=== PATIENT | male | born 1945 | race African-American/Black ===

== ENCOUNTER 2016-10-08 21:19 | Emergency (ER) | payer MEDICARE, BC ==
[~2016-10-08] VITALS: Ht 180.3 cm; Wt 93.9 kg
[~2016-10-08 21:19] MED LIST: AMLO-243 PO; AMLO1TAB6 PO; AMLO5TAB2 PO; ATOR40TA59 PO; BACL20TA PO; Baclofen PO; CHOL10007 PO; CIPR250T30 PO; DAPS25TA PO; Enoxaparin Sodium SQ; METO5TAB55 PO; NYST60PO TP; OXYB10TA PO; OXYB5TAB PO; PANT40TA3 PO; PRED-220 PO; PRED1TAB3 PO; SULF1TAB24 PO; TAMS0.4C97 PO; TERA5CAP3 PO; TRIA1TAB2 PO; ZOLP5TAB PO
--- NOTE | 2016-10-08 22:13 | PHYS DOC ---
Past Medical History Past Medical History: High Cholesterol, Hypertension, Prostatitis Additional Past Medical Histor: MS Past Surgical History: Tonsillectomy Additional Past Surgical Histo: hernia Alcohol Use: None Drug Use: None Adult General Chief Complaint Chief Complaint: WEAKNESS/GENERALIZED HPI HPI Patient is a 71 year old male who presents with complaint of generalized weakness and loss of appetite over the past 2-3 days. The patient lives at home and is taken care of by his . Patient is bedbound at baseline with history of MS, hypertension, hyperlipidemia. Patient has a chronic indwelling Walls. Patient has had history of urinary tract infections due to chronic indwelling Walls. Patient denies any pain, fever, or vomiting. The patient describes his symptoms is not having enough energy compared to his baseline. Patient's family brought the patient to the emergency department as they're concerned he may have a urinary tract infection. Review of Systems Review of Systems Constitutional: Generalized fatigue, Denies fever or chills [] Eyes: Denies change in visual acuity, redness, or eye pain [] HENT: Denies nasal congestion or sore throat [] Respiratory: Denies cough or shortness of breath [] Cardiovascular: Denies chest pain or edema [] GI: Loss of appetite, denies abdominal pain, nausea, vomiting, bloody stools or diarrhea [] : Foul-smelling urine [] Musculoskeletal: Denies back pain or joint pain [] Integument: Denies rash or skin lesions [] Neurologic: Denies headache, focal weakness or sensory changes [] Current Medications Current Medications Current Medications Medications (Trade) Dose Ordered Sig/Génesis Start Time Stop Time Status Last Admin Dose Admin Ceftriaxone Sodium (Rocephin 1gm Ivpb For Omni) 50 ml @ 100 mls/hr 1X ONCE 10/08/16 23:30 10/08/16 23:59 Ondansetron HCl 4 mg 4 mg 1X ONCE 10/08/16 22:15 10/08/16 22:16 DC 10/08/16 22:14 4 MG Sodium Chloride (Iv Sodium Chloride 0.9% 500ml Bag) 500 ml @ 500 mls/hr 1X ONCE 10/08/16 22:15 10/08/16 23:14 DC 10/08/16 22:11 500 MLS/HR Allergies Allergies Allergies Coded Allergies Type Severity Reaction Last Updated Verified No Known Drug Allergies 04/30/14 No Physical Exam Physical Exam Constitutional: Alert, afebrile, appears chronically poor health. [] HENT: Normocephalic, atraumatic, bilateral external ears normal, oropharynx moist, no oral exudates, nose normal. [] Eyes: PERRLA, EOMI, conjunctiva normal, no discharge. [] Neck: Normal range of motion, no tenderness, supple, no stridor. [] Cardiovascular: Tachycardia, regular rhythm, no murmur [] Lungs & Thorax: Bilateral breath sounds clear to auscultation [] Abdomen: Bowel sounds normal, soft, no tenderness, no masses, no pulsatile masses. [] Skin: Warm, dry, no erythema, no rash. [] Back: No tenderness, no CVA tenderness. [] Extremities: Multiple erosions present in bilateral medial thighs, no erythema or purulent drainage, no tenderness, no cyanosis, no clubbing, ROM intact, no edema. [] Neurologic: Alert and oriented X 3, bilateral upper and lower extremity 4 out of 5 motor strength, no focal deficits noted. [] Current Patient Data Vital Signs Vital Signs Date Time Temp Pulse Resp B/P Pulse Ox O2 Delivery O2 Flow Rate FiO2 10/08/16 21:19 98.7 99 14 147/82 97 Room Air 98.7 Lab Values Laboratory Tests Test 10/08/16 22:00 10/08/16 22:34 White Blood Count 13.6x10^3/uL (4.0-11.0) H Red Blood Count 4.99x10^6/uL (4.30-5.70) Hemoglobin 13.3g/dL (13.0-17.5) Hematocrit 38.7% (39.0-53.0) L Mean Corpuscular Volume 77fL (79-100) L Mean Corpuscular Hemoglobin 27pg (25-35) Mean Corpuscular Hemoglobin Concent 35g/dL (31-37) Red Cell Distribution Width 17.8% (11.5-14.5) H Platelet Count 369x10^3/uL (140-400) Neutrophils (%) (Auto) 87% (31-73) H Lymphocytes (%) (Auto) 11% (24-48) L Monocytes (%) (Auto) 1% (0-9) Eosinophils (%) (Auto) 0% (0-3) Basophils (%) (Auto) 0% (0-3) Neutrophils # (Auto) 11.9x10^3uL (1.8-7.7) H Lymphocytes # (Auto) 1.5x10^3/uL (1.0-4.8) Monocytes # (Auto) 0.1x10^3/uL (0.0-1.1) Eosinophils # (Auto) 0.0x10^3/uL (0.0-0.7) Basophils # (Auto) 0.0x10^3/uL (0.0-0.2) Platelet Estimate Pending Sodium Level 130mmol/L (136-145) L Potassium Level 4.0mmol/L (3.5-5.1) Chloride Level 93mmol/L (98-107) L Carbon Dioxide Level 25mmol/L (21-32) Anion Gap 12 (6-14) Blood Urea Nitrogen 9mg/dL (8-26) Creatinine 0.9mg/dL (0.7-1.3) Estimated GFR (Cockcroft-Gault) 100.7 BUN/Creatinine Ratio 10 (6-20) Glucose Level 196mg/dL (70-99) H Calcium Level 9.1mg/dL (8.5-10.1) Magnesium Level 1.7mg/dL (1.8-2.4) L Total Bilirubin 0.4mg/dL (0.2-1.0) Aspartate Amino Transferase (AST) 10U/L (15-37) L Alanine Aminotransferase (ALT) 20U/L (16-63) Alkaline Phosphatase 119U/L (46-116) H Total Protein 6.7g/dL (6.4-8.2) Albumin 2.9g/dL (3.4-5.0) L Albumin/Globulin Ratio 0.8 (1.0-1.7) L Urine Collection Type U cath Urine Color Yellow Urine Clarity Turbid Urine pH 7.5 Urine Specific [place] 1.020 Urine Protein 30mg/dL (NEG-TRACE) Urine Glucose (UA) Negativemg/dL (NEG) Urine Ketones (Stick) Tracemg/dL (NEG) Urine Blood Large (NEG) Urine Nitrite Negative (NEG) Urine Bilirubin Small (NEG) Urine Urobilinogen Dipstick 1.0mg/dL (0.2 mg/dL) Urine Leukocyte Esterase Large (NEG) Urine RBC 1-2/HPF (0-2) Urine WBC Tntc/HPF (0-4) Urine Squamous Epithelial Cells Occ/LPF Urine Bacteria Many/HPF (0-FEW) Urine Mucus Mod/LPF Laboratory Tests 10/08/16 22:00 Laboratory Tests 10/08/16 22:00 EKG EKG Interpreted by me: Heart rate 101, sinus tachycardia, normal intervals, normal axis, no acute ST/T-wave abnormalities present [] Radiology/Procedures Radiology/Procedures Not performed [] Course & Med Decision Making Course & Med Decision Making Pertinent Labs and Imaging studies reviewed. (See chart for details) The patient was given IV fluids. Patient found to have evidence of urinary tract infection. The patient's previous urine cultures were reference. The patient's last urinary tract infection did show susceptibility to cephalosporins. Patient given IV Rocephin in the emergency department. I sat and spoke with the patient patient's family regarding treatment options including inpatient versus outpatient therapy. After carefully considering his options, the patient decided that he wanted to go home and declined admission to the hospital at this time. I do not feel this to be unreasonable. The patient will be prescribed Vantin for continued treatment of urinary tract infection. Recommended close follow-up with patient's primary doctor in 2 days and return to the emergency department for any worsening symptoms. Patient patient's family voiced understanding and in agreement with treatment plan. Dragon Disclaimer Dragon Disclaimer This electronic medical record was generated, in whole or in part, using a voice recognition dictation system. Departure Departure Impression: Primary Impression: UTI (urinary tract infection) due to urinary indwelling catheter Additional Impression: Multiple sclerosis Disposition: 01 HOME, SELF-CARE Condition: IMPROVED Referrals: LUPE COLES MD (PCP) Patient Instructions: Urinary Tract Infection Additional Instructions: Follow-up with your primary doctor in 2 days. Return to emergency department for any worsening symptoms. Scripts Cefpodoxime Proxetil 200 Mg Tablet1 Tab PO BID #20 TAB Prov:CHIARA SO MD 10/08/16 Problem Qualifiers Primary Impression: UTI (urinary tract infection) due to urinary indwelling catheter Indwelling urinary catheter type: indwelling urethral catheter Encounter type : subsequent encounter Qualified Code: T83.511D - Infection and inflammatory reaction due to indwelling urethral catheter, subsequent encounter CHIARA SO MD Oct 08, 2016 22:13
[2016-10-08] MEDS ORDERED: ONDANSETRON PF 4 MG/2 ML VIAL. IV ONE (22:15)
[2016-10-08] MEDS ORDERED: IV NORMAL SALINE 500ML BAG 500 ML IV ONE (22:15)
[2016-10-08 22:24] LABS: BASO % 0 % (0-3); EOS % 0 % (0-3); HEMATOCRIT 38.7 % (39.0-53.0); HEMOGLOBIN 13.3 g/dL (13.0-17.5); LYMPH # 1.5 x10^3/uL (1.0-4.8); LYMPH % 11 % (24-48); MEAN CORPUSCULAR HEMOGLOBIN 27 pg (25-35); MEAN CORPUSCULAR HGB CONC 35 g/dL (31-37); MEAN CORPUSCULAR VOLUME 77 fL (79-100); MONO % 1 % (0-9); NEUT % 87 % (31-73); PLATELET COUNT 369 x10^3/uL (140-400); RED BLOOD COUNT 4.99 x10^6/uL (4.30-5.70); RED CELL DISTRIBUTION WIDTH 17.8 % (11.5-14.5); WHITE BLOOD COUNT 13.6 x10^3/uL (4.0-11.0)
[2016-10-08 22:50] LABS: BILIRUBIN,URINE SMALL (NEG); GLUCOSE,URINE NEGATIVE (NEG); NITRITE,URINE NEGATIVE (NEG); PH,URINE 7.5; PROTEIN,URINE 30 mg/dL (NEG-TRACE)
[2016-10-08 22:56] LABS: CALCIUM 9.1 mg/dL (8.5-10.1); CREATININE 0.9 mg/dL (0.7-1.3); GFR 100.7
[2016-10-08 23:03] LABS: ALBUMIN 2.9 g/dL (3.4-5.0); ALBUMIN/GLOBULIN RATIO 0.8 (1.0-1.7); MAGNESIUM 1.7 mg/dL (1.8-2.4); TOTAL BILIRUBIN 0.4 mg/dL (0.2-1.0); TOTAL PROTEIN 6.7 g/dL (6.4-8.2)
[2016-10-08 23:04] LABS: BACTERIA,URINE MANY /HPF (0-FEW); SQUAMOUS EPITHELIAL CELL,UR OCC /LPF; WBC,URINE TNTC /HPF (0-4)
[2016-10-08] MEDS ORDERED: CEFTRIAXONE 1GM IVPB FOR OMNI 50 ML IV ONE (23:30)
[2016-10-08] MEDS ORDERED: CEFP200T PO (23:35)
[2016-10-09 00:01] LABS: % EOS 1 % (0-5); PLT ESTIMATE ADEQUATE (ADEQUATE)
[2016-10-09 00:02] LABS: ANISOCYTOSIS SLIGHT
[2016-10-09 00:30] VITALS: BP 132/83
--- NOTE | 2016-10-09 11:26 | EKG ---
[facility] [address] [place] [address] Test Date: 2016-10-08 Test Time: 21:24:21 Pat Name: ALFRED HUDSON Department: Room: Gender: M Business Relationship Manager: : 1945 Requested By: CHIARA SO Order Number: [id number] Reading MD: Measurements Intervals [place] Rate: 101 P: 16 AL: 170 QRS: 31 QRSD: 74 T: 52 QT: 328 QTc: 426 Interpretive Statements SINUS TACHYCARDIA LEFT ATRIAL ABNORMALITY LOW LIMB LEAD VOLTAGE ABNORMAL ECG RI6.01 No previous ECG available for comparison
== END 2016-10-09 00:15 | disposition home or self-care (01) ==
LOC: ER 21:19
DX: T83.511D Infection and inflammatory reaction due to indwelling urethral catheter, subsequent encounter (principal); G35 Multiple sclerosis; E78.00 Pure hypercholesterolemia, unspecified; I10 Essential (primary) hypertension; Z98.890 Other specified postprocedural states; Y84.6 Urinary catheterization as the cause of abnormal reaction of the patient, or of later complication, without mention of misadventure at the time of the procedure; Y92.89 Other specified places as the place of occurrence of the external cause
CPT/HCPCS: 36415; 80053; 81001; 83735; 85007; 85027; 87086; 93005; 96361; 96365; 96375; 99285; J0690; J2405; J7040

== ENCOUNTER 2017-08-17 12:12 | Inpatient (IN) | payer MEDICARE, BC ==
[2017-08-17] MEDS: IV NORMAL SALINE 1000ML BAG 1,000 ML IV ×6 (12:38→23:11)
[2017-08-17 12:45] LABS: BASE EXCESS ABG -1 mmol/L (-3-3); HCO3 ABG 21 mmol/L (21-28); PCO2 ABG 25 mmHg (35-46); PH ABG 7.52 (7.35-7.45); PO2 ABG 76 mmHg (65-108); SAT O2 ABG 95 % (92-99)
[2017-08-17 12:49] LABS: BILIRUBIN,URINE LARGE (NEG); CLARITY,URINE TURBID; COLOR,URINE RED; GLUCOSE,URINE 100 mg/dL (NEG); NITRITE,URINE POSITIVE (NEG); PROTEIN,URINE >=300 mg/dL (NEG-TRACE)
[2017-08-17 13:04] LABS: BACTERIA,URINE MANY /HPF (0-FEW); BASO # 0.1 x10^3/uL (0.0-0.2); BASO % 0 % (0-3); EOS # 0.1 x10^3/uL (0.0-0.7); EOS % 0 % (0-3); HEMATOCRIT 39.7 % (39.0-53.0); HEMOGLOBIN 13.5 g/dL (13.0-17.5); LYMPH # 4.6 x10^3/uL (1.0-4.8); LYMPH % 12 % (24-48); MEAN CORPUSCULAR HEMOGLOBIN 28 pg (25-35); MEAN CORPUSCULAR HGB CONC 34 g/dL (31-37); MEAN CORPUSCULAR VOLUME 82 fL (79-100); MONO # 1.1 x10^3/uL (0.0-1.1); MONO % 3 % (0-9); NEUT # 32.4 x10^3uL (1.8-7.7); NEUT % 85 % (31-73); PLATELET COUNT 409 x10^3/uL (140-400); RBC,URINE TNTC /HPF (0-2); RED BLOOD COUNT 4.85 x10^6/uL (4.30-5.70); RED CELL DISTRIBUTION WIDTH 17.6 % (11.5-14.5); WBC,URINE TNTC /HPF (0-4); WHITE BLOOD COUNT 38.3 x10^3/uL (4.0-11.0)
[2017-08-17 13:05] LABS: ADD MAN DIFF? YES
[2017-08-17] MEDS: ACETAMINOPHEN 650 MG SUPP.RECT. PR (13:12)
[2017-08-17 13:23] LABS: INR 1.3 (0.8-1.1); PROTHROMBIN TIME PATIENT 15.1 SEC (11.7-14.0)
[2017-08-17 13:35] LABS: ANION GAP 12 (6-14); BLOOD UREA NITROGEN 30 mg/dL (8-26); CALCIUM 7.8 mg/dL (8.5-10.1); CARBON DIOXIDE 24 mmol/L (21-32); CHLORIDE 97 mmol/L (98-107); CREATININE 2.7 mg/dL (0.7-1.3); GFR 28.2; GLUCOSE 109 mg/dL (70-99); POTASSIUM 4.8 mmol/L (3.5-5.1); SODIUM 133 mmol/L (136-145)
[2017-08-17 13:45] LABS: ALBUMIN 2.1 g/dL (3.4-5.0); ALK PHOS 89 U/L (46-116); ALT (SGPT) 8 U/L (16-63); AST (SGOT) 9 U/L (15-37); DIRECT BILIRUBIN 0.4 mg/dL (0.0-0.2); LIPASE 44 U/L (73-393); MAGNESIUM 1.4 mg/dL (1.8-2.4); TOTAL BILIRUBIN 1.4 mg/dL (0.2-1.0)
[2017-08-17 13:53] LABS: AMMONIA < 10 mcmol/L (11-34)
[2017-08-17 13:57] LABS: CREATINE KINASE 22 U/L (39-308)
[2017-08-17 13:57] LABS: NT-PRO BNP 2529 pg/mL (0-124)
[2017-08-17 14:03] LABS: CKMB INDEX 2.3 % (0-4); CKMB MASS < 0.5 ng/mL (0.0-3.6)
[2017-08-17 14:09] LABS: INFLUENZA A PATIENT NEGATIVE (NEGATIVE); INFLUENZA B PATIENT NEGATIVE (NEGATIVE); OBC FLU VALID
[2017-08-17 14:25] LABS: LACTIC ACID 4.2 mmol/L (0.4-2.0)
[2017-08-17 14:29] LABS: % BANDS 8 % (0-9); % BASOS 1 % (0-3); % LYMPHS 11 % (24-48); % MONOS 1 % (0-10); % SEGS 79 % (35-66)
[2017-08-17] MEDS ORDERED: ONDANSETRON PF 4 MG/2 ML VIAL. IV ×2 (14:30→18:30)
[2017-08-17 14:33] LABS: ANISOCYTOSIS SLIGHT; PLT ESTIMATE ADEQUATE (ADEQUATE); POLYCHROMASIA SLIGHT
[2017-08-17 14:34] LABS: TOXIC GRANULATION SLIGHT
[2017-08-17 16:43] LABS: LACTIC ACID 1.6 mmol/L (0.4-2.0)
[2017-08-17] MEDS ORDERED: MORPHINE SULFATE 2 MG/ML DISP.SYRIN. IV (18:30)
[2017-08-17] MEDS ORDERED: VANCOMYCIN 2 GM in IV DEXTROSE 5% 500 ML IV (18:30)
[2017-08-17] MEDS ORDERED: traMADol 50 MG TABLET PO (18:30)
[2017-08-17] MEDS ORDERED: INFLUENZA VAX SCREEN BY RX. MC (18:30)
[2017-08-17] MEDS ORDERED: hydrALAZINE 20 MG/ML VIAL. IVP (18:30)
[2017-08-17] MEDS ORDERED: PNEUMOCOCCAL VAX SCREEN BY RX. MC (18:30)
[2017-08-17] MEDS ORDERED: DOCUSATE SODIUM 100 MG CAPSULE. PO (18:30)
[2017-08-17] MEDS: CEFEPIME HCL IV Push 1 GM VIAL. IVP (19:22)
[2017-08-17] MEDS: VANCOMYCIN 2 GM in IV DEXTROSE 5 %-0.2 % NACL 500 ML IV (19:23)
[2017-08-17] MEDS ORDERED: ACETAMINOPHEN 325 MG TABLET. PO (19:30)
[2017-08-17] MEDS: VANCOMYCIN PER PHARMACY MC ×2 (19:41→19:43)
[2017-08-17] MEDS: OXYBUTYNIN CHLORIDE 5 MG TABLET PO (20:29)
[2017-08-17 21:26] LABS: TROPONINI < 0.017 ng/mL (0.000-0.055)
[2017-08-17] MEDS: MAGNESIUM SULFATE 4GM 100 ML IV (21:45)
[2017-08-17] MEDS: HEPARIN PF for SUB-Q USE 5,000 UNIT/0.5 ML VIAL. SQ (21:45)
[2017-08-17] MEDS ORDERED: CEFEPIME HCL 1 GM in IV DEXTROSE 5% 50 ML IV (22:00)
[2017-08-17] MEDS: NOREPINEPHRIN PREMIX 250 ML IV (23:20)
[2017-08-17] MEDS: ACETAMINOPHEN 325 MG TABLET. PO (23:35)
[2017-08-18] MEDS: VASOPRESSIN 40 UNIT in IV DEXTROSE 5% 100 ML IV (00:41)
[2017-08-18 03:50] LABS: ADD MAN DIFF? NO
[2017-08-18 03:54] LABS: BASO # 0.2 x10^3/uL (0.0-0.2); BASO % 0 % (0-3); EOS % 0 % (0-3); HEMATOCRIT 35.6 % (39.0-53.0); HEMOGLOBIN 11.9 g/dL (13.0-17.5); LYMPH # 4.7 x10^3/uL (1.0-4.8); LYMPH % 11 % (24-48); MEAN CORPUSCULAR HEMOGLOBIN 28 pg (25-35); MEAN CORPUSCULAR HGB CONC 33 g/dL (31-37); MEAN CORPUSCULAR VOLUME 83 fL (79-100); MONO # 1.3 x10^3/uL (0.0-1.1); MONO % 3 % (0-9); NEUT # 35.7 x10^3uL (1.8-7.7); NEUT % 85 % (31-73); PLATELET COUNT 366 x10^3/uL (140-400); RED BLOOD COUNT 4.31 x10^6/uL (4.30-5.70)
[2017-08-18] MEDS: IV NORMAL SALINE 1000ML BAG 1,000 ML IV ×2 (04:06→20:58)
[2017-08-18 04:10] LABS: ALBUMIN 1.7 g/dL (3.4-5.0); ALBUMIN/GLOBULIN RATIO 0.6 (1.0-1.7); ALK PHOS 78 U/L (46-116); ALT (SGPT) 8 U/L (16-63); ANION GAP 13 (6-14); AST (SGOT) 13 U/L (15-37); BLOOD UREA NITROGEN 33 mg/dL (8-26); BUN/CREATININE RATIO 14 (6-20); CARBON DIOXIDE 19 mmol/L (21-32); CHLORIDE 99 mmol/L (98-107); CREATININE 2.3 mg/dL (0.7-1.3); GLUCOSE 128 mg/dL (70-99); POTASSIUM 4.6 mmol/L (3.5-5.1); SODIUM 131 mmol/L (136-145); TOTAL BILIRUBIN 0.9 mg/dL (0.2-1.0); TOTAL PROTEIN 4.4 g/dL (6.4-8.2)
[2017-08-18 04:16] LABS: TROPONINI < 0.017 ng/mL (0.000-0.055)
[2017-08-18 04:19] LABS: WHITE BLOOD COUNT 41.9 x10^3/uL (4.0-11.0)
[2017-08-18] MEDS: NOREPINEPHRIN PREMIX 250 ML IV ×2 (04:38→20:58)
[2017-08-18] MEDS: HEPARIN PF for SUB-Q USE 5,000 UNIT/0.5 ML VIAL. SQ ×3 (05:42→20:57)
[2017-08-18] MEDS: VANCOMYCIN PER PHARMACY MC (08:22)
[2017-08-18] MEDS: OXYBUTYNIN CHLORIDE 5 MG TABLET PO ×2 (09:51→20:56)
[2017-08-18] MEDS: CEFEPIME HCL IV Push 1 GM VIAL. IVP ×2 (09:51→20:56)
[2017-08-18] MEDS ORDERED: MAGNESIUM SULFATE 2GM 50 ML IV (11:15)
[2017-08-18 11:24] LABS: C DIFF BY PCR Negative (Negative)
[2017-08-18] MEDS ORDERED: VITS A & D/LANOLIN TOPICAL OINTMENT 56GM TUBE. TP (12:45)
[2017-08-18] MEDS: ASCORBIC ACID 500 MG TABLET PO (13:08)
[2017-08-18] MEDS: MULTIVITAMIN with MINERAL TABLET. PO (13:09)
[2017-08-18] MEDS: LINEZOLID 600 MG TABLET PO ×2 (13:09→20:55)
[2017-08-18 19:13] LABS: MRSA BY PCR Negative (Negative)
[2017-08-18] MEDS ORDERED: VANCOMYCIN 1.25 GM in IV DEXTROSE 5 %-0.2 % NACL 500 ML IV (20:00)
[2017-08-19] MEDS: IV NORMAL SALINE 1000ML BAG 1,000 ML IV ×4 (00:37→22:56)
[2017-08-19] MEDS: BACLOFEN 10 MG TABLET. PO ×2 (00:37→09:44)
[2017-08-19 05:18] LABS: ADD MAN DIFF? NO
[2017-08-19 05:54] LABS: BASO # 0.1 x10^3/uL (0.0-0.2); BASO % 0 % (0-3); EOS # 0.4 x10^3/uL (0.0-0.7); EOS % 1 % (0-3); HEMOGLOBIN 10.1 g/dL (13.0-17.5); LYMPH # 3.9 x10^3/uL (1.0-4.8); LYMPH % 12 % (24-48); MEAN CORPUSCULAR HEMOGLOBIN 28 pg (25-35); MEAN CORPUSCULAR HGB CONC 34 g/dL (31-37); MEAN CORPUSCULAR VOLUME 82 fL (79-100); MONO # 0.9 x10^3/uL (0.0-1.1); MONO % 3 % (0-9); NEUT # 28.5 x10^3uL (1.8-7.7); NEUT % 85 % (31-73); PLATELET COUNT 353 x10^3/uL (140-400); RED BLOOD COUNT 3.66 x10^6/uL (4.30-5.70); RED CELL DISTRIBUTION WIDTH 17.5 % (11.5-14.5); WHITE BLOOD COUNT 33.8 x10^3/uL (4.0-11.0)
[2017-08-19] MEDS: HEPARIN PF for SUB-Q USE 5,000 UNIT/0.5 ML VIAL. SQ ×3 (05:54→21:09)
[2017-08-19 06:04] LABS: MAGNESIUM 2.3 mg/dL (1.8-2.4)
[2017-08-19 06:15] LABS: ALBUMIN 1.6 g/dL (3.4-5.0); ANION GAP 10 (6-14); BLOOD UREA NITROGEN 24 mg/dL (8-26); CALCIUM 7.6 mg/dL (8.5-10.1); CARBON DIOXIDE 23 mmol/L (21-32); CHLORIDE 101 mmol/L (98-107); CREATININE 1.5 mg/dL (0.7-1.3); GFR 55.7; GLUCOSE 98 mg/dL (70-99); PHOSPHORUS 3.6 mg/dL (2.6-4.7); POTASSIUM 3.9 mmol/L (3.5-5.1); SODIUM 134 mmol/L (136-145)
[2017-08-19] MEDS: LINEZOLID 600 MG TABLET PO (09:44)
[2017-08-19] MEDS: MULTIVITAMIN with MINERAL TABLET. PO (09:44)
[2017-08-19] MEDS: OXYBUTYNIN CHLORIDE 5 MG TABLET PO ×2 (09:44→20:58)
[2017-08-19] MEDS: ASCORBIC ACID 500 MG TABLET PO (09:44)
[2017-08-19] MEDS: CEFEPIME HCL IV Push 1 GM VIAL. IVP ×2 (10:17→20:59)
[2017-08-19] MEDS: LACTOBACILLUS RHAMNOSUS GG 1 CAPSULE. PO (20:59)
[2017-08-20] MEDS: HEPARIN PF for SUB-Q USE 5,000 UNIT/0.5 ML VIAL. SQ ×3 (05:20→21:01)
[2017-08-20 05:57] LABS: ADD MAN DIFF? NO
[2017-08-20 06:26] LABS: BASO % 0 % (0-3); EOS # 0.4 x10^3/uL (0.0-0.7); EOS % 2 % (0-3); HEMATOCRIT 27.6 % (39.0-53.0); HEMOGLOBIN 9.5 g/dL (13.0-17.5); LYMPH # 2.4 x10^3/uL (1.0-4.8); LYMPH % 12 % (24-48); MEAN CORPUSCULAR HEMOGLOBIN 28 pg (25-35); MEAN CORPUSCULAR HGB CONC 34 g/dL (31-37); MEAN CORPUSCULAR VOLUME 82 fL (79-100); MONO # 0.5 x10^3/uL (0.0-1.1); MONO % 3 % (0-9); NEUT # 16.4 x10^3uL (1.8-7.7); NEUT % 83 % (31-73); PLATELET COUNT 243 x10^3/uL (140-400); RED BLOOD COUNT 3.39 x10^6/uL (4.30-5.70); RED CELL DISTRIBUTION WIDTH 17.2 % (11.5-14.5); WHITE BLOOD COUNT 19.8 x10^3/uL (4.0-11.0)
[2017-08-20 06:39] LABS: ALBUMIN 1.5 g/dL (3.4-5.0); ANION GAP 7 (6-14); BLOOD UREA NITROGEN 19 mg/dL (8-26); CALCIUM 7.9 mg/dL (8.5-10.1); CARBON DIOXIDE 24 mmol/L (21-32); CHLORIDE 106 mmol/L (98-107); GFR 88.9; GLUCOSE 108 mg/dL (70-99); PHOSPHORUS 2.1 mg/dL (2.6-4.7); POTASSIUM 3.6 mmol/L (3.5-5.1); SODIUM 137 mmol/L (136-145)
[2017-08-20 06:42] LABS: MAGNESIUM 1.8 mg/dL (1.8-2.4)
[2017-08-20] MEDS: ASCORBIC ACID 500 MG TABLET PO (09:03)
[2017-08-20] MEDS: LACTOBACILLUS RHAMNOSUS GG 1 CAPSULE. PO ×2 (09:03→20:50)
[2017-08-20] MEDS: MULTIVITAMIN with MINERAL TABLET. PO (09:03)
[2017-08-20] MEDS: OXYBUTYNIN CHLORIDE 5 MG TABLET PO ×2 (09:03→20:50)
[2017-08-20] MEDS: CEFEPIME HCL IV Push 1 GM VIAL. IVP ×2 (11:19→20:50)
[2017-08-20] MEDS: IV NORMAL SALINE 1000ML BAG 1,000 ML IV (11:20)
[2017-08-20] MEDS: POTASSIUM PHOSPHATE DIBASIC 13.6 MMOL in IV NORMAL SALINE 100ML 100 ML IV ×3 (14:25→18:50)
[2017-08-21] MEDS: HEPARIN PF for SUB-Q USE 5,000 UNIT/0.5 ML VIAL. SQ ×3 (04:52→20:56)
[2017-08-21 07:47] LABS: ALBUMIN 1.6 g/dL (3.4-5.0); ANION GAP 8 (6-14); BLOOD UREA NITROGEN 14 mg/dL (8-26); CALCIUM 7.6 mg/dL (8.5-10.1); CARBON DIOXIDE 25 mmol/L (21-32); CHLORIDE 104 mmol/L (98-107); CREATININE 0.8 mg/dL (0.7-1.3); GLUCOSE 101 mg/dL (70-99); MAGNESIUM 1.3 mg/dL (1.8-2.4); PHOSPHORUS 2.6 mg/dL (2.6-4.7); POTASSIUM 3.9 mmol/L (3.5-5.1); SODIUM 137 mmol/L (136-145)
[2017-08-21] MEDS: OXYBUTYNIN CHLORIDE 5 MG TABLET PO ×2 (08:32→20:50)
[2017-08-21] MEDS: ASCORBIC ACID 500 MG TABLET PO (08:32)
[2017-08-21] MEDS: MULTIVITAMIN with MINERAL TABLET. PO (08:32)
[2017-08-21] MEDS: LACTOBACILLUS RHAMNOSUS GG 1 CAPSULE. PO ×2 (08:32→20:50)
[2017-08-21] MEDS: CEFEPIME HCL IV Push 1 GM VIAL. IVP ×2 (09:23→20:50)
[2017-08-21] MEDS: FLU VACC QS2017-18 (36MOS+)/PF 0.5 ML SYRINGE. VAX IM (14:22)
[2017-08-21] MEDS: PNEUMOC CONJ VACC 23-VALENT 0.5 ML VIAL. VAX IM (14:24)
[2017-08-21] MEDS: ACETAMINOPHEN 325 MG TABLET. PO (20:50)
[2017-08-22 05:29] LABS: ALBUMIN 1.8 g/dL (3.4-5.0); ANION GAP 9 (6-14); BLOOD UREA NITROGEN 14 mg/dL (8-26); CALCIUM 8.4 mg/dL (8.5-10.1); CARBON DIOXIDE 26 mmol/L (21-32); CHLORIDE 103 mmol/L (98-107); CREATININE 0.8 mg/dL (0.7-1.3); GLUCOSE 104 mg/dL (70-99); MAGNESIUM 1.3 mg/dL (1.8-2.4); PHOSPHORUS 2.6 mg/dL (2.6-4.7); POTASSIUM 3.7 mmol/L (3.5-5.1); SODIUM 138 mmol/L (136-145)
[2017-08-22] MEDS: HEPARIN PF for SUB-Q USE 5,000 UNIT/0.5 ML VIAL. SQ ×3 (05:51→22:25)
[2017-08-22] MEDS: ASCORBIC ACID 500 MG TABLET PO (08:47)
[2017-08-22] MEDS: MULTIVITAMIN with MINERAL TABLET. PO (08:48)
[2017-08-22] MEDS: LACTOBACILLUS RHAMNOSUS GG 1 CAPSULE. PO ×2 (08:48→22:24)
[2017-08-22] MEDS: OXYBUTYNIN CHLORIDE 5 MG TABLET PO ×2 (08:48→22:24)
[2017-08-22] MEDS: CEFEPIME HCL IV Push 1 GM VIAL. IVP ×2 (08:49→22:30)
[2017-08-22 12:08] LABS: ADD MAN DIFF? NO
[2017-08-22 12:14] LABS: BASO # 0.1 x10^3/uL (0.0-0.2); BASO % 1 % (0-3); EOS # 0.5 x10^3/uL (0.0-0.7); EOS % 4 % (0-3); HEMATOCRIT 28.6 % (39.0-53.0); HEMOGLOBIN 9.6 g/dL (13.0-17.5); LYMPH # 2.7 x10^3/uL (1.0-4.8); LYMPH % 21 % (24-48); MEAN CORPUSCULAR HEMOGLOBIN 28 pg (25-35); MEAN CORPUSCULAR HGB CONC 34 g/dL (31-37); MEAN CORPUSCULAR VOLUME 83 fL (79-100); MONO # 0.9 x10^3/uL (0.0-1.1); MONO % 7 % (0-9); NEUT % 68 % (31-73); PLATELET COUNT 281 x10^3/uL (140-400); RED BLOOD COUNT 3.46 x10^6/uL (4.30-5.70); RED CELL DISTRIBUTION WIDTH 17.2 % (11.5-14.5); WHITE BLOOD COUNT 13.2 x10^3/uL (4.0-11.0)
[2017-08-23] MEDS: HEPARIN PF for SUB-Q USE 5,000 UNIT/0.5 ML VIAL. SQ ×3 (05:38→22:01)
[2017-08-23 06:27] LABS: ALBUMIN 1.9 g/dL (3.4-5.0); ANION GAP 8 (6-14); BLOOD UREA NITROGEN 12 mg/dL (8-26); CALCIUM 8.1 mg/dL (8.5-10.1); CARBON DIOXIDE 29 mmol/L (21-32); CHLORIDE 103 mmol/L (98-107); CREATININE 0.8 mg/dL (0.7-1.3); GLUCOSE 107 mg/dL (70-99); MAGNESIUM 1.4 mg/dL (1.8-2.4); PHOSPHORUS 3.2 mg/dL (2.6-4.7); POTASSIUM 3.5 mmol/L (3.5-5.1); SODIUM 140 mmol/L (136-145)
[2017-08-23] MEDS: OXYBUTYNIN CHLORIDE 5 MG TABLET PO ×2 (08:11→21:58)
[2017-08-23] MEDS: LACTOBACILLUS RHAMNOSUS GG 1 CAPSULE. PO ×2 (08:11→21:58)
[2017-08-23] MEDS: MULTIVITAMIN with MINERAL TABLET. PO (08:11)
[2017-08-23] MEDS: ASCORBIC ACID 500 MG TABLET PO (08:11)
[2017-08-23] MEDS: CEFEPIME HCL IV Push 1 GM VIAL. IVP ×2 (09:49→22:04)
[2017-08-23] MEDS: VITS A & D/LANOLIN TOPICAL OINTMENT 56GM TUBE. TP ×2 (14:34→22:08)
[2017-08-23] MEDS: ACETAMINOPHEN 325 MG TABLET. PO (21:59)
[2017-08-24 05:10] LABS: ALBUMIN 1.9 g/dL (3.4-5.0); ANION GAP 10 (6-14); BLOOD UREA NITROGEN 15 mg/dL (8-26); CALCIUM 8.4 mg/dL (8.5-10.1); CARBON DIOXIDE 26 mmol/L (21-32); CHLORIDE 104 mmol/L (98-107); CREATININE 0.8 mg/dL (0.7-1.3); GLUCOSE 106 mg/dL (70-99); PHOSPHORUS 3.1 mg/dL (2.6-4.7); POTASSIUM 3.6 mmol/L (3.5-5.1); SODIUM 140 mmol/L (136-145)
[2017-08-24] MEDS: HEPARIN PF for SUB-Q USE 5,000 UNIT/0.5 ML VIAL. SQ ×2 (05:20→14:37)
[2017-08-24] MEDS: CEFEPIME HCL IV Push 1 GM VIAL. IVP (08:56)
[2017-08-24] MEDS: VITS A & D/LANOLIN TOPICAL OINTMENT 56GM TUBE. TP ×2 (08:56→14:36)
[2017-08-24] MEDS: LACTOBACILLUS RHAMNOSUS GG 1 CAPSULE. PO (08:56)
[2017-08-24] MEDS: OXYBUTYNIN CHLORIDE 5 MG TABLET PO (08:56)
[2017-08-24] MEDS: ASCORBIC ACID 500 MG TABLET PO (08:56)
[2017-08-24] MEDS: MULTIVITAMIN with MINERAL TABLET. PO (08:56)
== END 2017-08-24 16:16 | disposition home health service (06) | DRG 698 ==
LOC: 5 NORTH 08-19 14:42 → ER 12:12 → 1 WEST ICU 14:00
DX: T83.518A Infection and inflammatory reaction due to other urinary catheter, initial encounter (principal); A41.9 Sepsis, unspecified organism; E43 Unspecified severe protein-calorie malnutrition; N17.9 Acute kidney failure, unspecified; N39.0 Urinary tract infection, site not specified; F03.90 Unspecified dementia, unspecified severity, without behavioral disturbance, psychotic disturbance, mood disturbance, and anxiety; G35 Multiple sclerosis; E74.39 Other disorders of intestinal carbohydrate absorption; E78.5 Hyperlipidemia, unspecified; E83.42 Hypomagnesemia; Z68.28 Body mass index [BMI] 28.0-28.9, adult; I10 Essential (primary) hypertension; K44.9 Diaphragmatic hernia without obstruction or gangrene; N28.1 Cyst of kidney, acquired; N31.9 Neuromuscular dysfunction of bladder, unspecified; N40.0 Benign prostatic hyperplasia without lower urinary tract symptoms; R09.02 Hypoxemia; Y84.6 Urinary catheterization as the cause of abnormal reaction of the patient, or of later complication, without mention of misadventure at the time of the procedure; Z66 Do not resuscitate; Z74.01 Bed confinement status; Z79.84 Long term (current) use of oral hypoglycemic drugs; Z82.49 Family history of ischemic heart disease and other diseases of the circulatory system; Z87.440 Personal history of urinary (tract) infections
CPT/HCPCS: 36415; 36600; 71045; 76770; 80048; 80053; 80069; 80076; 81001; 82140; 82553; 82805; 83605; 83690; 83735; 83880; 84443; 84484; 85007; 85025; 85610; 87040; 87086; 87186; 87324; 87641; 87804; 87804-59; 90686; 90732; 93005; 96361; 96365; 99291; 99291-25; J0690; J0692; J3370; J3475; J3490; J7030

== ENCOUNTER 2017-10-23 20:10 | Emergency (ER) | payer MEDICARE, BC ==
[2017-10-23 23:38] LABS: BILIRUBIN,URINE LARGE (NEG); CLARITY,URINE CLOUDY; COLOR,URINE RED; GLUCOSE,URINE NEGATIVE (NEG); NITRITE,URINE POSITIVE (NEG); PH,URINE 5.5; PROTEIN,URINE >=300 mg/dL (NEG-TRACE)
[2017-10-23 23:47] LABS: RBC,URINE TNTC /HPF (0-2)
[2017-10-23 23:48] LABS: BACTERIA,URINE MODERATE /HPF (0-FEW); HYALINE CASTS, URINE FEW /HPF; SQUAMOUS EPITHELIAL CELL,UR FEW /LPF
[2017-10-24] MEDS: CIPROFLOXACIN HCL 250 MG TABLET. PO (01:15)
== END 2017-10-24 02:35 | disposition home or self-care (01) ==
LOC: ER 10-24 02:35
DX: T83.83XA Hemorrhage due to genitourinary prosthetic devices, implants and grafts, initial encounter (principal); E78.00 Pure hypercholesterolemia, unspecified; I10 Essential (primary) hypertension; Y82.8 Other medical devices associated with adverse incidents; Y92.89 Other specified places as the place of occurrence of the external cause
CPT/HCPCS: 81001; 87086; 87186; 99284

== ENCOUNTER 2018-03-15 11:50 | Emergency (ER) | payer MEDICARE, BC ==
[~2018-03-15] VITALS: Ht 180.3 cm; Wt 84.8 kg
[~2018-03-15 11:50] MED LIST changes: -AMLO-243 PO; +AMLO-265 PO; -AMLO5TAB2 PO; +AMLO5TAB7 PO; +CEFP200T PO; +CEPH500C PO; +CHOL100013 PO; +CHOL100014 PO; -CHOL10007 PO; +CIPR500T94 PO; +METF500T16 PO; +OMEG-57 PO; +PRED20TA PO
[2018-03-15 12:49] LABS: BILIRUBIN,URINE NEGATIVE (NEG); CLARITY,URINE TURBID; COLOR,URINE YELLOW; NITRITE,URINE NEGATIVE (NEG); PH,URINE 7.5; PROTEIN,URINE 100 mg/dL (NEG-TRACE)
[2018-03-15 13:00] LABS: WBC,URINE TNTC /HPF (0-4)
[2018-03-15 13:01] LABS: BACTERIA,URINE MANY /HPF (0-FEW)
[2018-03-15] MEDS ORDERED: CEPH500T PO (13:34)
--- NOTE | 2018-03-15 13:45 | PHYS DOC ---
Past Medical History Past Medical History: High Cholesterol, Hypertension, Prostatitis Additional Past Medical Histor: MS--->Walls Cath Past Surgical History: Tonsillectomy Additional Past Surgical Histo: hernia Alcohol Use: None Drug Use: None Adult General Chief Complaint Chief Complaint: ABDOMINAL PAIN HPI HPI Patient is a 73 year old male who is presenting to the emergency room with a blocked Walls catheter. He has had only a little urine output for the last 12- 24 hours and is having intermittent sharp suprapubic pain slowly worsening no fever no vomiting otherwise eating well. Patient is bed bound at baseline due to multiple sclerosis last had a Walls change about 3 weeks back Review of Systems Review of Systems Constitutional: Denies fever or chills [] Eyes: Denies change in visual acuity, redness, or eye pain [] Negative for vomiting Integument: Neurologic: Denies headache, focal weakness or sensory changes [] Endocrine: Denies polyuria or polydipsia [] All other systems were reviewed and found to be within normal limits, except as documented in this note. Allergies Allergies Allergies Coded Allergies Type Severity Reaction Last Updated Verified No Known Drug Allergies 04/30/14 No Physical Exam Physical Exam Constitutional: Well developed, well nourished, no acute distress, non-toxic appearance. [] HENT: Normocephalic, atraumatic, bilateral external ears normal, oropharynx moist, no oral exudates, nose normal. [] Eyes: PERRLA, EOMI, conjunctiva normal, no discharge. [] Neck: Normal range of motion, no tenderness, supple, no stridor. [] Pulmonary: Normal respiratory effort no increased work of breathing no obvious chest wall trauma Abdomen: Bowel sounds normal, soft, mild suprapubic tenderness, no masses, no pulsatile masses. [] there is a Walls in place that does appear to have some small amount of urine with a lot of sediment Skin: Dry skin rash with occasional pustules on the face Back: No tenderness, no CVA tenderness. [] Extremities: No tenderness, no cyanosis, no clubbing, ROM intact, no edema. [] Neurologic: Alert and oriented X 3, normal motor function, normal sensory function, no focal deficits noted. [] Psychologic: Affect normal, judgement normal, mood normal. [] Current Patient Data Vital Signs Vital Signs Date Time Temp Pulse Resp B/P (MAP) Pulse Ox O2 Delivery O2 Flow Rate FiO2 03/15/18 11:52 97.9 107 20 165/95 (118) 97 Room Air 97.9 Lab Values Laboratory Tests Test 03/15/18 12:25 Urine Collection Type U cath Urine Color Yellow Urine Clarity Turbid Urine pH 7.5 Urine Specific [place] 1.020 Urine Protein 100 mg/dL (NEG-TRACE) Urine Glucose (UA) Negative mg/dL (NEG) Urine Ketones (Stick) Negative mg/dL (NEG) Urine Blood Moderate (NEG) Urine Nitrite Negative (NEG) Urine Bilirubin Negative (NEG) Urine Urobilinogen Dipstick 1.0 mg/dL (0.2 mg/dL) Urine Leukocyte Esterase Large (NEG) Urine RBC 11-20 /HPF (0-2) Urine WBC Tntc /HPF (0-4) Urine Bacteria Many /HPF (0-FEW) EKG EKG [] Radiology/Procedures Radiology/Procedures [] Course & Med Decision Making Course & Med Decision Making Pertinent Labs and Imaging studies reviewed. (See chart for details) []73-year-old male with a history of multiple sclerosis bedbound indwelling Walls catheter at baseline presenting with a clogged Walls catheter was replaced 350 ML's of urine came out right away urinalysis suggestive of infection I think we are going start the patient on some antibiotics while we wait for the urine culture given his previous history of there is no fever by history or examination so acute urinary tract infection seems less likely. Patient and discussed the discharge plan and voiced understanding unclear etiology of the skin rash on the face advise follow-up with dermatology keep moist Dragon Disclaimer Dragon Disclaimer This electronic medical record was generated, in whole or in part, using a voice recognition dictation system. Departure Departure Impression: Primary Impression: UTI (urinary tract infection) due to urinary indwelling catheter Disposition: 01 HOME, SELF-CARE Condition: IMPROVED Referrals: UNKNOWN PCP NAME (PCP) Patient Instructions: Walls Catheter Care, Adult Scripts Cephalexin (CEPHALEXIN) 500 Mg Tablet 1 TAB PO QID, #40 TAB Prov: DAVIN MALIK MD 03/15/18 DAVIN MALIK MD Mar 15, 2018 13:45
[2018-03-15 15:20] VITALS: BP 125/69
== END 2018-03-15 15:40 | disposition home or self-care (01) ==
LOC: ER 11:50
DX: T83.511A Infection and inflammatory reaction due to indwelling urethral catheter, initial encounter (principal); E78.00 Pure hypercholesterolemia, unspecified; I10 Essential (primary) hypertension; Z98.890 Other specified postprocedural states; Y82.8 Other medical devices associated with adverse incidents; Y92.89 Other specified places as the place of occurrence of the external cause
CPT/HCPCS: 51702; 81001; 87086; 87186; 99284; A4314

== ENCOUNTER 2018-05-13 03:36 | Inpatient (IN) | payer MEDICARE, BC ==
[~2018-05-13] VITALS: Ht 172.7 cm; Wt 83.5 kg
[~2018-05-13 03:36] MED LIST changes: +CEPH500T PO
[2018-05-13] MEDS ORDERED: IV NORMAL SALINE 1000ML BAG 1,000 ML IV ONE (04:30)
--- NOTE | 2018-05-13 05:12 | PHYS DOC ---
Past Medical History Past Medical History: Diabetes-Type II, High Cholesterol, Hypertension, Prostatitis Additional Past Medical Histor: MS--->Chatman Cath Past Surgical History: Tonsillectomy Additional Past Surgical Histo: hernia Alcohol Use: None Drug Use: None Adult General Chief Complaint Chief Complaint: URINARY RETENTION HPI HPI 73 y/o male presents via EMS from home with concern for possible urinary retention. Patient with history of indwelling chatman cath. Reports progressive decreased output which started last night. Denies fever/chills. Reports rash to buttocks. Reports has been having some loose stools. Spouse is primary caregiver and reports has been having difficulty keeping him clean. Reports home health does follow with patient and exchanges catheter. Reports last exchanged cath 2 weeks ago. Review of Systems Review of Systems Constitutional: Denies fever or chills [] Eyes: Denies change in visual acuity, redness, or eye pain [] HENT: Denies nasal congestion or sore throat [] Respiratory: Denies cough or shortness of breath [] Cardiovascular: Denies chest pain or palpitations GI: Reports abdominal pain, denies nausea or vomiting : Denies dysuria or hematuria [] Musculoskeletal: Denies back pain or joint pain [] Integument: Reports ulcerations to buttocks Complete systems were reviewed and found to be within normal limits, except as documented in this note. Current Medications Current Medications Current Medications Medications (Trade) Dose Ordered Sig/Génesis Start Time Stop Time Status Last Admin Dose Admin Dextrose (Dextrose 50%-Water Syringe) 12.5 gm PRN Q15MIN PRN 05/13/18 05:45 Fentanyl Citrate (Fentanyl 2ml Vial) 50 mcg PRN Q2HR PRN 05/13/18 05:45 05/14/18 05:44 Ondansetron HCl (Zofran) 4 mg PRN Q8HRS PRN 05/13/18 05:45 05/14/18 05:44 Sodium Chloride 1,000 ml @ 1,000 mls/hr 1X ONCE 05/13/18 04:30 05/13/18 05:29 DC 05/13/18 05:08 1,000 MLS/HR Allergies Allergies Allergies Coded Allergies Type Severity Reaction Last Updated Verified No Known Drug Allergies 04/30/14 No Physical Exam Physical Exam Constitutional: No acute distress HENT: Normocephalic, atraumatic Eyes: Conjunctiva normal, no discharge. [] Neck: Normal range of motion, no midline tenderness, supple Cardiovascular: Heart rate regular rhythm, no murmur [] Lungs & Thorax: Bilateral breath sounds clear to auscultation [] Abdomen: Suprapubic tenderness and fullness noted on palpation : Chatman cath noted, significant clouding and debris noted in down drain tubing Skin: Warm, dry, significant Stage II decubitus ulceration noted, axillary rashes noted Back: No midline tenderness, no CVA tenderness. Neurologic: Alert and oriented X 3, no focal deficits noted. [] Psychologic: Affect normal, judgement normal, mood normal. [] Current Patient Data Vital Signs Vital Signs Date Time Temp Pulse Resp B/P (MAP) Pulse Ox O2 Delivery O2 Flow Rate FiO2 05/13/18 05:30 104 18 96 05/13/18 03:39 98.5 160/86 (110) Room Air 98.5 Lab Values Laboratory Tests Test 05/13/18 04:40 05/13/18 04:43 Urine Collection Type U cath Urine Color Yellow Urine Clarity Turbid Urine pH 8.5 Urine Specific [place] 1.015 Urine Protein 100 mg/dL (NEG-TRACE) Urine Glucose (UA) Negative mg/dL (NEG) Urine Ketones (Stick) Negative mg/dL (NEG) Urine Blood Small (NEG) Urine Nitrite Positive (NEG) Urine Bilirubin Negative (NEG) Urine Urobilinogen Dipstick 1.0 mg/dL (0.2 mg/dL) Urine Leukocyte Esterase Large (NEG) Urine RBC Fobs /HPF (0-2) Urine WBC Tntc /HPF (0-4) Urine Bacteria Many /HPF (0-FEW) Lactic Acid Level 1.8 mmol/L (0.4-2.0) Prothrombin Time 13.4 SEC (11.7-14.0) Prothrombin Time INR 1.1 (0.8-1.1) PTT 38 SEC (24-38) Sodium Level 135 mmol/L (136-145) L Potassium Level 3.9 mmol/L (3.5-5.1) Chloride Level 99 mmol/L (98-107) Carbon Dioxide Level 26 mmol/L (21-32) Anion Gap 10 (6-14) Blood Urea Nitrogen 13 mg/dL (8-26) Creatinine 1.0 mg/dL (0.7-1.3) Estimated GFR (Cockcroft-Gault) 88.6 BUN/Creatinine Ratio 13 (6-20) Glucose Level 132 mg/dL (70-99) H Calcium Level 8.8 mg/dL (8.5-10.1) Magnesium Level 1.7 mg/dL (1.8-2.4) L Total Bilirubin 0.6 mg/dL (0.2-1.0) Aspartate Amino Transferase (AST) 11 U/L (15-37) L Alanine Aminotransferase (ALT) 7 U/L (16-63) L Alkaline Phosphatase 85 U/L (46-116) Total Protein 6.9 g/dL (6.4-8.2) Albumin 2.6 g/dL (3.4-5.0) L Albumin/Globulin Ratio 0.6 (1.0-1.7) L Laboratory Tests 05/13/18 04:43 EKG EKG [] Radiology/Procedures Radiology/Procedures [] Course & Med Decision Making Course & Med Decision Making Pertinent Labs reviewed. (See chart for details) Patient with past medical history of MS presents with report of concern for urinary retention due to blockage of Chatman catheter. Chatman catheter replaced with adequate drainage of approximately 350 mL of urine. UA with signs of infection. Empiric antibiotics given. Labs obtained and posted to chart. Physical exam also consistent for decubitus ulceration. Concern that patient may require [facility]entiary home with more adequate wound care. Patient requiring admission for further evaluation and treatment. Discussed with Dr. García (hospitalist) who is in agreement with admission. Discussed findings and plan with patient and family, who acknowledge understanding and agreement. Dragon Disclaimer Dragon Disclaimer This electronic medical record was generated, in whole or in part, using a voice recognition dictation system. Departure Departure Impression: Primary Impression: UTI (urinary tract infection) due to urinary indwelling catheter Additional Impressions: Urinary retention Decubitus ulcer Hx of multiple sclerosis Disposition: ADMITTED INPATIENT Admitting Physician: Rogelio García Condition: STABLE Referrals: UNKNOWN PCP NAME (PCP) Problem Qualifiers Primary Impression: UTI (urinary tract infection) due to urinary indwelling catheter Indwelling urinary catheter type: indwelling urethral catheter Encounter type : initial encounter Qualified Codes: T83.511A - Infection and inflammatory reaction due to indwelling urethral catheter, initial encounter; N39.0 - Urinary tract infection, site not specified Additional Impressions: Decubitus ulcer Pressure injury location: contiguous region involving buttock and hip Pressure injury stage: stage 2 Laterality: unspecified laterality Qualified Codes: L89.42 - Pressure ulcer of contiguous site of back, buttock and hip, stage 2 AREN HAYES DO May 13, 2018 05:11
[2018-05-13 05:18] LABS: CALCIUM 8.8 mg/dL (8.5-10.1); GFR 88.6; POTASSIUM 3.9 mmol/L (3.5-5.1); PROTHROMBIN TIME PATIENT 13.4 SEC (11.7-14.0)
[2018-05-13 05:18] LABS: BILIRUBIN,URINE NEGATIVE (NEG); CLARITY,URINE TURBID; COLOR,URINE YELLOW; NITRITE,URINE POSITIVE (NEG); PH,URINE 8.5; PROTEIN,URINE 100 mg/dL (NEG-TRACE)
[2018-05-13 05:24] LABS: ALBUMIN 2.6 g/dL (3.4-5.0); ALBUMIN/GLOBULIN RATIO 0.6 (1.0-1.7); MAGNESIUM 1.7 mg/dL (1.8-2.4); TOTAL BILIRUBIN 0.6 mg/dL (0.2-1.0); TOTAL PROTEIN 6.9 g/dL (6.4-8.2)
[2018-05-13 05:25] LABS: BACTERIA,URINE MANY /HPF (0-FEW); WBC,URINE TNTC /HPF (0-4)
[2018-05-13 05:26] LABS: RBC,URINE FOBS /HPF (0-2)
[2018-05-13] MEDS ORDERED: DEXTROSE 50% 25 GM / 50ML DISP.SYRIN. IV PRN ×2 (05:45→08:45)
[2018-05-13] MEDS ORDERED: ONDANSETRON PF 4 MG/2 ML VIAL. IV PRN ×2 (05:45→09:00)
[2018-05-13] MEDS ORDERED: fentaNYL PF VIAL 100 MCG/2 ML VIAL IV PRN (05:45)
[2018-05-13 06:35] LABS: BASO # 0.1 x10^3/uL (0.0-0.2); BASO % 1 % (0-3); EOS # 0.4 x10^3/uL (0.0-0.7); EOS % 2 % (0-3); HEMATOCRIT 45.2 % (39.0-53.0); HEMOGLOBIN 15.7 g/dL (13.0-17.5); LYMPH # 4.4 x10^3/uL (1.0-4.8); LYMPH % 26 % (24-48); MEAN CORPUSCULAR HEMOGLOBIN 28 pg (25-35); MEAN CORPUSCULAR HGB CONC 35 g/dL (31-37); MEAN CORPUSCULAR VOLUME 79 fL (79-100); MONO # 1.3 x10^3/uL (0.0-1.1); MONO % 8 % (0-9); NEUT # 10.7 x10^3uL (1.8-7.7); NEUT % 63 % (31-73); PLATELET COUNT 327 x10^3/uL (140-400); RED BLOOD COUNT 5.71 x10^6/uL (4.30-5.70); RED CELL DISTRIBUTION WIDTH 18.8 % (11.5-14.5)
[2018-05-13 07:53] VITALS: BP 108/79
[2018-05-13] MEDS ORDERED: INSULIN LISPRO 300 UNITS/3 ML INSULN.PEN. SQ SCH (08:00)
[2018-05-13] MEDS ORDERED: DAPSONE 25 MG PO SCH (09:00)
[2018-05-13] MEDS ORDERED: MAGNESIUM SULFATE 1GM 100 ML IV ONE (09:30)
[2018-05-13] MEDS ORDERED: metFORMIN 500 MG TABLET PO SCH (10:00)
[2018-05-13 11:17] VITALS: BP 109/71
[2018-05-13] MEDS: INSULIN LISPRO 300 UNITS/3 ML INSULN.PEN. SQ SCH ×2 (12:00→17:00)
[2018-05-13] MEDS ORDERED: BACLOFEN 10 MG TABLET. PO SCH ×2 (12:00→21:00)
--- NOTE | 2018-05-13 12:27 | PDOC1 ---
History and Physical Date of Admission Date of Admission DATE: 05/13/18 TIME: 12:19 Identification/Chief Complaint Chief Complaint urinary retention Source Source: Caregiver, Chart review, Patient History of Present Illness History of Present Illness 83-year-old -Armenian male who has Multiple sclerosis and has been bedbound for 3 years now?, Chronic indwelling Walls catheter inserted by urologist from another institution, last changed 2 weeks ago per . takes care of patient. Comes in because of urinary retention, that has been fixed by ER. But is flagging sepsis with temperatures, high white count and tachycardia. Did get Rocephin, I will continue this. PT non toci appearing though and has no complaints. I have reviewed old chart, in February 2018 which was 2 months ago, Escherichia coli UTI which was almost foote sensitive. I am continuing Rocephin and adding lactate and consulting ID. Starting fluid, sepsis protocol. Patient claims he is on prednisone 40 once a day for unrecalled reason. He has some dandruff or seborrheic dermatitis on the face and neck and ears. Penis inspected, some pus coming out of the urethra. We are treating for UTI complicated, chronic indwelling Walls catheter and sepsis. Discussed with RN He again is most bedbound and ambulates via power wheelchair at home. 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-I can see some fresh new skin from what sounds like previously ruptured bullae in the recent past Past Medical History Cardiovascular: HTN, Hyperlipidemia CENTRAL NERVOUS SYSTEM: Other (MS) GI: Other Infectious disease: Other (recurrent UTI) Renal/: Benign prostatic enlarg., Urinary Incontinence Dermatology: Other ([facility]) Past Surgical History Past Surgical History: Other Family History Family History: Hypertension, Other Social History Smoke: No ALCOHOL: none Drugs: None Current Problem List Problem List Problems Medical Problems: (1) Decubitus ulcer Status: Acute (2) Hx of multiple sclerosis Status: Acute (3) Multiple sclerosis Status: Acute (4) Urinary retention Status: Acute (5) UTI (urinary tract infection) due to urinary indwelling catheter Status: Acute Current Medications Current Medications Current Medications Sodium Chloride 1,000 ml @ 1,000 mls/hr 1X ONCE IV Last administered on 05/13at 05:08; Start 05/13/18 at 04:30; Stop 05/13/18 at 05:29; Status DC Ceftriaxone Sodium 50 ml @ 100 mls/hr 1X ONCE IV Last administered on at 05:48; Start 05/13/18 at 06:00; Stop 05/13/18 at 06:29; Status DC Ondansetron HCl (Zofran) 4 mg PRN Q8HRS PRN IV NAUSEA/VOMITING 1st choice; Start 05/13/18 at 05:45; Stop 05/13/18 at 08:47; Status DC Fentanyl Citrate (Fentanyl 2ml Vial) 50 mcg PRN Q2HR PRN IV SEVERE PAIN; Start 05/13/18 at 05:45; Stop 05/14/18 at 05:44 Insulin Human Lispro (HumaLOG) 0-5 UNITS TIDWMEALS SQ ; Start 05/13/18 at 08:00 ; Stop 05/13/18 at 08:47; Status DC Dextrose (Dextrose 50%-Water Syringe) 12.5 gm PRN Q15MIN PRN IV SEE COMMENTS; Start 05/13/18 at 05:45 Ondansetron HCl (Zofran) 4 mg PRN Q6HRS PRN IV NAUSEA/VOMITING 1st choice; Start 05/13/18 at 09:00 Ceftriaxone Sodium 1 gm/ Dextrose 50 ml @ 100 mls/hr Q24H IV ; Start 05/13/18 at 08:45; Status UNV Acetaminophen (Tylenol) 500 mg PRN Q6HRS PRN PO MILD PAIN / TEMP; Start at 08:45 Insulin Human Lispro (HumaLOG) 0-9 UNITS TIDWMEALS SQ ; Start 05/13/18 at 12:00 Dextrose (Dextrose 50%-Water Syringe) 12.5 gm PRN Q15MIN PRN IV SEE COMMENTS; Start 05/13/18 at 08:45; Status UNV Magnesium Sulfate/ Dextrose 100 ml @ 100 mls/hr 1X ONCE IV ; Start 05/13/18 at 09:30; Stop 05/13/18 at 10:29; Status DC Prednisone (Prednisone) 40 mg DAILY PO ; Start 05/13/18 at 09:00; Status UNV Triamterene/HCTZ (Maxzide 37.5/ 25mg) 1 tab DAILY PO ; Start 05/13/18 at 09:00 Baclofen (Lioresal) 20 mg DAILYWBKFT PO ; Start 05/13/18 at 12:00 Non-Formulary Medication (Dapsone ) 25 mg DAILY PO ; Start 05/13/18 at 09:00; Status UNV Metformin HCl (Glucophage) 500 mg DAILYWBKFT PO ; Start 05/13/18 at 10:00 Fish Oil (Fish Oil) 1,000 mg DAILY PO ; Start 05/13/18 at 10:00 Oxybutynin Chloride (Ditropan) 5 mg DAILY PO ; Start 05/13/18 at 10:00 Ceftriaxone Sodium (Rocephin) 1 gm Q24H IVP ; Start 05/14/18 at 06:00 Active Scripts Active Cephalexin 500 Mg Tablet 1 Tab PO QID Cipro (Ciprofloxacin Hcl) 500 Mg Tablet 1 Tab PO BID 5 Days Reported Fish Oil + D3 Softgel (Foster-3S/Dha/Epa/Fish Oil/D3) 1 Each Capsule 1 Each PO DAILY Prednisone 20 Mg Tablet 25 Mg PO DAILY Baclofen 20 Mg Tablet 50 Tab PO TID Oxybutynin Chloride Er (Oxybutynin Chloride) 5 Mg Tab.er.24 1 Tab PO DAILY Allergies Allergies: Coded Allergies: No Known Drug Allergies (Unverified , 04/30/14) ROS Review of System as per history of present illness, the rest of ROS 14 point negative Physical Exam General: Alert, Oriented X3, Cooperative, No acute distress HEENT: Atraumatic, PERRLA, EOMI, Other (numerous scaling, dry skin-seborrheic dermatitis head, face, neck, ears) Lungs: Clear to auscultation Heart: S1S2, RRR, no thrills, no rubs, no gallops, no murmurs Cardiovascular: S1, S2 Abdomen: Normal bowel sounds, Soft, No tenderness, No hepatosplenomegaly, No masses Skin: Other (old bullae legs that has ruptured and left fresh new skin in the dermis area) Neuro: Normal gait, Normal speech, Strength at 5/5 X4 ext, Normal tone, Sensation intact, Cranial nerves 3-12 NL, Reflexes 2+ Psych/Mental Status: Mental status NL, Mood NL Vitals Vitals Vital Signs Date Time Temp Pulse Resp B/P (MAP) Pulse Ox O2 Delivery O2 Flow Rate FiO2 05/13/18 11:17 100.8 80 19 109/71 (84) 95 Room Air 100.8 Labs Labs Laboratory Tests Test 05/13/18 04:40 05/13/18 04:43 05/13/18 06:25 05/13/18 07:33 Urine Collection Type U cath Urine Color Yellow Urine Clarity Turbid Urine pH 8.5 Urine Specific [place] 1.015 Urine Protein 100 mg/dL (NEG-TRACE) Urine Glucose (UA) Negative mg/dL (NEG) Urine Ketones (Stick) Negative mg/dL (NEG) Urine Blood Small (NEG) Urine Nitrite Positive (NEG) Urine Bilirubin Negative (NEG) Urine Urobilinogen Dipstick 1.0 mg/dL (0.2 mg/dL) Urine Leukocyte Esterase Large (NEG) Urine RBC Fobs /HPF (0-2) Urine WBC Tntc /HPF (0-4) Urine Bacteria Many /HPF (0-FEW) Lactic Acid Level 1.8 mmol/L (0.4-2.0) Prothrombin Time 13.4 SEC (11.7-14.0) Prothromb Time International Ratio 1.1 (0.8-1.1) Activated Partial Thromboplast Time 38 SEC (24-38) Sodium Level 135 mmol/L (136-145) Potassium Level 3.9 mmol/L (3.5-5.1) Chloride Level 99 mmol/L (98-107) Carbon Dioxide Level 26 mmol/L (21-32) Anion Gap 10 (6-14) Blood Urea Nitrogen 13 mg/dL (8-26) Creatinine 1.0 mg/dL (0.7-1.3) Estimated GFR (Cockcroft-Gault) 88.6 BUN/Creatinine Ratio 13 (6-20) Glucose Level 132 mg/dL (70-99) Calcium Level 8.8 mg/dL (8.5-10.1) Magnesium Level 1.7 mg/dL (1.8-2.4) Total Bilirubin 0.6 mg/dL (0.2-1.0) Aspartate Amino Transf (AST/SGOT) 11 U/L (15-37) Alanine Aminotransferase (ALT/SGPT) 7 U/L (16-63) Alkaline Phosphatase 85 U/L (46-116) Total Protein 6.9 g/dL (6.4-8.2) Albumin 2.6 g/dL (3.4-5.0) Albumin/Globulin Ratio 0.6 (1.0-1.7) White Blood Count 17.0 x10^3/uL (4.0-11.0) Red Blood Count 5.71 x10^6/uL (4.30-5.70) Hemoglobin 15.7 g/dL (13.0-17.5) Hematocrit 45.2 % (39.0-53.0) Mean Corpuscular Volume 79 fL (79-100) Mean Corpuscular Hemoglobin 28 pg (25-35) Mean Corpuscular Hemoglobin Concent 35 g/dL (31-37) Red Cell Distribution Width 18.8 % (11.5-14.5) Platelet Count 327 x10^3/uL (140-400) Neutrophils (%) (Auto) 63 % (31-73) Lymphocytes (%) (Auto) 26 % (24-48) Monocytes (%) (Auto) 8 % (0-9) Eosinophils (%) (Auto) 2 % (0-3) Basophils (%) (Auto) 1 % (0-3) Neutrophils # (Auto) 10.7 x10^3uL (1.8-7.7) Lymphocytes # (Auto) 4.4 x10^3/uL (1.0-4.8) Monocytes # (Auto) 1.3 x10^3/uL (0.0-1.1) Eosinophils # (Auto) 0.4 x10^3/uL (0.0-0.7) Basophils # (Auto) 0.1 x10^3/uL (0.0-0.2) Glucose (Fingerstick) 123 mg/dL (70-99) Laboratory Tests Test 05/13/18 04:40 05/13/18 04:43 05/13/18 06:25 05/13/18 07:33 Urine Collection Type U cath Urine Color Yellow Urine Clarity Turbid Urine pH 8.5 Urine Specific [place] 1.015 Urine Protein 100 mg/dL (NEG-TRACE) Urine Glucose (UA) Negative mg/dL (NEG) Urine Ketones (Stick) Negative mg/dL (NEG) Urine Blood Small (NEG) Urine Nitrite Positive (NEG) Urine Bilirubin Negative (NEG) Urine Urobilinogen Dipstick 1.0 mg/dL (0.2 mg/dL) Urine Leukocyte Esterase Large (NEG) Urine RBC Fobs /HPF (0-2) Urine WBC Tntc /HPF (0-4) Urine Bacteria Many /HPF (0-FEW) Lactic Acid Level 1.8 mmol/L (0.4-2.0) Prothrombin Time 13.4 SEC (11.7-14.0) Prothromb Time International Ratio 1.1 (0.8-1.1) Activated Partial Thromboplast Time 38 SEC (24-38) Sodium Level 135 mmol/L (136-145) Potassium Level 3.9 mmol/L (3.5-5.1) Chloride Level 99 mmol/L (98-107) Carbon Dioxide Level 26 mmol/L (21-32) Anion Gap 10 (6-14) Blood Urea Nitrogen 13 mg/dL (8-26) Creatinine 1.0 mg/dL (0.7-1.3) Estimated GFR (Cockcroft-Gault) 88.6 BUN/Creatinine Ratio 13 (6-20) Glucose Level 132 mg/dL (70-99) Calcium Level 8.8 mg/dL (8.5-10.1) Magnesium Level 1.7 mg/dL (1.8-2.4) Total Bilirubin 0.6 mg/dL (0.2-1.0) Aspartate Amino Transf (AST/SGOT) 11 U/L (15-37) Alanine Aminotransferase (ALT/SGPT) 7 U/L (16-63) Alkaline Phosphatase 85 U/L (46-116) Total Protein 6.9 g/dL (6.4-8.2) Albumin 2.6 g/dL (3.4-5.0) Albumin/Globulin Ratio 0.6 (1.0-1.7) White Blood Count 17.0 x10^3/uL (4.0-11.0) Red Blood Count 5.71 x10^6/uL (4.30-5.70) Hemoglobin 15.7 g/dL (13.0-17.5) Hematocrit 45.2 % (39.0-53.0) Mean Corpuscular Volume 79 fL (79-100) Mean Corpuscular Hemoglobin 28 pg (25-35) Mean Corpuscular Hemoglobin Concent 35 g/dL (31-37) Red Cell Distribution Width 18.8 % (11.5-14.5) Platelet Count 327 x10^3/uL (140-400) Neutrophils (%) (Auto) 63 % (31-73) Lymphocytes (%) (Auto) 26 % (24-48) Monocytes (%) (Auto) 8 % (0-9) Eosinophils (%) (Auto) 2 % (0-3) Basophils (%) (Auto) 1 % (0-3) Neutrophils # (Auto) 10.7 x10^3uL (1.8-7.7) Lymphocytes # (Auto) 4.4 x10^3/uL (1.0-4.8) Monocytes # (Auto) 1.3 x10^3/uL (0.0-1.1) Eosinophils # (Auto) 0.4 x10^3/uL (0.0-0.7) Basophils # (Auto) 0.1 x10^3/uL (0.0-0.2) Glucose (Fingerstick) 123 mg/dL (70-99) VTE Prophylaxis Ordered VTE Prophylaxis Devices: Yes VTE Pharmacological Prophylaxi: Yes Assessment/Plan Assessment/Plan cOMPLIACTED UTI, chronic indwelling Walls catheter-changed 2 weeks ago per ( anesthesiologist and critical care) Multiple sclerosis, bedbound Sepsis POA with no organ dysfunction Seborrheic dermatitis face 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
[2018-05-13] MEDS: IV 1/2 NORMAL SALINE 1,000 ML IV SCH ×2 (12:30→21:09)
[2018-05-13] MEDS: TRIAMTERENE/HCTZ 37.5/25MG TABLET. PO SCH (12:55)
[2018-05-13] MEDS: OMEGA-3 FATTY ACIDS/FISH OIL 1,000 MG CAPSULE. PO SCH (12:55)
[2018-05-13] MEDS: OXYBUTYNIN CHLORIDE 5 MG TABLET PO SCH (12:56)
[2018-05-13 15:22] VITALS: BP 100/67
[2018-05-13] MEDS: ENOXAPARIN 40 MG/0.4 ML SYRINGE. SQ SCH (16:45)
[2018-05-13] MEDS: predniSONE 10 MG TABLET PO SCH (16:47)
[2018-05-13 19:50] VITALS: BP 126/77
[2018-05-13] MEDS: BACLOFEN 10 MG TABLET. PO SCH (21:06)
[2018-05-13 23:40] VITALS: BP 114/75
[2018-05-14 03:45] VITALS: BP 151/80
[2018-05-14 04:25] LABS: BASO # 0.1 x10^3/uL (0.0-0.2); BASO % 1 % (0-3); EOS % 0 % (0-3); HEMATOCRIT 38.6 % (39.0-53.0); HEMOGLOBIN 13.6 g/dL (13.0-17.5); LYMPH # 2.9 x10^3/uL (1.0-4.8); LYMPH % 20 % (24-48); MEAN CORPUSCULAR HEMOGLOBIN 27 pg (25-35); MEAN CORPUSCULAR HGB CONC 35 g/dL (31-37); MEAN CORPUSCULAR VOLUME 78 fL (79-100); MONO # 0.3 x10^3/uL (0.0-1.1); MONO % 2 % (0-9); NEUT # 11.3 x10^3uL (1.8-7.7); NEUT % 77 % (31-73); PLATELET COUNT 340 x10^3/uL (140-400); RED BLOOD COUNT 4.98 x10^6/uL (4.30-5.70); RED CELL DISTRIBUTION WIDTH 18.9 % (11.5-14.5); WHITE BLOOD COUNT 14.6 x10^3/uL (4.0-11.0)
[2018-05-14 04:50] LABS: CALCIUM 8.4 mg/dL (8.5-10.1); CREATININE 0.9 mg/dL (0.7-1.3); GFR 100.1; POTASSIUM 4.3 mmol/L (3.5-5.1)
[2018-05-14] MEDS ORDERED: cefTRIAXone IV Push 1 GM VIAL. IVP SCH (06:00)
[2018-05-14 07:39] VITALS: BP 147/77
[2018-05-14] MEDS: INSULIN LISPRO 300 UNITS/3 ML INSULN.PEN. SQ SCH ×3 (08:00→17:00)
[2018-05-14] MEDS: IV 1/2 NORMAL SALINE 1,000 ML IV SCH (08:30)
[2018-05-14] MEDS: TRIAMTERENE/HCTZ 37.5/25MG TABLET. PO SCH (09:02)
[2018-05-14] MEDS: BACLOFEN 10 MG TABLET. PO SCH ×4 (09:02→22:14)
[2018-05-14] MEDS: OXYBUTYNIN CHLORIDE 5 MG TABLET PO SCH (09:02)
[2018-05-14] MEDS: OMEGA-3 FATTY ACIDS/FISH OIL 1,000 MG CAPSULE. PO SCH (09:02)
[2018-05-14] MEDS: predniSONE 10 MG TABLET PO SCH (09:03)
[2018-05-14 11:08] VITALS: BP 129/92
[2018-05-14] MEDS: LINEZOLID 600 MG TABLET PO SCH ×3 (11:22→22:14)
[2018-05-14] MEDS: NYSTATIN TOPICAL POWDER 15GM BOTTLE. TP SCH ×2 (11:22→22:14)
[2018-05-14] MEDS: CEFEPIME HCL IV Push 1 GM VIAL. IVP SCH ×2 (11:22→22:14)
--- NOTE | 2018-05-14 13:25 | PDOC ---
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 Urinary retention-seems to have resolved HYpomagnesemia - 1.7 Hx e coli by urine cx (02/2018) - almost foote sensitive History of Present Illness History of Present Illness IV fluid for sepsis start iv nutrition wound care, consider air bed, start vit C and zinc Rocephin Vitals Vitals Vital Signs Date Time Temp Pulse Resp B/P (MAP) Pulse Ox O2 Delivery O2 Flow Rate FiO2 05/14/18 11:08 97.5 82 18 129/92 (104) 98 Room Air 97.5 Physical Exam General: Alert, Oriented X3, Cooperative, No acute distress Heart: Regular rate, No murmurs Lungs: Clear, Wheezing Abdomen: Normal bowel sounds, Soft, No tenderness, No hepatosplenomegaly, No masses Extremities: No cyanosis Skin: No rashes, Other (old bullae legs that has ruptured and left fresh new skin in the dermis area) Labs LABS Laboratory Tests Test 05/13/18 17:39 05/13/18 19:59 05/14/18 04:05 05/14/18 07:32 Glucose (Fingerstick) 112 mg/dL (70-99) 212 mg/dL (70-99) 131 mg/dL (70-99) White Blood Count 14.6 x10^3/uL (4.0-11.0) Red Blood Count 4.98 x10^6/uL (4.30-5.70) Hemoglobin 13.6 g/dL (13.0-17.5) Hematocrit 38.6 % (39.0-53.0) Mean Corpuscular Volume 78 fL (79-100) Mean Corpuscular Hemoglobin 27 pg (25-35) Mean Corpuscular Hemoglobin Concent 35 g/dL (31-37) Red Cell Distribution Width 18.9 % (11.5-14.5) Platelet Count 340 x10^3/uL (140-400) Neutrophils (%) (Auto) 77 % (31-73) Lymphocytes (%) (Auto) 20 % (24-48) Monocytes (%) (Auto) 2 % (0-9) Eosinophils (%) (Auto) 0 % (0-3) Basophils (%) (Auto) 1 % (0-3) Neutrophils # (Auto) 11.3 x10^3uL (1.8-7.7) Lymphocytes # (Auto) 2.9 x10^3/uL (1.0-4.8) Monocytes # (Auto) 0.3 x10^3/uL (0.0-1.1) Eosinophils # (Auto) 0.0 x10^3/uL (0.0-0.7) Basophils # (Auto) 0.1 x10^3/uL (0.0-0.2) Sodium Level 134 mmol/L (136-145) Potassium Level 4.3 mmol/L (3.5-5.1) Chloride Level 102 mmol/L (98-107) Carbon Dioxide Level 24 mmol/L (21-32) Anion Gap 8 (6-14) Blood Urea Nitrogen 10 mg/dL (8-26) Creatinine 0.9 mg/dL (0.7-1.3) Estimated GFR (Cockcroft-Gault) 100.1 Glucose Level 162 mg/dL (70-99) Lactic Acid Level 0.7 mmol/L (0.4-2.0) Calcium Level 8.4 mg/dL (8.5-10.1) Test 05/14/18 11:58 Glucose (Fingerstick) 130 mg/dL (70-99) Assessment and Plan Assessmemt and Plan Problems Medical Problems: (1) Decubitus ulcer Status: Acute (2) Hx of multiple sclerosis Status: Acute (3) Multiple sclerosis Status: Acute (4) Urinary retention Status: Acute (5) UTI (urinary tract infection) due to urinary indwelling catheter Status: Acute Comment Review of Relevant I have reviewed the following items rahel (where applicable) has been applied. Labs Laboratory Tests Test 05/13/18 04:40 05/13/18 04:43 05/13/18 06:25 05/13/18 07:33 Urine Collection Type U cath Urine Color Yellow Urine Clarity Turbid Urine pH 8.5 Urine Specific [place] 1.015 Urine Protein 100 mg/dL (NEG-TRACE) Urine Glucose (UA) Negative mg/dL (NEG) Urine Ketones (Stick) Negative mg/dL (NEG) Urine Blood Small (NEG) Urine Nitrite Positive (NEG) Urine Bilirubin Negative (NEG) Urine Urobilinogen Dipstick 1.0 mg/dL (0.2 mg/dL) Urine Leukocyte Esterase Large (NEG) Urine RBC Fobs /HPF (0-2) Urine WBC Tntc /HPF (0-4) Urine Bacteria Many /HPF (0-FEW) Lactic Acid Level 1.8 mmol/L (0.4-2.0) Prothrombin Time 13.4 SEC (11.7-14.0) Prothromb Time International Ratio 1.1 (0.8-1.1) Activated Partial Thromboplast Time 38 SEC (24-38) Sodium Level 135 mmol/L (136-145) Potassium Level 3.9 mmol/L (3.5-5.1) Chloride Level 99 mmol/L (98-107) Carbon Dioxide Level 26 mmol/L (21-32) Anion Gap 10 (6-14) Blood Urea Nitrogen 13 mg/dL (8-26) Creatinine 1.0 mg/dL (0.7-1.3) Estimated GFR (Cockcroft-Gault) 88.6 BUN/Creatinine Ratio 13 (6-20) Glucose Level 132 mg/dL (70-99) Calcium Level 8.8 mg/dL (8.5-10.1) Magnesium Level 1.7 mg/dL (1.8-2.4) Total Bilirubin 0.6 mg/dL (0.2-1.0) Aspartate Amino Transf (AST/SGOT) 11 U/L (15-37) Alanine Aminotransferase (ALT/SGPT) 7 U/L (16-63) Alkaline Phosphatase 85 U/L (46-116) Total Protein 6.9 g/dL (6.4-8.2) Albumin 2.6 g/dL (3.4-5.0) Albumin/Globulin Ratio 0.6 (1.0-1.7) White Blood Count 17.0 x10^3/uL (4.0-11.0) Red Blood Count 5.71 x10^6/uL (4.30-5.70) Hemoglobin 15.7 g/dL (13.0-17.5) Hematocrit 45.2 % (39.0-53.0) Mean Corpuscular Volume 79 fL (79-100) Mean Corpuscular Hemoglobin 28 pg (25-35) Mean Corpuscular Hemoglobin Concent 35 g/dL (31-37) Red Cell Distribution Width 18.8 % (11.5-14.5) Platelet Count 327 x10^3/uL (140-400) Neutrophils (%) (Auto) 63 % (31-73) Lymphocytes (%) (Auto) 26 % (24-48) Monocytes (%) (Auto) 8 % (0-9) Eosinophils (%) (Auto) 2 % (0-3) Basophils (%) (Auto) 1 % (0-3) Neutrophils # (Auto) 10.7 x10^3uL (1.8-7.7) Lymphocytes # (Auto) 4.4 x10^3/uL (1.0-4.8) Monocytes # (Auto) 1.3 x10^3/uL (0.0-1.1) Eosinophils # (Auto) 0.4 x10^3/uL (0.0-0.7) Basophils # (Auto) 0.1 x10^3/uL (0.0-0.2) Glucose (Fingerstick) 123 mg/dL (70-99) Test 05/13/18 12:34 05/13/18 17:39 05/13/18 19:59 05/14/18 04:05 Glucose (Fingerstick) 127 mg/dL (70-99) 112 mg/dL (70-99) 212 mg/dL (70-99) White Blood Count 14.6 x10^3/uL (4.0-11.0) Red Blood Count 4.98 x10^6/uL (4.30-5.70) Hemoglobin 13.6 g/dL (13.0-17.5) Hematocrit 38.6 % (39.0-53.0) Mean Corpuscular Volume 78 fL (79-100) Mean Corpuscular Hemoglobin 27 pg (25-35) Mean Corpuscular Hemoglobin Concent 35 g/dL (31-37) Red Cell Distribution Width 18.9 % (11.5-14.5) Platelet Count 340 x10^3/uL (140-400) Neutrophils (%) (Auto) 77 % (31-73) Lymphocytes (%) (Auto) 20 % (24-48) Monocytes (%) (Auto) 2 % (0-9) Eosinophils (%) (Auto) 0 % (0-3) Basophils (%) (Auto) 1 % (0-3) Neutrophils # (Auto) 11.3 x10^3uL (1.8-7.7) Lymphocytes # (Auto) 2.9 x10^3/uL (1.0-4.8) Monocytes # (Auto) 0.3 x10^3/uL (0.0-1.1) Eosinophils # (Auto) 0.0 x10^3/uL (0.0-0.7) Basophils # (Auto) 0.1 x10^3/uL (0.0-0.2) Sodium Level 134 mmol/L (136-145) Potassium Level 4.3 mmol/L (3.5-5.1) Chloride Level 102 mmol/L (98-107) Carbon Dioxide Level 24 mmol/L (21-32) Anion Gap 8 (6-14) Blood Urea Nitrogen 10 mg/dL (8-26) Creatinine 0.9 mg/dL (0.7-1.3) Estimated GFR (Cockcroft-Gault) 100.1 Glucose Level 162 mg/dL (70-99) Lactic Acid Level 0.7 mmol/L (0.4-2.0) Calcium Level 8.4 mg/dL (8.5-10.1) Test 05/14/18 07:32 05/14/18 11:58 Glucose (Fingerstick) 131 mg/dL (70-99) 130 mg/dL (70-99) Laboratory Tests Test 05/13/18 17:39 05/13/18 19:59 05/14/18 04:05 05/14/18 07:32 Glucose (Fingerstick) 112 mg/dL (70-99) 212 mg/dL (70-99) 131 mg/dL (70-99) White Blood Count 14.6 x10^3/uL (4.0-11.0) Red Blood Count 4.98 x10^6/uL (4.30-5.70) Hemoglobin 13.6 g/dL (13.0-17.5) Hematocrit 38.6 % (39.0-53.0) Mean Corpuscular Volume 78 fL (79-100) Mean Corpuscular Hemoglobin 27 pg (25-35) Mean Corpuscular Hemoglobin Concent 35 g/dL (31-37) Red Cell Distribution Width 18.9 % (11.5-14.5) Platelet Count 340 x10^3/uL (140-400) Neutrophils (%) (Auto) 77 % (31-73) Lymphocytes (%) (Auto) 20 % (24-48) Monocytes (%) (Auto) 2 % (0-9) Eosinophils (%) (Auto) 0 % (0-3) Basophils (%) (Auto) 1 % (0-3) Neutrophils # (Auto) 11.3 x10^3uL (1.8-7.7) Lymphocytes # (Auto) 2.9 x10^3/uL (1.0-4.8) Monocytes # (Auto) 0.3 x10^3/uL (0.0-1.1) Eosinophils # (Auto) 0.0 x10^3/uL (0.0-0.7) Basophils # (Auto) 0.1 x10^3/uL (0.0-0.2) Sodium Level 134 mmol/L (136-145) Potassium Level 4.3 mmol/L (3.5-5.1) Chloride Level 102 mmol/L (98-107) Carbon Dioxide Level 24 mmol/L (21-32) Anion Gap 8 (6-14) Blood Urea Nitrogen 10 mg/dL (8-26) Creatinine 0.9 mg/dL (0.7-1.3) Estimated GFR (Cockcroft-Gault) 100.1 Glucose Level 162 mg/dL (70-99) Lactic Acid Level 0.7 mmol/L (0.4-2.0) Calcium Level 8.4 mg/dL (8.5-10.1) Test 05/14/18 11:58 Glucose (Fingerstick) 130 mg/dL (70-99) Microbiology 05/13/18 Blood Culture - Preliminary, Resulted NO GROWTH AFTER 1 DAY Medications Current Medications Sodium Chloride 1,000 ml @ 1,000 mls/hr 1X ONCE IV Last administered on 05/13at 05:08; Start 05/13/18 at 04:30; Stop 05/13/18 at 05:29; Status DC Ceftriaxone Sodium 50 ml @ 100 mls/hr 1X ONCE IV Last administered on at 05:48; Start 05/13/18 at 06:00; Stop 05/13/18 at 06:29; Status DC Ondansetron HCl (Zofran) 4 mg PRN Q8HRS PRN IV NAUSEA/VOMITING 1st choice; Start 05/13/18 at 05:45; Stop 05/13/18 at 08:47; Status DC Fentanyl Citrate (Fentanyl 2ml Vial) 50 mcg PRN Q2HR PRN IV SEVERE PAIN; Start 05/13/18 at 05:45; Stop 05/14/18 at 05:44; Status DC Insulin Human Lispro (HumaLOG) 0-5 UNITS TIDWMEALS SQ ; Start 05/13/18 at 08:00 ; Stop 05/13/18 at 08:47; Status DC Dextrose (Dextrose 50%-Water Syringe) 12.5 gm PRN Q15MIN PRN IV SEE COMMENTS; Start 05/13/18 at 05:45 Ondansetron HCl (Zofran) 4 mg PRN Q6HRS PRN IV NAUSEA/VOMITING 1st choice; Start 05/13/18 at 09:00 Ceftriaxone Sodium 1 gm/ Dextrose 50 ml @ 100 mls/hr Q24H IV ; Start 05/13/18 at 08:45; Status UNV Acetaminophen (Tylenol) 500 mg PRN Q6HRS PRN PO MILD PAIN / TEMP; Start at 08:45 Insulin Human Lispro (HumaLOG) 0-9 UNITS TIDWMEALS SQ ; Start 05/13/18 at 12:00 Dextrose (Dextrose 50%-Water Syringe) 12.5 gm PRN Q15MIN PRN IV SEE COMMENTS; Start 05/13/18 at 08:45; Status UNV Magnesium Sulfate/ Dextrose 100 ml @ 100 mls/hr 1X ONCE IV Last administered on 05/13/18at 13:03; Start 05/13/18 at 09:30; Stop 05/13/18 at 10:29; Status DC Prednisone (Prednisone) 25 mg DAILY PO Last administered on 05/14/18at 09:03; Start 05/13/18 at 15:00 Triamterene/HCTZ (Maxzide 37.5/ 25mg) 1 tab DAILY PO Last administered on 05/14at 09:02; Start 05/13/18 at 09:00 Baclofen (Lioresal) 20 mg DAILYWBKFT PO Last administered on 05/13/18at 12:56; Start 05/13/18 at 12:00; Stop 05/13/18 at 16:21; Status DC Non-Formulary Medication (Dapsone ) 25 mg DAILY PO ; Start 05/13/18 at 09:00; Stop 05/13/18 at 14:33; Status DC Metformin HCl (Glucophage) 500 mg DAILYWBKFT PO ; Start 05/13/18 at 10:00; Stop 05/13/18 at 16:20; Status DC Fish Oil (Fish Oil) 1,000 mg DAILY PO Last administered on 05/14/18at 09:02; Start 05/13/18 at 10:00 Oxybutynin Chloride (Ditropan) 5 mg DAILY PO Last administered on 05/14/18at 09 :02; Start 05/13/18 at 10:00 Ceftriaxone Sodium (Rocephin) 1 gm Q24H IVP Last administered on 05/14/18at 06: 26; Start 05/14/18 at 06:00; Stop 05/14/18 at 09:14; Status DC Sodium Chloride 1,000 ml @ 100 mls/hr Q10H IV Last administered on 05/14/18at 08:30; Start 05/13/18 at 12:30 Enoxaparin Sodium (Lovenox 40mg Syringe) 40 mg Q24H SQ Last administered on at 16:45; Start 05/13/18 at 13:00 Baclofen (Lioresal) 50 mg TID PO ; Start 05/13/18 at 21:00; Stop 05/13/18 at 21:00; Status DC Baclofen (Lioresal) 50 mg TID PO Last administered on 05/14/18at 09:02; Start 05/13/18 at 21:00 Linezolid (Zyvox) 600 mg BID PO Last administered on 05/14/18at 11:22; Start 05/14/18 at 10:00 Nystatin (Nystop) 1 f[place]ick BID TP Last administered on 05/14/18at 11:22; Start at 11:00 Cefepime HCl 1 gm/ Dextrose 50 ml @ 100 mls/hr Q8HRS IV ; Start 05/14/18 at 14 :00; Status UNV Cefepime HCl (Maxipime) 1 gm Q8HRS IVP Last administered on 05/14/18at 11:22; Start 05/14/18 at 11:00 Active Scripts Active Cephalexin 500 Mg Tablet 1 Tab PO QID Cipro (Ciprofloxacin Hcl) 500 Mg Tablet 1 Tab PO BID 5 Days Reported Fish Oil + D3 Softgel ([place]-3S/Dha/Epa/Fish Oil/D3) 1 Each Capsule 1 Each PO DAILY Prednisone 20 Mg Tablet 25 Mg PO DAILY Baclofen 20 Mg Tablet 50 Tab PO TID Oxybutynin Chloride Er (Oxybutynin Chloride) 5 Mg Tab.er.24 1 Tab PO DAILY Vitals/I & O Vital Sign - Last 24 Hours 05/13/18 05/13/18 05/13/18 05/13/18 15:22 19:50 20:00 23:40 Temp 98.4 100.0 97.8 98.4 100.0 97.8 Pulse 78 94 87 Resp 19 18 18 B/P (MAP) 100/67 (78) 126/77 (93) 114/75 (88) Pulse Ox 95 96 98 O2 Delivery Room Air Room Air Room Air Room Air 05/14/18 05/14/18 05/14/18 05/14/18 03:45 07:39 08:00 11:08 Temp 98.1 97.9 97.5 98.1 97.9 97.5 Pulse 68 82 82 Resp 18 18 18 B/P (MAP) 151/80 (103) 147/77 (100) 129/92 (104) Pulse Ox 94 97 98 O2 Delivery Room Air Room Air Room Air Room Air Intake and Output 05/13/18 05/13/18 05/14/18 15:00 23:00 07:00 Intake Total 300 ml 230 ml 220 ml Output Total 0 ml 1650 ml Balance 300 ml 230 ml -1430 ml JUDY WOOD MD May 14, 2018 13:25
--- NOTE | 2018-05-14 13:32 | RAD ---
Indication: Penile trauma and discharge. Evaluate for scrotal damage. TECHNIQUE: Grayscale, color Doppler and spectral waveform images of the bilateral testicles COMPARISON: None FINDINGS: The right testicle measures 3.1 x 2.9 x 2.4 cm and is homogeneous in echogenicity without focal lesion. Blood flow is seen in the right testicle. The epididymis is within normal limits. The left testicle measures 3.4 x 2.5 x 1.8 cm and is homogeneous in echogenicity without focal lesion. The epididymis is within normal limits. No hydrocele. Bilateral scrotal wall thickening noted. IMPRESSION: 1. No evidence of focal testicular lesion. 2. Bilateral scrotal wall edema. 3. Bilateral testicles demonstrates evidence of blood flow. Electronically signed by: Lee Frost DO (05/14/2018 1:29 PM) [facility]
[2018-05-14] MEDS ORDERED: CEFEPIME HCL 1 GM in IV DEXTROSE 5% 50 ML IV SCH (14:00)
[2018-05-14 15:55] VITALS: BP 135/79
[2018-05-14] MEDS ORDERED: INSULIN GLARGINE 300 UNITS/3 ML INSULN.PEN. SQ ONE (16:15)
[2018-05-14] MEDS: IV DEXTROSE 5 %-0.45 % NACL 1,000 ML IV SCH (16:15)
[2018-05-14] MEDS: ZINC SULFATE 220 MG CAPSULE. PO SCH (17:05)
[2018-05-14] MEDS: ENOXAPARIN 40 MG/0.4 ML SYRINGE. SQ SCH (17:05)
[2018-05-14] MEDS: ASCORBIC ACID 500 MG TABLET PO SCH (17:05)
--- NOTE | 2018-05-14 17:52 | PDOC ---
SUBJECTIVE Subjective Family and patient concerned about feet and seborrheic dermatitis of his face ( common in patients with neurological illness). He has a diagnosis of bullous pemphigoid. I last saw him in October,. He is still on systemic steroids although my note from 2 1/2 years ago suggests he was on prednisone 16 mg and dapsone 25 mg with intention to taper steroids slowly. OBJECTIVE Objective Does not look as though bullous pemphigoid is active. He has significant erythema and scaling of his face. Vital Signs Vital Signs Date Time Temp Pulse Resp B/P (MAP) Pulse Ox O2 Delivery O2 Flow Rate FiO2 05/14/18 15:55 97.4 74 18 135/79 (97) 99 Room Air 97.4 05/14/18 11:08 97.5 82 18 129/92 (104) 98 Room Air 97.5 05/14/18 08:00 Room Air 05/14/18 07:39 97.9 82 18 147/77 (100) 97 Room Air 97.9 05/14/18 03:45 98.1 68 18 151/80 (103) 94 Room Air 98.1 05/13/18 23:40 97.8 87 18 114/75 (88) 98 Room Air 97.8 05/13/18 20:00 Room Air 05/13/18 19:50 100.0 94 18 126/77 (93) 96 Room Air 100.0 I & O Intake and Output 05/14/18 07:00 Intake Total 750 ml Output Total 1650 ml Balance -900 ml Intake Oral 750 ml Output Urine Total 1650 ml # Bowel Movements 1 PHYSICAL EXAM Physical Exam as above ASSESSMENT/PLAN Assessment/Plan History of bullous pemphigoid. I have not seen the patient since October,. His says that he doesn't really have a primary care physician (I am not sure if anyone is managing the BP at this time). He has significant erythema and scaling of his face. I can try to help with that. The patient is not ambulatory which renders his care very difficult. COMMENT Lab Laboratory Tests Test 05/13/18 19:59 05/14/18 04:05 05/14/18 07:32 05/14/18 11:58 Glucose (Fingerstick) 212 mg/dL (70-99) 131 mg/dL (70-99) 130 mg/dL (70-99) White Blood Count 14.6 x10^3/uL (4.0-11.0) Red Blood Count 4.98 x10^6/uL (4.30-5.70) Hemoglobin 13.6 g/dL (13.0-17.5) Hematocrit 38.6 % (39.0-53.0) Mean Corpuscular Volume 78 fL (79-100) Mean Corpuscular Hemoglobin 27 pg (25-35) Mean Corpuscular Hemoglobin Concent 35 g/dL (31-37) Red Cell Distribution Width 18.9 % (11.5-14.5) Platelet Count 340 x10^3/uL (140-400) Neutrophils (%) (Auto) 77 % (31-73) Lymphocytes (%) (Auto) 20 % (24-48) Monocytes (%) (Auto) 2 % (0-9) Eosinophils (%) (Auto) 0 % (0-3) Basophils (%) (Auto) 1 % (0-3) Neutrophils # (Auto) 11.3 x10^3uL (1.8-7.7) Lymphocytes # (Auto) 2.9 x10^3/uL (1.0-4.8) Monocytes # (Auto) 0.3 x10^3/uL (0.0-1.1) Eosinophils # (Auto) 0.0 x10^3/uL (0.0-0.7) Basophils # (Auto) 0.1 x10^3/uL (0.0-0.2) Sodium Level 134 mmol/L (136-145) Potassium Level 4.3 mmol/L (3.5-5.1) Chloride Level 102 mmol/L (98-107) Carbon Dioxide Level 24 mmol/L (21-32) Anion Gap 8 (6-14) Blood Urea Nitrogen 10 mg/dL (8-26) Creatinine 0.9 mg/dL (0.7-1.3) Estimated GFR (Cockcroft-Gault) 100.1 Glucose Level 162 mg/dL (70-99) Lactic Acid Level 0.7 mmol/L (0.4-2.0) Calcium Level 8.4 mg/dL (8.5-10.1) Test 05/14/18 16:52 Glucose (Fingerstick) 113 mg/dL (70-99) LIANA,MANDO MD May 14, 2018 17:52
--- NOTE | 2018-05-14 18:05 | PDOC ---
SUBJECTIVE Subjective [facility] My last prescription was for prednisone 5 mg once daily in December,. They had requested a refill from me on 04/17/2018 which I denied. He received a prescription from the home visiting physician, Dr. Sarahi aWn in December, for 20 mg daily. OBJECTIVE Vital Signs Vital Signs Date Time Temp Pulse Resp B/P (MAP) Pulse Ox O2 Delivery O2 Flow Rate FiO2 05/14/18 15:55 97.4 74 18 135/79 (97) 99 Room Air 97.4 05/14/18 11:08 97.5 82 18 129/92 (104) 98 Room Air 97.5 05/14/18 08:00 Room Air 05/14/18 07:39 97.9 82 18 147/77 (100) 97 Room Air 97.9 05/14/18 03:45 98.1 68 18 151/80 (103) 94 Room Air 98.1 05/13/18 23:40 97.8 87 18 114/75 (88) 98 Room Air 97.8 05/13/18 20:00 Room Air 05/13/18 19:50 100.0 94 18 126/77 (93) 96 Room Air 100.0 I & O Intake and Output 05/14/18 07:00 Intake Total 750 ml Output Total 1650 ml Balance -900 ml Intake Oral 750 ml Output Urine Total 1650 ml # Bowel Movements 1 COMMENT Lab Laboratory Tests Test 05/13/18 19:59 05/14/18 04:05 05/14/18 07:32 05/14/18 11:58 Glucose (Fingerstick) 212 mg/dL (70-99) 131 mg/dL (70-99) 130 mg/dL (70-99) White Blood Count 14.6 x10^3/uL (4.0-11.0) Red Blood Count 4.98 x10^6/uL (4.30-5.70) Hemoglobin 13.6 g/dL (13.0-17.5) Hematocrit 38.6 % (39.0-53.0) Mean Corpuscular Volume 78 fL (79-100) Mean Corpuscular Hemoglobin 27 pg (25-35) Mean Corpuscular Hemoglobin Concent 35 g/dL (31-37) Red Cell Distribution Width 18.9 % (11.5-14.5) Platelet Count 340 x10^3/uL (140-400) Neutrophils (%) (Auto) 77 % (31-73) Lymphocytes (%) (Auto) 20 % (24-48) Monocytes (%) (Auto) 2 % (0-9) Eosinophils (%) (Auto) 0 % (0-3) Basophils (%) (Auto) 1 % (0-3) Neutrophils # (Auto) 11.3 x10^3uL (1.8-7.7) Lymphocytes # (Auto) 2.9 x10^3/uL (1.0-4.8) Monocytes # (Auto) 0.3 x10^3/uL (0.0-1.1) Eosinophils # (Auto) 0.0 x10^3/uL (0.0-0.7) Basophils # (Auto) 0.1 x10^3/uL (0.0-0.2) Sodium Level 134 mmol/L (136-145) Potassium Level 4.3 mmol/L (3.5-5.1) Chloride Level 102 mmol/L (98-107) Carbon Dioxide Level 24 mmol/L (21-32) Anion Gap 8 (6-14) Blood Urea Nitrogen 10 mg/dL (8-26) Creatinine 0.9 mg/dL (0.7-1.3) Estimated GFR (Cockcroft-Gault) 100.1 Glucose Level 162 mg/dL (70-99) Lactic Acid Level 0.7 mmol/L (0.4-2.0) Calcium Level 8.4 mg/dL (8.5-10.1) Test 05/14/18 16:52 Glucose (Fingerstick) 113 mg/dL (70-99) MANDO GAINES MD May 14, 2018 18:05
--- NOTE | 2018-05-14 18:12 | PDOC ---
OBJECTIVE Objective nursing pointed out to me that he has significant denudation of his medial legs and back. I didn't see intact vesicles. This could be bullous pemphigoid. He already has significant skin atrophy so I am reluctant to add topical steroids. Can try dapsone 25 mg daily with the prednisone (this worked wonderfully for him in the past. Vital Signs Vital Signs Date Time Temp Pulse Resp B/P (MAP) Pulse Ox O2 Delivery O2 Flow Rate FiO2 05/14/18 15:55 97.4 74 18 135/79 (97) 99 Room Air 97.4 05/14/18 11:08 97.5 82 18 129/92 (104) 98 Room Air 97.5 05/14/18 08:00 Room Air 05/14/18 07:39 97.9 82 18 147/77 (100) 97 Room Air 97.9 05/14/18 03:45 98.1 68 18 151/80 (103) 94 Room Air 98.1 05/13/18 23:40 97.8 87 18 114/75 (88) 98 Room Air 97.8 05/13/18 20:00 Room Air 05/13/18 19:50 100.0 94 18 126/77 (93) 96 Room Air 100.0 I & O Intake and Output 05/14/18 07:00 Intake Total 750 ml Output Total 1650 ml Balance -900 ml Intake Oral 750 ml Output Urine Total 1650 ml # Bowel Movements 1 COMMENT Lab Laboratory Tests Test 05/13/18 19:59 05/14/18 04:05 05/14/18 07:32 05/14/18 11:58 Glucose (Fingerstick) 212 mg/dL (70-99) 131 mg/dL (70-99) 130 mg/dL (70-99) White Blood Count 14.6 x10^3/uL (4.0-11.0) Red Blood Count 4.98 x10^6/uL (4.30-5.70) Hemoglobin 13.6 g/dL (13.0-17.5) Hematocrit 38.6 % (39.0-53.0) Mean Corpuscular Volume 78 fL (79-100) Mean Corpuscular Hemoglobin 27 pg (25-35) Mean Corpuscular Hemoglobin Concent 35 g/dL (31-37) Red Cell Distribution Width 18.9 % (11.5-14.5) Platelet Count 340 x10^3/uL (140-400) Neutrophils (%) (Auto) 77 % (31-73) Lymphocytes (%) (Auto) 20 % (24-48) Monocytes (%) (Auto) 2 % (0-9) Eosinophils (%) (Auto) 0 % (0-3) Basophils (%) (Auto) 1 % (0-3) Neutrophils # (Auto) 11.3 x10^3uL (1.8-7.7) Lymphocytes # (Auto) 2.9 x10^3/uL (1.0-4.8) Monocytes # (Auto) 0.3 x10^3/uL (0.0-1.1) Eosinophils # (Auto) 0.0 x10^3/uL (0.0-0.7) Basophils # (Auto) 0.1 x10^3/uL (0.0-0.2) Sodium Level 134 mmol/L (136-145) Potassium Level 4.3 mmol/L (3.5-5.1) Chloride Level 102 mmol/L (98-107) Carbon Dioxide Level 24 mmol/L (21-32) Anion Gap 8 (6-14) Blood Urea Nitrogen 10 mg/dL (8-26) Creatinine 0.9 mg/dL (0.7-1.3) Estimated GFR (Cockcroft-Gault) 100.1 Glucose Level 162 mg/dL (70-99) Lactic Acid Level 0.7 mmol/L (0.4-2.0) Calcium Level 8.4 mg/dL (8.5-10.1) Test 05/14/18 16:52 Glucose (Fingerstick) 113 mg/dL (70-99) MANDO GAINES MD May 14, 2018 18:12
[2018-05-14 19:40] VITALS: BP 133/68
--- NOTE | 2018-05-14 20:26 | CONS ---
DATE OF CONSULTATION: 05/14/2018 REFERRING PHYSICIAN: Dr. García. REASON FOR CONSULTATION: Possible UTI. HISTORY OF PRESENT ILLNESS: A 73-year-old -Citizen Of [place] male with history of progressive multiple sclerosis, neurogenic bladder with chronic indwelling Chatman, BPH, hiatal hernia, hypertension, hyperlipidemia, admitted through ER with urinary retention by . The patient had Chatman catheter inserted by urologist from another institution about 2 weeks prior to presentation. The patient on presentation to the ER had fever of 100.8, high white count and tachycardia, did get Rocephin 1 dose. The patient was admitted for further evaluation and treatment. The patient has history of E. coli UTI, pansensitive in February of 2018 treated with cephalexin. The patient also had history of pseudomonas UTI. The patient has been on prednisone, has seborrheic dermatitis on the face, neck and ears. This morning, the patient is little more confused. Penile area has skin breakdown just at the base of the penis with purulence coming out with blood strain. There is also superficial erosion. The patient has been admitted for complicated UTI and sepsis and Infectious Disease consult has been requested for antibiotic management. He denies any nausea, vomiting, diarrhea. Denies any chest pain, cough or shortness of breath. PAST MEDICAL HISTORY: 1. Progressive multiple sclerosis, bedbound with neurogenic bladder and indwelling Chatman catheter, last changed 2 weeks ago at outside facility, now with purulence at the base of the penile area on the scrotum with urinary retention. 2. BPH with chronic indwelling Chatman. 3. Hypertension. 4. Hyperlipidemia. 5. Hiatal hernia. 6. History of recurrent ileus. 7. Bullous pemphigus. REVIEW OF SYSTEMS: GENERAL: Limited, but fever, purulence from urethral area. CENTRAL NERVOUS SYSTEM: Slightly confused. ALLERGIES: No known drug allergies. SOCIAL HISTORY: No smoking, no ETOH. , lives with his on home hospice. FAMILY HISTORY: As per HPI. CURRENT MEDICATIONS: IV ceftriaxone. Other medications reviewed in medication list. PHYSICAL EXAMINATION: GENERAL: Alert, awake, emotional male, cooperative, lying in bed comfortably, in no acute distress, tearful. VITAL SIGNS: Temperature 97.9, pulse 82, respiration rate 18, blood pressure 147/77, oxygen saturation 97% on room air, T-max 100.8. GENERAL: Alert, awake male, oriented x 3, in no acute distress, slightly confused. HEENT: Normocephalic, atraumatic, anicteric. No thrush. Seborrheic keratosis present on the forehead, neck, ears. LUNGS: Clear anteriorly. HEART: S1, S2. ABDOMEN: Soft, bowel sounds present, nontender, nondistended. GENITOURINARY: Chatman catheter in place. Excoriation present over the anterior scrotum just below the penile base, some crusting, mild purulence. EXTREMITIES: No edema. Flexor contractures present. NEUROLOGIC: Alert and oriented x 3. Slightly confused. PSYCHIATRIC: Anxious, tearful. Mental status is normal otherwise. DERMATOLOGIC: Old bullous lesions noted. LABORATORY DATA: WBC 14.6-17.0, hemoglobin 13.6, hematocrit 38.6, platelets 340. Sodium 134, potassium 4.3, chloride 102, bicarbonate 24, BUN 10, creatinine 0.9, glucose 162, calcium 8.4. Lactate 0.7. UA shows positive nitrite and leukocyte esterase large, WBC too numerous to count. Microbiology: Blood culture, no growth till now. Urine culture pending at this time. IMPRESSION: 1. Fever, leukocytosis, source likely 2. Benign prostatic hypertrophy with urinary retention, chronic indwelling Chatman catheter changed 2 weeks ago now with pyuria around chatman catheter 3. Multiple sclerosis, bedbound, progressive. 4. Seborrheic keratoses. 5. 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 6. Chronic contracture, right hand. 7. History of Escherichia coli and pseudomonas urinary tract infection in the past. 8. Hypertension/hyperlipidemia. 9. Lesion on the scrotum could be from underlying bullous pemphigus with secondary infection RECOMMENDATIONS: 1. Discontinue IV ceftriaxone. 2. Start empiric cefepime and Zyvox pending blood culture and urine culture results. 3. Continue supportive care. 4. Obtain ultrasound of the scrotum. 5. The patient may need urologic evaluation. 6. Follow up cultures and susceptibility results. 7. Follow up labs in a.m. 8. Continue supportive care. Thank you, Dr. García for consulting Infectious Disease to participate in this patient's care. We will follow along with you. ARUNDHATI SOMMERS, MD DR: BRYANT/deisi JOB#: [id number] / [id number] CINTHIA
[2018-05-14] MEDS: KETOCONAZOLE 2% TOPICAL CREAM 15GM TUBE. TP SCH (23:09)
[2018-05-14 23:25] VITALS: BP 152/85
[2018-05-15 03:45] VITALS: BP 142/87
[2018-05-15] MEDS: IV DEXTROSE 5 %-0.45 % NACL 1,000 ML IV SCH ×3 (04:41→21:20)
[2018-05-15] MEDS: CEFEPIME HCL IV Push 1 GM VIAL. IVP SCH ×2 (05:39→21:21)
[2018-05-15 07:00] VITALS: BP 134/84
[2018-05-15] MEDS: INSULIN LISPRO 300 UNITS/3 ML INSULN.PEN. SQ SCH ×3 (08:00→17:00)
--- NOTE | 2018-05-15 08:54 | PDOC2 ---
CONSULT Date of Consult Date of Consult DATE: 05/15/18 TIME: 08:45 Reason for Consult Reason for Consult: wounds and nail care Referring Physician Referring Physician: Shmuel Identification/Chief Complaint Chief Complaint Long thick nails with avulsions noted to left lesser digits and right hallux, wound bilateral foot Source Source: Chart review History of Present Illness Reason for Visit: 73 year old male seen bedside resting comfortably admitted for UTI, urinary retension also with past medical history significant for bullous pemphigus. Patient also with long thick nails. Patient a poor historian and could not provide his history, thus obtained from chart Past Medical History Cardiovascular: HTN, Hyperlipidemia CENTRAL NERVOUS SYSTEM: Other (MS) GI: Other Infectious disease: Other (recurrent UTI) Renal/: Benign prostatic enlarg., Urinary Incontinence Dermatology: Other ([facility]) Past Surgical History Past Surgical History: Other Family History Family History: Hypertension, Other Social History No ALCOHOL: none Drugs: None Lives: with Family Current Problem List Problem List Problems Medical Problems: (1) Decubitus ulcer Status: Acute (2) Hx of multiple sclerosis Status: Acute (3) Multiple sclerosis Status: Acute (4) Urinary retention Status: Acute (5) UTI (urinary tract infection) due to urinary indwelling catheter Status: Acute Current Medications Current Medications Current Medications Sodium Chloride 1,000 ml @ 1,000 mls/hr 1X ONCE IV Last administered on 05/13at 05:08; Start 05/13/18 at 04:30; Stop 05/13/18 at 05:29; Status DC Ceftriaxone Sodium 50 ml @ 100 mls/hr 1X ONCE IV Last administered on at 05:48; Start 05/13/18 at 06:00; Stop 05/13/18 at 06:29; Status DC Ondansetron HCl (Zofran) 4 mg PRN Q8HRS PRN IV NAUSEA/VOMITING 1st choice; Start 05/13/18 at 05:45; Stop 05/13/18 at 08:47; Status DC Fentanyl Citrate (Fentanyl 2ml Vial) 50 mcg PRN Q2HR PRN IV SEVERE PAIN; Start 05/13/18 at 05:45; Stop 05/14/18 at 05:44; Status DC Insulin Human Lispro (HumaLOG) 0-5 UNITS TIDWMEALS SQ ; Start 05/13/18 at 08:00 ; Stop 05/13/18 at 08:47; Status DC Dextrose (Dextrose 50%-Water Syringe) 12.5 gm PRN Q15MIN PRN IV SEE COMMENTS; Start 05/13/18 at 05:45 Ondansetron HCl (Zofran) 4 mg PRN Q6HRS PRN IV NAUSEA/VOMITING 1st choice; Start 05/13/18 at 09:00 Ceftriaxone Sodium 1 gm/ Dextrose 50 ml @ 100 mls/hr Q24H IV ; Start 05/13/18 at 08:45; Status UNV Acetaminophen (Tylenol) 500 mg PRN Q6HRS PRN PO MILD PAIN / TEMP; Start at 08:45 Insulin Human Lispro (HumaLOG) 0-9 UNITS TIDWMEALS SQ ; Start 05/13/18 at 12:00 Dextrose (Dextrose 50%-Water Syringe) 12.5 gm PRN Q15MIN PRN IV SEE COMMENTS; Start 05/13/18 at 08:45; Status UNV Magnesium Sulfate/ Dextrose 100 ml @ 100 mls/hr 1X ONCE IV Last administered on 05/13/18at 13:03; Start 05/13/18 at 09:30; Stop 05/13/18 at 10:29; Status DC Prednisone (Prednisone) 25 mg DAILY PO Last administered on 05/14/18at 09:03; Start 05/13/18 at 15:00 Triamterene/HCTZ (Maxzide 37.5/ 25mg) 1 tab DAILY PO Last administered on 05/14at 09:02; Start 05/13/18 at 09:00 Baclofen (Lioresal) 20 mg DAILYWBKFT PO Last administered on 05/13/18at 12:56; Start 05/13/18 at 12:00; Stop 05/13/18 at 16:21; Status DC Non-Formulary Medication (Dapsone ) 25 mg DAILY PO ; Start 05/13/18 at 09:00; Stop 05/13/18 at 14:33; Status DC Metformin HCl (Glucophage) 500 mg DAILYWBKFT PO ; Start 05/13/18 at 10:00; Stop 05/13/18 at 16:20; Status DC Fish Oil (Fish Oil) 1,000 mg DAILY PO Last administered on 05/14/18at 09:02; Start 05/13/18 at 10:00 Oxybutynin Chloride (Ditropan) 5 mg DAILY PO Last administered on 05/14/18at 09 :02; Start 05/13/18 at 10:00 Ceftriaxone Sodium (Rocephin) 1 gm Q24H IVP Last administered on 05/14/18at 06: 26; Start 05/14/18 at 06:00; Stop 05/14/18 at 09:14; Status DC Sodium Chloride 1,000 ml @ 100 mls/hr Q10H IV Last administered on 05/14/18at 08:30; Start 05/13/18 at 12:30; Stop 05/14/18 at 16:11; Status DC Enoxaparin Sodium (Lovenox 40mg Syringe) 40 mg Q24H SQ Last administered on at 17:05; Start 05/13/18 at 13:00 Baclofen (Lioresal) 50 mg TID PO ; Start 05/13/18 at 21:00; Stop 05/13/18 at 21:00; Status DC Baclofen (Lioresal) 50 mg TID PO Last administered on 05/14/18at 17:05; Start 05/13/18 at 21:00 Linezolid (Zyvox) 600 mg BID PO Last administered on 05/14/18at 11:22; Start 05/14/18 at 10:00 Nystatin (Nystop) 1 frederick BID TP Last administered on 05/14/18at 22:14; Start at 11:00 Cefepime HCl 1 gm/ Dextrose 50 ml @ 100 mls/hr Q8HRS IV ; Start 05/14/18 at 14 :00; Status UNV Cefepime HCl (Maxipime) 1 gm Q8HRS IVP Last administered on 05/15/18at 05:39; Start 05/14/18 at 11:00 Ascorbic Acid (Vitamin C) 500 mg DAILY PO Last administered on 05/14/18at 17:05 ; Start 05/14/18 at 14:00 Zinc Sulfate (Orazinc) 220 mg DAILY PO Last administered on 05/14/18at 17:05; Start 05/14/18 at 14:00 Dextrose/Sodium Chloride 1,000 ml @ 100 mls/hr Q10H IV Last administered on at 04:41; Start 05/14/18 at 16:15 Insulin Glargine (Lantus) 6 units 1X ONCE SQ Last administered on 05/14/18at 17:21; Start 05/14/18 at 16:15; Stop 05/14/18 at 16:16; Status DC Influenza Virus Vaccine (Afluria Trivalent [id number] Syringe) 0.5 ml ONCE ONCE VAX IM ; Start 05/15/18 at 09:00; Stop 05/15/18 at 09:01 Ketoconazole (Nizoral 2% Topical) 1 frederick DAILY TP Last administered on at 23:09; Start 05/14/18 at 18:00 Active Scripts Active Cephalexin 500 Mg Tablet 1 Tab PO QID Cipro (Ciprofloxacin Hcl) 500 Mg Tablet 1 Tab PO BID 5 Days Reported Fish Oil + D3 Softgel ([place]-3S/Dha/Epa/Fish Oil/D3) 1 Each Capsule 1 Each PO DAILY Prednisone 20 Mg Tablet 25 Mg PO DAILY Baclofen 20 Mg Tablet 50 Tab PO TID Oxybutynin Chloride Er (Oxybutynin Chloride) 5 Mg Tab.er.24 1 Tab PO DAILY Allergies Allergies: Coded Allergies: No Known Drug Allergies (Unverified , 04/30/14) ROS Review of System unable to obtain Physical Exam Physical Exam Lower extremity: Skin is warm, xerotic, atrophic. decreased turgor. note status post avulsion of right hallux nail and lesser digits 2-5 left foot with epithelialization 50% to right hallux otherwise 90% to left lesser digits. Remaining nails are long thickened 4mm and yellow brown discolored with loosening from the nail bed. Note superficial discontinuity of skin to plantar right metatarsal heads with granular base and to dorsal proximal foot as well as to 3rd digit dorsally left foot. No active drainage. no cellulitis. no calor. No signs of acute infection. Blotches of hypopigmentation possibly from previous healed ulcerations. No hair is present to feet. DP 2/4. PT faintly palpable 0/4. CFT is 3 seconds to digits. Sensation diminished to light touch and to sharp dull. Patient immobile. Weakness to muscle strength bilateral lower extremity. General: Alert, mild distress Vitals VITALS Vital Signs Date Time Temp Pulse Resp B/P (MAP) Pulse Ox O2 Delivery O2 Flow Rate FiO2 05/15/18 07:00 97.7 77 20 134/84 (101) 98 Room Air 97.7 Labs Labs Laboratory Tests Test 05/13/18 12:34 05/13/18 17:39 05/13/18 19:59 05/14/18 04:05 Glucose (Fingerstick) 127 mg/dL (70-99) 112 mg/dL (70-99) 212 mg/dL (70-99) White Blood Count 14.6 x10^3/uL (4.0-11.0) Red Blood Count 4.98 x10^6/uL (4.30-5.70) Hemoglobin 13.6 g/dL (13.0-17.5) Hematocrit 38.6 % (39.0-53.0) Mean Corpuscular Volume 78 fL (79-100) Mean Corpuscular Hemoglobin 27 pg (25-35) Mean Corpuscular Hemoglobin Concent 35 g/dL (31-37) Red Cell Distribution Width 18.9 % (11.5-14.5) Platelet Count 340 x10^3/uL (140-400) Neutrophils (%) (Auto) 77 % (31-73) Lymphocytes (%) (Auto) 20 % (24-48) Monocytes (%) (Auto) 2 % (0-9) Eosinophils (%) (Auto) 0 % (0-3) Basophils (%) (Auto) 1 % (0-3) Neutrophils # (Auto) 11.3 x10^3uL (1.8-7.7) Lymphocytes # (Auto) 2.9 x10^3/uL (1.0-4.8) Monocytes # (Auto) 0.3 x10^3/uL (0.0-1.1) Eosinophils # (Auto) 0.0 x10^3/uL (0.0-0.7) Basophils # (Auto) 0.1 x10^3/uL (0.0-0.2) Sodium Level 134 mmol/L (136-145) Potassium Level 4.3 mmol/L (3.5-5.1) Chloride Level 102 mmol/L (98-107) Carbon Dioxide Level 24 mmol/L (21-32) Anion Gap 8 (6-14) Blood Urea Nitrogen 10 mg/dL (8-26) Creatinine 0.9 mg/dL (0.7-1.3) Estimated GFR (Cockcroft-Gault) 100.1 Glucose Level 162 mg/dL (70-99) Lactic Acid Level 0.7 mmol/L (0.4-2.0) Calcium Level 8.4 mg/dL (8.5-10.1) Test 05/14/18 07:32 05/14/18 11:58 05/14/18 16:52 05/14/18 20:31 Glucose (Fingerstick) 131 mg/dL (70-99) 130 mg/dL (70-99) 113 mg/dL (70-99) 153 mg/dL (70-99) Test 05/15/18 07:20 Glucose (Fingerstick) 136 mg/dL (70-99) Laboratory Tests Test 05/14/18 11:58 05/14/18 16:52 05/14/18 20:31 05/15/18 07:20 Glucose (Fingerstick) 130 mg/dL (70-99) 113 mg/dL (70-99) 153 mg/dL (70-99) 136 mg/dL (70-99) Assessment/Plan Assessment/Plan 73 year old male with superficial ulcerations bilateral foot with no signs of acute infection, onychomycosis, onychauxis, onycholysis, with diffuse PVD on physical exam -Nails debrided less than 6 without incident. -Continue daily local wound care with xeroform, gauze, kerlex bandage. -Recommend daily exfolliative lotion for xerosis-appreciate recommendations from Dr. Lopez -Strict decubitus precautions -Follow up on an as needed basis. Thank you for consultation. Will sign off. JANETH EPPS DPM May 15, 2018 08:54
[2018-05-15] MEDS: KETOCONAZOLE 2% TOPICAL CREAM 15GM TUBE. TP SCH (09:00)
[2018-05-15] MEDS: BACLOFEN 10 MG TABLET. PO SCH ×3 (09:00→21:00)
--- NOTE | 2018-05-15 09:12 | PDOC ---
Infectious Disease Note Subjective: Subjective Pt alert awake,confused d/w RN no n/v/d ROS: ROS confused Vital Signs: Vital Signs Vital Signs Date Time Temp Pulse Resp B/P (MAP) Pulse Ox O2 Delivery O2 Flow Rate FiO2 05/15/18 07:00 97.7 77 20 134/84 (101) 98 Room Air 97.7 Physical Exam: PHYSICAL EXAM GENERAL: Alert, awake male, oriented x 3, in no acute distress, slightly confused. HEENT: Normocephalic, atraumatic, anicteric. No thrush. Seborrheic keratosis present on the forehead, neck, ears. LUNGS: Clear anteriorly. HEART: S1, S2. ABDOMEN: Soft, bowel sounds present, nontender, nondistended. GENITOURINARY: Walls catheter in place. Excoriation present over the anterior scrotum just below the penile base, some crusting, mild purulence. EXTREMITIES: No edema. Flexor contractures present. NEUROLOGIC: Alert and oriented x 3. Slightly confused. PSYCHIATRIC: Anxious, tearful. Mental status is normal otherwise. DERMATOLOGIC: Old bullous lesions noted. Medications: Inpatient Meds: Current Medications Medications (Trade) Dose Ordered Sig/Génesis Start Time Stop Time Status Last Admin Dose Admin Acetaminophen (Tylenol) 500 mg PRN Q6HRS PRN 05/13/18 08:45 Ascorbic Acid (Vitamin C) 500 mg DAILY 05/14/18 14:00 05/14/18 17:05 500 MG Baclofen (Lioresal) 50 mg TID 05/13/18 21:00 05/14/18 17:05 50 MG Cefepime HCl (Maxipime) 1 gm Q8HRS 05/14/18 11:00 05/15/18 05:39 1 GM Cefepime HCl 1 gm/ Dextrose 50 ml @ 100 mls/hr Q8HRS 05/14/18 14:00 UNV Ceftriaxone Sodium 1 gm/ Dextrose 50 ml @ 100 mls/hr Q24H 05/13/18 08:45 UNV Ceftriaxone Sodium (Rocephin) 1 gm Q24H 05/14/18 06:00 05/14/18 09:14 DC 05/14/18 06:26 1 GM Dextrose (Dextrose 50%-Water Syringe) 12.5 gm PRN Q15MIN PRN 05/13/18 08:45 UNV Dextrose/Sodium Chloride 1,000 ml @ 100 mls/hr Q10H 05/14/18 16:15 05/15/18 04:41 100 MLS/HR Enoxaparin Sodium (Lovenox 40mg Syringe) 40 mg Q24H 05/13/18 13:00 05/14/18 17:05 40 MG Fentanyl Citrate (Fentanyl 2ml Vial) 50 mcg PRN Q2HR PRN 05/13/18 05:45 05/14/18 05:44 DC Fish Oil (Fish Oil) 1,000 mg DAILY 05/13/18 10:00 05/14/18 09:02 1,000 MG Influenza Virus Vaccine (Afluria Trivalent 3309-9178 Syringe) 0.5 ml ONCE ONCE 05/15/18 09:00 05/15/18 09:01 DC Insulin Glargine (Lantus) 6 units 1X ONCE 05/14/18 16:15 05/14/18 16:16 DC 05/14/18 17:21 6 UNITS Insulin Human Lispro (HumaLOG) 0-9 UNITS TIDWMEALS 05/13/18 12:00 Ketoconazole (Nizoral 2% Topical) 1 frederick DAILY 05/14/18 18:00 05/14/18 23:09 1 FREDERICK Linezolid (Zyvox) 600 mg BID 05/14/18 10:00 05/14/18 11:22 600 MG Magnesium Sulfate/ Dextrose 100 ml @ 100 mls/hr 1X ONCE 05/13/18 09:30 05/13/18 10:29 DC 05/13/18 13:03 100 MLS/HR Metformin HCl (Glucophage) 500 mg DAILYWBKFT 05/13/18 10:00 05/13/18 16:20 DC Non-Formulary Medication (Dapsone ) 25 mg DAILY 05/13/18 09:00 05/13/18 14:33 DC Nystatin (Nystop) 1 frederick BID 05/14/18 11:00 05/14/18 22:14 1 FREDERICK Ondansetron HCl (Zofran) 4 mg PRN Q6HRS PRN 05/13/18 09:00 Oxybutynin Chloride (Ditropan) 5 mg DAILY 05/13/18 10:00 05/14/18 09:02 5 MG Prednisone (Prednisone) 25 mg DAILY 05/13/18 15:00 05/14/18 09:03 25 MG Sodium Chloride 1,000 ml @ 100 mls/hr Q10H 05/13/18 12:30 05/14/18 16:11 DC 05/14/18 08:30 100 MLS/HR Triamterene/HCTZ (Maxzide 37.5/ 25mg) 1 tab DAILY 05/13/18 09:00 05/14/18 09:02 1 TAB Zinc Sulfate (Orazinc) 220 mg DAILY 05/14/18 14:00 05/14/18 17:05 220 MG Labs: Lab Laboratory Tests Test 05/14/18 11:58 05/14/18 16:52 05/14/18 20:31 05/15/18 07:20 Glucose (Fingerstick) 130 mg/dL (70-99) 113 mg/dL (70-99) 153 mg/dL (70-99) 136 mg/dL (70-99) Micro RUN DATE: 05/15/18 PAGE 1 RUN TIME: 217 [facility] [address] [place] [address] Gaurav Clifton M.D., Sample Maker Original PATIENT: ALFRED HUDSON ACCT: [id number] LOC: [address] [place] [address] U : [id number] AGE/SX: 73/M ROOM: 660 REG : 05/13/[address]: SOFY NELSON III, DO : 1945 BED: 1 DIS : STATUS: ADM IN TLOC: SPEC #: [id number] MELL: 05/13/18 STATUS: RES REQ #: [id number] RECD: 05/13/[address]: AREN HAYES DO SOURCE: URINE FOL ENTR: 05/13/[address]: UNKNOWN PCP NAME SPDESC: INDWELLING ORDERED: URINE CULTURE Procedure Result URINE CULTURE Preliminary Preliminary report URINE CULTURE RES 1 Preliminary Gram negative rods Greater than 100,000 colony forming units per mL Performed at: DA - [facility] [address], [place], [place] [id number] Industrial Paramedic: UNA Mendes MD, Phone: [phone] Objective: Assessment: 1. Fever, leukocytosis, source likely improved 2. Benign prostatic hypertrophy with urinary retention, chronic indwelling Walls catheter changed 2 weeks ago. 3. Multiple sclerosis, bedbound, progressive. 4. Seborrheic keratoses. 5. 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 6. Chronic contracture, right hand. 7. History of Escherichia coli and pseudomonas urinary tract infection in the past. 8. Hypertension/hyperlipidemia. 9. Lesion on the scrotum could be from underlying bullous pemphigus, on prednisone. seen by derm 10.encephalopathy ? Plan: Plan of Care empiric cefepime but change to q12 Dc Zyvox Continue supportive care. patient may need urologic evaluation. follow up cultures and susceptibility results. Follow up labs in a.m. Continue supportive care. D/W FAREED GARCIA MD May 15, 2018 09:12
--- NOTE | 2018-05-15 10:44 | PDOC ---
PROGRESS NOTES Chief Complaint Chief Complaint cOMPLIACTED UTI, chronic indwelling Walls catheter-changed 2 weeks ago per ( child care) Multiple sclerosis, bedbound Sepsis POA with no organ dysfunction Seborrheic dermatitis face bullous pemphigoid. mod skin atrophy Chronic contracture of the right hand Urinary retention- HYpomagnesemia - 1.7 Hx e coli by urine cx (02/2018) - almost foote sensitive History of Present Illness History of Present Illness IV fluid for sepsis start iv nutrition wound care, consider air bed, start vit C and zinc Rocephin Vitals Vitals Vital Signs Date Time Temp Pulse Resp B/P (MAP) Pulse Ox O2 Delivery O2 Flow Rate FiO2 05/15/18 07:00 97.7 77 20 134/84 (101) 98 Room Air 97.7 Physical Exam Physical Exam GENERAL: Alert, awake male, oriented x 3, in no acute distress, slightly confused. HEENT: Normocephalic, atraumatic, anicteric. No thrush. Seborrheic keratosis present on the forehead, neck, ears. LUNGS: Clear anteriorly. HEART: S1, S2. ABDOMEN: Soft, bowel sounds present, nontender, nondistended. GENITOURINARY: Walls catheter in place. Excoriation present over the anterior scrotum just below the penile base, some crusting, mild purulence. EXTREMITIES: No edema. Flexor contractures present. NEUROLOGIC: Alert and oriented x 3. Slightly confused. PSYCHIATRIC: Anxious, tearful. Mental status is normal otherwise. DERMATOLOGIC: Old bullous lesions noted. General: Alert, Cooperative, mild distress Heart: Regular rate, No murmurs Lungs: Clear, Wheezing Abdomen: Normal bowel sounds, Soft, No tenderness, No hepatosplenomegaly, No masses Extremities: No cyanosis Skin: No rashes, Other (old bullae legs that has ruptured and left fresh new skin in the dermis area) Labs LABS Laboratory Tests Test 05/14/18 11:58 05/14/18 16:52 05/14/18 20:31 05/15/18 07:20 Glucose (Fingerstick) 130 mg/dL (70-99) 113 mg/dL (70-99) 153 mg/dL (70-99) 136 mg/dL (70-99) Assessment and Plan Assessmemt and Plan Problems Medical Problems: (1) Decubitus ulcer Status: Acute (2) Hx of multiple sclerosis Status: Acute (3) Multiple sclerosis Status: Acute (4) Urinary retention Status: Acute (5) UTI (urinary tract infection) due to urinary indwelling catheter Status: Acute Comment Review of Relevant I have reviewed the following items rahel (where applicable) has been applied. Labs Laboratory Tests Test 05/13/18 12:34 05/13/18 17:39 05/13/18 19:59 05/14/18 04:05 Glucose (Fingerstick) 127 mg/dL (70-99) 112 mg/dL (70-99) 212 mg/dL (70-99) White Blood Count 14.6 x10^3/uL (4.0-11.0) Red Blood Count 4.98 x10^6/uL (4.30-5.70) Hemoglobin 13.6 g/dL (13.0-17.5) Hematocrit 38.6 % (39.0-53.0) Mean Corpuscular Volume 78 fL (79-100) Mean Corpuscular Hemoglobin 27 pg (25-35) Mean Corpuscular Hemoglobin Concent 35 g/dL (31-37) Red Cell Distribution Width 18.9 % (11.5-14.5) Platelet Count 340 x10^3/uL (140-400) Neutrophils (%) (Auto) 77 % (31-73) Lymphocytes (%) (Auto) 20 % (24-48) Monocytes (%) (Auto) 2 % (0-9) Eosinophils (%) (Auto) 0 % (0-3) Basophils (%) (Auto) 1 % (0-3) Neutrophils # (Auto) 11.3 x10^3uL (1.8-7.7) Lymphocytes # (Auto) 2.9 x10^3/uL (1.0-4.8) Monocytes # (Auto) 0.3 x10^3/uL (0.0-1.1) Eosinophils # (Auto) 0.0 x10^3/uL (0.0-0.7) Basophils # (Auto) 0.1 x10^3/uL (0.0-0.2) Sodium Level 134 mmol/L (136-145) Potassium Level 4.3 mmol/L (3.5-5.1) Chloride Level 102 mmol/L (98-107) Carbon Dioxide Level 24 mmol/L (21-32) Anion Gap 8 (6-14) Blood Urea Nitrogen 10 mg/dL (8-26) Creatinine 0.9 mg/dL (0.7-1.3) Estimated GFR (Cockcroft-Gault) 100.1 Glucose Level 162 mg/dL (70-99) Lactic Acid Level 0.7 mmol/L (0.4-2.0) Calcium Level 8.4 mg/dL (8.5-10.1) Test 05/14/18 07:32 05/14/18 11:58 05/14/18 16:52 05/14/18 20:31 Glucose (Fingerstick) 131 mg/dL (70-99) 130 mg/dL (70-99) 113 mg/dL (70-99) 153 mg/dL (70-99) Test 05/15/18 07:20 Glucose (Fingerstick) 136 mg/dL (70-99) Laboratory Tests Test 05/14/18 11:58 05/14/18 16:52 05/14/18 20:31 05/15/18 07:20 Glucose (Fingerstick) 130 mg/dL (70-99) 113 mg/dL (70-99) 153 mg/dL (70-99) 136 mg/dL (70-99) Microbiology 05/13/18 Blood Culture - Preliminary, Resulted NO GROWTH AFTER 2 DAYS 05/13/18 Urine Culture - Preliminary, Resulted 05/13/18 Urine Culture Result 1 (RERE) - Preliminary, Resulted Medications Current Medications Sodium Chloride 1,000 ml @ 1,000 mls/hr 1X ONCE IV Last administered on 05/13at 05:08; Start 05/13/18 at 04:30; Stop 05/13/18 at 05:29; Status DC Ceftriaxone Sodium 50 ml @ 100 mls/hr 1X ONCE IV Last administered on at 05:48; Start 05/13/18 at 06:00; Stop 05/13/18 at 06:29; Status DC Ondansetron HCl (Zofran) 4 mg PRN Q8HRS PRN IV NAUSEA/VOMITING 1st choice; Start 05/13/18 at 05:45; Stop 05/13/18 at 08:47; Status DC Fentanyl Citrate (Fentanyl 2ml Vial) 50 mcg PRN Q2HR PRN IV SEVERE PAIN; Start 05/13/18 at 05:45; Stop 05/14/18 at 05:44; Status DC Insulin Human Lispro (HumaLOG) 0-5 UNITS TIDWMEALS SQ ; Start 05/13/18 at 08:00 ; Stop 05/13/18 at 08:47; Status DC Dextrose (Dextrose 50%-Water Syringe) 12.5 gm PRN Q15MIN PRN IV SEE COMMENTS; Start 05/13/18 at 05:45 Ondansetron HCl (Zofran) 4 mg PRN Q6HRS PRN IV NAUSEA/VOMITING 1st choice; Start 05/13/18 at 09:00 Ceftriaxone Sodium 1 gm/ Dextrose 50 ml @ 100 mls/hr Q24H IV ; Start 05/13/18 at 08:45; Status UNV Acetaminophen (Tylenol) 500 mg PRN Q6HRS PRN PO MILD PAIN / TEMP; Start at 08:45 Insulin Human Lispro (HumaLOG) 0-9 UNITS TIDWMEALS SQ ; Start 05/13/18 at 12:00 Dextrose (Dextrose 50%-Water Syringe) 12.5 gm PRN Q15MIN PRN IV SEE COMMENTS; Start 05/13/18 at 08:45; Status UNV Magnesium Sulfate/ Dextrose 100 ml @ 100 mls/hr 1X ONCE IV Last administered on 05/13/18at 13:03; Start 05/13/18 at 09:30; Stop 05/13/18 at 10:29; Status DC Prednisone (Prednisone) 25 mg DAILY PO Last administered on 05/14/18at 09:03; Start 05/13/18 at 15:00 Triamterene/HCTZ (Maxzide 37.5/ 25mg) 1 tab DAILY PO Last administered on 05/14at 09:02; Start 05/13/18 at 09:00 Baclofen (Lioresal) 20 mg DAILYWBKFT PO Last administered on 05/13/18at 12:56; Start 05/13/18 at 12:00; Stop 05/13/18 at 16:21; Status DC Non-Formulary Medication (Dapsone ) 25 mg DAILY PO ; Start 05/13/18 at 09:00; Stop 05/13/18 at 14:33; Status DC Metformin HCl (Glucophage) 500 mg DAILYWBKFT PO ; Start 05/13/18 at 10:00; Stop 05/13/18 at 16:20; Status DC Fish Oil (Fish Oil) 1,000 mg DAILY PO Last administered on 05/14/18at 09:02; Start 05/13/18 at 10:00 Oxybutynin Chloride (Ditropan) 5 mg DAILY PO Last administered on 05/14/18at 09 :02; Start 05/13/18 at 10:00 Ceftriaxone Sodium (Rocephin) 1 gm Q24H IVP Last administered on 05/14/18at 06: 26; Start 05/14/18 at 06:00; Stop 05/14/18 at 09:14; Status DC Sodium Chloride 1,000 ml @ 100 mls/hr Q10H IV Last administered on 05/14/18at 08:30; Start 05/13/18 at 12:30; Stop 05/14/18 at 16:11; Status DC Enoxaparin Sodium (Lovenox 40mg Syringe) 40 mg Q24H SQ Last administered on at 17:05; Start 05/13/18 at 13:00 Baclofen (Lioresal) 50 mg TID PO ; Start 05/13/18 at 21:00; Stop 05/13/18 at 21:00; Status DC Baclofen (Lioresal) 50 mg TID PO Last administered on 05/14/18at 17:05; Start 05/13/18 at 21:00 Linezolid (Zyvox) 600 mg BID PO Last administered on 05/14/18at 11:22; Start 05/14/18 at 10:00; Stop 05/15/18 at 09:19; Status DC Nystatin (Nystop) 1 frederick BID TP Last administered on 05/14/18at 22:14; Start at 11:00 Cefepime HCl 1 gm/ Dextrose 50 ml @ 100 mls/hr Q8HRS IV ; Start 05/14/18 at 14 :00; Status UNV Cefepime HCl (Maxipime) 1 gm Q8HRS IVP Last administered on 05/15/18at 05:39; Start 05/14/18 at 11:00; Stop 05/15/18 at 09:20; Status DC Ascorbic Acid (Vitamin C) 500 mg DAILY PO Last administered on 05/14/18at 17:05 ; Start 05/14/18 at 14:00 Zinc Sulfate (Orazinc) 220 mg DAILY PO Last administered on 05/14/18at 17:05; Start 05/14/18 at 14:00 Dextrose/Sodium Chloride 1,000 ml @ 100 mls/hr Q10H IV Last administered on at 04:41; Start 05/14/18 at 16:15 Insulin Glargine (Lantus) 6 units 1X ONCE SQ Last administered on 05/14/18at 17:21; Start 05/14/18 at 16:15; Stop 05/14/18 at 16:16; Status DC Influenza Virus Vaccine (Afluria Trivalent [id number] Syringe) 0.5 ml ONCE ONCE VAX IM ; Start 05/15/18 at 09:00; Stop 05/15/18 at 09:01; Status DC Ketoconazole (Nizoral 2% Topical) 1 frederick DAILY TP Last administered on at 23:09; Start 05/14/18 at 18:00 Cefepime HCl (Maxipime) 1 gm Q12HR IVP ; Start 05/15/18 at 21:00 Active Scripts Active Cephalexin 500 Mg Tablet 1 Tab PO QID Cipro (Ciprofloxacin Hcl) 500 Mg Tablet 1 Tab PO BID 5 Days Reported Fish Oil + D3 Softgel ([place]-3S/Dha/Epa/Fish Oil/D3) 1 Each Capsule 1 Each PO DAILY Prednisone 20 Mg Tablet 25 Mg PO DAILY Baclofen 20 Mg Tablet 50 Tab PO TID Oxybutynin Chloride Er (Oxybutynin Chloride) 5 Mg Tab.er.24 1 Tab PO DAILY Vitals/I & O Vital Sign - Last 24 Hours 05/14/18 05/14/18 05/14/18 05/14/18 11:08 15:55 19:40 20:10 Temp 97.5 97.4 97.9 97.5 97.4 97.9 Pulse 82 74 80 Resp 18 18 18 B/P (MAP) 129/92 (104) 135/79 (97) 133/68 (89) Pulse Ox 98 99 99 O2 Delivery Room Air Room Air Room Air Room Air 05/14/18 05/15/18 05/15/18 23:25 03:45 07:00 Temp 98.0 97.6 97.7 98.0 97.6 97.7 Pulse 75 73 77 Resp 18 18 20 B/P (MAP) 152/85 (107) 142/87 (105) 134/84 (101) Pulse Ox 100 98 98 O2 Delivery Room Air Room Air Room Air Intake and Output 05/14/18 05/14/18 05/15/18 15:00 23:00 07:00 Intake Total 100 ml 300 ml 50 ml Output Total 1900 ml Balance 100 ml 300 ml -1850 ml JM GAO MD May 15, 2018 10:44
[2018-05-15 11:00] VITALS: BP 149/89
[2018-05-15] MEDS: ENOXAPARIN 40 MG/0.4 ML SYRINGE. SQ SCH (14:39)
[2018-05-15] MEDS: predniSONE 10 MG TABLET PO SCH (14:40)
[2018-05-15] MEDS: ZINC SULFATE 220 MG CAPSULE. PO SCH (14:40)
[2018-05-15] MEDS: TRIAMTERENE/HCTZ 37.5/25MG TABLET. PO SCH (14:40)
[2018-05-15] MEDS: ASCORBIC ACID 500 MG TABLET PO SCH (14:41)
[2018-05-15] MEDS: OMEGA-3 FATTY ACIDS/FISH OIL 1,000 MG CAPSULE. PO SCH (14:41)
[2018-05-15] MEDS: OXYBUTYNIN CHLORIDE 5 MG TABLET PO SCH (14:41)
[2018-05-15] MEDS: NYSTATIN TOPICAL POWDER 15GM BOTTLE. TP SCH ×2 (14:51→21:21)
[2018-05-15 15:00] VITALS: BP_SYST 149; BP_SYST 171; BP_DIAS 121; BP_DIAS 91
[2018-05-15 19:25] VITALS: BP 170/92
[2018-05-15] MEDS: LACTOBACILLUS RHAMNOSUS GG 1 CAPSULE. PO SCH (21:00)
[2018-05-15 23:25] VITALS: BP 136/93
[2018-05-16 03:25] VITALS: BP 144/91
[2018-05-16 07:00] VITALS: BP 119/83
[2018-05-16 08:42] LABS: BASO # 0.1 x10^3/uL (0.0-0.2); BASO % 1 % (0-3); EOS # 0.1 x10^3/uL (0.0-0.7); EOS % 0 % (0-3); HEMATOCRIT 39.6 % (39.0-53.0); HEMOGLOBIN 14.1 g/dL (13.0-17.5); LYMPH # 3.3 x10^3/uL (1.0-4.8); LYMPH % 20 % (24-48); MEAN CORPUSCULAR HEMOGLOBIN 27 pg (25-35); MEAN CORPUSCULAR HGB CONC 36 g/dL (31-37); MEAN CORPUSCULAR VOLUME 77 fL (79-100); MONO # 0.9 x10^3/uL (0.0-1.1); MONO % 5 % (0-9); NEUT # 11.8 x10^3uL (1.8-7.7); NEUT % 73 % (31-73); PLATELET COUNT 407 x10^3/uL (140-400); RED BLOOD COUNT 5.15 x10^6/uL (4.30-5.70); RED CELL DISTRIBUTION WIDTH 18.2 % (11.5-14.5); WHITE BLOOD COUNT 16.2 x10^3/uL (4.0-11.0)
[2018-05-16 08:58] LABS: ALBUMIN 2.7 g/dL (3.4-5.0); ALBUMIN/GLOBULIN RATIO 0.6 (1.0-1.7); CALCIUM 8.7 mg/dL (8.5-10.1); CREATININE 0.8 mg/dL (0.7-1.3); GFR 114.7; POTASSIUM 4.3 mmol/L (3.5-5.1); TOTAL BILIRUBIN 0.3 mg/dL (0.2-1.0); TOTAL PROTEIN 7.3 g/dL (6.4-8.2)
[2018-05-16] MEDS: CEFEPIME HCL IV Push 1 GM VIAL. IVP SCH ×2 (09:11→21:15)
[2018-05-16] MEDS: BACLOFEN 10 MG TABLET. PO SCH ×4 (09:11→21:15)
[2018-05-16] MEDS: TRIAMTERENE/HCTZ 37.5/25MG TABLET. PO SCH (09:11)
[2018-05-16] MEDS: ASCORBIC ACID 500 MG TABLET PO SCH (09:12)
[2018-05-16] MEDS: ZINC SULFATE 220 MG CAPSULE. PO SCH (09:12)
[2018-05-16] MEDS: LACTOBACILLUS RHAMNOSUS GG 1 CAPSULE. PO SCH ×3 (09:12→21:39)
[2018-05-16] MEDS: OMEGA-3 FATTY ACIDS/FISH OIL 1,000 MG CAPSULE. PO SCH (09:12)
[2018-05-16] MEDS: predniSONE 10 MG TABLET PO SCH (09:12)
[2018-05-16] MEDS: OXYBUTYNIN CHLORIDE 5 MG TABLET PO SCH (09:12)
[2018-05-16] MEDS: NYSTATIN TOPICAL POWDER 15GM BOTTLE. TP SCH ×2 (09:13→21:19)
[2018-05-16] MEDS: KETOCONAZOLE 2% TOPICAL CREAM 15GM TUBE. TP SCH (09:13)
[2018-05-16] MEDS: INSULIN LISPRO 300 UNITS/3 ML INSULN.PEN. SQ SCH ×3 (09:15→17:00)
[2018-05-16] MEDS: IV DEXTROSE 5 %-0.45 % NACL 1,000 ML IV SCH ×2 (09:34→20:21)
--- NOTE | 2018-05-16 09:55 | PDOC ---
Infectious Disease Note Subjective: Subjective Pt alert awake,remains confused d/w RN no n/v/d ROS: ROS Negative except for above. Vital Signs: Vital Signs Vital Signs Date Time Temp Pulse Resp B/P (MAP) Pulse Ox O2 Delivery O2 Flow Rate FiO2 05/16/18 07:00 97.9 73 16 119/83 (95) 97 Room Air 97.9 Physical Exam: PHYSICAL EXAM GENERAL: Alert, awake male, oriented x 3, in no acute distress, slightly confused. HEENT: Normocephalic, atraumatic, anicteric. No thrush. Seborrheic keratosis present on the forehead, neck, ears. LUNGS: Clear anteriorly. HEART: S1, S2. ABDOMEN: Soft, bowel sounds present, nontender, nondistended. GENITOURINARY: Walls catheter in place. Excoriation present over the anterior scrotum just below the penile base, some crusting, mild purulence. EXTREMITIES: No edema. Flexor contractures present. NEUROLOGIC: Alert and oriented x 3. Slightly confused. PSYCHIATRIC: Anxious, tearful. Mental status is normal otherwise. DERMATOLOGIC: Old bullous lesions noted. Medications: Inpatient Meds: Current Medications Medications (Trade) Dose Ordered Sig/Génesis Start Time Stop Time Status Last Admin Dose Admin Acetaminophen (Tylenol) 500 mg PRN Q6HRS PRN 05/13/18 08:45 Ascorbic Acid (Vitamin C) 500 mg DAILY 05/14/18 14:00 05/16/18 09:12 500 MG Baclofen (Lioresal) 50 mg TID 05/13/18 21:00 05/16/18 09:11 50 MG Cefepime HCl (Maxipime) 1 gm Q12HR 05/15/18 21:00 05/16/18 09:11 1 GM Cefepime HCl 1 gm/ Dextrose 50 ml @ 100 mls/hr Q8HRS 05/14/18 14:00 UNV Ceftriaxone Sodium 1 gm/ Dextrose 50 ml @ 100 mls/hr Q24H 05/13/18 08:45 UNV Ceftriaxone Sodium (Rocephin) 1 gm Q24H 05/14/18 06:00 05/14/18 09:14 DC 05/14/18 06:26 1 GM Dextrose (Dextrose 50%-Water Syringe) 12.5 gm PRN Q15MIN PRN 05/13/18 08:45 UNV Dextrose/Sodium Chloride 1,000 ml @ 100 mls/hr Q10H 05/14/18 16:15 05/16/18 09:34 100 MLS/HR Enoxaparin Sodium (Lovenox 40mg Syringe) 40 mg Q24H 05/13/18 13:00 05/15/18 14:39 40 MG Fentanyl Citrate (Fentanyl 2ml Vial) 50 mcg PRN Q2HR PRN 05/13/18 05:45 05/14/18 05:44 DC Fish Oil (Fish Oil) 1,000 mg DAILY 05/13/18 10:00 05/16/18 09:12 1,000 MG Influenza Virus Vaccine (Afluria Trivalent [id number] Syringe) 0.5 ml ONCE ONCE 05/15/18 09:00 05/15/18 09:01 DC Insulin Glargine (Lantus) 6 units 1X ONCE 05/14/18 16:15 05/14/18 16:16 DC 05/14/18 17:21 6 UNITS Insulin Human Lispro (HumaLOG) 0-9 UNITS TIDWMEALS 05/13/18 12:00 05/16/18 09:15 4 UNITS Ketoconazole (Nizoral 2% Topical) 1 frederick DAILY 05/14/18 18:00 05/16/18 09:13 1 FREDERICK Lactobacillus Rhamnosus (Culturelle) 1 cap BID 05/15/18 21:00 05/16/18 09:12 1 CAP Linezolid (Zyvox) 600 mg BID 05/14/18 10:00 05/15/18 09:19 DC 05/14/18 11:22 600 MG Magnesium Sulfate/ Dextrose 100 ml @ 100 mls/hr 1X ONCE 05/13/18 09:30 05/13/18 10:29 DC 05/13/18 13:03 100 MLS/HR Metformin HCl (Glucophage) 500 mg DAILYWBKFT 05/13/18 10:00 05/13/18 16:20 DC Non-Formulary Medication (Dapsone ) 25 mg DAILY 05/13/18 09:00 05/13/18 14:33 DC Nystatin (Nystop) 1 frederick BID 05/14/18 11:00 05/16/18 09:13 1 FREDERICK Ondansetron HCl (Zofran) 4 mg PRN Q6HRS PRN 05/13/18 09:00 Oxybutynin Chloride (Ditropan) 5 mg DAILY 05/13/18 10:00 05/16/18 09:12 5 MG Prednisone (Prednisone) 25 mg DAILY 05/13/18 15:00 05/16/18 09:12 25 MG Sodium Chloride 1,000 ml @ 100 mls/hr Q10H 05/13/18 12:30 05/14/18 16:11 DC 05/14/18 08:30 100 MLS/HR Triamterene/HCTZ (Maxzide 37.5/ 25mg) 1 tab DAILY 05/13/18 09:00 05/16/18 09:11 1 TAB Zinc Sulfate (Orazinc) 220 mg DAILY 05/14/18 14:00 05/16/18 09:12 220 MG Labs: Lab Laboratory Tests Test 05/15/18 11:37 05/15/18 17:06 05/15/18 21:03 05/16/18 07:30 Glucose (Fingerstick) 133 mg/dL (70-99) 149 mg/dL (70-99) 169 mg/dL (70-99) 167 mg/dL (70-99) Test 05/16/18 08:10 White Blood Count 16.2 x10^3/uL (4.0-11.0) Red Blood Count 5.15 x10^6/uL (4.30-5.70) Hemoglobin 14.1 g/dL (13.0-17.5) Hematocrit 39.6 % (39.0-53.0) Mean Corpuscular Volume 77 fL (79-100) Mean Corpuscular Hemoglobin 27 pg (25-35) Mean Corpuscular Hemoglobin Concent 36 g/dL (31-37) Red Cell Distribution Width 18.2 % (11.5-14.5) Platelet Count 407 x10^3/uL (140-400) Neutrophils (%) (Auto) 73 % (31-73) Lymphocytes (%) (Auto) 20 % (24-48) Monocytes (%) (Auto) 5 % (0-9) Eosinophils (%) (Auto) 0 % (0-3) Basophils (%) (Auto) 1 % (0-3) Neutrophils # (Auto) 11.8 x10^3uL (1.8-7.7) Lymphocytes # (Auto) 3.3 x10^3/uL (1.0-4.8) Monocytes # (Auto) 0.9 x10^3/uL (0.0-1.1) Eosinophils # (Auto) 0.1 x10^3/uL (0.0-0.7) Basophils # (Auto) 0.1 x10^3/uL (0.0-0.2) Sodium Level 132 mmol/L (136-145) Potassium Level 4.3 mmol/L (3.5-5.1) Chloride Level 97 mmol/L (98-107) Carbon Dioxide Level 25 mmol/L (21-32) Anion Gap 10 (6-14) Blood Urea Nitrogen 6 mg/dL (8-26) Creatinine 0.8 mg/dL (0.7-1.3) Estimated GFR (Cockcroft-Gault) 114.7 BUN/Creatinine Ratio 8 (6-20) Glucose Level 170 mg/dL (70-99) Calcium Level 8.7 mg/dL (8.5-10.1) Total Bilirubin 0.3 mg/dL (0.2-1.0) Aspartate Amino Transf (AST/SGOT) 8 U/L (15-37) Alanine Aminotransferase (ALT/SGPT) 11 U/L (16-63) Alkaline Phosphatase 89 U/L (46-116) Total Protein 7.3 g/dL (6.4-8.2) Albumin 2.7 g/dL (3.4-5.0) Albumin/Globulin Ratio 0.6 (1.0-1.7) Micro RUN DATE: 05/15/18 PAGE 1 RUN TIME: 217 [facility] [address] [place] [address] Gaurav Clifton M.D., Launch Check Out PATIENT: ALFRED HUDSON ACCT: [id number] LOC: [address] [place] [address] U : [id number] AGE/SX: 73/M ROOM: 660 REG : 05/13/[address]: SOFY NELSON III, DO : 1945 BED: 1 DIS : STATUS: ADM IN TLOC: SPEC #: [id number] MELL: 05/13/18 STATUS: RES REQ #: [id number] RECD: 05/13/[address]: AREN HAYES DO SOURCE: URINE FOL ENTR: 05/13/[address]: UNKNOWN PCP NAME SPDESC: INDWELLING ORDERED: URINE CULTURE Procedure Result URINE CULTURE Preliminary Preliminary report URINE CULTURE RES 1 Preliminary Gram negative rods Greater than 100,000 colony forming units per mL Performed at: DA - [facility] [address], [place], [place] [id number] Shipper And Receiving: UNA Mendes MD, Phone: [phone] Objective: Assessment: 1. Fever, leukocytosis, source likely improved 2. Benign prostatic hypertrophy with urinary retention, chronic indwelling Walls catheter changed 2 weeks ago. GNR UTI 3. Multiple sclerosis, bedbound, progressive. 4. Seborrheic keratoses. 5. 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 6. Chronic contracture, right hand. 7. History of Escherichia coli and pseudomonas urinary tract infection in the past. 8. Hypertension/hyperlipidemia. 9. Lesion on the scrotum could be from underlying bullous pemphigus, on prednisone. seen by derm 10.encephalopathy ? Plan: Plan of Care empiric cefepime off zyvox f/u gnr from urine c/s Continue supportive care. follow up cultures Follow up labs in FAREED Rubio RN, MD May 16, 2018 09:55
[2018-05-16 11:00] VITALS: BP 146/75
--- NOTE | 2018-05-16 11:40 | PDOC2 ---
PALLIATIVE CARE Palliative Care Note Palliative Care Consult requested by Dr. Mi to address code status; Medical Condition per medical record 1. Fever, leukocytosis, source likely improved 2. Benign prostatic hypertrophy with urinary retention, chronic indwelling Walls catheter changed 2 weeks ago. GNR UTI 3. Multiple sclerosis, bedbound, progressive. 4. Seborrheic keratoses. 5. 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 6. Chronic contracture, right hand. 7. History of Escherichia coli and pseudomonas urinary tract infection in the past. 8. Hypertension/hyperlipidemia. 9. Lesion on the scrotum could be from underlying bullous pemphigus, on prednisone. seen by derm 10.encephalopathy ? Patient crying out. Answers yes/no questions. Denies pain. Reviewed medical condition with ; Jessica as above. Concerned about his crying out. Discussed code status; States she would want chest compressions but no machines such as ventilator to keep him alive. Informed the need for oxygen and circulation to work together for the optimum outcome when patient is resuscitated. Acknowledged understanding. She wishes DNR/DNI. Outside the Hospital DNR/DNI form signed. Patient is seen by [facility] at home. states patient has AD. Requested copy./ Plan: DNR/DNI. PC will sign off. MIRIAM SAUER May 16, 2018 11:40
--- NOTE | 2018-05-16 13:14 | PDOC ---
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 GNR UTI . Multiple sclerosis, bedbound, progressive. Sepsis POA with no organ dysfunction Seborrheic dermatitis face bullous pemphigoid. mod skin atrophy Chronic contracture of the right hand Urinary retention- HYpomagnesemia - 1.7 Hx e coli by urine cx (02/2018) - almost foote sensitive CONTINUE EMPERIC CEFIPIME History of Present Illness History of Present Illness IV fluid for sepsis start iv nutrition wound care, consider air bed, start vit C and zinc Rocephin Vitals Vitals Vital Signs Date Time Temp Pulse Resp B/P (MAP) Pulse Ox O2 Delivery O2 Flow Rate FiO2 05/16/18 11:00 97.9 81 20 146/75 (98) 97 Room Air 97.9 Physical Exam Physical Exam GENERAL: Alert, awake male, oriented x 3, in no acute distress, slightly confused. HEENT: Normocephalic, atraumatic, anicteric. No thrush. Seborrheic keratosis present on the forehead, neck, ears. LUNGS: Clear anteriorly. HEART: S1, S2. ABDOMEN: Soft, bowel sounds present, nontender, nondistended. GENITOURINARY: Walls catheter in place. Excoriation present over the anterior scrotum just below the penile base, some crusting, mild purulence. EXTREMITIES: No edema. Flexor contractures present. NEUROLOGIC: Alert and oriented x 3. Slightly confused. PSYCHIATRIC: Anxious, tearful. Mental status is normal otherwise. DERMATOLOGIC: Old bullous lesions noted. General: Alert, Cooperative, mild distress Heart: Regular rate, No murmurs Lungs: Clear, Wheezing Abdomen: Normal bowel sounds, Soft, No tenderness, No hepatosplenomegaly, No masses Extremities: No cyanosis, No edema Skin: No rashes, Other (old bullae legs that has ruptured and left fresh new skin in the dermis area) Labs LABS Laboratory Tests Test 05/15/18 17:06 05/15/18 21:03 05/16/18 07:30 05/16/18 08:10 Glucose (Fingerstick) 149 mg/dL (70-99) 169 mg/dL (70-99) 167 mg/dL (70-99) White Blood Count 16.2 x10^3/uL (4.0-11.0) Red Blood Count 5.15 x10^6/uL (4.30-5.70) Hemoglobin 14.1 g/dL (13.0-17.5) Hematocrit 39.6 % (39.0-53.0) Mean Corpuscular Volume 77 fL (79-100) Mean Corpuscular Hemoglobin 27 pg (25-35) Mean Corpuscular Hemoglobin Concent 36 g/dL (31-37) Red Cell Distribution Width 18.2 % (11.5-14.5) Platelet Count 407 x10^3/uL (140-400) Neutrophils (%) (Auto) 73 % (31-73) Lymphocytes (%) (Auto) 20 % (24-48) Monocytes (%) (Auto) 5 % (0-9) Eosinophils (%) (Auto) 0 % (0-3) Basophils (%) (Auto) 1 % (0-3) Neutrophils # (Auto) 11.8 x10^3uL (1.8-7.7) Lymphocytes # (Auto) 3.3 x10^3/uL (1.0-4.8) Monocytes # (Auto) 0.9 x10^3/uL (0.0-1.1) Eosinophils # (Auto) 0.1 x10^3/uL (0.0-0.7) Basophils # (Auto) 0.1 x10^3/uL (0.0-0.2) Sodium Level 132 mmol/L (136-145) Potassium Level 4.3 mmol/L (3.5-5.1) Chloride Level 97 mmol/L (98-107) Carbon Dioxide Level 25 mmol/L (21-32) Anion Gap 10 (6-14) Blood Urea Nitrogen 6 mg/dL (8-26) Creatinine 0.8 mg/dL (0.7-1.3) Estimated GFR (Cockcroft-Gault) 114.7 BUN/Creatinine Ratio 8 (6-20) Glucose Level 170 mg/dL (70-99) Calcium Level 8.7 mg/dL (8.5-10.1) Total Bilirubin 0.3 mg/dL (0.2-1.0) Aspartate Amino Transf (AST/SGOT) 8 U/L (15-37) Alanine Aminotransferase (ALT/SGPT) 11 U/L (16-63) Alkaline Phosphatase 89 U/L (46-116) Total Protein 7.3 g/dL (6.4-8.2) Albumin 2.7 g/dL (3.4-5.0) Albumin/Globulin Ratio 0.6 (1.0-1.7) Test 05/16/18 11:51 Glucose (Fingerstick) 148 mg/dL (70-99) Assessment and Plan Assessmemt and Plan Problems Medical Problems: (1) Decubitus ulcer Status: Acute (2) Hx of multiple sclerosis Status: Acute (3) Multiple sclerosis Status: Acute (4) Urinary retention Status: Acute (5) UTI (urinary tract infection) due to urinary indwelling catheter Status: Acute Comment Review of Relevant I have reviewed the following items rahel (where applicable) has been applied. Labs Laboratory Tests Test 05/14/18 16:52 05/14/18 20:31 05/15/18 07:20 05/15/18 11:37 Glucose (Fingerstick) 113 mg/dL (70-99) 153 mg/dL (70-99) 136 mg/dL (70-99) 133 mg/dL (70-99) Test 05/15/18 17:06 05/15/18 21:03 05/16/18 07:30 05/16/18 08:10 Glucose (Fingerstick) 149 mg/dL (70-99) 169 mg/dL (70-99) 167 mg/dL (70-99) White Blood Count 16.2 x10^3/uL (4.0-11.0) Red Blood Count 5.15 x10^6/uL (4.30-5.70) Hemoglobin 14.1 g/dL (13.0-17.5) Hematocrit 39.6 % (39.0-53.0) Mean Corpuscular Volume 77 fL (79-100) Mean Corpuscular Hemoglobin 27 pg (25-35) Mean Corpuscular Hemoglobin Concent 36 g/dL (31-37) Red Cell Distribution Width 18.2 % (11.5-14.5) Platelet Count 407 x10^3/uL (140-400) Neutrophils (%) (Auto) 73 % (31-73) Lymphocytes (%) (Auto) 20 % (24-48) Monocytes (%) (Auto) 5 % (0-9) Eosinophils (%) (Auto) 0 % (0-3) Basophils (%) (Auto) 1 % (0-3) Neutrophils # (Auto) 11.8 x10^3uL (1.8-7.7) Lymphocytes # (Auto) 3.3 x10^3/uL (1.0-4.8) Monocytes # (Auto) 0.9 x10^3/uL (0.0-1.1) Eosinophils # (Auto) 0.1 x10^3/uL (0.0-0.7) Basophils # (Auto) 0.1 x10^3/uL (0.0-0.2) Sodium Level 132 mmol/L (136-145) Potassium Level 4.3 mmol/L (3.5-5.1) Chloride Level 97 mmol/L (98-107) Carbon Dioxide Level 25 mmol/L (21-32) Anion Gap 10 (6-14) Blood Urea Nitrogen 6 mg/dL (8-26) Creatinine 0.8 mg/dL (0.7-1.3) Estimated GFR (Cockcroft-Gault) 114.7 BUN/Creatinine Ratio 8 (6-20) Glucose Level 170 mg/dL (70-99) Calcium Level 8.7 mg/dL (8.5-10.1) Total Bilirubin 0.3 mg/dL (0.2-1.0) Aspartate Amino Transf (AST/SGOT) 8 U/L (15-37) Alanine Aminotransferase (ALT/SGPT) 11 U/L (16-63) Alkaline Phosphatase 89 U/L (46-116) Total Protein 7.3 g/dL (6.4-8.2) Albumin 2.7 g/dL (3.4-5.0) Albumin/Globulin Ratio 0.6 (1.0-1.7) Test 05/16/18 11:51 Glucose (Fingerstick) 148 mg/dL (70-99) Laboratory Tests Test 05/15/18 17:06 05/15/18 21:03 05/16/18 07:30 05/16/18 08:10 Glucose (Fingerstick) 149 mg/dL (70-99) 169 mg/dL (70-99) 167 mg/dL (70-99) White Blood Count 16.2 x10^3/uL (4.0-11.0) Red Blood Count 5.15 x10^6/uL (4.30-5.70) Hemoglobin 14.1 g/dL (13.0-17.5) Hematocrit 39.6 % (39.0-53.0) Mean Corpuscular Volume 77 fL (79-100) Mean Corpuscular Hemoglobin 27 pg (25-35) Mean Corpuscular Hemoglobin Concent 36 g/dL (31-37) Red Cell Distribution Width 18.2 % (11.5-14.5) Platelet Count 407 x10^3/uL (140-400) Neutrophils (%) (Auto) 73 % (31-73) Lymphocytes (%) (Auto) 20 % (24-48) Monocytes (%) (Auto) 5 % (0-9) Eosinophils (%) (Auto) 0 % (0-3) Basophils (%) (Auto) 1 % (0-3) Neutrophils # (Auto) 11.8 x10^3uL (1.8-7.7) Lymphocytes # (Auto) 3.3 x10^3/uL (1.0-4.8) Monocytes # (Auto) 0.9 x10^3/uL (0.0-1.1) Eosinophils # (Auto) 0.1 x10^3/uL (0.0-0.7) Basophils # (Auto) 0.1 x10^3/uL (0.0-0.2) Sodium Level 132 mmol/L (136-145) Potassium Level 4.3 mmol/L (3.5-5.1) Chloride Level 97 mmol/L (98-107) Carbon Dioxide Level 25 mmol/L (21-32) Anion Gap 10 (6-14) Blood Urea Nitrogen 6 mg/dL (8-26) Creatinine 0.8 mg/dL (0.7-1.3) Estimated GFR (Cockcroft-Gault) 114.7 BUN/Creatinine Ratio 8 (6-20) Glucose Level 170 mg/dL (70-99) Calcium Level 8.7 mg/dL (8.5-10.1) Total Bilirubin 0.3 mg/dL (0.2-1.0) Aspartate Amino Transf (AST/SGOT) 8 U/L (15-37) Alanine Aminotransferase (ALT/SGPT) 11 U/L (16-63) Alkaline Phosphatase 89 U/L (46-116) Total Protein 7.3 g/dL (6.4-8.2) Albumin 2.7 g/dL (3.4-5.0) Albumin/Globulin Ratio 0.6 (1.0-1.7) Test 05/16/18 11:51 Glucose (Fingerstick) 148 mg/dL (70-99) Microbiology 05/13/18 Blood Culture - Preliminary, Resulted NO GROWTH AFTER 3 DAYS 05/13/18 Urine Culture - Preliminary, Resulted 05/13/18 Urine Culture Result 1 (RERE) - Preliminary, Resulted Medications Current Medications Sodium Chloride 1,000 ml @ 1,000 mls/hr 1X ONCE IV Last administered on 05/13at 05:08; Start 05/13/18 at 04:30; Stop 05/13/18 at 05:29; Status DC Ceftriaxone Sodium 50 ml @ 100 mls/hr 1X ONCE IV Last administered on at 05:48; Start 05/13/18 at 06:00; Stop 05/13/18 at 06:29; Status DC Ondansetron HCl (Zofran) 4 mg PRN Q8HRS PRN IV NAUSEA/VOMITING 1st choice; Start 05/13/18 at 05:45; Stop 05/13/18 at 08:47; Status DC Fentanyl Citrate (Fentanyl 2ml Vial) 50 mcg PRN Q2HR PRN IV SEVERE PAIN; Start 05/13/18 at 05:45; Stop 05/14/18 at 05:44; Status DC Insulin Human Lispro (HumaLOG) 0-5 UNITS TIDWMEALS SQ ; Start 05/13/18 at 08:00 ; Stop 05/13/18 at 08:47; Status DC Dextrose (Dextrose 50%-Water Syringe) 12.5 gm PRN Q15MIN PRN IV SEE COMMENTS; Start 05/13/18 at 05:45 Ondansetron HCl (Zofran) 4 mg PRN Q6HRS PRN IV NAUSEA/VOMITING 1st choice; Start 05/13/18 at 09:00 Ceftriaxone Sodium 1 gm/ Dextrose 50 ml @ 100 mls/hr Q24H IV ; Start 05/13/18 at 08:45; Status UNV Acetaminophen (Tylenol) 500 mg PRN Q6HRS PRN PO MILD PAIN / TEMP; Start at 08:45 Insulin Human Lispro (HumaLOG) 0-9 UNITS TIDWMEALS SQ Last administered on at 09:15; Start 05/13/18 at 12:00 Dextrose (Dextrose 50%-Water Syringe) 12.5 gm PRN Q15MIN PRN IV SEE COMMENTS; Start 05/13/18 at 08:45; Status UNV Magnesium Sulfate/ Dextrose 100 ml @ 100 mls/hr 1X ONCE IV Last administered on 05/13/18at 13:03; Start 05/13/18 at 09:30; Stop 05/13/18 at 10:29; Status DC Prednisone (Prednisone) 25 mg DAILY PO Last administered on 05/16/18at 09:12; Start 05/13/18 at 15:00 Triamterene/HCTZ (Maxzide 37.5/ 25mg) 1 tab DAILY PO Last administered on 05/16at 09:11; Start 05/13/18 at 09:00 Baclofen (Lioresal) 20 mg DAILYWBKFT PO Last administered on 05/13/18at 12:56; Start 05/13/18 at 12:00; Stop 05/13/18 at 16:21; Status DC Non-Formulary Medication (Dapsone ) 25 mg DAILY PO ; Start 05/13/18 at 09:00; Stop 05/13/18 at 14:33; Status DC Metformin HCl (Glucophage) 500 mg DAILYWBKFT PO ; Start 05/13/18 at 10:00; Stop 05/13/18 at 16:20; Status DC Fish Oil (Fish Oil) 1,000 mg DAILY PO Last administered on 05/16/18at 09:12; Start 05/13/18 at 10:00 Oxybutynin Chloride (Ditropan) 5 mg DAILY PO Last administered on 05/16/18at 09 :12; Start 05/13/18 at 10:00 Ceftriaxone Sodium (Rocephin) 1 gm Q24H IVP Last administered on 05/14/18at 06: 26; Start 05/14/18 at 06:00; Stop 05/14/18 at 09:14; Status DC Sodium Chloride 1,000 ml @ 100 mls/hr Q10H IV Last administered on 05/14/18at 08:30; Start 05/13/18 at 12:30; Stop 05/14/18 at 16:11; Status DC Enoxaparin Sodium (Lovenox 40mg Syringe) 40 mg Q24H SQ Last administered on at 14:39; Start 05/13/18 at 13:00 Baclofen (Lioresal) 50 mg TID PO ; Start 05/13/18 at 21:00; Stop 05/13/18 at 21:00; Status DC Baclofen (Lioresal) 50 mg TID PO Last administered on 05/16/18at 09:11; Start 05/13/18 at 21:00 Linezolid (Zyvox) 600 mg BID PO Last administered on 05/14/18at 11:22; Start 05/14/18 at 10:00; Stop 05/15/18 at 09:19; Status DC Nystatin (Nystop) 1 frederick BID TP Last administered on 05/16/18at 09:13; Start at 11:00 Cefepime HCl 1 gm/ Dextrose 50 ml @ 100 mls/hr Q8HRS IV ; Start 05/14/18 at 14 :00; Status UNV Cefepime HCl (Maxipime) 1 gm Q8HRS IVP Last administered on 05/15/18at 05:39; Start 05/14/18 at 11:00; Stop 05/15/18 at 09:20; Status DC Ascorbic Acid (Vitamin C) 500 mg DAILY PO Last administered on 05/16/18at 09:12 ; Start 05/14/18 at 14:00 Zinc Sulfate (Orazinc) 220 mg DAILY PO Last administered on 05/16/18at 09:12; Start 05/14/18 at 14:00 Dextrose/Sodium Chloride 1,000 ml @ 100 mls/hr Q10H IV Last administered on at 09:34; Start 05/14/18 at 16:15 Insulin Glargine (Lantus) 6 units 1X ONCE SQ Last administered on 05/14/18at 17:21; Start 05/14/18 at 16:15; Stop 05/14/18 at 16:16; Status DC Influenza Virus Vaccine (Afluria Trivalent 7106-7012 Syringe) 0.5 ml ONCE ONCE VAX IM ; Start 05/15/18 at 09:00; Stop 05/15/18 at 09:01; Status DC Ketoconazole (Nizoral 2% Topical) 1 frederick DAILY TP Last administered on at 09:13; Start 05/14/18 at 18:00 Cefepime HCl (Maxipime) 1 gm Q12HR IVP Last administered on 05/16/18at 09:11; Start 05/15/18 at 21:00 Lactobacillus Rhamnosus (Culturelle) 1 cap BID PO Last administered on at 09:12; Start 05/15/18 at 21:00 Active Scripts Active Cephalexin 500 Mg Tablet 1 Tab PO QID Cipro (Ciprofloxacin Hcl) 500 Mg Tablet 1 Tab PO BID 5 Days Reported Fish Oil + D3 Softgel ([place]-3S/Dha/Epa/Fish Oil/D3) 1 Each Capsule 1 Each PO DAILY Prednisone 20 Mg Tablet 25 Mg PO DAILY Baclofen 20 Mg Tablet 50 Tab PO TID Oxybutynin Chloride Er (Oxybutynin Chloride) 5 Mg Tab.er.24 1 Tab PO DAILY Vitals/I & O Vital Sign - Last 24 Hours 05/15/18 05/15/18 05/15/18 05/15/18 15:00 19:25 20:00 23:25 Temp 97.7 97.9 97.9 97.7 97.9 97.9 Pulse 72 81 65 Resp 16 18 18 B/P (MAP) 171/121 (138) 170/92 (118) 136/93 (107) 149/91 (110) Pulse Ox 95 99 98 O2 Delivery Room Air Room Air Room Air Room Air 05/16/18 05/16/18 05/16/18 03:25 07:00 11:00 Temp 97.7 97.9 97.9 97.7 97.9 97.9 Pulse 75 73 81 Resp 18 16 20 B/P (MAP) 144/91 (108) 119/83 (95) 146/75 (98) Pulse Ox 97 97 97 O2 Delivery Room Air Room Air Room Air Intake and Output 05/15/18 05/15/18 05/16/18 15:00 23:00 07:00 Intake Total 0 ml 1025 ml 0 ml Output Total 0 ml 1450 ml 2200 ml Balance 0 ml -425 ml -2200 ml JM GAO MD May 16, 2018 13:14
[2018-05-16 15:00] VITALS: BP 147/97
[2018-05-16] MEDS: ENOXAPARIN 40 MG/0.4 ML SYRINGE. SQ SCH (15:04)
--- NOTE | 2018-05-16 17:21 | PDOC2 ---
NEUROLOGY CONSULT Date of Admission Date of Admission DATE: 05/16/18 TIME: 17:12 Reason for Consult Reason for Consult: Altered mental status Referring Physician Referring Physician: Dr. Malik Source Source: Caregiver, Chart review History of Present Illness History of Present Illness The patient is a 73-year-old right-handed male with primary progressive multiple sclerosis. He was diagnosed in 2008 failing on Copaxone and Tysabri. He has been off disease modifying medications since 2010. He is admitted for urinary tract infection and confusion. At baseline he is bedfast, but family takes care of him and he is able to speak to them and eat with assistance. I last saw him in the hospital for years ago. I see from the records that he has been in several times with urinary tract infection and sepsis with confusion. Family says that he has remained confused a little longer than usual. He has never had a seizure. Past Medical History Cardiovascular: HTN CENTRAL NERVOUS SYSTEM: Other (primary progressive multiple sclerosis) GI: Other (hiatal hernia, gastroparesis, ileus) Renal/: Benign prostatic enlarg., Other (chronic urinary retention with indwelling Walls) Past Surgical History Past Surgical History: Hernia Repair Family History Family History: Hypertension, Other (multiple sclerosis) Social History Social History , living situation as above, no tobacco or alcohol Current Medications Current Medications Current Medications Sodium Chloride 1,000 ml @ 1,000 mls/hr 1X ONCE IV Last administered on 05/13at 05:08; Start 05/13/18 at 04:30; Stop 05/13/18 at 05:29; Status DC Ceftriaxone Sodium 50 ml @ 100 mls/hr 1X ONCE IV Last administered on at 05:48; Start 05/13/18 at 06:00; Stop 05/13/18 at 06:29; Status DC Ondansetron HCl (Zofran) 4 mg PRN Q8HRS PRN IV NAUSEA/VOMITING 1st choice; Start 05/13/18 at 05:45; Stop 05/13/18 at 08:47; Status DC Fentanyl Citrate (Fentanyl 2ml Vial) 50 mcg PRN Q2HR PRN IV SEVERE PAIN; Start 05/13/18 at 05:45; Stop 05/14/18 at 05:44; Status DC Insulin Human Lispro (HumaLOG) 0-5 UNITS TIDWMEALS SQ ; Start 05/13/18 at 08:00 ; Stop 05/13/18 at 08:47; Status DC Dextrose (Dextrose 50%-Water Syringe) 12.5 gm PRN Q15MIN PRN IV SEE COMMENTS; Start 05/13/18 at 05:45 Ondansetron HCl (Zofran) 4 mg PRN Q6HRS PRN IV NAUSEA/VOMITING 1st choice; Start 05/13/18 at 09:00 Ceftriaxone Sodium 1 gm/ Dextrose 50 ml @ 100 mls/hr Q24H IV ; Start 05/13/18 at 08:45; Status UNV Acetaminophen (Tylenol) 500 mg PRN Q6HRS PRN PO MILD PAIN / TEMP; Start at 08:45 Insulin Human Lispro (HumaLOG) 0-9 UNITS TIDWMEALS SQ Last administered on at 09:15; Start 05/13/18 at 12:00 Dextrose (Dextrose 50%-Water Syringe) 12.5 gm PRN Q15MIN PRN IV SEE COMMENTS; Start 05/13/18 at 08:45; Status UNV Magnesium Sulfate/ Dextrose 100 ml @ 100 mls/hr 1X ONCE IV Last administered on 05/13/18at 13:03; Start 05/13/18 at 09:30; Stop 05/13/18 at 10:29; Status DC Prednisone (Prednisone) 25 mg DAILY PO Last administered on 05/16/18at 09:12; Start 05/13/18 at 15:00 Triamterene/HCTZ (Maxzide 37.5/ 25mg) 1 tab DAILY PO Last administered on 05/16at 09:11; Start 05/13/18 at 09:00 Baclofen (Lioresal) 20 mg DAILYWBKFT PO Last administered on 05/13/18at 12:56; Start 05/13/18 at 12:00; Stop 05/13/18 at 16:21; Status DC Non-Formulary Medication (Dapsone ) 25 mg DAILY PO ; Start 05/13/18 at 09:00; Stop 05/13/18 at 14:33; Status DC Metformin HCl (Glucophage) 500 mg DAILYWBKFT PO ; Start 05/13/18 at 10:00; Stop 05/13/18 at 16:20; Status DC Fish Oil (Fish Oil) 1,000 mg DAILY PO Last administered on 05/16/18 09:12; Start 05/13/18 at 10:00 Oxybutynin Chloride (Ditropan) 5 mg DAILY PO Last administered on 05/16/18at 09 :12; Start 05/13/18 at 10:00 Ceftriaxone Sodium (Rocephin) 1 gm Q24H IVP Last administered on 05/14/18at 06: 26; Start 05/14/18 at 06:00; Stop 05/14/18 at 09:14; Status DC Sodium Chloride 1,000 ml @ 100 mls/hr Q10H IV Last administered on 05/14/18at 08:30; Start 05/13/18 at 12:30; Stop 05/14/18 at 16:11; Status DC Enoxaparin Sodium (Lovenox 40mg Syringe) 40 mg Q24H SQ Last administered on at 15:04; Start 05/13/18 at 13:00 Baclofen (Lioresal) 50 mg TID PO ; Start 05/13/18 at 21:00; Stop 05/13/18 at 21:00; Status DC Baclofen (Lioresal) 50 mg TID PO Last administered on 05/16/18at 15:04; Start 05/13/18 at 21:00 Linezolid (Zyvox) 600 mg BID PO Last administered on 05/14/18at 11:22; Start 05/14/18 at 10:00; Stop 05/15/18 at 09:19; Status DC Nystatin (Nystop) 1 frederick BID TP Last administered on 05/16/18at 09:13; Start at 11:00 Cefepime HCl 1 gm/ Dextrose 50 ml @ 100 mls/hr Q8HRS IV ; Start 05/14/18 at 14 :00; Status UNV Cefepime HCl (Maxipime) 1 gm Q8HRS IVP Last administered on 05/15/18at 05:39; Start 05/14/18 at 11:00; Stop 05/15/18 at 09:20; Status DC Ascorbic Acid (Vitamin C) 500 mg DAILY PO Last administered on 05/16/18at 09:12 ; Start 05/14/18 at 14:00 Zinc Sulfate (Orazinc) 220 mg DAILY PO Last administered on 05/16/18 09:12; Start 05/14/18 at 14:00 Dextrose/Sodium Chloride 1,000 ml @ 100 mls/hr Q10H IV Last administered on at 09:34; Start 05/14/18 at 16:15 Insulin Glargine (Lantus) 6 units 1X ONCE SQ Last administered on 05/14/18at 17:21; Start 05/14/18 at 16:15; Stop 05/14/18 at 16:16; Status DC Influenza Virus Vaccine (Afluria Trivalent 6450-6104 Syringe) 0.5 ml ONCE ONCE VAX IM Last administered on 05/16/18at 15:07; Start 05/15/18 at 09:00; Stop 05/15/18 at 09:01; Status DC Ketoconazole (Nizoral 2% Topical) 1 frederick DAILY TP Last administered on at 09:13; Start 05/14/18 at 18:00 Cefepime HCl (Maxipime) 1 gm Q12HR IVP Last administered on 05/16/18at 09:11; Start 05/15/18 at 21:00 Lactobacillus Rhamnosus (Culturelle) 1 cap BID PO Last administered on 09:12; Start 05/15/18 at 21:00 Active Scripts Active Cephalexin 500 Mg Tablet 1 Tab PO QID Cipro (Ciprofloxacin Hcl) 500 Mg Tablet 1 Tab PO BID 5 Days Reported Fish Oil + D3 Softgel ([place]-3S/Dha/Epa/Fish Oil/D3) 1 Each Capsule 1 Each PO DAILY Prednisone 20 Mg Tablet 25 Mg PO DAILY Baclofen 20 Mg Tablet 50 Tab PO TID Oxybutynin Chloride Er (Oxybutynin Chloride) 5 Mg Tab.er.24 1 Tab PO DAILY Allergies Allergies: Coded Allergies: No Known Drug Allergies (Unverified , 04/30/14) ROS Review of System According to family no fevers, chills, weight loss, dyspnea, angina, abdominal pain, change in bowels, or dysuria. 14-point review of systems is negative. Physical Exam Physical Examination General: Well-developed, well-nourished, black male, in no acute distress HEENT: Normocephalic andatraumatic. Temporal arteriespulsatile and nontender. Neck: Supple without bruit, no meningismus Musculoskeletal: Stability:see neurologic. Gait exam:see neurologic. Tone:see neurologic. Strength:see neurologic. Neurological: Mental Status:orientation, memory, attention span/concentration, language, fund of knowledge: Opens eyes to voice, nonsense speech, does not follow commands. Cranial Nerves:Pupils equal and reactive to light, extraocular movements areintact, visual quiroga are full to threat. There is no facial asymmetry. Vestibulo-ocular reflex is intact. All other cranial related problems are negative except as mentioned before.Reflexes:2+ and symmetric with flexor plantar responses. Motor:3/5 arms, 1/5 legs, increased tone in the legs, more so than the arms. Coordination:Not cooperative. Gait:Not tested. Sensory:Not cooperative. Vitals VITALS Vital Signs Date Time Temp Pulse Resp B/P (MAP) Pulse Ox O2 Delivery O2 Flow Rate FiO2 05/16/18 15:00 96.1 78 24 147/97 (114) 97 Room Air 96.1 Labs Labs Laboratory Tests Test 05/14/18 20:31 05/15/18 07:20 05/15/18 11:37 05/15/18 17:06 Glucose (Fingerstick) 153 mg/dL (70-99) 136 mg/dL (70-99) 133 mg/dL (70-99) 149 mg/dL (70-99) Test 05/15/18 21:03 05/16/18 07:30 05/16/18 08:10 05/16/18 11:51 Glucose (Fingerstick) 169 mg/dL (70-99) 167 mg/dL (70-99) 148 mg/dL (70-99) White Blood Count 16.2 x10^3/uL (4.0-11.0) Red Blood Count 5.15 x10^6/uL (4.30-5.70) Hemoglobin 14.1 g/dL (13.0-17.5) Hematocrit 39.6 % (39.0-53.0) Mean Corpuscular Volume 77 fL (79-100) Mean Corpuscular Hemoglobin 27 pg (25-35) Mean Corpuscular Hemoglobin Concent 36 g/dL (31-37) Red Cell Distribution Width 18.2 % (11.5-14.5) Platelet Count 407 x10^3/uL (140-400) Neutrophils (%) (Auto) 73 % (31-73) Lymphocytes (%) (Auto) 20 % (24-48) Monocytes (%) (Auto) 5 % (0-9) Eosinophils (%) (Auto) 0 % (0-3) Basophils (%) (Auto) 1 % (0-3) Neutrophils # (Auto) 11.8 x10^3uL (1.8-7.7) Lymphocytes # (Auto) 3.3 x10^3/uL (1.0-4.8) Monocytes # (Auto) 0.9 x10^3/uL (0.0-1.1) Eosinophils # (Auto) 0.1 x10^3/uL (0.0-0.7) Basophils # (Auto) 0.1 x10^3/uL (0.0-0.2) Sodium Level 132 mmol/L (136-145) Potassium Level 4.3 mmol/L (3.5-5.1) Chloride Level 97 mmol/L (98-107) Carbon Dioxide Level 25 mmol/L (21-32) Anion Gap 10 (6-14) Blood Urea Nitrogen 6 mg/dL (8-26) Creatinine 0.8 mg/dL (0.7-1.3) Estimated GFR (Cockcroft-Gault) 114.7 BUN/Creatinine Ratio 8 (6-20) Glucose Level 170 mg/dL (70-99) Calcium Level 8.7 mg/dL (8.5-10.1) Total Bilirubin 0.3 mg/dL (0.2-1.0) Aspartate Amino Transf (AST/SGOT) 8 U/L (15-37) Alanine Aminotransferase (ALT/SGPT) 11 U/L (16-63) Alkaline Phosphatase 89 U/L (46-116) Total Protein 7.3 g/dL (6.4-8.2) Albumin 2.7 g/dL (3.4-5.0) Albumin/Globulin Ratio 0.6 (1.0-1.7) Laboratory Tests Test 05/15/18 21:03 05/16/18 07:30 05/16/18 08:10 05/16/18 11:51 Glucose (Fingerstick) 169 mg/dL (70-99) 167 mg/dL (70-99) 148 mg/dL (70-99) White Blood Count 16.2 x10^3/uL (4.0-11.0) Red Blood Count 5.15 x10^6/uL (4.30-5.70) Hemoglobin 14.1 g/dL (13.0-17.5) Hematocrit 39.6 % (39.0-53.0) Mean Corpuscular Volume 77 fL (79-100) Mean Corpuscular Hemoglobin 27 pg (25-35) Mean Corpuscular Hemoglobin Concent 36 g/dL (31-37) Red Cell Distribution Width 18.2 % (11.5-14.5) Platelet Count 407 x10^3/uL (140-400) Neutrophils (%) (Auto) 73 % (31-73) Lymphocytes (%) (Auto) 20 % (24-48) Monocytes (%) (Auto) 5 % (0-9) Eosinophils (%) (Auto) 0 % (0-3) Basophils (%) (Auto) 1 % (0-3) Neutrophils # (Auto) 11.8 x10^3uL (1.8-7.7) Lymphocytes # (Auto) 3.3 x10^3/uL (1.0-4.8) Monocytes # (Auto) 0.9 x10^3/uL (0.0-1.1) Eosinophils # (Auto) 0.1 x10^3/uL (0.0-0.7) Basophils # (Auto) 0.1 x10^3/uL (0.0-0.2) Sodium Level 132 mmol/L (136-145) Potassium Level 4.3 mmol/L (3.5-5.1) Chloride Level 97 mmol/L (98-107) Carbon Dioxide Level 25 mmol/L (21-32) Anion Gap 10 (6-14) Blood Urea Nitrogen 6 mg/dL (8-26) Creatinine 0.8 mg/dL (0.7-1.3) Estimated GFR (Cockcroft-Gault) 114.7 BUN/Creatinine Ratio 8 (6-20) Glucose Level 170 mg/dL (70-99) Calcium Level 8.7 mg/dL (8.5-10.1) Total Bilirubin 0.3 mg/dL (0.2-1.0) Aspartate Amino Transf (AST/SGOT) 8 U/L (15-37) Alanine Aminotransferase (ALT/SGPT) 11 U/L (16-63) Alkaline Phosphatase 89 U/L (46-116) Total Protein 7.3 g/dL (6.4-8.2) Albumin 2.7 g/dL (3.4-5.0) Albumin/Globulin Ratio 0.6 (1.0-1.7) Assessment/Plan Assessment/Plan Impression: Metabolic encephalopathy apparently related to urinary tract infection, he has not had any neurological E since admission 3 days ago. Primary progressive multiple sclerosis, bedbound. Recommendations: CT of the head Electroencephalogram I note that he is a DO NOT RESUSCITATE Discussed with patient's family. Thank you for letting me help with the patient's care HERVE LOPEZ MD May 16, 2018 17:21
[2018-05-16 19:00] VITALS: BP 157/94
[2018-05-16 23:53] VITALS: BP 157/95
[2018-05-17 03:08] VITALS: BP 134/79
[2018-05-17 05:02] LABS: BASO # 0.1 x10^3/uL (0.0-0.2); BASO % 1 % (0-3); EOS # 0.1 x10^3/uL (0.0-0.7); EOS % 1 % (0-3); HEMATOCRIT 40.6 % (39.0-53.0); HEMOGLOBIN 14.3 g/dL (13.0-17.5); LYMPH # 4.4 x10^3/uL (1.0-4.8); LYMPH % 24 % (24-48); MEAN CORPUSCULAR HEMOGLOBIN 27 pg (25-35); MEAN CORPUSCULAR HGB CONC 35 g/dL (31-37); MEAN CORPUSCULAR VOLUME 77 fL (79-100); MONO # 1.1 x10^3/uL (0.0-1.1); MONO % 6 % (0-9); NEUT # 12.5 x10^3uL (1.8-7.7); NEUT % 69 % (31-73); PLATELET COUNT 404 x10^3/uL (140-400); RED BLOOD COUNT 5.28 x10^6/uL (4.30-5.70); RED CELL DISTRIBUTION WIDTH 18.5 % (11.5-14.5); WHITE BLOOD COUNT 18.3 x10^3/uL (4.0-11.0)
[2018-05-17] MEDS: IV DEXTROSE 5 %-0.45 % NACL 1,000 ML IV SCH ×2 (05:05→19:00)
[2018-05-17 05:21] LABS: ALBUMIN 2.6 g/dL (3.4-5.0); ALBUMIN/GLOBULIN RATIO 0.6 (1.0-1.7); CALCIUM 8.8 mg/dL (8.5-10.1); CREATININE 0.9 mg/dL (0.7-1.3); GFR 100.1; POTASSIUM 3.6 mmol/L (3.5-5.1); TOTAL BILIRUBIN 0.3 mg/dL (0.2-1.0)
[2018-05-17 07:00] VITALS: BP 100/80
[2018-05-17] MEDS: INSULIN LISPRO 300 UNITS/3 ML INSULN.PEN. SQ SCH ×3 (08:00→17:00)
[2018-05-17] MEDS: BACLOFEN 10 MG TABLET. PO SCH ×3 (09:00→21:21)
[2018-05-17] MEDS: predniSONE 10 MG TABLET PO SCH (09:00)
[2018-05-17] MEDS: TRIAMTERENE/HCTZ 37.5/25MG TABLET. PO SCH (09:00)
[2018-05-17] MEDS: ASCORBIC ACID 500 MG TABLET PO SCH (09:00)
[2018-05-17] MEDS: ZINC SULFATE 220 MG CAPSULE. PO SCH (09:00)
[2018-05-17] MEDS: OMEGA-3 FATTY ACIDS/FISH OIL 1,000 MG CAPSULE. PO SCH (09:00)
[2018-05-17] MEDS: LACTOBACILLUS RHAMNOSUS GG 1 CAPSULE. PO SCH ×2 (09:00→21:21)
[2018-05-17] MEDS: OXYBUTYNIN CHLORIDE 5 MG TABLET PO SCH (09:00)
--- NOTE | 2018-05-17 10:32 | PDOC ---
PROGRESS NOTES Chief Complaint Chief Complaint cOMPLIACTED UTI, chronic indwelling Walls catheter-changed 2 weeks ago per ( wound care rn) Multiple sclerosis, bedbound Benign prostatic hypertrophy with urinary retention, chronic indwelling Walls catheter changed 2 weeks ago. GNR UTI . Multiple sclerosis, bedbound, progressive. Sepsis POA with no organ dysfunction Seborrheic dermatitis face bullous pemphigoid. mod skin atrophy Chronic contracture of the right hand Urinary retention- HYpomagnesemia - 1.7 Hx e coli by urine cx (02/2018) - almost foote sensitive D/c Cefepime - begin Rocephin Probiotics History of Present Illness History of Present Illness IV fluid for sepsis start iv nutrition wound care, consider air bed, start vit C and zinc Rocephin Vitals Vitals Vital Signs Date Time Temp Pulse Resp B/P (MAP) Pulse Ox O2 Delivery O2 Flow Rate FiO2 05/17/18 07:00 98.1 84 18 100/80 (87) Room Air 96.0 98.1 05/17/18 03:08 98 Physical Exam Physical Exam GENERAL: Alert, awake male, oriented x 3, in no acute distress, slightly confused. HEENT: Normocephalic, atraumatic, anicteric. No thrush. Seborrheic keratosis present on the forehead, neck, ears. LUNGS: Clear anteriorly. HEART: S1, S2. ABDOMEN: Soft, bowel sounds present, nontender, nondistended. GENITOURINARY: Walls catheter in place. Excoriation present over the anterior scrotum just below the penile base, some crusting, mild purulence. EXTREMITIES: No edema. Flexor contractures present. NEUROLOGIC: Alert and oriented x 3. Slightly confused. PSYCHIATRIC: Anxious, tearful. Mental status is normal otherwise. DERMATOLOGIC: Old bullous lesions noted. General: Alert, Cooperative, mild distress Heart: Regular rate, No murmurs Lungs: Clear, Wheezing Abdomen: Normal bowel sounds, Soft, No tenderness, No hepatosplenomegaly, No masses Extremities: No cyanosis, No edema Skin: No rashes, Other (old bullae legs that has ruptured and left fresh new skin in the dermis area) Labs LABS Laboratory Tests Test 05/16/18 11:51 05/16/18 17:07 05/16/18 21:11 05/17/18 04:45 Glucose (Fingerstick) 148 mg/dL (70-99) 171 mg/dL (70-99) 172 mg/dL (70-99) White Blood Count 18.3 x10^3/uL (4.0-11.0) Red Blood Count 5.28 x10^6/uL (4.30-5.70) Hemoglobin 14.3 g/dL (13.0-17.5) Hematocrit 40.6 % (39.0-53.0) Mean Corpuscular Volume 77 fL (79-100) Mean Corpuscular Hemoglobin 27 pg (25-35) Mean Corpuscular Hemoglobin Concent 35 g/dL (31-37) Red Cell Distribution Width 18.5 % (11.5-14.5) Platelet Count 404 x10^3/uL (140-400) Neutrophils (%) (Auto) 69 % (31-73) Lymphocytes (%) (Auto) 24 % (24-48) Monocytes (%) (Auto) 6 % (0-9) Eosinophils (%) (Auto) 1 % (0-3) Basophils (%) (Auto) 1 % (0-3) Neutrophils # (Auto) 12.5 x10^3uL (1.8-7.7) Lymphocytes # (Auto) 4.4 x10^3/uL (1.0-4.8) Monocytes # (Auto) 1.1 x10^3/uL (0.0-1.1) Eosinophils # (Auto) 0.1 x10^3/uL (0.0-0.7) Basophils # (Auto) 0.1 x10^3/uL (0.0-0.2) Sodium Level 133 mmol/L (136-145) Potassium Level 3.6 mmol/L (3.5-5.1) Chloride Level 98 mmol/L (98-107) Carbon Dioxide Level 23 mmol/L (21-32) Anion Gap 12 (6-14) Blood Urea Nitrogen 6 mg/dL (8-26) Creatinine 0.9 mg/dL (0.7-1.3) Estimated GFR (Cockcroft-Gault) 100.1 BUN/Creatinine Ratio 7 (6-20) Glucose Level 126 mg/dL (70-99) Calcium Level 8.8 mg/dL (8.5-10.1) Total Bilirubin 0.3 mg/dL (0.2-1.0) Aspartate Amino Transf (AST/SGOT) 9 U/L (15-37) Alanine Aminotransferase (ALT/SGPT) 8 U/L (16-63) Alkaline Phosphatase 85 U/L (46-116) Total Protein 7.0 g/dL (6.4-8.2) Albumin 2.6 g/dL (3.4-5.0) Albumin/Globulin Ratio 0.6 (1.0-1.7) Assessment and Plan Assessmemt and Plan Problems Medical Problems: (1) Decubitus ulcer Status: Acute (2) Hx of multiple sclerosis Status: Acute (3) Multiple sclerosis Status: Acute (4) Urinary retention Status: Acute (5) UTI (urinary tract infection) due to urinary indwelling catheter Status: Acute Comment Review of Relevant I have reviewed the following items rahel (where applicable) has been applied. Labs Laboratory Tests Test 05/15/18 11:37 05/15/18 17:06 05/15/18 21:03 05/16/18 07:30 Glucose (Fingerstick) 133 mg/dL (70-99) 149 mg/dL (70-99) 169 mg/dL (70-99) 167 mg/dL (70-99) Test 05/16/18 08:10 05/16/18 11:51 05/16/18 17:07 05/16/18 21:11 White Blood Count 16.2 x10^3/uL (4.0-11.0) Red Blood Count 5.15 x10^6/uL (4.30-5.70) Hemoglobin 14.1 g/dL (13.0-17.5) Hematocrit 39.6 % (39.0-53.0) Mean Corpuscular Volume 77 fL (79-100) Mean Corpuscular Hemoglobin 27 pg (25-35) Mean Corpuscular Hemoglobin Concent 36 g/dL (31-37) Red Cell Distribution Width 18.2 % (11.5-14.5) Platelet Count 407 x10^3/uL (140-400) Neutrophils (%) (Auto) 73 % (31-73) Lymphocytes (%) (Auto) 20 % (24-48) Monocytes (%) (Auto) 5 % (0-9) Eosinophils (%) (Auto) 0 % (0-3) Basophils (%) (Auto) 1 % (0-3) Neutrophils # (Auto) 11.8 x10^3uL (1.8-7.7) Lymphocytes # (Auto) 3.3 x10^3/uL (1.0-4.8) Monocytes # (Auto) 0.9 x10^3/uL (0.0-1.1) Eosinophils # (Auto) 0.1 x10^3/uL (0.0-0.7) Basophils # (Auto) 0.1 x10^3/uL (0.0-0.2) Sodium Level 132 mmol/L (136-145) Potassium Level 4.3 mmol/L (3.5-5.1) Chloride Level 97 mmol/L (98-107) Carbon Dioxide Level 25 mmol/L (21-32) Anion Gap 10 (6-14) Blood Urea Nitrogen 6 mg/dL (8-26) Creatinine 0.8 mg/dL (0.7-1.3) Estimated GFR (Cockcroft-Gault) 114.7 BUN/Creatinine Ratio 8 (6-20) Glucose Level 170 mg/dL (70-99) Calcium Level 8.7 mg/dL (8.5-10.1) Total Bilirubin 0.3 mg/dL (0.2-1.0) Aspartate Amino Transf (AST/SGOT) 8 U/L (15-37) Alanine Aminotransferase (ALT/SGPT) 11 U/L (16-63) Alkaline Phosphatase 89 U/L (46-116) Total Protein 7.3 g/dL (6.4-8.2) Albumin 2.7 g/dL (3.4-5.0) Albumin/Globulin Ratio 0.6 (1.0-1.7) Glucose (Fingerstick) 148 mg/dL (70-99) 171 mg/dL (70-99) 172 mg/dL (70-99) Test 05/17/18 04:45 White Blood Count 18.3 x10^3/uL (4.0-11.0) Red Blood Count 5.28 x10^6/uL (4.30-5.70) Hemoglobin 14.3 g/dL (13.0-17.5) Hematocrit 40.6 % (39.0-53.0) Mean Corpuscular Volume 77 fL (79-100) Mean Corpuscular Hemoglobin 27 pg (25-35) Mean Corpuscular Hemoglobin Concent 35 g/dL (31-37) Red Cell Distribution Width 18.5 % (11.5-14.5) Platelet Count 404 x10^3/uL (140-400) Neutrophils (%) (Auto) 69 % (31-73) Lymphocytes (%) (Auto) 24 % (24-48) Monocytes (%) (Auto) 6 % (0-9) Eosinophils (%) (Auto) 1 % (0-3) Basophils (%) (Auto) 1 % (0-3) Neutrophils # (Auto) 12.5 x10^3uL (1.8-7.7) Lymphocytes # (Auto) 4.4 x10^3/uL (1.0-4.8) Monocytes # (Auto) 1.1 x10^3/uL (0.0-1.1) Eosinophils # (Auto) 0.1 x10^3/uL (0.0-0.7) Basophils # (Auto) 0.1 x10^3/uL (0.0-0.2) Sodium Level 133 mmol/L (136-145) Potassium Level 3.6 mmol/L (3.5-5.1) Chloride Level 98 mmol/L (98-107) Carbon Dioxide Level 23 mmol/L (21-32) Anion Gap 12 (6-14) Blood Urea Nitrogen 6 mg/dL (8-26) Creatinine 0.9 mg/dL (0.7-1.3) Estimated GFR (Cockcroft-Gault) 100.1 BUN/Creatinine Ratio 7 (6-20) Glucose Level 126 mg/dL (70-99) Calcium Level 8.8 mg/dL (8.5-10.1) Total Bilirubin 0.3 mg/dL (0.2-1.0) Aspartate Amino Transf (AST/SGOT) 9 U/L (15-37) Alanine Aminotransferase (ALT/SGPT) 8 U/L (16-63) Alkaline Phosphatase 85 U/L (46-116) Total Protein 7.0 g/dL (6.4-8.2) Albumin 2.6 g/dL (3.4-5.0) Albumin/Globulin Ratio 0.6 (1.0-1.7) Laboratory Tests Test 05/16/18 11:51 05/16/18 17:07 05/16/18 21:11 05/17/18 04:45 Glucose (Fingerstick) 148 mg/dL (70-99) 171 mg/dL (70-99) 172 mg/dL (70-99) White Blood Count 18.3 x10^3/uL (4.0-11.0) Red Blood Count 5.28 x10^6/uL (4.30-5.70) Hemoglobin 14.3 g/dL (13.0-17.5) Hematocrit 40.6 % (39.0-53.0) Mean Corpuscular Volume 77 fL (79-100) Mean Corpuscular Hemoglobin 27 pg (25-35) Mean Corpuscular Hemoglobin Concent 35 g/dL (31-37) Red Cell Distribution Width 18.5 % (11.5-14.5) Platelet Count 404 x10^3/uL (140-400) Neutrophils (%) (Auto) 69 % (31-73) Lymphocytes (%) (Auto) 24 % (24-48) Monocytes (%) (Auto) 6 % (0-9) Eosinophils (%) (Auto) 1 % (0-3) Basophils (%) (Auto) 1 % (0-3) Neutrophils # (Auto) 12.5 x10^3uL (1.8-7.7) Lymphocytes # (Auto) 4.4 x10^3/uL (1.0-4.8) Monocytes # (Auto) 1.1 x10^3/uL (0.0-1.1) Eosinophils # (Auto) 0.1 x10^3/uL (0.0-0.7) Basophils # (Auto) 0.1 x10^3/uL (0.0-0.2) Sodium Level 133 mmol/L (136-145) Potassium Level 3.6 mmol/L (3.5-5.1) Chloride Level 98 mmol/L (98-107) Carbon Dioxide Level 23 mmol/L (21-32) Anion Gap 12 (6-14) Blood Urea Nitrogen 6 mg/dL (8-26) Creatinine 0.9 mg/dL (0.7-1.3) Estimated GFR (Cockcroft-Gault) 100.1 BUN/Creatinine Ratio 7 (6-20) Glucose Level 126 mg/dL (70-99) Calcium Level 8.8 mg/dL (8.5-10.1) Total Bilirubin 0.3 mg/dL (0.2-1.0) Aspartate Amino Transf (AST/SGOT) 9 U/L (15-37) Alanine Aminotransferase (ALT/SGPT) 8 U/L (16-63) Alkaline Phosphatase 85 U/L (46-116) Total Protein 7.0 g/dL (6.4-8.2) Albumin 2.6 g/dL (3.4-5.0) Albumin/Globulin Ratio 0.6 (1.0-1.7) Microbiology 05/13/18 Blood Culture - Preliminary, Resulted NO GROWTH AFTER 4 DAYS 05/13/18 Urine Culture - Final, Complete 05/13/18 Urine Culture Result 1 (RERE) - Final, Complete 05/13/18 Antimicrobic Susceptibility - Final, Complete Medications Current Medications Sodium Chloride 1,000 ml @ 1,000 mls/hr 1X ONCE IV Last administered on 05/13at 05:08; Start 05/13/18 at 04:30; Stop 05/13/18 at 05:29; Status DC Ceftriaxone Sodium 50 ml @ 100 mls/hr 1X ONCE IV Last administered on at 05:48; Start 05/13/18 at 06:00; Stop 05/13/18 at 06:29; Status DC Ondansetron HCl (Zofran) 4 mg PRN Q8HRS PRN IV NAUSEA/VOMITING 1st choice; Start 05/13/18 at 05:45; Stop 05/13/18 at 08:47; Status DC Fentanyl Citrate (Fentanyl 2ml Vial) 50 mcg PRN Q2HR PRN IV SEVERE PAIN; Start 05/13/18 at 05:45; Stop 05/14/18 at 05:44; Status DC Insulin Human Lispro (HumaLOG) 0-5 UNITS TIDWMEALS SQ ; Start 05/13/18 at 08:00 ; Stop 05/13/18 at 08:47; Status DC Dextrose (Dextrose 50%-Water Syringe) 12.5 gm PRN Q15MIN PRN IV SEE COMMENTS; Start 05/13/18 at 05:45 Ondansetron HCl (Zofran) 4 mg PRN Q6HRS PRN IV NAUSEA/VOMITING 1st choice; Start 05/13/18 at 09:00 Ceftriaxone Sodium 1 gm/ Dextrose 50 ml @ 100 mls/hr Q24H IV ; Start 05/13/18 at 08:45; Status UNV Acetaminophen (Tylenol) 500 mg PRN Q6HRS PRN PO MILD PAIN / TEMP; Start at 08:45 Insulin Human Lispro (HumaLOG) 0-9 UNITS TIDWMEALS SQ Last administered on at 09:15; Start 05/13/18 at 12:00 Dextrose (Dextrose 50%-Water Syringe) 12.5 gm PRN Q15MIN PRN IV SEE COMMENTS; Start 05/13/18 at 08:45; Status UNV Magnesium Sulfate/ Dextrose 100 ml @ 100 mls/hr 1X ONCE IV Last administered on 05/13/18at 13:03; Start 05/13/18 at 09:30; Stop 05/13/18 at 10:29; Status DC Prednisone (Prednisone) 25 mg DAILY PO Last administered on 05/16/18at 09:12; Start 05/13/18 at 15:00 Triamterene/HCTZ (Maxzide 37.5/ 25mg) 1 tab DAILY PO Last administered on 05/16at 09:11; Start 05/13/18 at 09:00 Baclofen (Lioresal) 20 mg DAILYWBKFT PO Last administered on 05/13/18at 12:56; Start 05/13/18 at 12:00; Stop 05/13/18 at 16:21; Status DC Non-Formulary Medication (Dapsone ) 25 mg DAILY PO ; Start 05/13/18 at 09:00; Stop 05/13/18 at 14:33; Status DC Metformin HCl (Glucophage) 500 mg DAILYWBKFT PO ; Start 05/13/18 at 10:00; Stop 05/13/18 at 16:20; Status DC Fish Oil (Fish Oil) 1,000 mg DAILY PO Last administered on 05/16/18at 09:12; Start 05/13/18 at 10:00 Oxybutynin Chloride (Ditropan) 5 mg DAILY PO Last administered on 05/16/18at 09 :12; Start 05/13/18 at 10:00 Ceftriaxone Sodium (Rocephin) 1 gm Q24H IVP Last administered on 05/14/18at 06: 26; Start 05/14/18 at 06:00; Stop 05/14/18 at 09:14; Status DC Sodium Chloride 1,000 ml @ 100 mls/hr Q10H IV Last administered on 05/14/18at 08:30; Start 05/13/18 at 12:30; Stop 05/14/18 at 16:11; Status DC Enoxaparin Sodium (Lovenox 40mg Syringe) 40 mg Q24H SQ Last administered on at 15:04; Start 05/13/18 at 13:00 Baclofen (Lioresal) 50 mg TID PO ; Start 05/13/18 at 21:00; Stop 05/13/18 at 21:00; Status DC Baclofen (Lioresal) 50 mg TID PO Last administered on 05/16/18at 15:04; Start 05/13/18 at 21:00 Linezolid (Zyvox) 600 mg BID PO Last administered on 05/14/18at 11:22; Start 05/14/18 at 10:00; Stop 05/15/18 at 09:19; Status DC Nystatin (Nystop) 1 frederick BID TP Last administered on 05/16/18at 21:19; Start at 11:00 Cefepime HCl 1 gm/ Dextrose 50 ml @ 100 mls/hr Q8HRS IV ; Start 05/14/18 at 14 :00; Status UNV Cefepime HCl (Maxipime) 1 gm Q8HRS IVP Last administered on 05/15/18at 05:39; Start 05/14/18 at 11:00; Stop 05/15/18 at 09:20; Status DC Ascorbic Acid (Vitamin C) 500 mg DAILY PO Last administered on 05/16/18at 09:12 ; Start 05/14/18 at 14:00 Zinc Sulfate (Orazinc) 220 mg DAILY PO Last administered on 05/16/18at 09:12; Start 05/14/18 at 14:00 Dextrose/Sodium Chloride 1,000 ml @ 100 mls/hr Q10H IV Last administered on at 05:05; Start 05/14/18 at 16:15 Insulin Glargine (Lantus) 6 units 1X ONCE SQ Last administered on 05/14/18at 17:21; Start 05/14/18 at 16:15; Stop 05/14/18 at 16:16; Status DC Influenza Virus Vaccine (Afluria Trivalent [id number] Syringe) 0.5 ml ONCE ONCE VAX IM Last administered on 05/16/18at 15:07; Start 05/15/18 at 09:00; Stop 05/15/18 at 09:01; Status DC Ketoconazole (Nizoral 2% Topical) 1 frederick DAILY TP Last administered on at 09:13; Start 05/14/18 at 18:00 Cefepime HCl (Maxipime) 1 gm Q12HR IVP Last administered on 05/16/18at 21:15; Start 05/15/18 at 21:00 Lactobacillus Rhamnosus (Culturelle) 1 cap BID PO Last administered on at 09:12; Start 05/15/18 at 21:00 Active Scripts Active Cephalexin 500 Mg Tablet 1 Tab PO QID Cipro (Ciprofloxacin Hcl) 500 Mg Tablet 1 Tab PO BID 5 Days Reported Fish Oil + D3 Softgel ([place]-3S/Dha/Epa/Fish Oil/D3) 1 Each Capsule 1 Each PO DAILY Prednisone 20 Mg Tablet 25 Mg PO DAILY Baclofen 20 Mg Tablet 50 Tab PO TID Oxybutynin Chloride Er (Oxybutynin Chloride) 5 Mg Tab.er.24 1 Tab PO DAILY Vitals/I & O Vital Sign - Last 24 Hours 05/16/18 05/16/18 05/16/18 05/16/18 11:00 15:00 19:00 19:40 Temp 97.9 96.1 97.3 97.9 96.1 97.3 Pulse 81 78 76 Resp 20 24 18 B/P (MAP) 146/75 (98) 147/97 (114) 157/94 (115) Pulse Ox 97 97 98 O2 Delivery Room Air Room Air Room Air Room Air 05/16/18 05/17/18 05/17/18 23:53 03:08 07:00 Temp 98.1 97.6 98.1 98.1 97.6 98.1 Pulse 78 73 84 Resp 18 18 18 B/P (MAP) 157/95 (115) 134/79 (97) 100/80 (87) Pulse Ox 100 98 O2 Delivery Room Air Room Air Room Air O2 Flow Rate 96.0 Intake and Output 05/16/18 05/16/18 05/17/18 15:00 23:00 07:00 Intake Total 20 ml 0 ml 0 ml Output Total 0 ml 1100 ml 1550 ml Balance 20 ml -1100 ml -1550 ml JM GAO MD May 17, 2018 10:32
[2018-05-17] MEDS: CEFEPIME HCL IV Push 1 GM VIAL. IVP SCH (14:04)
[2018-05-17] MEDS: KETOCONAZOLE 2% TOPICAL CREAM 15GM TUBE. TP SCH (14:05)
[2018-05-17] MEDS: NYSTATIN TOPICAL POWDER 15GM BOTTLE. TP SCH ×2 (14:05→21:20)
[2018-05-17] MEDS: ENOXAPARIN 40 MG/0.4 ML SYRINGE. SQ SCH (14:08)
--- NOTE | 2018-05-17 14:11 | RAD ---
CT HEAD WITHOUT CONTRAST 05/17/2018 9:23 AM Indication: Altered mental status. Comparison: CT head without contrast April 27, 2016 Procedure: Multidetector CT imaging of the head was performed without the administration of contrast. Findings: Global atrophic changes are similar to prior exam. No evidence of acute intracranial hemorrhage is identified. No evidence of acute territorial infarct is identified. Note that CT is limited for evaluation of acute ischemia. If clinical concern for acute ischemia persists consider MRI for further evaluation. Periventricular deep white matter hypoattenuation is again seen, similar to prior study. While nonspecific findings, most commonly reflects chronic small vessel disease. No acute mass effect or midline shift is seen. IMPRESSION: 1.No evidence of acute intracranial abnormality or acute change is comparison study. 2. Similar global atrophic changes and evidence of chronic small vessel disease as described above CT DOSING PQRS STATEMENT: One or more of the following individualized dose reduction techniques were utilized for this examination: 1. Automated exposure control 2. Adjustment of the mA and/or kV according to patient size 3. Use of iterative reconstruction technique Electronically signed by: Bryce Gore MD (05/17/2018 2:08 PM) [id number]
[2018-05-17 15:59] VITALS: BP 162/89
--- NOTE | 2018-05-17 16:35 | PDOC ---
PROGRESS NOTES Assessment Problems Medical Problems: (1) Decubitus ulcer Status: Acute (2) Hx of multiple sclerosis Status: Acute (3) Multiple sclerosis Status: Acute (4) Urinary retention Status: Acute (5) UTI (urinary tract infection) due to urinary indwelling catheter Status: Acute Metabolic encephalopathy apparently related to urinary tract infection, EEG shows mild slowing consistent with this, CT head negative for acute problems, he is better today Primary progressive multiple sclerosis, bedbound. Plan Treat urinary tract infection and other medical diseases. Will follow, no additional studies needed. Subjective He denies pain Objective Vital Signs Date Time Temp Pulse Resp B/P (MAP) Pulse Ox O2 Delivery O2 Flow Rate FiO2 05/17/18 15:59 97.8 89 17 162/89 (113) 93 Room Air 97.8 05/17/18 08:00 96.0 Intake and Output 05/17/18 07:00 Intake Total 20 ml Output Total 2650 ml Balance -2630 ml Intake Oral 20 ml Output Urine Total 2650 ml PHYSICAL EXAM Alert. Says hello to me, knows that he is in a hospital, does not know the date or why he is here PERRL. EOMI. CN: no focal findings. Muscle tone: normal. Muscle strength: 3/5 arms, 1/5 legs, increased tone worse in the legs DTR: 1+ Plantar reflex: Silent Gait: not examined in bed. Sensory exam: no abnormal findings. No cerebellar signs elicited out of proportion to weakness. Review of Relevant I have reviewed the following items rahel (where applicable) has been applied. Labs Laboratory Tests Test 05/15/18 17:06 05/15/18 21:03 05/16/18 07:30 05/16/18 08:10 Glucose (Fingerstick) 149 mg/dL (70-99) 169 mg/dL (70-99) 167 mg/dL (70-99) White Blood Count 16.2 x10^3/uL (4.0-11.0) Red Blood Count 5.15 x10^6/uL (4.30-5.70) Hemoglobin 14.1 g/dL (13.0-17.5) Hematocrit 39.6 % (39.0-53.0) Mean Corpuscular Volume 77 fL (79-100) Mean Corpuscular Hemoglobin 27 pg (25-35) Mean Corpuscular Hemoglobin Concent 36 g/dL (31-37) Red Cell Distribution Width 18.2 % (11.5-14.5) Platelet Count 407 x10^3/uL (140-400) Neutrophils (%) (Auto) 73 % (31-73) Lymphocytes (%) (Auto) 20 % (24-48) Monocytes (%) (Auto) 5 % (0-9) Eosinophils (%) (Auto) 0 % (0-3) Basophils (%) (Auto) 1 % (0-3) Neutrophils # (Auto) 11.8 x10^3uL (1.8-7.7) Lymphocytes # (Auto) 3.3 x10^3/uL (1.0-4.8) Monocytes # (Auto) 0.9 x10^3/uL (0.0-1.1) Eosinophils # (Auto) 0.1 x10^3/uL (0.0-0.7) Basophils # (Auto) 0.1 x10^3/uL (0.0-0.2) Sodium Level 132 mmol/L (136-145) Potassium Level 4.3 mmol/L (3.5-5.1) Chloride Level 97 mmol/L (98-107) Carbon Dioxide Level 25 mmol/L (21-32) Anion Gap 10 (6-14) Blood Urea Nitrogen 6 mg/dL (8-26) Creatinine 0.8 mg/dL (0.7-1.3) Estimated GFR (Cockcroft-Gault) 114.7 BUN/Creatinine Ratio 8 (6-20) Glucose Level 170 mg/dL (70-99) Calcium Level 8.7 mg/dL (8.5-10.1) Total Bilirubin 0.3 mg/dL (0.2-1.0) Aspartate Amino Transf (AST/SGOT) 8 U/L (15-37) Alanine Aminotransferase (ALT/SGPT) 11 U/L (16-63) Alkaline Phosphatase 89 U/L (46-116) Total Protein 7.3 g/dL (6.4-8.2) Albumin 2.7 g/dL (3.4-5.0) Albumin/Globulin Ratio 0.6 (1.0-1.7) Test 05/16/18 11:51 05/16/18 17:07 05/16/18 21:11 05/17/18 04:45 Glucose (Fingerstick) 148 mg/dL (70-99) 171 mg/dL (70-99) 172 mg/dL (70-99) White Blood Count 18.3 x10^3/uL (4.0-11.0) Red Blood Count 5.28 x10^6/uL (4.30-5.70) Hemoglobin 14.3 g/dL (13.0-17.5) Hematocrit 40.6 % (39.0-53.0) Mean Corpuscular Volume 77 fL (79-100) Mean Corpuscular Hemoglobin 27 pg (25-35) Mean Corpuscular Hemoglobin Concent 35 g/dL (31-37) Red Cell Distribution Width 18.5 % (11.5-14.5) Platelet Count 404 x10^3/uL (140-400) Neutrophils (%) (Auto) 69 % (31-73) Lymphocytes (%) (Auto) 24 % (24-48) Monocytes (%) (Auto) 6 % (0-9) Eosinophils (%) (Auto) 1 % (0-3) Basophils (%) (Auto) 1 % (0-3) Neutrophils # (Auto) 12.5 x10^3uL (1.8-7.7) Lymphocytes # (Auto) 4.4 x10^3/uL (1.0-4.8) Monocytes # (Auto) 1.1 x10^3/uL (0.0-1.1) Eosinophils # (Auto) 0.1 x10^3/uL (0.0-0.7) Basophils # (Auto) 0.1 x10^3/uL (0.0-0.2) Sodium Level 133 mmol/L (136-145) Potassium Level 3.6 mmol/L (3.5-5.1) Chloride Level 98 mmol/L (98-107) Carbon Dioxide Level 23 mmol/L (21-32) Anion Gap 12 (6-14) Blood Urea Nitrogen 6 mg/dL (8-26) Creatinine 0.9 mg/dL (0.7-1.3) Estimated GFR (Cockcroft-Gault) 100.1 BUN/Creatinine Ratio 7 (6-20) Glucose Level 126 mg/dL (70-99) Calcium Level 8.8 mg/dL (8.5-10.1) Total Bilirubin 0.3 mg/dL (0.2-1.0) Aspartate Amino Transf (AST/SGOT) 9 U/L (15-37) Alanine Aminotransferase (ALT/SGPT) 8 U/L (16-63) Alkaline Phosphatase 85 U/L (46-116) Total Protein 7.0 g/dL (6.4-8.2) Albumin 2.6 g/dL (3.4-5.0) Albumin/Globulin Ratio 0.6 (1.0-1.7) Laboratory Tests Test 05/16/18 17:07 05/16/18 21:11 05/17/18 04:45 Glucose (Fingerstick) 171 mg/dL (70-99) 172 mg/dL (70-99) White Blood Count 18.3 x10^3/uL (4.0-11.0) Red Blood Count 5.28 x10^6/uL (4.30-5.70) Hemoglobin 14.3 g/dL (13.0-17.5) Hematocrit 40.6 % (39.0-53.0) Mean Corpuscular Volume 77 fL (79-100) Mean Corpuscular Hemoglobin 27 pg (25-35) Mean Corpuscular Hemoglobin Concent 35 g/dL (31-37) Red Cell Distribution Width 18.5 % (11.5-14.5) Platelet Count 404 x10^3/uL (140-400) Neutrophils (%) (Auto) 69 % (31-73) Lymphocytes (%) (Auto) 24 % (24-48) Monocytes (%) (Auto) 6 % (0-9) Eosinophils (%) (Auto) 1 % (0-3) Basophils (%) (Auto) 1 % (0-3) Neutrophils # (Auto) 12.5 x10^3uL (1.8-7.7) Lymphocytes # (Auto) 4.4 x10^3/uL (1.0-4.8) Monocytes # (Auto) 1.1 x10^3/uL (0.0-1.1) Eosinophils # (Auto) 0.1 x10^3/uL (0.0-0.7) Basophils # (Auto) 0.1 x10^3/uL (0.0-0.2) Sodium Level 133 mmol/L (136-145) Potassium Level 3.6 mmol/L (3.5-5.1) Chloride Level 98 mmol/L (98-107) Carbon Dioxide Level 23 mmol/L (21-32) Anion Gap 12 (6-14) Blood Urea Nitrogen 6 mg/dL (8-26) Creatinine 0.9 mg/dL (0.7-1.3) Estimated GFR (Cockcroft-Gault) 100.1 BUN/Creatinine Ratio 7 (6-20) Glucose Level 126 mg/dL (70-99) Calcium Level 8.8 mg/dL (8.5-10.1) Total Bilirubin 0.3 mg/dL (0.2-1.0) Aspartate Amino Transf (AST/SGOT) 9 U/L (15-37) Alanine Aminotransferase (ALT/SGPT) 8 U/L (16-63) Alkaline Phosphatase 85 U/L (46-116) Total Protein 7.0 g/dL (6.4-8.2) Albumin 2.6 g/dL (3.4-5.0) Albumin/Globulin Ratio 0.6 (1.0-1.7) Microbiology 05/13/18 Blood Culture - Preliminary, Resulted NO GROWTH AFTER 4 DAYS 05/13/18 Urine Culture - Final, Complete 05/13/18 Urine Culture Result 1 (RERE) - Final, Complete 05/13/18 Antimicrobic Susceptibility - Final, Complete Medications Current Medications Sodium Chloride 1,000 ml @ 1,000 mls/hr 1X ONCE IV Last administered on 05/13at 05:08; Start 05/13/18 at 04:30; Stop 05/13/18 at 05:29; Status DC Ceftriaxone Sodium 50 ml @ 100 mls/hr 1X ONCE IV Last administered on at 05:48; Start 05/13/18 at 06:00; Stop 05/13/18 at 06:29; Status DC Ondansetron HCl (Zofran) 4 mg PRN Q8HRS PRN IV NAUSEA/VOMITING 1st choice; Start 05/13/18 at 05:45; Stop 05/13/18 at 08:47; Status DC Fentanyl Citrate (Fentanyl 2ml Vial) 50 mcg PRN Q2HR PRN IV SEVERE PAIN; Start 05/13/18 at 05:45; Stop 05/14/18 at 05:44; Status DC Insulin Human Lispro (HumaLOG) 0-5 UNITS TIDWMEALS SQ ; Start 05/13/18 at 08:00 ; Stop 05/13/18 at 08:47; Status DC Dextrose (Dextrose 50%-Water Syringe) 12.5 gm PRN Q15MIN PRN IV SEE COMMENTS; Start 05/13/18 at 05:45 Ondansetron HCl (Zofran) 4 mg PRN Q6HRS PRN IV NAUSEA/VOMITING 1st choice; Start 05/13/18 at 09:00 Ceftriaxone Sodium 1 gm/ Dextrose 50 ml @ 100 mls/hr Q24H IV ; Start 05/13/18 at 08:45; Status UNV Acetaminophen (Tylenol) 500 mg PRN Q6HRS PRN PO MILD PAIN / TEMP; Start at 08:45 Insulin Human Lispro (HumaLOG) 0-9 UNITS TIDWMEALS SQ Last administered on at 09:15; Start 05/13/18 at 12:00 Dextrose (Dextrose 50%-Water Syringe) 12.5 gm PRN Q15MIN PRN IV SEE COMMENTS; Start 05/13/18 at 08:45; Status UNV Magnesium Sulfate/ Dextrose 100 ml @ 100 mls/hr 1X ONCE IV Last administered on 05/13/18at 13:03; Start 05/13/18 at 09:30; Stop 05/13/18 at 10:29; Status DC Prednisone (Prednisone) 25 mg DAILY PO Last administered on 05/16/18at 09:12; Start 05/13/18 at 15:00 Triamterene/HCTZ (Maxzide 37.5/ 25mg) 1 tab DAILY PO Last administered on 05/16at 09:11; Start 05/13/18 at 09:00 Baclofen (Lioresal) 20 mg DAILYWBKFT PO Last administered on 05/13/18at 12:56; Start 05/13/18 at 12:00; Stop 05/13/18 at 16:21; Status DC Non-Formulary Medication (Dapsone ) 25 mg DAILY PO ; Start 05/13/18 at 09:00; Stop 05/13/18 at 14:33; Status DC Metformin HCl (Glucophage) 500 mg DAILYWBKFT PO ; Start 05/13/18 at 10:00; Stop 05/13/18 at 16:20; Status DC Fish Oil (Fish Oil) 1,000 mg DAILY PO Last administered on 05/16/18at 09:12; Start 05/13/18 at 10:00 Oxybutynin Chloride (Ditropan) 5 mg DAILY PO Last administered on 05/16/18at 09 :12; Start 05/13/18 at 10:00 Ceftriaxone Sodium (Rocephin) 1 gm Q24H IVP Last administered on 05/14/18at 06: 26; Start 05/14/18 at 06:00; Stop 05/14/18 at 09:14; Status DC Sodium Chloride 1,000 ml @ 100 mls/hr Q10H IV Last administered on 05/14/18at 08:30; Start 05/13/18 at 12:30; Stop 05/14/18 at 16:11; Status DC Enoxaparin Sodium (Lovenox 40mg Syringe) 40 mg Q24H SQ Last administered on 05/17/18at 14:08; Start 05/13/18 at 13:00 Baclofen (Lioresal) 50 mg TID PO ; Start 05/13/18 at 21:00; Stop 05/13/18 at 21:00; Status DC Baclofen (Lioresal) 50 mg TID PO Last administered on 05/16/18at 15:04; Start 05/13/18 at 21:00 Linezolid (Zyvox) 600 mg BID PO Last administered on 05/14/18at 11:22; Start 05/14/18 at 10:00; Stop 05/15/18 at 09:19; Status DC Nystatin (Nystop) 1 frederick BID TP Last administered on 05/17/18at 14:05; Start at 11:00 Cefepime HCl 1 gm/ Dextrose 50 ml @ 100 mls/hr Q8HRS IV ; Start 05/14/18 at 14 :00; Status UNV Cefepime HCl (Maxipime) 1 gm Q8HRS IVP Last administered on 05/15/18at 05:39; Start 05/14/18 at 11:00; Stop 05/15/18 at 09:20; Status DC Ascorbic Acid (Vitamin C) 500 mg DAILY PO Last administered on 05/16/18at 09:12 ; Start 05/14/18 at 14:00 Zinc Sulfate (Orazinc) 220 mg DAILY PO Last administered on 05/16/18at 09:12; Start 05/14/18 at 14:00 Dextrose/Sodium Chloride 1,000 ml @ 100 mls/hr Q10H IV Last administered on at 05:05; Start 05/14/18 at 16:15 Insulin Glargine (Lantus) 6 units 1X ONCE SQ Last administered on 05/14/18at 17:21; Start 05/14/18 at 16:15; Stop 05/14/18 at 16:16; Status DC Influenza Virus Vaccine (Afluria Trivalent [id number] Syringe) 0.5 ml ONCE ONCE VAX IM Last administered on 05/16/18at 15:07; Start 05/15/18 at 09:00; Stop 05/15/18 at 09:01; Status DC Ketoconazole (Nizoral 2% Topical) 1 frederick DAILY TP Last administered on at 14:05; Start 05/14/18 at 18:00 Cefepime HCl (Maxipime) 1 gm Q12HR IVP Last administered on 05/17/18at 14:04; Start 05/15/18 at 21:00 Lactobacillus Rhamnosus (Culturelle) 1 cap BID PO Last administered on at 09:12; Start 05/15/18 at 21:00 Active Scripts Active Cephalexin 500 Mg Tablet 1 Tab PO QID Cipro (Ciprofloxacin Hcl) 500 Mg Tablet 1 Tab PO BID 5 Days Reported Fish Oil + D3 Softgel ([place]-3S/Dha/Epa/Fish Oil/D3) 1 Each Capsule 1 Each PO DAILY Prednisone 20 Mg Tablet 25 Mg PO DAILY Baclofen 20 Mg Tablet 50 Tab PO TID Oxybutynin Chloride Er (Oxybutynin Chloride) 5 Mg Tab.er.24 1 Tab PO DAILY Vitals/I & O Vital Sign - Last 24 Hours 05/16/18 05/16/18 05/16/18 05/17/18 19:00 19:40 23:53 03:08 Temp 97.3 98.1 97.6 97.3 98.1 97.6 Pulse 76 78 73 Resp 18 18 18 B/P (MAP) 157/94 (115) 157/95 (115) 134/79 (97) Pulse Ox 98 100 98 O2 Delivery Room Air Room Air Room Air Room Air 05/17/18 05/17/18 05/17/18 07:00 08:00 15:59 Temp 98.1 97.8 98.1 97.8 Pulse 84 89 Resp 18 17 B/P (MAP) 100/80 (87) 162/89 (113) Pulse Ox 93 O2 Delivery Room Air Room Air Room Air O2 Flow Rate 96.0 96.0 Intake and Output 05/16/18 05/16/18 05/17/18 15:00 23:00 07:00 Intake Total 20 ml 0 ml 0 ml Output Total 0 ml 1100 ml 1550 ml Balance 20 ml -1100 ml -1550 ml Images EEG: Mild diffuse slowing, no epileptic activity CT head: Global atrophic changes are similar to prior exam. No evidence of acute intracranial hemorrhage is identified. No evidence of acute territorial infarct is identified. Note that CT is limited for evaluation of acute ischemia. If clinical concern for acute ischemia persists consider MRI for further evaluation. Periventricular deep white matter hypoattenuation is again seen, similar to prior study. While nonspecific findings, most commonly reflects chronic small vessel disease. No acute mass effect or midline shift is seen. IMPRESSION: 1.No evidence of acute intracranial abnormality or acute change is comparison study. 2. Similar global atrophic changes and evidence of chronic small vessel disease as described above HERVE LOPEZ MD May 17, 2018 16:35
--- NOTE | 2018-05-17 17:25 | PDOC ---
Infectious Disease Note Subjective Subjective Not hungry No fevers last 24 hours Denies pain/upset stomach or cough ROS ROS per HPI Vital Sign Vital Signs Vital Signs Date Time Temp Pulse Resp B/P (MAP) Pulse Ox O2 Delivery O2 Flow Rate FiO2 05/17/18 15:59 97.8 89 17 162/89 (113) 93 Room Air 97.8 05/17/18 08:00 96.0 Physical Exam PHYSICAL EXAM GENERAL: Propped up in bed, alert, watching TV HEENT: Oral cavity clear, dentures LUNGS: Clear anteriorly, nonlabored HEART: S1, S2. ABDOMEN: Soft, bowel sounds present, nontender, nondistended. GENITOURINARY: Walls catheter in place. EXTREMITIES: No edema. Flexor contractures present. Feet bandaged NEUROLOGIC: Alert, responds to simple questions appropriately SKIN: without rash PIV Labs Lab Laboratory Tests Test 05/16/18 21:11 05/17/18 04:45 Glucose (Fingerstick) 172 mg/dL (70-99) White Blood Count 18.3 x10^3/uL (4.0-11.0) Red Blood Count 5.28 x10^6/uL (4.30-5.70) Hemoglobin 14.3 g/dL (13.0-17.5) Hematocrit 40.6 % (39.0-53.0) Mean Corpuscular Volume 77 fL (79-100) Mean Corpuscular Hemoglobin 27 pg (25-35) Mean Corpuscular Hemoglobin Concent 35 g/dL (31-37) Red Cell Distribution Width 18.5 % (11.5-14.5) Platelet Count 404 x10^3/uL (140-400) Neutrophils (%) (Auto) 69 % (31-73) Lymphocytes (%) (Auto) 24 % (24-48) Monocytes (%) (Auto) 6 % (0-9) Eosinophils (%) (Auto) 1 % (0-3) Basophils (%) (Auto) 1 % (0-3) Neutrophils # (Auto) 12.5 x10^3uL (1.8-7.7) Lymphocytes # (Auto) 4.4 x10^3/uL (1.0-4.8) Monocytes # (Auto) 1.1 x10^3/uL (0.0-1.1) Eosinophils # (Auto) 0.1 x10^3/uL (0.0-0.7) Basophils # (Auto) 0.1 x10^3/uL (0.0-0.2) Sodium Level 133 mmol/L (136-145) Potassium Level 3.6 mmol/L (3.5-5.1) Chloride Level 98 mmol/L (98-107) Carbon Dioxide Level 23 mmol/L (21-32) Anion Gap 12 (6-14) Blood Urea Nitrogen 6 mg/dL (8-26) Creatinine 0.9 mg/dL (0.7-1.3) Estimated GFR (Cockcroft-Gault) 100.1 BUN/Creatinine Ratio 7 (6-20) Glucose Level 126 mg/dL (70-99) Calcium Level 8.8 mg/dL (8.5-10.1) Total Bilirubin 0.3 mg/dL (0.2-1.0) Aspartate Amino Transf (AST/SGOT) 9 U/L (15-37) Alanine Aminotransferase (ALT/SGPT) 8 U/L (16-63) Alkaline Phosphatase 85 U/L (46-116) Total Protein 7.0 g/dL (6.4-8.2) Albumin 2.6 g/dL (3.4-5.0) Albumin/Globulin Ratio 0.6 (1.0-1.7) Micro BLOOD CULTURE Preliminary NO GROWTH AFTER 4 DAYS URINE CULTURE RES 1 Final Providencia rettgeri Greater than 100,000 colony forming units per mL ANTIMICROBIAL SUSCEPTIBILITY Final Comment S = Susceptible; I = Intermediate; R = Resistant P = Positive; N = Negative MICS are expressed in micrograms per mL Antibiotic RSLT#1 RSLT#2 RSLT#3 RSLT#4 Ampicillin R =R Cefazolin R>=64 Cefepime S<=0.12 Ceftriaxone S<=0.25 Cefuroxime S<=1 Ciprofloxacin S<=0.25 Gentamicin S<=1 Imipenem S =1 Levofloxacin S<=0.12 Meropenem S<=0.25 Nitrofurantoin R =256 Piperacillin/Tazobactam S<=4 Tetracycline R =R Tobramycin S<=1 Objective Assessment Fever - better Leukocytosis - on steroids Benign prostatic hypertrophy with urinary retention, chronic indwelling - Walls catheter changed 2 weeks ago. UTI w/ Providencia Multiple sclerosis, bedbound, progressive. Seborrheic keratoses. 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 Chronic contracture, right hand. History of Escherichia coli and pseudomonas urinary tract infection in the past. Hypertension/hyperlipidemia. Lesion on the scrotum could be from underlying bullous pemphigus, on prednisone. seen by derm Encephalopathy ? s/p toenail debridement, 05/15 Plan Plan of Care D/c Cefepime - begin Rocephin Probiotics BC neg so far Walls changed 05/13 Attending Co-Sign Attending Co-Sign The patient was seen and interviewed as well as examined at the bedside. The chart was reviewed. The case was discussed. Agree with the plan of care. CORNEL KOHLER APRN May 17, 2018 17:25 TEQUILA JAIMES MD May 17, 2018 17:56
--- NOTE | 2018-05-17 18:21 | EEG ---
DATE OF SERVICE: 05/17/2018 EEG NUMBER: [id number]. ATTENDING PHYSICIAN: Rogelio García DO OBJECTIVE: The patient is a 73-year-old male with primary progressive multiple sclerosis who has altered mental status. DESCRIPTION: This is a digital study. Electrodes are placed according to the international 10-20 system. Bipolar and referential montages are available. Activation procedures typically include hyperventilation and intermittent photic stimulation. INTERPRETATION: Much of the record is obscured by muscle artifact as the patient would not relax. A 5-6 Hz, 20-50 microvolt background activity can be discerned. Sleep is not achieved. The patient does not cooperate with hyperventilation. Intermittent photic stimulation is noncontributory. IMPRESSION: This electroencephalogram with the patient awake only is abnormal because of a mild, diffuse disturbance of cerebral activity consistent with any of a variety of toxic or metabolic encephalopathies. There is no focal, paroxysmal, or epileptiform activity. Thank you for letting us help with the patient's care. HERVE LOPEZ MD DR: MICHAEL/deisi JOB#: [id number] / [id number]
[2018-05-17 19:00] VITALS: BP 151/111
[2018-05-17 23:00] VITALS: BP 145/106
[2018-05-18] VITALS (7 sets, daily range): BP systolic 107–181; BP diastolic 56–100
[2018-05-18] MEDS: IV DEXTROSE 5 %-0.45 % NACL 1,000 ML IV SCH ×3 (04:23→21:03)
[2018-05-18] MEDS: predniSONE 10 MG TABLET PO SCH ×2 (06:54→08:47)
[2018-05-18] MEDS: INSULIN LISPRO 300 UNITS/3 ML INSULN.PEN. SQ SCH ×3 (08:00→16:34)
[2018-05-18] MEDS: TRIAMTERENE/HCTZ 37.5/25MG TABLET. PO SCH (08:47)
[2018-05-18] MEDS: ASCORBIC ACID 500 MG TABLET PO SCH (08:47)
[2018-05-18] MEDS: ZINC SULFATE 220 MG CAPSULE. PO SCH (08:47)
[2018-05-18] MEDS: LACTOBACILLUS RHAMNOSUS GG 1 CAPSULE. PO SCH ×2 (08:48→21:05)
[2018-05-18] MEDS: OXYBUTYNIN CHLORIDE 5 MG TABLET PO SCH (08:48)
[2018-05-18] MEDS: OMEGA-3 FATTY ACIDS/FISH OIL 1,000 MG CAPSULE. PO SCH (08:48)
[2018-05-18] MEDS: BACLOFEN 10 MG TABLET. PO SCH ×3 (08:50→21:05)
[2018-05-18] MEDS: cefTRIAXone IV Push 1 GM VIAL. IVP SCH (08:52)
[2018-05-18] MEDS: KETOCONAZOLE 2% TOPICAL CREAM 15GM TUBE. TP SCH (08:57)
[2018-05-18] MEDS: NYSTATIN TOPICAL POWDER 15GM BOTTLE. TP SCH ×2 (08:57→21:05)
[2018-05-18 09:31] LABS: BASO # 0.1 x10^3/uL (0.0-0.2); BASO % 1 % (0-3); EOS # 0.5 x10^3/uL (0.0-0.7); EOS % 3 % (0-3); HEMATOCRIT 40.1 % (39.0-53.0); HEMOGLOBIN 13.8 g/dL (13.0-17.5); LYMPH # 4.8 x10^3/uL (1.0-4.8); LYMPH % 29 % (24-48); MEAN CORPUSCULAR HEMOGLOBIN 27 pg (25-35); MEAN CORPUSCULAR HGB CONC 35 g/dL (31-37); MEAN CORPUSCULAR VOLUME 78 fL (79-100); MONO # 0.8 x10^3/uL (0.0-1.1); MONO % 5 % (0-9); NEUT # 10.4 x10^3uL (1.8-7.7); NEUT % 63 % (31-73); PLATELET COUNT 381 x10^3/uL (140-400); RED BLOOD COUNT 5.14 x10^6/uL (4.30-5.70); RED CELL DISTRIBUTION WIDTH 18.4 % (11.5-14.5); WHITE BLOOD COUNT 16.6 x10^3/uL (4.0-11.0)
--- NOTE | 2018-05-18 09:32 | PDOC ---
PROGRESS NOTES Assessment Problems Medical Problems: (1) Decubitus ulcer Status: Acute (2) Hx of multiple sclerosis Status: Acute (3) Multiple sclerosis Status: Acute (4) Urinary retention Status: Acute (5) UTI (urinary tract infection) due to urinary indwelling catheter Status: Acute Metabolic encephalopathy apparently related to urinary tract infection, EEG shows mild slowing consistent with this, CT head negative for acute problems, he is better Primary progressive multiple sclerosis, bedbound. Plan Treat urinary tract infection and other medical diseases. Will follow, no additional studies needed. Subjective No complaints Objective Vital Signs Date Time Temp Pulse Resp B/P (MAP) Pulse Ox O2 Delivery O2 Flow Rate FiO2 05/18/18 07:27 Room Air 05/18/18 06:55 98.3 74 17 130/87 (101) 95 98.3 05/17/18 08:00 96.0 Intake and Output 05/18/18 07:00 Intake Total 50 ml Output Total 2325 ml Balance -2275 ml Intake Oral 50 ml Output Urine Total 2325 ml PHYSICAL EXAM Alert. Says good morning to me, knows that he is in a hospital, does not know the date or why he is here PERRL. EOMI. CN: no focal findings. Muscle tone: normal. Muscle strength: 3/5 arms, 1/5 legs, increased tone worse in the legs DTR: 1+ Plantar reflex: Silent Gait: not examined in bed. Sensory exam: no abnormal findings. No cerebellar signs elicited out of proportion to weakness. Review of Relevant I have reviewed the following items rahel (where applicable) has been applied. Labs Laboratory Tests Test 05/16/18 11:51 05/16/18 17:07 05/16/18 21:11 05/17/18 04:45 Glucose (Fingerstick) 148 mg/dL (70-99) 171 mg/dL (70-99) 172 mg/dL (70-99) White Blood Count 18.3 x10^3/uL (4.0-11.0) Red Blood Count 5.28 x10^6/uL (4.30-5.70) Hemoglobin 14.3 g/dL (13.0-17.5) Hematocrit 40.6 % (39.0-53.0) Mean Corpuscular Volume 77 fL (79-100) Mean Corpuscular Hemoglobin 27 pg (25-35) Mean Corpuscular Hemoglobin Concent 35 g/dL (31-37) Red Cell Distribution Width 18.5 % (11.5-14.5) Platelet Count 404 x10^3/uL (140-400) Neutrophils (%) (Auto) 69 % (31-73) Lymphocytes (%) (Auto) 24 % (24-48) Monocytes (%) (Auto) 6 % (0-9) Eosinophils (%) (Auto) 1 % (0-3) Basophils (%) (Auto) 1 % (0-3) Neutrophils # (Auto) 12.5 x10^3uL (1.8-7.7) Lymphocytes # (Auto) 4.4 x10^3/uL (1.0-4.8) Monocytes # (Auto) 1.1 x10^3/uL (0.0-1.1) Eosinophils # (Auto) 0.1 x10^3/uL (0.0-0.7) Basophils # (Auto) 0.1 x10^3/uL (0.0-0.2) Sodium Level 133 mmol/L (136-145) Potassium Level 3.6 mmol/L (3.5-5.1) Chloride Level 98 mmol/L (98-107) Carbon Dioxide Level 23 mmol/L (21-32) Anion Gap 12 (6-14) Blood Urea Nitrogen 6 mg/dL (8-26) Creatinine 0.9 mg/dL (0.7-1.3) Estimated GFR (Cockcroft-Gault) 100.1 BUN/Creatinine Ratio 7 (6-20) Glucose Level 126 mg/dL (70-99) Calcium Level 8.8 mg/dL (8.5-10.1) Total Bilirubin 0.3 mg/dL (0.2-1.0) Aspartate Amino Transf (AST/SGOT) 9 U/L (15-37) Alanine Aminotransferase (ALT/SGPT) 8 U/L (16-63) Alkaline Phosphatase 85 U/L (46-116) Total Protein 7.0 g/dL (6.4-8.2) Albumin 2.6 g/dL (3.4-5.0) Albumin/Globulin Ratio 0.6 (1.0-1.7) Test 05/17/18 21:32 05/18/18 07:09 Glucose (Fingerstick) 129 mg/dL (70-99) 135 mg/dL (70-99) Laboratory Tests Test 05/17/18 21:32 05/18/18 07:09 Glucose (Fingerstick) 129 mg/dL (70-99) 135 mg/dL (70-99) Microbiology 05/13/18 Blood Culture - Final, Complete NO GROWTH AFTER 5 DAYS 05/13/18 Urine Culture - Final, Complete 05/13/18 Urine Culture Result 1 (RERE) - Final, Complete 05/13/18 Antimicrobic Susceptibility - Final, Complete Medications Current Medications Sodium Chloride 1,000 ml @ 1,000 mls/hr 1X ONCE IV Last administered on 05/13at 05:08; Start 05/13/18 at 04:30; Stop 05/13/18 at 05:29; Status DC Ceftriaxone Sodium 50 ml @ 100 mls/hr 1X ONCE IV Last administered on at 05:48; Start 05/13/18 at 06:00; Stop 05/13/18 at 06:29; Status DC Ondansetron HCl (Zofran) 4 mg PRN Q8HRS PRN IV NAUSEA/VOMITING 1st choice; Start 05/13/18 at 05:45; Stop 05/13/18 at 08:47; Status DC Fentanyl Citrate (Fentanyl 2ml Vial) 50 mcg PRN Q2HR PRN IV SEVERE PAIN; Start 05/13/18 at 05:45; Stop 05/14/18 at 05:44; Status DC Insulin Human Lispro (HumaLOG) 0-5 UNITS TIDWMEALS SQ ; Start 05/13/18 at 08:00 ; Stop 05/13/18 at 08:47; Status DC Dextrose (Dextrose 50%-Water Syringe) 12.5 gm PRN Q15MIN PRN IV SEE COMMENTS; Start 05/13/18 at 05:45 Ondansetron HCl (Zofran) 4 mg PRN Q6HRS PRN IV NAUSEA/VOMITING 1st choice; Start 05/13/18 at 09:00 Ceftriaxone Sodium 1 gm/ Dextrose 50 ml @ 100 mls/hr Q24H IV ; Start 05/13/18 at 08:45; Status UNV Acetaminophen (Tylenol) 500 mg PRN Q6HRS PRN PO MILD PAIN / TEMP; Start at 08:45 Insulin Human Lispro (HumaLOG) 0-9 UNITS TIDWMEALS SQ Last administered on at 09:15; Start 05/13/18 at 12:00 Dextrose (Dextrose 50%-Water Syringe) 12.5 gm PRN Q15MIN PRN IV SEE COMMENTS; Start 05/13/18 at 08:45; Status UNV Magnesium Sulfate/ Dextrose 100 ml @ 100 mls/hr 1X ONCE IV Last administered on 05/13/18at 13:03; Start 05/13/18 at 09:30; Stop 05/13/18 at 10:29; Status DC Prednisone (Prednisone) 25 mg DAILY PO Last administered on 05/18/18at 08:47; Start 05/13/18 at 15:00 Triamterene/HCTZ (Maxzide 37.5/ 25mg) 1 tab DAILY PO Last administered on at 08:47; Start 05/13/18 at 09:00 Baclofen (Lioresal) 20 mg DAILYWBKFT PO Last administered on 05/13/18at 12:56; Start 05/13/18 at 12:00; Stop 05/13/18 at 16:21; Status DC Non-Formulary Medication (Dapsone ) 25 mg DAILY PO ; Start 05/13/18 at 09:00; Stop 05/13/18 at 14:33; Status DC Metformin HCl (Glucophage) 500 mg DAILYWBKFT PO ; Start 05/13/18 at 10:00; Stop 05/13/18 at 16:20; Status DC Fish Oil (Fish Oil) 1,000 mg DAILY PO Last administered on 05/18/18at 08:48; Start 05/13/18 at 10:00 Oxybutynin Chloride (Ditropan) 5 mg DAILY PO Last administered on 05/18/18at 08: 48; Start 05/13/18 at 10:00 Ceftriaxone Sodium (Rocephin) 1 gm Q24H IVP Last administered on 05/14/18at 06: 26; Start 05/14/18 at 06:00; Stop 05/14/18 at 09:14; Status DC Sodium Chloride 1,000 ml @ 100 mls/hr Q10H IV Last administered on 05/14/18at 08:30; Start 05/13/18 at 12:30; Stop 05/14/18 at 16:11; Status DC Enoxaparin Sodium (Lovenox 40mg Syringe) 40 mg Q24H SQ Last administered on 05/17/18at 14:08; Start 05/13/18 at 13:00 Baclofen (Lioresal) 50 mg TID PO ; Start 05/13/18 at 21:00; Stop 05/13/18 at 21:00; Status DC Baclofen (Lioresal) 50 mg TID PO Last administered on 05/18/18at 08:50; Start 05/13/18 at 21:00 Linezolid (Zyvox) 600 mg BID PO Last administered on 05/14/18at 11:22; Start 05/14/18 at 10:00; Stop 05/15/18 at 09:19; Status DC Nystatin (Nystop) 1 frederick BID TP Last administered on 05/18/18at 08:57; Start at 11:00 Cefepime HCl 1 gm/ Dextrose 50 ml @ 100 mls/hr Q8HRS IV ; Start 05/14/18 at 14 :00; Status UNV Cefepime HCl (Maxipime) 1 gm Q8HRS IVP Last administered on 05/15/18at 05:39; Start 05/14/18 at 11:00; Stop 05/15/18 at 09:20; Status DC Ascorbic Acid (Vitamin C) 500 mg DAILY PO Last administered on 05/18/18at 08:47 ; Start 05/14/18 at 14:00 Zinc Sulfate (Orazinc) 220 mg DAILY PO Last administered on 05/18/18at 08:47; Start 05/14/18 at 14:00 Dextrose/Sodium Chloride 1,000 ml @ 100 mls/hr Q10H IV Last administered on at 08:54; Start 05/14/18 at 16:15 Insulin Glargine (Lantus) 6 units 1X ONCE SQ Last administered on 05/14/18at 17:21; Start 05/14/18 at 16:15; Stop 05/14/18 at 16:16; Status DC Influenza Virus Vaccine (Afluria Trivalent 1641-1666 Syringe) 0.5 ml ONCE ONCE VAX IM Last administered on 05/16/18at 15:07; Start 05/15/18 at 09:00; Stop 05/15/18 at 09:01; Status DC Ketoconazole (Nizoral 2% Topical) 1 frederick DAILY TP Last administered on at 08:57; Start 05/14/18 at 18:00 Cefepime HCl (Maxipime) 1 gm Q12HR IVP Last administered on 05/17/18at 14:04; Start 05/15/18 at 21:00; Stop 05/17/18 at 17:55; Status DC Lactobacillus Rhamnosus (Culturelle) 1 cap BID PO Last administered on at 08:48; Start 05/15/18 at 21:00 Ceftriaxone Sodium 1 gm/ Dextrose 50 ml @ 100 mls/hr Q24H IV ; Start 05/17/18 at 18:00; Status UNV Ceftriaxone Sodium (Rocephin) 1 gm DAILY IVP Last administered on 05/18/18at 08: 52; Start 05/18/18 at 09:00 Labetalol HCl (Normodyne Iv Push) 10 mg PRN Q4HRS PRN IVP HYPERTENSION, SEE COMMENTS; Start 05/18/18 at 01:30 Active Scripts Active Cephalexin 500 Mg Tablet 1 Tab PO QID Cipro (Ciprofloxacin Hcl) 500 Mg Tablet 1 Tab PO BID 5 Days Reported Fish Oil + D3 Softgel ([place]-3S/Dha/Epa/Fish Oil/D3) 1 Each Capsule 1 Each PO DAILY Prednisone 20 Mg Tablet 25 Mg PO DAILY Baclofen 20 Mg Tablet 50 Tab PO TID Oxybutynin Chloride Er (Oxybutynin Chloride) 5 Mg Tab.er.24 1 Tab PO DAILY Vitals/I & O Vital Sign - Last 24 Hours 05/17/18 05/17/18 05/17/18 05/17/18 15:59 19:00 20:00 23:00 Temp 97.8 98.6 98.7 97.8 98.6 98.7 Pulse 89 114 109 Resp 18 B/P (MAP) 162/89 (113) 151/111 (124) 145/106 (119) Pulse Ox 93 97 97 O2 Delivery Room Air Room Air Room Air Room Air 05/18/18 05/18/18 05/18/18 03:06 06:55 07:27 Temp 97.6 98.3 97.6 98.3 Pulse 73 74 Resp 18 17 B/P (MAP) 156/90 (112) 130/87 (101) Pulse Ox 95 95 O2 Delivery Room Air Room Air Room Air Intake and Output 05/17/18 05/17/18 05/18/18 15:00 23:00 07:00 Intake Total 50 ml Output Total 825 ml 400 ml 1100 ml Balance -825 ml -350 ml -1100 ml HERVE LOPEZ MD May 18, 2018 09:32
[2018-05-18 09:51] LABS: ALBUMIN 2.4 g/dL (3.4-5.0); ALBUMIN/GLOBULIN RATIO 0.6 (1.0-1.7); CALCIUM 8.6 mg/dL (8.5-10.1); CREATININE 0.8 mg/dL (0.7-1.3); GFR 114.7; POTASSIUM 3.6 mmol/L (3.5-5.1); TOTAL BILIRUBIN 0.4 mg/dL (0.2-1.0); TOTAL PROTEIN 6.5 g/dL (6.4-8.2)
--- NOTE | 2018-05-18 10:15 | PDOC ---
Infectious Disease Note Subjective Subjective He says he doesn't want to eat or drink anything Feeling fine No fevers last 24 hours Denies pain/upset stomach or cough ROS ROS per HPI otherwise neg Vital Sign Vital Signs Vital Signs Date Time Temp Pulse Resp B/P (MAP) Pulse Ox O2 Delivery O2 Flow Rate FiO2 05/18/18 07:27 Room Air 05/18/18 06:55 98.3 74 17 130/87 (101) 95 98.3 05/17/18 08:00 96.0 Physical Exam PHYSICAL EXAM GENERAL: propped up in bed, alert, laughing HEENT: Seborrheic keratosis present on the forehead, neck, ears. Oral cavity moist. Dentures LUNGS: Clear anteriorly. HEART: S1, S2. ABDOMEN: Soft, bowel sounds present, nontender GENITOURINARY: Walls catheter in place. (05/13) EXTREMITIES: No edema. Flexor contractures present. NEUROLOGIC: Alert and responds appropriately SKIN: No rash Labs Lab Laboratory Tests Test 05/17/18 21:32 05/18/18 07:09 05/18/18 08:55 Glucose (Fingerstick) 129 mg/dL (70-99) 135 mg/dL (70-99) White Blood Count 16.6 x10^3/uL (4.0-11.0) Red Blood Count 5.14 x10^6/uL (4.30-5.70) Hemoglobin 13.8 g/dL (13.0-17.5) Hematocrit 40.1 % (39.0-53.0) Mean Corpuscular Volume 78 fL (79-100) Mean Corpuscular Hemoglobin 27 pg (25-35) Mean Corpuscular Hemoglobin Concent 35 g/dL (31-37) Red Cell Distribution Width 18.4 % (11.5-14.5) Platelet Count 381 x10^3/uL (140-400) Neutrophils (%) (Auto) 63 % (31-73) Lymphocytes (%) (Auto) 29 % (24-48) Monocytes (%) (Auto) 5 % (0-9) Eosinophils (%) (Auto) 3 % (0-3) Basophils (%) (Auto) 1 % (0-3) Neutrophils # (Auto) 10.4 x10^3uL (1.8-7.7) Lymphocytes # (Auto) 4.8 x10^3/uL (1.0-4.8) Monocytes # (Auto) 0.8 x10^3/uL (0.0-1.1) Eosinophils # (Auto) 0.5 x10^3/uL (0.0-0.7) Basophils # (Auto) 0.1 x10^3/uL (0.0-0.2) Sodium Level 138 mmol/L (136-145) Potassium Level 3.6 mmol/L (3.5-5.1) Chloride Level 103 mmol/L (98-107) Carbon Dioxide Level 25 mmol/L (21-32) Anion Gap 10 (6-14) Blood Urea Nitrogen 4 mg/dL (8-26) Creatinine 0.8 mg/dL (0.7-1.3) Estimated GFR (Cockcroft-Gault) 114.7 BUN/Creatinine Ratio 5 (6-20) Glucose Level 121 mg/dL (70-99) Calcium Level 8.6 mg/dL (8.5-10.1) Total Bilirubin 0.4 mg/dL (0.2-1.0) Aspartate Amino Transf (AST/SGOT) 10 U/L (15-37) Alanine Aminotransferase (ALT/SGPT) 12 U/L (16-63) Alkaline Phosphatase 87 U/L (46-116) Total Protein 6.5 g/dL (6.4-8.2) Albumin 2.4 g/dL (3.4-5.0) Albumin/Globulin Ratio 0.6 (1.0-1.7) Micro BLOOD CULTURE Preliminary NO GROWTH AFTER 5 DAYS URINE CULTURE RES 1 Final Providencia rettgeri Greater than 100,000 colony forming units per mL ANTIMICROBIAL SUSCEPTIBILITY Final Comment S = Susceptible; I = Intermediate; R = Resistant P = Positive; N = Negative MICS are expressed in micrograms per mL Antibiotic RSLT#1 RSLT#2 RSLT#3 RSLT#4 Ampicillin R =R Cefazolin R>=64 Cefepime S<=0.12 Ceftriaxone S<=0.25 Cefuroxime S<=1 Ciprofloxacin S<=0.25 Gentamicin S<=1 Imipenem S =1 Levofloxacin S<=0.12 Meropenem S<=0.25 Nitrofurantoin R =256 Piperacillin/Tazobactam S<=4 Tetracycline R =R Tobramycin S<=1 Objective Assessment Fever - better Leukocytosis - on steroids Benign prostatic hypertrophy with urinary retention, chronic indwelling - Walls catheter last changed 05/13. UTI w/ Providencia Multiple sclerosis, bedbound, progressive. Seborrheic keratoses. 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 Chronic contracture, right hand. History of Escherichia coli and pseudomonas urinary tract infection in the past. Hypertension/hyperlipidemia. Lesion on the scrotum could be from underlying bullous pemphigus, on prednisone. seen by derm Encephalopathy ? s/p toenail debridement, 05/15 Plan Plan of Care Rocephin Probiotics BC neg Supportive care Decision on SP placement is pending D/w sister Attending Co-Sign Attending Co-Sign The patient was seen and interviewed as well as examined at the bedside. The chart was reviewed. The case was discussed. Agree with the plan of care. CORNEL KOHLER APRN May 18, 2018 10:15 TEQUILA JAIMES MD May 18, 2018 15:10
--- NOTE | 2018-05-18 10:53 | PDOC ---
PROGRESS NOTES Chief Complaint Chief Complaint Metabolic encephalopathy cOMPLIACTED UTI, chronic indwelling Walls catheter-changed 2 weeks ago per ( daycare provider) Multiple sclerosis, bedbound Benign prostatic hypertrophy with urinary retention, chronic indwelling Walls catheter changed 2 weeks ago. GNR UTI .advanced Multiple sclerosis, bedbound, progressive. Sepsis POA with no organ dysfunction Seborrheic dermatitis face bullous pemphigoid. mod skin atrophy Chronic contracture of the right hand Urinary retention- HYpomagnesemia - 1.7 Hx e coli by urine cx (02/2018) - almost foote sensitive severe protein-caloric malnutrition D/c Cefepime - begin Rocephin Probiotics STATES HE DID NOT LIKE THE BREAKFAST TODAY, MORE ALERT, CONFUSION LESS History of Present Illness History of Present Illness IV fluid for sepsis start iv nutrition wound care, consider air bed, start vit C and zinc Rocephin Vitals Vitals Vital Signs Date Time Temp Pulse Resp B/P (MAP) Pulse Ox O2 Delivery O2 Flow Rate FiO2 05/18/18 07:27 Room Air 05/18/18 06:55 98.3 74 17 130/87 (101) 95 98.3 05/17/18 08:00 96.0 Physical Exam Physical Exam GENERAL: propped up in bed, alert, laughing HEENT: Seborrheic keratosis present on the forehead, neck, ears. Oral cavity moist. Dentures LUNGS: Clear anteriorly. HEART: S1, S2. ABDOMEN: Soft, bowel sounds present, nontender GENITOURINARY: Walls catheter in place. (05/13) EXTREMITIES: No edema. Flexor contractures present. NEUROLOGIC: Alert and responds appropriately SKIN: No rash General: Alert, Cooperative, mild distress Heart: Regular rate, Normal S1, Normal S2, No murmurs Lungs: Clear, Wheezing Abdomen: Normal bowel sounds, Soft, No tenderness, No hepatosplenomegaly, No masses Extremities: No cyanosis, No edema Skin: No rashes, Other (old bullae legs that has ruptured and left fresh new skin in the dermis area) Labs LABS Laboratory Tests Test 05/17/18 21:32 05/18/18 07:09 05/18/18 08:55 Glucose (Fingerstick) 129 mg/dL (70-99) 135 mg/dL (70-99) White Blood Count 16.6 x10^3/uL (4.0-11.0) Red Blood Count 5.14 x10^6/uL (4.30-5.70) Hemoglobin 13.8 g/dL (13.0-17.5) Hematocrit 40.1 % (39.0-53.0) Mean Corpuscular Volume 78 fL (79-100) Mean Corpuscular Hemoglobin 27 pg (25-35) Mean Corpuscular Hemoglobin Concent 35 g/dL (31-37) Red Cell Distribution Width 18.4 % (11.5-14.5) Platelet Count 381 x10^3/uL (140-400) Neutrophils (%) (Auto) 63 % (31-73) Lymphocytes (%) (Auto) 29 % (24-48) Monocytes (%) (Auto) 5 % (0-9) Eosinophils (%) (Auto) 3 % (0-3) Basophils (%) (Auto) 1 % (0-3) Neutrophils # (Auto) 10.4 x10^3uL (1.8-7.7) Lymphocytes # (Auto) 4.8 x10^3/uL (1.0-4.8) Monocytes # (Auto) 0.8 x10^3/uL (0.0-1.1) Eosinophils # (Auto) 0.5 x10^3/uL (0.0-0.7) Basophils # (Auto) 0.1 x10^3/uL (0.0-0.2) Sodium Level 138 mmol/L (136-145) Potassium Level 3.6 mmol/L (3.5-5.1) Chloride Level 103 mmol/L (98-107) Carbon Dioxide Level 25 mmol/L (21-32) Anion Gap 10 (6-14) Blood Urea Nitrogen 4 mg/dL (8-26) Creatinine 0.8 mg/dL (0.7-1.3) Estimated GFR (Cockcroft-Gault) 114.7 BUN/Creatinine Ratio 5 (6-20) Glucose Level 121 mg/dL (70-99) Calcium Level 8.6 mg/dL (8.5-10.1) Total Bilirubin 0.4 mg/dL (0.2-1.0) Aspartate Amino Transf (AST/SGOT) 10 U/L (15-37) Alanine Aminotransferase (ALT/SGPT) 12 U/L (16-63) Alkaline Phosphatase 87 U/L (46-116) Total Protein 6.5 g/dL (6.4-8.2) Albumin 2.4 g/dL (3.4-5.0) Albumin/Globulin Ratio 0.6 (1.0-1.7) Assessment and Plan Assessmemt and Plan Problems Medical Problems: (1) Decubitus ulcer Status: Acute (2) Hx of multiple sclerosis Status: Acute (3) Multiple sclerosis Status: Acute (4) Urinary retention Status: Acute (5) UTI (urinary tract infection) due to urinary indwelling catheter Status: Acute Comment Review of Relevant I have reviewed the following items rahel (where applicable) has been applied. Labs Laboratory Tests Test 05/16/18 11:51 05/16/18 17:07 05/16/18 21:11 05/17/18 04:45 Glucose (Fingerstick) 148 mg/dL (70-99) 171 mg/dL (70-99) 172 mg/dL (70-99) White Blood Count 18.3 x10^3/uL (4.0-11.0) Red Blood Count 5.28 x10^6/uL (4.30-5.70) Hemoglobin 14.3 g/dL (13.0-17.5) Hematocrit 40.6 % (39.0-53.0) Mean Corpuscular Volume 77 fL (79-100) Mean Corpuscular Hemoglobin 27 pg (25-35) Mean Corpuscular Hemoglobin Concent 35 g/dL (31-37) Red Cell Distribution Width 18.5 % (11.5-14.5) Platelet Count 404 x10^3/uL (140-400) Neutrophils (%) (Auto) 69 % (31-73) Lymphocytes (%) (Auto) 24 % (24-48) Monocytes (%) (Auto) 6 % (0-9) Eosinophils (%) (Auto) 1 % (0-3) Basophils (%) (Auto) 1 % (0-3) Neutrophils # (Auto) 12.5 x10^3uL (1.8-7.7) Lymphocytes # (Auto) 4.4 x10^3/uL (1.0-4.8) Monocytes # (Auto) 1.1 x10^3/uL (0.0-1.1) Eosinophils # (Auto) 0.1 x10^3/uL (0.0-0.7) Basophils # (Auto) 0.1 x10^3/uL (0.0-0.2) Sodium Level 133 mmol/L (136-145) Potassium Level 3.6 mmol/L (3.5-5.1) Chloride Level 98 mmol/L (98-107) Carbon Dioxide Level 23 mmol/L (21-32) Anion Gap 12 (6-14) Blood Urea Nitrogen 6 mg/dL (8-26) Creatinine 0.9 mg/dL (0.7-1.3) Estimated GFR (Cockcroft-Gault) 100.1 BUN/Creatinine Ratio 7 (6-20) Glucose Level 126 mg/dL (70-99) Calcium Level 8.8 mg/dL (8.5-10.1) Total Bilirubin 0.3 mg/dL (0.2-1.0) Aspartate Amino Transf (AST/SGOT) 9 U/L (15-37) Alanine Aminotransferase (ALT/SGPT) 8 U/L (16-63) Alkaline Phosphatase 85 U/L (46-116) Total Protein 7.0 g/dL (6.4-8.2) Albumin 2.6 g/dL (3.4-5.0) Albumin/Globulin Ratio 0.6 (1.0-1.7) Test 05/17/18 21:32 05/18/18 07:09 05/18/18 08:55 Glucose (Fingerstick) 129 mg/dL (70-99) 135 mg/dL (70-99) White Blood Count 16.6 x10^3/uL (4.0-11.0) Red Blood Count 5.14 x10^6/uL (4.30-5.70) Hemoglobin 13.8 g/dL (13.0-17.5) Hematocrit 40.1 % (39.0-53.0) Mean Corpuscular Volume 78 fL (79-100) Mean Corpuscular Hemoglobin 27 pg (25-35) Mean Corpuscular Hemoglobin Concent 35 g/dL (31-37) Red Cell Distribution Width 18.4 % (11.5-14.5) Platelet Count 381 x10^3/uL (140-400) Neutrophils (%) (Auto) 63 % (31-73) Lymphocytes (%) (Auto) 29 % (24-48) Monocytes (%) (Auto) 5 % (0-9) Eosinophils (%) (Auto) 3 % (0-3) Basophils (%) (Auto) 1 % (0-3) Neutrophils # (Auto) 10.4 x10^3uL (1.8-7.7) Lymphocytes # (Auto) 4.8 x10^3/uL (1.0-4.8) Monocytes # (Auto) 0.8 x10^3/uL (0.0-1.1) Eosinophils # (Auto) 0.5 x10^3/uL (0.0-0.7) Basophils # (Auto) 0.1 x10^3/uL (0.0-0.2) Sodium Level 138 mmol/L (136-145) Potassium Level 3.6 mmol/L (3.5-5.1) Chloride Level 103 mmol/L (98-107) Carbon Dioxide Level 25 mmol/L (21-32) Anion Gap 10 (6-14) Blood Urea Nitrogen 4 mg/dL (8-26) Creatinine 0.8 mg/dL (0.7-1.3) Estimated GFR (Cockcroft-Gault) 114.7 BUN/Creatinine Ratio 5 (6-20) Glucose Level 121 mg/dL (70-99) Calcium Level 8.6 mg/dL (8.5-10.1) Total Bilirubin 0.4 mg/dL (0.2-1.0) Aspartate Amino Transf (AST/SGOT) 10 U/L (15-37) Alanine Aminotransferase (ALT/SGPT) 12 U/L (16-63) Alkaline Phosphatase 87 U/L (46-116) Total Protein 6.5 g/dL (6.4-8.2) Albumin 2.4 g/dL (3.4-5.0) Albumin/Globulin Ratio 0.6 (1.0-1.7) Laboratory Tests Test 05/17/18 21:32 05/18/18 07:09 05/18/18 08:55 Glucose (Fingerstick) 129 mg/dL (70-99) 135 mg/dL (70-99) White Blood Count 16.6 x10^3/uL (4.0-11.0) Red Blood Count 5.14 x10^6/uL (4.30-5.70) Hemoglobin 13.8 g/dL (13.0-17.5) Hematocrit 40.1 % (39.0-53.0) Mean Corpuscular Volume 78 fL (79-100) Mean Corpuscular Hemoglobin 27 pg (25-35) Mean Corpuscular Hemoglobin Concent 35 g/dL (31-37) Red Cell Distribution Width 18.4 % (11.5-14.5) Platelet Count 381 x10^3/uL (140-400) Neutrophils (%) (Auto) 63 % (31-73) Lymphocytes (%) (Auto) 29 % (24-48) Monocytes (%) (Auto) 5 % (0-9) Eosinophils (%) (Auto) 3 % (0-3) Basophils (%) (Auto) 1 % (0-3) Neutrophils # (Auto) 10.4 x10^3uL (1.8-7.7) Lymphocytes # (Auto) 4.8 x10^3/uL (1.0-4.8) Monocytes # (Auto) 0.8 x10^3/uL (0.0-1.1) Eosinophils # (Auto) 0.5 x10^3/uL (0.0-0.7) Basophils # (Auto) 0.1 x10^3/uL (0.0-0.2) Sodium Level 138 mmol/L (136-145) Potassium Level 3.6 mmol/L (3.5-5.1) Chloride Level 103 mmol/L (98-107) Carbon Dioxide Level 25 mmol/L (21-32) Anion Gap 10 (6-14) Blood Urea Nitrogen 4 mg/dL (8-26) Creatinine 0.8 mg/dL (0.7-1.3) Estimated GFR (Cockcroft-Gault) 114.7 BUN/Creatinine Ratio 5 (6-20) Glucose Level 121 mg/dL (70-99) Calcium Level 8.6 mg/dL (8.5-10.1) Total Bilirubin 0.4 mg/dL (0.2-1.0) Aspartate Amino Transf (AST/SGOT) 10 U/L (15-37) Alanine Aminotransferase (ALT/SGPT) 12 U/L (16-63) Alkaline Phosphatase 87 U/L (46-116) Total Protein 6.5 g/dL (6.4-8.2) Albumin 2.4 g/dL (3.4-5.0) Albumin/Globulin Ratio 0.6 (1.0-1.7) Microbiology 05/13/18 Blood Culture - Final, Complete NO GROWTH AFTER 5 DAYS 05/13/18 Urine Culture - Final, Complete 05/13/18 Urine Culture Result 1 (RERE) - Final, Complete 05/13/18 Antimicrobic Susceptibility - Final, Complete Medications Current Medications Sodium Chloride 1,000 ml @ 1,000 mls/hr 1X ONCE IV Last administered on 05/13at 05:08; Start 05/13/18 at 04:30; Stop 05/13/18 at 05:29; Status DC Ceftriaxone Sodium 50 ml @ 100 mls/hr 1X ONCE IV Last administered on at 05:48; Start 05/13/18 at 06:00; Stop 05/13/18 at 06:29; Status DC Ondansetron HCl (Zofran) 4 mg PRN Q8HRS PRN IV NAUSEA/VOMITING 1st choice; Start 05/13/18 at 05:45; Stop 05/13/18 at 08:47; Status DC Fentanyl Citrate (Fentanyl 2ml Vial) 50 mcg PRN Q2HR PRN IV SEVERE PAIN; Start 05/13/18 at 05:45; Stop 05/14/18 at 05:44; Status DC Insulin Human Lispro (HumaLOG) 0-5 UNITS TIDWMEALS SQ ; Start 05/13/18 at 08:00 ; Stop 05/13/18 at 08:47; Status DC Dextrose (Dextrose 50%-Water Syringe) 12.5 gm PRN Q15MIN PRN IV SEE COMMENTS; Start 05/13/18 at 05:45 Ondansetron HCl (Zofran) 4 mg PRN Q6HRS PRN IV NAUSEA/VOMITING 1st choice; Start 05/13/18 at 09:00 Ceftriaxone Sodium 1 gm/ Dextrose 50 ml @ 100 mls/hr Q24H IV ; Start 05/13/18 at 08:45; Status UNV Acetaminophen (Tylenol) 500 mg PRN Q6HRS PRN PO MILD PAIN / TEMP; Start at 08:45 Insulin Human Lispro (HumaLOG) 0-9 UNITS TIDWMEALS SQ Last administered on at 09:15; Start 05/13/18 at 12:00 Dextrose (Dextrose 50%-Water Syringe) 12.5 gm PRN Q15MIN PRN IV SEE COMMENTS; Start 05/13/18 at 08:45; Status UNV Magnesium Sulfate/ Dextrose 100 ml @ 100 mls/hr 1X ONCE IV Last administered on 05/13/18at 13:03; Start 05/13/18 at 09:30; Stop 05/13/18 at 10:29; Status DC Prednisone (Prednisone) 25 mg DAILY PO Last administered on 05/18/18at 08:47; Start 05/13/18 at 15:00 Triamterene/HCTZ (Maxzide 37.5/ 25mg) 1 tab DAILY PO Last administered on at 08:47; Start 05/13/18 at 09:00 Baclofen (Lioresal) 20 mg DAILYWBKFT PO Last administered on 05/13/18at 12:56; Start 05/13/18 at 12:00; Stop 05/13/18 at 16:21; Status DC Non-Formulary Medication (Dapsone ) 25 mg DAILY PO ; Start 05/13/18 at 09:00; Stop 05/13/18 at 14:33; Status DC Metformin HCl (Glucophage) 500 mg DAILYWBKFT PO ; Start 05/13/18 at 10:00; Stop 05/13/18 at 16:20; Status DC Fish Oil (Fish Oil) 1,000 mg DAILY PO Last administered on 05/18/18at 08:48; Start 05/13/18 at 10:00 Oxybutynin Chloride (Ditropan) 5 mg DAILY PO Last administered on 05/18/18at 08: 48; Start 05/13/18 at 10:00 Ceftriaxone Sodium (Rocephin) 1 gm Q24H IVP Last administered on 05/14/18at 06: 26; Start 05/14/18 at 06:00; Stop 05/14/18 at 09:14; Status DC Sodium Chloride 1,000 ml @ 100 mls/hr Q10H IV Last administered on 05/14/18at 08:30; Start 05/13/18 at 12:30; Stop 05/14/18 at 16:11; Status DC Enoxaparin Sodium (Lovenox 40mg Syringe) 40 mg Q24H SQ Last administered on 05/17/18at 14:08; Start 05/13/18 at 13:00 Baclofen (Lioresal) 50 mg TID PO ; Start 05/13/18 at 21:00; Stop 05/13/18 at 21:00; Status DC Baclofen (Lioresal) 50 mg TID PO Last administered on 05/18/18at 08:50; Start 05/13/18 at 21:00 Linezolid (Zyvox) 600 mg BID PO Last administered on 05/14/18at 11:22; Start 05/14/18 at 10:00; Stop 05/15/18 at 09:19; Status DC Nystatin (Nystop) 1 frederick BID TP Last administered on 05/18/18at 08:57; Start at 11:00 Cefepime HCl 1 gm/ Dextrose 50 ml @ 100 mls/hr Q8HRS IV ; Start 05/14/18 at 14 :00; Status UNV Cefepime HCl (Maxipime) 1 gm Q8HRS IVP Last administered on 05/15/18at 05:39; Start 05/14/18 at 11:00; Stop 05/15/18 at 09:20; Status DC Ascorbic Acid (Vitamin C) 500 mg DAILY PO Last administered on 05/18/18at 08:47 ; Start 05/14/18 at 14:00 Zinc Sulfate (Orazinc) 220 mg DAILY PO Last administered on 05/18/18at 08:47; Start 05/14/18 at 14:00 Dextrose/Sodium Chloride 1,000 ml @ 100 mls/hr Q10H IV Last administered on at 08:54; Start 05/14/18 at 16:15 Insulin Glargine (Lantus) 6 units 1X ONCE SQ Last administered on 05/14/18at 17:21; Start 05/14/18 at 16:15; Stop 05/14/18 at 16:16; Status DC Influenza Virus Vaccine (Afluria Trivalent [id number] Syringe) 0.5 ml ONCE ONCE VAX IM Last administered on 05/16/18at 15:07; Start 05/15/18 at 09:00; Stop 05/15/18 at 09:01; Status DC Ketoconazole (Nizoral 2% Topical) 1 frederick DAILY TP Last administered on at 08:57; Start 05/14/18 at 18:00 Cefepime HCl (Maxipime) 1 gm Q12HR IVP Last administered on 05/17/18at 14:04; Start 05/15/18 at 21:00; Stop 05/17/18 at 17:55; Status DC Lactobacillus Rhamnosus (Culturelle) 1 cap BID PO Last administered on at 08:48; Start 05/15/18 at 21:00 Ceftriaxone Sodium 1 gm/ Dextrose 50 ml @ 100 mls/hr Q24H IV ; Start 05/17/18 at 18:00; Status UNV Ceftriaxone Sodium (Rocephin) 1 gm DAILY IVP Last administered on 05/18/18at 08: 52; Start 05/18/18 at 09:00 Labetalol HCl (Normodyne Iv Push) 10 mg PRN Q4HRS PRN IVP HYPERTENSION, SEE COMMENTS; Start 05/18/18 at 01:30 Active Scripts Active Cephalexin 500 Mg Tablet 1 Tab PO QID Cipro (Ciprofloxacin Hcl) 500 Mg Tablet 1 Tab PO BID 5 Days Reported Fish Oil + D3 Softgel ([place]-3S/Dha/Epa/Fish Oil/D3) 1 Each Capsule 1 Each PO DAILY Prednisone 20 Mg Tablet 25 Mg PO DAILY Baclofen 20 Mg Tablet 50 Tab PO TID Oxybutynin Chloride Er (Oxybutynin Chloride) 5 Mg Tab.er.24 1 Tab PO DAILY Vitals/I & O Vital Sign - Last 24 Hours 05/17/18 05/17/18 05/17/18 05/17/18 15:59 19:00 20:00 23:00 Temp 97.8 98.6 98.7 97.8 98.6 98.7 Pulse 89 114 109 Resp 18 18 B/P (MAP) 162/89 (113) 151/111 (124) 145/106 (119) Pulse Ox 93 97 97 O2 Delivery Room Air Room Air Room Air Room Air 05/18/18 05/18/18 05/18/18 03:06 06:55 07:27 Temp 97.6 98.3 97.6 98.3 Pulse 73 74 Resp 18 17 B/P (MAP) 156/90 (112) 130/87 (101) Pulse Ox 95 95 O2 Delivery Room Air Room Air Room Air Intake and Output 05/17/18 05/17/18 05/18/18 15:00 23:00 07:00 Intake Total 50 ml Output Total 825 ml 400 ml 1100 ml Balance -825 ml -350 ml -1100 ml JM GAO MD May 18, 2018 10:53
[2018-05-18] MEDS: ACETAMINOPHEN 500 MG TABLET PO PRN (11:07)
[2018-05-18] MEDS: ENOXAPARIN 40 MG/0.4 ML SYRINGE. SQ SCH (12:14)
--- NOTE | 2018-05-18 12:24 | PDOC2 ---
RADHA HENDERSON BARON 05/18/18 1224: UROLOGY CONSULT Date of Consult Date of Consult DATE: 05/18/18 TIME: 12:15 Reason for Consult Reason for Consult: Evaluation for SP tube, cath dependent for four years, history of MS, Neurogenic bladder Identification/Chief Complaint Chief Complaint Evaluation for SP tube, cath dependent for four years, history of MS, Neurogenic bladder Source Source: Caregiver, Chart review, Patient History of Present Illness Reason for Visit: Patient is a pleasant 73 year old male with a history of MS, wheelchair dependent and catheter dependent for the last four years. He was admitted on the for chills, urinary retention nd UTI through the emergency department. He is a former patient of Dr. Hilario of [facility] and was gong to have an SP tube placed three years ago, but this fell through. Family cannot remember why. Since then he has been seen by a home care nurse who changes out his catheter once per month and this is working out ok, but they are willing to re-visit the possibility of an SP tube placement. He has had about 3-4 infections in the last year and they think the same amount the year prior to this. He has an enlarged prostate but no history of prostate cancer. He denies kidney stones or hematuria except occasionally right after chatman replacement, and then only a very small amount. While in house his traditional chatman backed up and had to be replaced. It is working well now and not bothering him. Past Medical History Cardiovascular: HTN CENTRAL NERVOUS SYSTEM: Other (primary progressive multiple sclerosis) GI: Other (hiatal hernia, gastroparesis, ileus) Infectious disease: Other (recurrent UTI) Renal/: Benign prostatic enlarg., Other (chronic urinary retention with indwelling Chatman) Dermatology: Other ([facility]) Past Surgical History Past Surgical History: Hernia Repair Family History Family History: Hypertension, Other Social History No ALCOHOL: none Drugs: None Lives: with Family Current Problem List Problems: (1) Urinary tract infection, site not specified (2) Multiple sclerosis Current Medications Current Medications Current Medications Ceftriaxone Sodium 1 gm/ Dextrose 50 ml @ 100 mls/hr Q24H IV ; Start 05/17/18 at 18:00; Status UNV Ceftriaxone Sodium (Rocephin) 1 gm DAILY IVP Last administered on 05/18/18at 08: 52; Start 05/18/18 at 09:00 Labetalol HCl (Normodyne Iv Push) 10 mg PRN Q4HRS PRN IVP HYPERTENSION, SEE COMMENTS; Start 05/18/18 at 01:30 Allergies Allergies: Coded Allergies: No Known Drug Allergies (Unverified , 04/30/14) ROS Review Of Systems: CONSTITUTIONAL: No fever or chills EYES: No recent changes SKIN: No rash or itching CARDIOVASCULAR: No chest pain, syncope, palpitations, or edema RESPIRATORY: No SOB or cough GASTROINTESTINAL: No nausea, vomiting or abdominal pain NEUROLOGICAL: No headaches or weakness ENDOCRINE: No cold or heat intolerance GENITOURINARY: No urgency or frequency of urination MUSCULOSKELETAL: No back pain or joint pain LYMPHATICS: No enlarged lymph nodes PSYCHIATRIC: No anxiety or depression Physical Exam Physical Exam: General: Pleasant, no acute distress, well groomed Eyes: conjunctiva anicteric, eyes full range of motion ENT: moist oral mucosa, normal dentition Neck: Trachea midline, no masses Respiratory: unlabored breathing, not using accessory muscles, Abdomen: nontender, nondistended, no hepatosplenomegaly, no masses Pelvic: Buried phallus with chatman catheter in place draining clear yellow urine. Device in good working order. Skin: rash on perineal area, treated with topical medication. Psych: normal mood, affect. Alert and oriented x 3. Vitals VITALS Vital Signs Date Time Temp Pulse Resp B/P (MAP) Pulse Ox O2 Delivery O2 Flow Rate FiO2 05/18/18 11:05 98.2 95 18 142/79 (100) 97 Room Air 98.2 05/17/18 08:00 96.0 Labs Labs Laboratory Tests Test 05/16/18 17:07 05/16/18 21:11 05/17/18 04:45 05/17/18 21:32 Glucose (Fingerstick) 171 mg/dL (70-99) 172 mg/dL (70-99) 129 mg/dL (70-99) White Blood Count 18.3 x10^3/uL (4.0-11.0) Red Blood Count 5.28 x10^6/uL (4.30-5.70) Hemoglobin 14.3 g/dL (13.0-17.5) Hematocrit 40.6 % (39.0-53.0) Mean Corpuscular Volume 77 fL (79-100) Mean Corpuscular Hemoglobin 27 pg (25-35) Mean Corpuscular Hemoglobin Concent 35 g/dL (31-37) Red Cell Distribution Width 18.5 % (11.5-14.5) Platelet Count 404 x10^3/uL (140-400) Neutrophils (%) (Auto) 69 % (31-73) Lymphocytes (%) (Auto) 24 % (24-48) Monocytes (%) (Auto) 6 % (0-9) Eosinophils (%) (Auto) 1 % (0-3) Basophils (%) (Auto) 1 % (0-3) Neutrophils # (Auto) 12.5 x10^3uL (1.8-7.7) Lymphocytes # (Auto) 4.4 x10^3/uL (1.0-4.8) Monocytes # (Auto) 1.1 x10^3/uL (0.0-1.1) Eosinophils # (Auto) 0.1 x10^3/uL (0.0-0.7) Basophils # (Auto) 0.1 x10^3/uL (0.0-0.2) Sodium Level 133 mmol/L (136-145) Potassium Level 3.6 mmol/L (3.5-5.1) Chloride Level 98 mmol/L (98-107) Carbon Dioxide Level 23 mmol/L (21-32) Anion Gap 12 (6-14) Blood Urea Nitrogen 6 mg/dL (8-26) Creatinine 0.9 mg/dL (0.7-1.3) Estimated GFR (Cockcroft-Gault) 100.1 BUN/Creatinine Ratio 7 (6-20) Glucose Level 126 mg/dL (70-99) Calcium Level 8.8 mg/dL (8.5-10.1) Total Bilirubin 0.3 mg/dL (0.2-1.0) Aspartate Amino Transf (AST/SGOT) 9 U/L (15-37) Alanine Aminotransferase (ALT/SGPT) 8 U/L (16-63) Alkaline Phosphatase 85 U/L (46-116) Total Protein 7.0 g/dL (6.4-8.2) Albumin 2.6 g/dL (3.4-5.0) Albumin/Globulin Ratio 0.6 (1.0-1.7) Test 05/18/18 07:09 11/2/18 08:55 Glucose (Fingerstick) 135 mg/dL (70-99) White Blood Count 16.6 x10^3/uL (4.0-11.0) Red Blood Count 5.14 x10^6/uL (4.30-5.70) Hemoglobin 13.8 g/dL (13.0-17.5) Hematocrit 40.1 % (39.0-53.0) Mean Corpuscular Volume 78 fL (79-100) Mean Corpuscular Hemoglobin 27 pg (25-35) Mean Corpuscular Hemoglobin Concent 35 g/dL (31-37) Red Cell Distribution Width 18.4 % (11.5-14.5) Platelet Count 381 x10^3/uL (140-400) Neutrophils (%) (Auto) 63 % (31-73) Lymphocytes (%) (Auto) 29 % (24-48) Monocytes (%) (Auto) 5 % (0-9) Eosinophils (%) (Auto) 3 % (0-3) Basophils (%) (Auto) 1 % (0-3) Neutrophils # (Auto) 10.4 x10^3uL (1.8-7.7) Lymphocytes # (Auto) 4.8 x10^3/uL (1.0-4.8) Monocytes # (Auto) 0.8 x10^3/uL (0.0-1.1) Eosinophils # (Auto) 0.5 x10^3/uL (0.0-0.7) Basophils # (Auto) 0.1 x10^3/uL (0.0-0.2) Sodium Level 138 mmol/L (136-145) Potassium Level 3.6 mmol/L (3.5-5.1) Chloride Level 103 mmol/L (98-107) Carbon Dioxide Level 25 mmol/L (21-32) Anion Gap 10 (6-14) Blood Urea Nitrogen 4 mg/dL (8-26) Creatinine 0.8 mg/dL (0.7-1.3) Estimated GFR (Cockcroft-Gault) 114.7 BUN/Creatinine Ratio 5 (6-20) Glucose Level 121 mg/dL (70-99) Calcium Level 8.6 mg/dL (8.5-10.1) Total Bilirubin 0.4 mg/dL (0.2-1.0) Aspartate Amino Transf (AST/SGOT) 10 U/L (15-37) Alanine Aminotransferase (ALT/SGPT) 12 U/L (16-63) Alkaline Phosphatase 87 U/L (46-116) Total Protein 6.5 g/dL (6.4-8.2) Albumin 2.4 g/dL (3.4-5.0) Albumin/Globulin Ratio 0.6 (1.0-1.7) Laboratory Tests Test 05/17/18 21:32 05/18/18 07:09 05/18/18 08:55 Glucose (Fingerstick) 129 mg/dL (70-99) 135 mg/dL (70-99) White Blood Count 16.6 x10^3/uL (4.0-11.0) Red Blood Count 5.14 x10^6/uL (4.30-5.70) Hemoglobin 13.8 g/dL (13.0-17.5) Hematocrit 40.1 % (39.0-53.0) Mean Corpuscular Volume 78 fL (79-100) Mean Corpuscular Hemoglobin 27 pg (25-35) Mean Corpuscular Hemoglobin Concent 35 g/dL (31-37) Red Cell Distribution Width 18.4 % (11.5-14.5) Platelet Count 381 x10^3/uL (140-400) Neutrophils (%) (Auto) 63 % (31-73) Lymphocytes (%) (Auto) 29 % (24-48) Monocytes (%) (Auto) 5 % (0-9) Eosinophils (%) (Auto) 3 % (0-3) Basophils (%) (Auto) 1 % (0-3) Neutrophils # (Auto) 10.4 x10^3uL (1.8-7.7) Lymphocytes # (Auto) 4.8 x10^3/uL (1.0-4.8) Monocytes # (Auto) 0.8 x10^3/uL (0.0-1.1) Eosinophils # (Auto) 0.5 x10^3/uL (0.0-0.7) Basophils # (Auto) 0.1 x10^3/uL (0.0-0.2) Sodium Level 138 mmol/L (136-145) Potassium Level 3.6 mmol/L (3.5-5.1) Chloride Level 103 mmol/L (98-107) Carbon Dioxide Level 25 mmol/L (21-32) Anion Gap 10 (6-14) Blood Urea Nitrogen 4 mg/dL (8-26) Creatinine 0.8 mg/dL (0.7-1.3) Estimated GFR (Cockcroft-Gault) 114.7 BUN/Creatinine Ratio 5 (6-20) Glucose Level 121 mg/dL (70-99) Calcium Level 8.6 mg/dL (8.5-10.1) Total Bilirubin 0.4 mg/dL (0.2-1.0) Aspartate Amino Transf (AST/SGOT) 10 U/L (15-37) Alanine Aminotransferase (ALT/SGPT) 12 U/L (16-63) Alkaline Phosphatase 87 U/L (46-116) Total Protein 6.5 g/dL (6.4-8.2) Albumin 2.4 g/dL (3.4-5.0) Albumin/Globulin Ratio 0.6 (1.0-1.7) Assessment/Plan Assessment/Plan 73 year old male with neurogenic bladder and MS. Wheelchair and catheter dependent. Discussed SP tube placement with family: advantages vs disadvantages. They are not sure if they want to proceed at this time, but promise to discuss it among themselves and let us know one way or the other if they want this done. Continue treatment for perineal skin rash; discussed SP tube does sometimes help heal these conditions, as it can provide urinary diversion. For now, nursing staff to maintain traditional chatman catheter. Will follow. FAWAD MUNOZ MD 05/19/18 1535: UROLOGY CONSULT Assessment/Plan Assessment/Plan Discussed both intermediate designer urethral and suprapubic catheters. Reviewed the risks and benefits of both approaches. Family will discuss further with patient once his mental status improves. Will sign-off for now. Please call with questions. Happy to see patient for outpatient follow-up if desired. RADHA HENDERSON APRN May 18, 2018 12:24 FAWAD MUNOZ MD May 19, 2018 15:35
[2018-05-19] MEDS: LABETALOL 20 MG/4 ML DISP.SYRIN. IVP PRN (00:05)
[2018-05-19 03:00] VITALS: BP 149/81
[2018-05-19 04:45] LABS: BASO # 0.1 x10^3/uL (0.0-0.2); BASO % 1 % (0-3); EOS # 0.3 x10^3/uL (0.0-0.7); EOS % 1 % (0-3); HEMATOCRIT 40.1 % (39.0-53.0); HEMOGLOBIN 13.7 g/dL (13.0-17.5); LYMPH # 5.5 x10^3/uL (1.0-4.8); LYMPH % 26 % (24-48); MEAN CORPUSCULAR HEMOGLOBIN 27 pg (25-35); MEAN CORPUSCULAR HGB CONC 34 g/dL (31-37); MEAN CORPUSCULAR VOLUME 79 fL (79-100); MONO # 0.8 x10^3/uL (0.0-1.1); MONO % 4 % (0-9); NEUT # 14.3 x10^3uL (1.8-7.7); NEUT % 68 % (31-73); PLATELET COUNT 376 x10^3/uL (140-400); RED CELL DISTRIBUTION WIDTH 18.5 % (11.5-14.5)
[2018-05-19 07:00] VITALS: BP 168/84
[2018-05-19] MEDS: INSULIN LISPRO 300 UNITS/3 ML INSULN.PEN. SQ SCH ×3 (08:00→17:00)
[2018-05-19] MEDS: IV DEXTROSE 5 %-0.45 % NACL 1,000 ML IV SCH (08:44)
[2018-05-19] MEDS: ASCORBIC ACID 500 MG TABLET PO SCH (08:49)
[2018-05-19] MEDS: ZINC SULFATE 220 MG CAPSULE. PO SCH (08:49)
[2018-05-19] MEDS: OMEGA-3 FATTY ACIDS/FISH OIL 1,000 MG CAPSULE. PO SCH (08:49)
[2018-05-19] MEDS: cefTRIAXone IV Push 1 GM VIAL. IVP SCH (08:49)
[2018-05-19] MEDS: LACTOBACILLUS RHAMNOSUS GG 1 CAPSULE. PO SCH ×2 (08:49→20:35)
[2018-05-19] MEDS: TRIAMTERENE/HCTZ 37.5/25MG TABLET. PO SCH (08:49)
[2018-05-19] MEDS: OXYBUTYNIN CHLORIDE 5 MG TABLET PO SCH (08:49)
[2018-05-19] MEDS: BACLOFEN 10 MG TABLET. PO SCH ×3 (08:50→20:35)
[2018-05-19] MEDS: predniSONE 10 MG TABLET PO SCH (08:50)
--- NOTE | 2018-05-19 08:50 | PDOC ---
PROGRESS NOTES Chief Complaint Chief Complaint Metabolic encephalopathy cOMPLIACTED UTI, chronic indwelling Walls catheter-changed 2 weeks ago per ( respiratory care practitioner) Multiple sclerosis, bedbound Benign prostatic hypertrophy with urinary retention, chronic indwelling Walls catheter changed 2 weeks ago. GNR UTI .advanced Multiple sclerosis, bedbound, progressive. Sepsis POA with no organ dysfunction Seborrheic dermatitis face bullous pemphigoid. mod skin atrophy Chronic contracture of the right hand Urinary retention- HYpomagnesemia - 1.7 Hx e coli by urine cx (02/2018) - almost foote sensitive severe protein-caloric malnutrition cont Rocephin Probiotics pcxr STATES HE Does NOT LIKE THE BREAKFAST here , MORE ALERT, CONFUSION moderate History of Present Illness History of Present Illness IV fluid for sepsis start iv nutrition wound care, consider air bed, start vit C and zinc Rocephin Vitals Vitals Vital Signs Date Time Temp Pulse Resp B/P (MAP) Pulse Ox O2 Delivery O2 Flow Rate FiO2 05/19/18 07:00 97.9 63 18 168/84 (112) 95 Nasal Cannula 2.0 97.9 Physical Exam Physical Exam GENERAL: propped up in bed, alert, laughing HEENT: Seborrheic keratosis present on the forehead, neck, ears. Oral cavity moist. Dentures LUNGS: Clear anteriorly. HEART: S1, S2. ABDOMEN: Soft, bowel sounds present, nontender GENITOURINARY: Walls catheter in place. (05/13) EXTREMITIES: No edema. Flexor contractures present. NEUROLOGIC: Alert and responds appropriately SKIN: No rash General: Alert, Cooperative, mild distress Heart: Regular rate, Normal S1, Normal S2, No murmurs Lungs: Clear, Wheezing Abdomen: Normal bowel sounds, Soft, No tenderness, No hepatosplenomegaly, No masses Extremities: No clubbing, No cyanosis, No edema, No tenderness/swelling Skin: No rashes, Other (old bullae legs that has ruptured and left fresh new skin in the dermis area) Labs LABS Indication: Penile trauma and discharge. Evaluate for scrotal damage. TECHNIQUE: Grayscale, color Doppler and spectral waveform images of the bilateral testicles COMPARISON: None FINDINGS: The right testicle measures 3.1 x 2.9 x 2.4 cm and is homogeneous in echogenicity without focal lesion. Blood flow is seen in the right testicle. The epididymis is within normal limits. The left testicle measures 3.4 x 2.5 x 1.8 cm and is homogeneous in echogenicity without focal lesion. The epididymis is within normal limits. No hydrocele. Bilateral scrotal wall thickening noted. IMPRESSION: 1. No evidence of focal testicular lesion. 2. Bilateral scrotal wall edema. 3. Bilateral testicles demonstrates evidence of blood flow. Electronically signed by: Lee Frost DO (05/14/2018 1:29 PM) [facility] Laboratory Tests Test 05/18/18 08:55 05/18/18 12:04 05/18/18 16:30 05/19/18 04:25 White Blood Count 16.6 x10^3/uL (4.0-11.0) 21.0 x10^3/uL (4.0-11.0) Red Blood Count 5.14 x10^6/uL (4.30-5.70) 5.10 x10^6/uL (4.30-5.70) Hemoglobin 13.8 g/dL (13.0-17.5) 13.7 g/dL (13.0-17.5) Hematocrit 40.1 % (39.0-53.0) 40.1 % (39.0-53.0) Mean Corpuscular Volume 78 fL (79-100) 79 fL (79-100) Mean Corpuscular Hemoglobin 27 pg (25-35) 27 pg (25-35) Mean Corpuscular Hemoglobin Concent 35 g/dL (31-37) 34 g/dL (31-37) Red Cell Distribution Width 18.4 % (11.5-14.5) 18.5 % (11.5-14.5) Platelet Count 381 x10^3/uL (140-400) 376 x10^3/uL (140-400) Neutrophils (%) (Auto) 63 % (31-73) 68 % (31-73) Lymphocytes (%) (Auto) 29 % (24-48) 26 % (24-48) Monocytes (%) (Auto) 5 % (0-9) 4 % (0-9) Eosinophils (%) (Auto) 3 % (0-3) 1 % (0-3) Basophils (%) (Auto) 1 % (0-3) 1 % (0-3) Neutrophils # (Auto) 10.4 x10^3uL (1.8-7.7) 14.3 x10^3uL (1.8-7.7) Lymphocytes # (Auto) 4.8 x10^3/uL (1.0-4.8) 5.5 x10^3/uL (1.0-4.8) Monocytes # (Auto) 0.8 x10^3/uL (0.0-1.1) 0.8 x10^3/uL (0.0-1.1) Eosinophils # (Auto) 0.5 x10^3/uL (0.0-0.7) 0.3 x10^3/uL (0.0-0.7) Basophils # (Auto) 0.1 x10^3/uL (0.0-0.2) 0.1 x10^3/uL (0.0-0.2) Sodium Level 138 mmol/L (136-145) Potassium Level 3.6 mmol/L (3.5-5.1) Chloride Level 103 mmol/L (98-107) Carbon Dioxide Level 25 mmol/L (21-32) Anion Gap 10 (6-14) Blood Urea Nitrogen 4 mg/dL (8-26) Creatinine 0.8 mg/dL (0.7-1.3) Estimated GFR (Cockcroft-Gault) 114.7 BUN/Creatinine Ratio 5 (6-20) Glucose Level 121 mg/dL (70-99) Calcium Level 8.6 mg/dL (8.5-10.1) Total Bilirubin 0.4 mg/dL (0.2-1.0) Aspartate Amino Transf (AST/SGOT) 10 U/L (15-37) Alanine Aminotransferase (ALT/SGPT) 12 U/L (16-63) Alkaline Phosphatase 87 U/L (46-116) Total Protein 6.5 g/dL (6.4-8.2) Albumin 2.4 g/dL (3.4-5.0) Albumin/Globulin Ratio 0.6 (1.0-1.7) Glucose (Fingerstick) 149 mg/dL (70-99) 168 mg/dL (70-99) Test 05/19/18 07:46 Glucose (Fingerstick) 144 mg/dL (70-99) Assessment and Plan Assessmemt and Plan Problems Medical Problems: (1) Decubitus ulcer Status: Acute (2) Hx of multiple sclerosis Status: Acute (3) Multiple sclerosis Status: Acute (4) Urinary retention Status: Acute (5) UTI (urinary tract infection) due to urinary indwelling catheter Status: Acute Comment Review of Relevant I have reviewed the following items rahel (where applicable) has been applied. Labs Laboratory Tests Test 05/17/18 21:32 05/18/18 07:09 05/18/18 08:55 05/18/18 12:04 Glucose (Fingerstick) 129 mg/dL (70-99) 135 mg/dL (70-99) 149 mg/dL (70-99) White Blood Count 16.6 x10^3/uL (4.0-11.0) Red Blood Count 5.14 x10^6/uL (4.30-5.70) Hemoglobin 13.8 g/dL (13.0-17.5) Hematocrit 40.1 % (39.0-53.0) Mean Corpuscular Volume 78 fL (79-100) Mean Corpuscular Hemoglobin 27 pg (25-35) Mean Corpuscular Hemoglobin Concent 35 g/dL (31-37) Red Cell Distribution Width 18.4 % (11.5-14.5) Platelet Count 381 x10^3/uL (140-400) Neutrophils (%) (Auto) 63 % (31-73) Lymphocytes (%) (Auto) 29 % (24-48) Monocytes (%) (Auto) 5 % (0-9) Eosinophils (%) (Auto) 3 % (0-3) Basophils (%) (Auto) 1 % (0-3) Neutrophils # (Auto) 10.4 x10^3uL (1.8-7.7) Lymphocytes # (Auto) 4.8 x10^3/uL (1.0-4.8) Monocytes # (Auto) 0.8 x10^3/uL (0.0-1.1) Eosinophils # (Auto) 0.5 x10^3/uL (0.0-0.7) Basophils # (Auto) 0.1 x10^3/uL (0.0-0.2) Sodium Level 138 mmol/L (136-145) Potassium Level 3.6 mmol/L (3.5-5.1) Chloride Level 103 mmol/L (98-107) Carbon Dioxide Level 25 mmol/L (21-32) Anion Gap 10 (6-14) Blood Urea Nitrogen 4 mg/dL (8-26) Creatinine 0.8 mg/dL (0.7-1.3) Estimated GFR (Cockcroft-Gault) 114.7 BUN/Creatinine Ratio 5 (6-20) Glucose Level 121 mg/dL (70-99) Calcium Level 8.6 mg/dL (8.5-10.1) Total Bilirubin 0.4 mg/dL (0.2-1.0) Aspartate Amino Transf (AST/SGOT) 10 U/L (15-37) Alanine Aminotransferase (ALT/SGPT) 12 U/L (16-63) Alkaline Phosphatase 87 U/L (46-116) Total Protein 6.5 g/dL (6.4-8.2) Albumin 2.4 g/dL (3.4-5.0) Albumin/Globulin Ratio 0.6 (1.0-1.7) Test 05/18/18 16:30 05/19/18 04:25 05/19/18 07:46 Glucose (Fingerstick) 168 mg/dL (70-99) 144 mg/dL (70-99) White Blood Count 21.0 x10^3/uL (4.0-11.0) Red Blood Count 5.10 x10^6/uL (4.30-5.70) Hemoglobin 13.7 g/dL (13.0-17.5) Hematocrit 40.1 % (39.0-53.0) Mean Corpuscular Volume 79 fL (79-100) Mean Corpuscular Hemoglobin 27 pg (25-35) Mean Corpuscular Hemoglobin Concent 34 g/dL (31-37) Red Cell Distribution Width 18.5 % (11.5-14.5) Platelet Count 376 x10^3/uL (140-400) Neutrophils (%) (Auto) 68 % (31-73) Lymphocytes (%) (Auto) 26 % (24-48) Monocytes (%) (Auto) 4 % (0-9) Eosinophils (%) (Auto) 1 % (0-3) Basophils (%) (Auto) 1 % (0-3) Neutrophils # (Auto) 14.3 x10^3uL (1.8-7.7) Lymphocytes # (Auto) 5.5 x10^3/uL (1.0-4.8) Monocytes # (Auto) 0.8 x10^3/uL (0.0-1.1) Eosinophils # (Auto) 0.3 x10^3/uL (0.0-0.7) Basophils # (Auto) 0.1 x10^3/uL (0.0-0.2) Laboratory Tests Test 05/18/18 08:55 05/18/18 12:04 05/18/18 16:30 05/19/18 04:25 White Blood Count 16.6 x10^3/uL (4.0-11.0) 21.0 x10^3/uL (4.0-11.0) Red Blood Count 5.14 x10^6/uL (4.30-5.70) 5.10 x10^6/uL (4.30-5.70) Hemoglobin 13.8 g/dL (13.0-17.5) 13.7 g/dL (13.0-17.5) Hematocrit 40.1 % (39.0-53.0) 40.1 % (39.0-53.0) Mean Corpuscular Volume 78 fL (79-100) 79 fL (79-100) Mean Corpuscular Hemoglobin 27 pg (25-35) 27 pg (25-35) Mean Corpuscular Hemoglobin Concent 35 g/dL (31-37) 34 g/dL (31-37) Red Cell Distribution Width 18.4 % (11.5-14.5) 18.5 % (11.5-14.5) Platelet Count 381 x10^3/uL (140-400) 376 x10^3/uL (140-400) Neutrophils (%) (Auto) 63 % (31-73) 68 % (31-73) Lymphocytes (%) (Auto) 29 % (24-48) 26 % (24-48) Monocytes (%) (Auto) 5 % (0-9) 4 % (0-9) Eosinophils (%) (Auto) 3 % (0-3) 1 % (0-3) Basophils (%) (Auto) 1 % (0-3) 1 % (0-3) Neutrophils # (Auto) 10.4 x10^3uL (1.8-7.7) 14.3 x10^3uL (1.8-7.7) Lymphocytes # (Auto) 4.8 x10^3/uL (1.0-4.8) 5.5 x10^3/uL (1.0-4.8) Monocytes # (Auto) 0.8 x10^3/uL (0.0-1.1) 0.8 x10^3/uL (0.0-1.1) Eosinophils # (Auto) 0.5 x10^3/uL (0.0-0.7) 0.3 x10^3/uL (0.0-0.7) Basophils # (Auto) 0.1 x10^3/uL (0.0-0.2) 0.1 x10^3/uL (0.0-0.2) Sodium Level 138 mmol/L (136-145) Potassium Level 3.6 mmol/L (3.5-5.1) Chloride Level 103 mmol/L (98-107) Carbon Dioxide Level 25 mmol/L (21-32) Anion Gap 10 (6-14) Blood Urea Nitrogen 4 mg/dL (8-26) Creatinine 0.8 mg/dL (0.7-1.3) Estimated GFR (Cockcroft-Gault) 114.7 BUN/Creatinine Ratio 5 (6-20) Glucose Level 121 mg/dL (70-99) Calcium Level 8.6 mg/dL (8.5-10.1) Total Bilirubin 0.4 mg/dL (0.2-1.0) Aspartate Amino Transf (AST/SGOT) 10 U/L (15-37) Alanine Aminotransferase (ALT/SGPT) 12 U/L (16-63) Alkaline Phosphatase 87 U/L (46-116) Total Protein 6.5 g/dL (6.4-8.2) Albumin 2.4 g/dL (3.4-5.0) Albumin/Globulin Ratio 0.6 (1.0-1.7) Glucose (Fingerstick) 149 mg/dL (70-99) 168 mg/dL (70-99) Test 05/19/18 07:46 Glucose (Fingerstick) 144 mg/dL (70-99) Microbiology 05/13/18 Blood Culture - Final, Complete NO GROWTH AFTER 5 DAYS 05/13/18 Urine Culture - Final, Complete 05/13/18 Urine Culture Result 1 (RERE) - Final, Complete 05/13/18 Antimicrobic Susceptibility - Final, Complete Medications Current Medications Sodium Chloride 1,000 ml @ 1,000 mls/hr 1X ONCE IV Last administered on 05/13at 05:08; Start 05/13/18 at 04:30; Stop 05/13/18 at 05:29; Status DC Ceftriaxone Sodium 50 ml @ 100 mls/hr 1X ONCE IV Last administered on at 05:48; Start 05/13/18 at 06:00; Stop 05/13/18 at 06:29; Status DC Ondansetron HCl (Zofran) 4 mg PRN Q8HRS PRN IV NAUSEA/VOMITING 1st choice; Start 05/13/18 at 05:45; Stop 05/13/18 at 08:47; Status DC Fentanyl Citrate (Fentanyl 2ml Vial) 50 mcg PRN Q2HR PRN IV SEVERE PAIN; Start 05/13/18 at 05:45; Stop 05/14/18 at 05:44; Status DC Insulin Human Lispro (HumaLOG) 0-5 UNITS TIDWMEALS SQ ; Start 05/13/18 at 08:00 ; Stop 05/13/18 at 08:47; Status DC Dextrose (Dextrose 50%-Water Syringe) 12.5 gm PRN Q15MIN PRN IV SEE COMMENTS; Start 05/13/18 at 05:45 Ondansetron HCl (Zofran) 4 mg PRN Q6HRS PRN IV NAUSEA/VOMITING 1st choice; Start 05/13/18 at 09:00 Ceftriaxone Sodium 1 gm/ Dextrose 50 ml @ 100 mls/hr Q24H IV ; Start 05/13/18 at 08:45; Status UNV Acetaminophen (Tylenol) 500 mg PRN Q6HRS PRN PO MILD PAIN / TEMP Last administered on 05/18/18at 11:07; Start 05/13/18 at 08:45 Insulin Human Lispro (HumaLOG) 0-9 UNITS TIDWMEALS SQ Last administered on at 09:15; Start 05/13/18 at 12:00 Dextrose (Dextrose 50%-Water Syringe) 12.5 gm PRN Q15MIN PRN IV SEE COMMENTS; Start 05/13/18 at 08:45; Status UNV Magnesium Sulfate/ Dextrose 100 ml @ 100 mls/hr 1X ONCE IV Last administered on 05/13/18at 13:03; Start 05/13/18 at 09:30; Stop 05/13/18 at 10:29; Status DC Prednisone (Prednisone) 25 mg DAILY PO Last administered on 05/18/18at 08:47; Start 05/13/18 at 15:00 Triamterene/HCTZ (Maxzide 37.5/ 25mg) 1 tab DAILY PO Last administered on at 08:47; Start 05/13/18 at 09:00 Baclofen (Lioresal) 20 mg DAILYWBKFT PO Last administered on 05/13/18at 12:56; Start 05/13/18 at 12:00; Stop 05/13/18 at 16:21; Status DC Non-Formulary Medication (Dapsone ) 25 mg DAILY PO ; Start 05/13/18 at 09:00; Stop 05/13/18 at 14:33; Status DC Metformin HCl (Glucophage) 500 mg DAILYWBKFT PO ; Start 05/13/18 at 10:00; Stop 05/13/18 at 16:20; Status DC Fish Oil (Fish Oil) 1,000 mg DAILY PO Last administered on 05/18/18at 08:48; Start 05/13/18 at 10:00 Oxybutynin Chloride (Ditropan) 5 mg DAILY PO Last administered on 05/18/18at 08: 48; Start 05/13/18 at 10:00 Ceftriaxone Sodium (Rocephin) 1 gm Q24H IVP Last administered on 05/14/18at 06: 26; Start 05/14/18 at 06:00; Stop 05/14/18 at 09:14; Status DC Sodium Chloride 1,000 ml @ 100 mls/hr Q10H IV Last administered on 05/14/18at 08:30; Start 05/13/18 at 12:30; Stop 05/14/18 at 16:11; Status DC Enoxaparin Sodium (Lovenox 40mg Syringe) 40 mg Q24H SQ Last administered on 05/18/18at 12:14; Start 05/13/18 at 13:00 Baclofen (Lioresal) 50 mg TID PO ; Start 05/13/18 at 21:00; Stop 05/13/18 at 21:00; Status DC Baclofen (Lioresal) 50 mg TID PO Last administered on 05/18/18at 21:05; Start 05/13/18 at 21:00 Linezolid (Zyvox) 600 mg BID PO Last administered on 05/14/18at 11:22; Start 05/14/18 at 10:00; Stop 05/15/18 at 09:19; Status DC Nystatin (Nystop) 1 frederick BID TP Last administered on 05/18/18at 21:05; Start at 11:00 Cefepime HCl 1 gm/ Dextrose 50 ml @ 100 mls/hr Q8HRS IV ; Start 05/14/18 at 14 :00; Status UNV Cefepime HCl (Maxipime) 1 gm Q8HRS IVP Last administered on 05/15/18at 05:39; Start 05/14/18 at 11:00; Stop 05/15/18 at 09:20; Status DC Ascorbic Acid (Vitamin C) 500 mg DAILY PO Last administered on 05/18/18at 08:47 ; Start 05/14/18 at 14:00 Zinc Sulfate (Orazinc) 220 mg DAILY PO Last administered on 05/18/18at 08:47; Start 05/14/18 at 14:00 Dextrose/Sodium Chloride 1,000 ml @ 100 mls/hr Q10H IV Last administered on at 21:03; Start 05/14/18 at 16:15 Insulin Glargine (Lantus) 6 units 1X ONCE SQ Last administered on 05/14/18at 17:21; Start 05/14/18 at 16:15; Stop 05/14/18 at 16:16; Status DC Influenza Virus Vaccine (Afluria Trivalent 5720-2455 Syringe) 0.5 ml ONCE ONCE VAX IM Last administered on 05/16/18at 15:07; Start 05/15/18 at 09:00; Stop 05/15/18 at 09:01; Status DC Ketoconazole (Nizoral 2% Topical) 1 frederick DAILY TP Last administered on at 08:57; Start 05/14/18 at 18:00 Cefepime HCl (Maxipime) 1 gm Q12HR IVP Last administered on 05/17/18at 14:04; Start 05/15/18 at 21:00; Stop 05/17/18 at 17:55; Status DC Lactobacillus Rhamnosus (Culturelle) 1 cap BID PO Last administered on at 21:05; Start 05/15/18 at 21:00 Ceftriaxone Sodium 1 gm/ Dextrose 50 ml @ 100 mls/hr Q24H IV ; Start 05/17/18 at 18:00; Status UNV Ceftriaxone Sodium (Rocephin) 1 gm DAILY IVP Last administered on 05/18/18at 08: 52; Start 05/18/18 at 09:00 Labetalol HCl (Normodyne Iv Push) 10 mg PRN Q4HRS PRN IVP HYPERTENSION, SEE COMMENTS Last administered on 05/19/18at 00:05; Start 05/18/18 at 01:30 Active Scripts Active Cephalexin 500 Mg Tablet 1 Tab PO QID Cipro (Ciprofloxacin Hcl) 500 Mg Tablet 1 Tab PO BID 5 Days Reported Fish Oil + D3 Softgel (Pollard-3S/Dha/Epa/Fish Oil/D3) 1 Each Capsule 1 Each PO DAILY Prednisone 20 Mg Tablet 25 Mg PO DAILY Baclofen 20 Mg Tablet 50 Tab PO TID Oxybutynin Chloride Er (Oxybutynin Chloride) 5 Mg Tab.er.24 1 Tab PO DAILY Vitals/I & O Vital Sign - Last 24 Hours 05/18/18 05/18/18 05/18/18 05/18/18 11:05 15:00 19:25 20:10 Temp 98.2 98.3 97.7 98.2 98.3 97.7 Pulse 95 76 65 Resp 18 20 18 B/P (MAP) 142/79 (100) 151/83 (105) 181/100 (127) Pulse Ox 97 96 99 O2 Delivery Room Air Room Air Room Air Room Air 05/18/18 05/19/18 05/19/18 05/19/18 23:47 00:05 03:00 07:00 Temp 99.7 97.5 97.9 99.7 97.5 97.9 Pulse 65 65 72 63 Resp 18 18 18 B/P (MAP) 174/100 (124) 174/100 149/81 (103) 168/84 (112) Pulse Ox 97 99 95 O2 Delivery Room Air Room Air Nasal Cannula O2 Flow Rate 2.0 Intake and Output 05/18/18 05/18/18 05/19/18 15:00 23:00 07:00 Intake Total 170 ml 0 ml Output Total 1950 ml 400 ml Balance 170 ml -1950 ml -400 ml JM GAO MD May 19, 2018 08:50
[2018-05-19] MEDS: NYSTATIN TOPICAL POWDER 15GM BOTTLE. TP SCH ×2 (08:56→20:35)
[2018-05-19] MEDS: KETOCONAZOLE 2% TOPICAL CREAM 15GM TUBE. TP SCH (08:56)
[2018-05-19 09:20] LABS: ALBUMIN 2.4 g/dL (3.4-5.0); ALBUMIN/GLOBULIN RATIO 0.6 (1.0-1.7); CALCIUM 8.7 mg/dL (8.5-10.1); CREATININE 0.8 mg/dL (0.7-1.3); GFR 114.7; POTASSIUM 3.6 mmol/L (3.5-5.1); TOTAL BILIRUBIN 0.2 mg/dL (0.2-1.0); TOTAL PROTEIN 6.6 g/dL (6.4-8.2)
[2018-05-19 09:36] LABS: % BANDS 2 % (0-9); % LYMPHS 26 % (24-48); % MONOS 2 % (0-10); % SEGS 70 % (35-66); PLT ESTIMATE ADEQUATE (ADEQUATE)
[2018-05-19 11:00] VITALS: BP 127/79
--- NOTE | 2018-05-19 11:05 | PDOC ---
Infectious Disease Note Subjective Subjective Upset with bad taste of apple juice in mouth, declined a drink of water to rinse. Pocketing food No BM las 2 days No fevers Vital Sign Vital Signs Vital Signs Date Time Temp Pulse Resp B/P (MAP) Pulse Ox O2 Delivery O2 Flow Rate FiO2 05/19/18 07:00 97.9 63 18 168/84 (112) 95 Nasal Cannula 2.0 97.9 Physical Exam PHYSICAL EXAM GENERAL: Propped up in bed, upset HEENT: Seborrheic keratosis present on the forehead, neck, ears. Oral cavity moist. Dentures LUNGS: Clear anteriorly. HEART: S1, S2. ABDOMEN: Soft, bowel sounds present, nontender GENITOURINARY: Walls catheter in place. (05/13) EXTREMITIES: No edema. Flexor contractures present. NEUROLOGIC: Alert, confused, follows simple commands SKIN: No rash PIV ok Labs Lab Laboratory Tests Test 05/18/18 12:04 05/18/18 16:30 05/19/18 04:25 05/19/18 07:46 Glucose (Fingerstick) 149 mg/dL (70-99) 168 mg/dL (70-99) 144 mg/dL (70-99) White Blood Count 21.0 x10^3/uL (4.0-11.0) Red Blood Count 5.10 x10^6/uL (4.30-5.70) Hemoglobin 13.7 g/dL (13.0-17.5) Hematocrit 40.1 % (39.0-53.0) Mean Corpuscular Volume 79 fL (79-100) Mean Corpuscular Hemoglobin 27 pg (25-35) Mean Corpuscular Hemoglobin Concent 34 g/dL (31-37) Red Cell Distribution Width 18.5 % (11.5-14.5) Platelet Count 376 x10^3/uL (140-400) Neutrophils (%) (Auto) 68 % (31-73) Lymphocytes (%) (Auto) 26 % (24-48) Monocytes (%) (Auto) 4 % (0-9) Eosinophils (%) (Auto) 1 % (0-3) Basophils (%) (Auto) 1 % (0-3) Neutrophils # (Auto) 14.3 x10^3uL (1.8-7.7) Lymphocytes # (Auto) 5.5 x10^3/uL (1.0-4.8) Monocytes # (Auto) 0.8 x10^3/uL (0.0-1.1) Eosinophils # (Auto) 0.3 x10^3/uL (0.0-0.7) Basophils # (Auto) 0.1 x10^3/uL (0.0-0.2) Segmented Neutrophils % 70 % (35-66) Band Neutrophils % 2 % (0-9) Lymphocytes % 26 % (24-48) Monocytes % 2 % (0-10) Platelet Estimate Adequate (ADEQUATE) Test 05/19/18 08:40 Sodium Level 138 mmol/L (136-145) Potassium Level 3.6 mmol/L (3.5-5.1) Chloride Level 104 mmol/L (98-107) Carbon Dioxide Level 24 mmol/L (21-32) Anion Gap 10 (6-14) Blood Urea Nitrogen 6 mg/dL (8-26) Creatinine 0.8 mg/dL (0.7-1.3) Estimated GFR (Cockcroft-Gault) 114.7 BUN/Creatinine Ratio 8 (6-20) Glucose Level 133 mg/dL (70-99) Calcium Level 8.7 mg/dL (8.5-10.1) Total Bilirubin 0.2 mg/dL (0.2-1.0) Aspartate Amino Transf (AST/SGOT) 9 U/L (15-37) Alanine Aminotransferase (ALT/SGPT) 11 U/L (16-63) Alkaline Phosphatase 90 U/L (46-116) Total Protein 6.6 g/dL (6.4-8.2) Albumin 2.4 g/dL (3.4-5.0) Albumin/Globulin Ratio 0.6 (1.0-1.7) Micro BLOOD CULTURE Preliminary NO GROWTH AFTER 5 DAYS URINE CULTURE RES 1 Final Providencia rettgeri Greater than 100,000 colony forming units per mL ANTIMICROBIAL SUSCEPTIBILITY Final Comment S = Susceptible; I = Intermediate; R = Resistant P = Positive; N = Negative MICS are expressed in micrograms per mL Antibiotic RSLT#1 RSLT#2 RSLT#3 RSLT#4 Ampicillin R =R Cefazolin R>=64 Cefepime S<=0.12 Ceftriaxone S<=0.25 Cefuroxime S<=1 Ciprofloxacin S<=0.25 Gentamicin S<=1 Imipenem S =1 Levofloxacin S<=0.12 Meropenem S<=0.25 Nitrofurantoin R =256 Piperacillin/Tazobactam S<=4 Tetracycline R =R Tobramycin S<=1 Objective Assessment Fever - better Leukocytosis - on steroids Benign prostatic hypertrophy with urinary retention, chronic indwelling - Walls catheter last changed 05/13. UTI w/ Providencia Multiple sclerosis, bedbound, progressive. Seborrheic keratoses. 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 Chronic contracture, right hand. History of Escherichia coli and pseudomonas urinary tract infection in the past. Hypertension/hyperlipidemia. Lesion on the scrotum could be from underlying bullous pemphigus, on prednisone. seen by derm Encephalopathy ? s/p toenail debridement, 05/15 Plan Plan of Care Rocephin Check CXR/Procalcitonin/UA C and S Empiric Vanc Probiotics BC neg Supportive care Decision on SP placement is pending D/w RN D/w Attending Co-Sign Attending Co-Sign The patient was seen and interviewed as well as examined at the bedside. The chart was reviewed. The case was discussed. Agree with the plan of care. CORNEL KOHLER APRN May 19, 2018 11:05 TEQUILA JAIMES MD May 19, 2018 12:22
[2018-05-19] MEDS: AMINO AC 3%/ELECTROLYTE/GLYCER 1,000 ML IV SCH (11:15)
[2018-05-19] MEDS ORDERED: VANCOMYCIN 2 GM in IV NORMAL SALINE 500ML BAG 500 ML IV ONE (13:00)
[2018-05-19 13:05] LABS: BILIRUBIN,URINE NEGATIVE (NEG); CLARITY,URINE CLEAR; COLOR,URINE YELLOW; NITRITE,URINE NEGATIVE (NEG); PROTEIN,URINE NEGATIVE (NEG-TRACE); UROBILINOGEN,URINE 0.2 mg/dL (0.2 mg/dL)
[2018-05-19 13:15] LABS: BACTERIA,URINE FEW /HPF (0-FEW); RBC,URINE RARE /HPF (0-2)
--- NOTE | 2018-05-19 13:57 | RAD ---
EXAM: CHEST 1 VIEW History: Aspiration COMPARISON: 08/17/2017 TECHNIQUE: Single portable radiograph of the chest FINDINGS: Mild cardiomegaly. Minimal left lung base atelectasis or infiltrate. The costophrenic sulci are clear and well demarcated. IMPRESSION: Minimal left lung base atelectasis or infiltrate. Electronically signed by: Adán Bowie MD (05/19/2018 1:54 PM) [facility]
[2018-05-19] MEDS: ENOXAPARIN 40 MG/0.4 ML SYRINGE. SQ SCH (14:19)
[2018-05-19 15:00] VITALS: BP 148/86
[2018-05-19] MEDS: VANCOMYCIN PER PHARMACY MC PRN (15:45)
[2018-05-19 19:52] VITALS: BP 156/73
[2018-05-19] MEDS: ACETAMINOPHEN 500 MG TABLET PO PRN (20:33)
[2018-05-19 23:54] VITALS: BP 154/86
[2018-05-20 03:41] VITALS: BP 154/85
[2018-05-20] MEDS: VANCOMYCIN 1 GM in IV NORMAL SALINE 250ML 250 ML IV SCH ×2 (05:10→15:03)
[2018-05-20 05:26] LABS: BASO # 0.1 x10^3/uL (0.0-0.2); BASO % 0 % (0-3); EOS # 0.1 x10^3/uL (0.0-0.7); EOS % 1 % (0-3); HEMATOCRIT 38.8 % (39.0-53.0); HEMOGLOBIN 13.5 g/dL (13.0-17.5); LYMPH # 4.1 x10^3/uL (1.0-4.8); LYMPH % 24 % (24-48); MEAN CORPUSCULAR HEMOGLOBIN 27 pg (25-35); MEAN CORPUSCULAR HGB CONC 35 g/dL (31-37); MEAN CORPUSCULAR VOLUME 77 fL (79-100); MONO # 0.7 x10^3/uL (0.0-1.1); MONO % 4 % (0-9); NEUT # 12.4 x10^3uL (1.8-7.7); NEUT % 72 % (31-73); PLATELET COUNT 388 x10^3/uL (140-400); RED BLOOD COUNT 5.03 x10^6/uL (4.30-5.70); RED CELL DISTRIBUTION WIDTH 18.4 % (11.5-14.5); WHITE BLOOD COUNT 17.4 x10^3/uL (4.0-11.0)
[2018-05-20 05:56] LABS: ALBUMIN 2.4 g/dL (3.4-5.0); ALBUMIN/GLOBULIN RATIO 0.6 (1.0-1.7); CALCIUM 8.7 mg/dL (8.5-10.1); CREATININE 0.8 mg/dL (0.7-1.3); GFR 114.7; POTASSIUM 4.2 mmol/L (3.5-5.1); TOTAL BILIRUBIN 0.2 mg/dL (0.2-1.0); TOTAL PROTEIN 6.4 g/dL (6.4-8.2)
[2018-05-20] MEDS: AMINO AC 3%/ELECTROLYTE/GLYCER 1,000 ML IV SCH (06:01)
[2018-05-20 07:00] VITALS: BP 162/79
[2018-05-20] MEDS: INSULIN LISPRO 300 UNITS/3 ML INSULN.PEN. SQ SCH ×3 (08:00→17:00)
[2018-05-20] MEDS: OMEGA-3 FATTY ACIDS/FISH OIL 1,000 MG CAPSULE. PO SCH (09:00)
[2018-05-20] MEDS: KETOCONAZOLE 2% TOPICAL CREAM 15GM TUBE. TP SCH (09:00)
--- NOTE | 2018-05-20 09:22 | PDOC ---
PROGRESS NOTES Chief Complaint Chief Complaint Metabolic encephalopathy cOMPLIACTED UTI, chronic indwelling Walls catheter-changed 2 weeks ago per ( manager long term care) Multiple sclerosis, bedbound Benign prostatic hypertrophy with urinary retention, chronic indwelling Walls catheter changed 2 weeks ago. GNR UTI Providencia rettgeri .advanced Multiple sclerosis, bedbound, progressive. Sepsis POA with no organ dysfunction Seborrheic dermatitis face bullous pemphigoid. mod skin atrophy Chronic contracture of the right hand Urinary retention- HYpomagnesemia - severe protein-caloric malnutrition cont vanc iv , rocephin Probiotics pcxr placement pending ID following STATES HE Does NOT LIKE THE food here , CONFUSION moderate Minimal left lung base atelectasis or infiltrate. Micro BLOOD CULTURE Preliminary NO GROWTH AFTER 5 DAYS URINE CULTURE RES 1 Final Providencia rettgeri Greater than 100,000 colony forming units per mL ANTIMICROBIAL SUSCEPTIBILITY Final Comment S = Susceptible; I = Intermediate; R = Resistant P = Positive; N = Negative MICS are expressed in micrograms per mL Antibiotic RSLT#1 RSLT#2 RSLT#3 RSLT#4 Ampicillin R =R Cefazolin R>=64 Cefepime S<=0.12 Ceftriaxone S<=0.25 Cefuroxime S<=1 Ciprofloxacin S<=0.25 Gentamicin S<=1 Imipenem S =1 Levofloxacin S<=0.12 Meropenem S<=0.25 Nitrofurantoin R =256 Piperacillin/Tazobactam S<=4 Tetracycline R =R History of Present Illness History of Present Illness IV fluid for sepsis start iv nutrition wound care, consider air bed, start vit C and zinc Rocephin Vitals Vitals Vital Signs Date Time Temp Pulse Resp B/P (MAP) Pulse Ox O2 Delivery O2 Flow Rate FiO2 05/20/18 08:00 Room Air 2.0 05/20/18 07:00 98.9 68 18 162/79 (106) 99 98.9 Physical Exam Physical Exam GENERAL: Propped up in bed, upset HEENT: Seborrheic keratosis present on the forehead, neck, ears. Oral cavity moist. Dentures LUNGS: Clear anteriorly. HEART: S1, S2. ABDOMEN: Soft, bowel sounds present, nontender GENITOURINARY: Walls catheter in place. (05/13) EXTREMITIES: No edema. Flexor contractures present. NEUROLOGIC: Alert, confused, follows simple commands SKIN: No rash PIV ok General: Alert, Cooperative, mild distress Heart: Regular rate, Normal S1, Normal S2, No murmurs Lungs: Clear, Wheezing Abdomen: Normal bowel sounds, Soft, No tenderness, No hepatosplenomegaly, No masses Extremities: No clubbing, No cyanosis, No edema, No tenderness/swelling Skin: No rashes, Other (old bullae legs that has ruptured and left fresh new skin in the dermis area) Labs LABS Minimal left lung base atelectasis or infiltrate. Micro BLOOD CULTURE Preliminary NO GROWTH AFTER 5 DAYS URINE CULTURE RES 1 Final Providencia rettgeri Greater than 100,000 colony forming units per mL ANTIMICROBIAL SUSCEPTIBILITY Final Comment S = Susceptible; I = Intermediate; R = Resistant P = Positive; N = Negative MICS are expressed in micrograms per mL Antibiotic RSLT#1 RSLT#2 RSLT#3 RSLT#4 Ampicillin R =R Cefazolin R>=64 Cefepime S<=0.12 Ceftriaxone S<=0.25 Cefuroxime S<=1 Ciprofloxacin S<=0.25 Gentamicin S<=1 Imipenem S =1 Levofloxacin S<=0.12 Meropenem S<=0.25 Nitrofurantoin R =256 Piperacillin/Tazobactam S<=4 Tetracycline R =R Laboratory Tests Test 05/19/18 11:46 05/19/18 12:58 05/19/18 13:10 05/19/18 16:53 Glucose (Fingerstick) 135 mg/dL (70-99) 131 mg/dL (70-99) Urine Collection Type Unknown Urine Color Yellow Urine Clarity Clear Urine pH 7.0 Urine Specific [place] 1.010 Urine Protein Negative mg/dL (NEG-TRACE) Urine Glucose (UA) Negative mg/dL (NEG) Urine Ketones (Stick) Negative mg/dL (NEG) Urine Blood Trace (NEG) Urine Nitrite Negative (NEG) Urine Bilirubin Negative (NEG) Urine Urobilinogen Dipstick 0.2 mg/dL (0.2 mg/dL) Urine Leukocyte Esterase Moderate (NEG) Urine RBC Rare /HPF (0-2) Urine WBC 1-4 /HPF (0-4) Urine Bacteria Few /HPF (0-FEW) Procalcitonin < 0.10 ng/mL (0.00-0.10) Test 05/19/18 20:14 05/20/18 05:00 05/20/18 07:28 Glucose (Fingerstick) 137 mg/dL (70-99) 112 mg/dL (70-99) White Blood Count 17.4 x10^3/uL (4.0-11.0) Red Blood Count 5.03 x10^6/uL (4.30-5.70) Hemoglobin 13.5 g/dL (13.0-17.5) Hematocrit 38.8 % (39.0-53.0) Mean Corpuscular Volume 77 fL (79-100) Mean Corpuscular Hemoglobin 27 pg (25-35) Mean Corpuscular Hemoglobin Concent 35 g/dL (31-37) Red Cell Distribution Width 18.4 % (11.5-14.5) Platelet Count 388 x10^3/uL (140-400) Neutrophils (%) (Auto) 72 % (31-73) Lymphocytes (%) (Auto) 24 % (24-48) Monocytes (%) (Auto) 4 % (0-9) Eosinophils (%) (Auto) 1 % (0-3) Basophils (%) (Auto) 0 % (0-3) Neutrophils # (Auto) 12.4 x10^3uL (1.8-7.7) Lymphocytes # (Auto) 4.1 x10^3/uL (1.0-4.8) Monocytes # (Auto) 0.7 x10^3/uL (0.0-1.1) Eosinophils # (Auto) 0.1 x10^3/uL (0.0-0.7) Basophils # (Auto) 0.1 x10^3/uL (0.0-0.2) Sodium Level 138 mmol/L (136-145) Potassium Level 4.2 mmol/L (3.5-5.1) Chloride Level 103 mmol/L (98-107) Carbon Dioxide Level 26 mmol/L (21-32) Anion Gap 9 (6-14) Blood Urea Nitrogen 10 mg/dL (8-26) Creatinine 0.8 mg/dL (0.7-1.3) Estimated GFR (Cockcroft-Gault) 114.7 BUN/Creatinine Ratio 13 (6-20) Glucose Level 110 mg/dL (70-99) Calcium Level 8.7 mg/dL (8.5-10.1) Total Bilirubin 0.2 mg/dL (0.2-1.0) Aspartate Amino Transf (AST/SGOT) 6 U/L (15-37) Alanine Aminotransferase (ALT/SGPT) 10 U/L (16-63) Alkaline Phosphatase 80 U/L (46-116) Total Protein 6.4 g/dL (6.4-8.2) Albumin 2.4 g/dL (3.4-5.0) Albumin/Globulin Ratio 0.6 (1.0-1.7) Assessment and Plan Assessmemt and Plan Problems Medical Problems: (1) Decubitus ulcer Status: Acute (2) Hx of multiple sclerosis Status: Acute (3) Multiple sclerosis Status: Acute (4) Urinary retention Status: Acute (5) UTI (urinary tract infection) due to urinary indwelling catheter Status: Acute Comment Review of Relevant I have reviewed the following items rahel (where applicable) has been applied. Labs Laboratory Tests Test 05/18/18 12:04 05/18/18 16:30 05/19/18 04:25 05/19/18 07:46 Glucose (Fingerstick) 149 mg/dL (70-99) 168 mg/dL (70-99) 144 mg/dL (70-99) White Blood Count 21.0 x10^3/uL (4.0-11.0) Red Blood Count 5.10 x10^6/uL (4.30-5.70) Hemoglobin 13.7 g/dL (13.0-17.5) Hematocrit 40.1 % (39.0-53.0) Mean Corpuscular Volume 79 fL (79-100) Mean Corpuscular Hemoglobin 27 pg (25-35) Mean Corpuscular Hemoglobin Concent 34 g/dL (31-37) Red Cell Distribution Width 18.5 % (11.5-14.5) Platelet Count 376 x10^3/uL (140-400) Neutrophils (%) (Auto) 68 % (31-73) Lymphocytes (%) (Auto) 26 % (24-48) Monocytes (%) (Auto) 4 % (0-9) Eosinophils (%) (Auto) 1 % (0-3) Basophils (%) (Auto) 1 % (0-3) Neutrophils # (Auto) 14.3 x10^3uL (1.8-7.7) Lymphocytes # (Auto) 5.5 x10^3/uL (1.0-4.8) Monocytes # (Auto) 0.8 x10^3/uL (0.0-1.1) Eosinophils # (Auto) 0.3 x10^3/uL (0.0-0.7) Basophils # (Auto) 0.1 x10^3/uL (0.0-0.2) Segmented Neutrophils % 70 % (35-66) Band Neutrophils % 2 % (0-9) Lymphocytes % 26 % (24-48) Monocytes % 2 % (0-10) Platelet Estimate Adequate (ADEQUATE) Test 05/19/18 08:40 05/19/18 11:46 05/19/18 12:58 05/19/18 13:10 Sodium Level 138 mmol/L (136-145) Potassium Level 3.6 mmol/L (3.5-5.1) Chloride Level 104 mmol/L (98-107) Carbon Dioxide Level 24 mmol/L (21-32) Anion Gap 10 (6-14) Blood Urea Nitrogen 6 mg/dL (8-26) Creatinine 0.8 mg/dL (0.7-1.3) Estimated GFR (Cockcroft-Gault) 114.7 BUN/Creatinine Ratio 8 (6-20) Glucose Level 133 mg/dL (70-99) Calcium Level 8.7 mg/dL (8.5-10.1) Total Bilirubin 0.2 mg/dL (0.2-1.0) Aspartate Amino Transf (AST/SGOT) 9 U/L (15-37) Alanine Aminotransferase (ALT/SGPT) 11 U/L (16-63) Alkaline Phosphatase 90 U/L (46-116) Total Protein 6.6 g/dL (6.4-8.2) Albumin 2.4 g/dL (3.4-5.0) Albumin/Globulin Ratio 0.6 (1.0-1.7) Glucose (Fingerstick) 135 mg/dL (70-99) Urine Collection Type Unknown Urine Color Yellow Urine Clarity Clear Urine pH 7.0 Urine Specific [place] 1.010 Urine Protein Negative mg/dL (NEG-TRACE) Urine Glucose (UA) Negative mg/dL (NEG) Urine Ketones (Stick) Negative mg/dL (NEG) Urine Blood Trace (NEG) Urine Nitrite Negative (NEG) Urine Bilirubin Negative (NEG) Urine Urobilinogen Dipstick 0.2 mg/dL (0.2 mg/dL) Urine Leukocyte Esterase Moderate (NEG) Urine RBC Rare /HPF (0-2) Urine WBC 1-4 /HPF (0-4) Urine Bacteria Few /HPF (0-FEW) Procalcitonin < 0.10 ng/mL (0.00-0.10) Test 05/19/18 16:53 05/19/18 20:14 05/20/18 05:00 05/20/18 07:28 Glucose (Fingerstick) 131 mg/dL (70-99) 137 mg/dL (70-99) 112 mg/dL (70-99) White Blood Count 17.4 x10^3/uL (4.0-11.0) Red Blood Count 5.03 x10^6/uL (4.30-5.70) Hemoglobin 13.5 g/dL (13.0-17.5) Hematocrit 38.8 % (39.0-53.0) Mean Corpuscular Volume 77 fL (79-100) Mean Corpuscular Hemoglobin 27 pg (25-35) Mean Corpuscular Hemoglobin Concent 35 g/dL (31-37) Red Cell Distribution Width 18.4 % (11.5-14.5) Platelet Count 388 x10^3/uL (140-400) Neutrophils (%) (Auto) 72 % (31-73) Lymphocytes (%) (Auto) 24 % (24-48) Monocytes (%) (Auto) 4 % (0-9) Eosinophils (%) (Auto) 1 % (0-3) Basophils (%) (Auto) 0 % (0-3) Neutrophils # (Auto) 12.4 x10^3uL (1.8-7.7) Lymphocytes # (Auto) 4.1 x10^3/uL (1.0-4.8) Monocytes # (Auto) 0.7 x10^3/uL (0.0-1.1) Eosinophils # (Auto) 0.1 x10^3/uL (0.0-0.7) Basophils # (Auto) 0.1 x10^3/uL (0.0-0.2) Sodium Level 138 mmol/L (136-145) Potassium Level 4.2 mmol/L (3.5-5.1) Chloride Level 103 mmol/L (98-107) Carbon Dioxide Level 26 mmol/L (21-32) Anion Gap 9 (6-14) Blood Urea Nitrogen 10 mg/dL (8-26) Creatinine 0.8 mg/dL (0.7-1.3) Estimated GFR (Cockcroft-Gault) 114.7 BUN/Creatinine Ratio 13 (6-20) Glucose Level 110 mg/dL (70-99) Calcium Level 8.7 mg/dL (8.5-10.1) Total Bilirubin 0.2 mg/dL (0.2-1.0) Aspartate Amino Transf (AST/SGOT) 6 U/L (15-37) Alanine Aminotransferase (ALT/SGPT) 10 U/L (16-63) Alkaline Phosphatase 80 U/L (46-116) Total Protein 6.4 g/dL (6.4-8.2) Albumin 2.4 g/dL (3.4-5.0) Albumin/Globulin Ratio 0.6 (1.0-1.7) Laboratory Tests Test 05/19/18 11:46 05/19/18 12:58 05/19/18 13:10 05/19/18 16:53 Glucose (Fingerstick) 135 mg/dL (70-99) 131 mg/dL (70-99) Urine Collection Type Unknown Urine Color Yellow Urine Clarity Clear Urine pH 7.0 Urine Specific [place] 1.010 Urine Protein Negative mg/dL (NEG-TRACE) Urine Glucose (UA) Negative mg/dL (NEG) Urine Ketones (Stick) Negative mg/dL (NEG) Urine Blood Trace (NEG) Urine Nitrite Negative (NEG) Urine Bilirubin Negative (NEG) Urine Urobilinogen Dipstick 0.2 mg/dL (0.2 mg/dL) Urine Leukocyte Esterase Moderate (NEG) Urine RBC Rare /HPF (0-2) Urine WBC 1-4 /HPF (0-4) Urine Bacteria Few /HPF (0-FEW) Procalcitonin < 0.10 ng/mL (0.00-0.10) Test 05/19/18 20:14 05/20/18 05:00 11/4/18 07:28 Glucose (Fingerstick) 137 mg/dL (70-99) 112 mg/dL (70-99) White Blood Count 17.4 x10^3/uL (4.0-11.0) Red Blood Count 5.03 x10^6/uL (4.30-5.70) Hemoglobin 13.5 g/dL (13.0-17.5) Hematocrit 38.8 % (39.0-53.0) Mean Corpuscular Volume 77 fL (79-100) Mean Corpuscular Hemoglobin 27 pg (25-35) Mean Corpuscular Hemoglobin Concent 35 g/dL (31-37) Red Cell Distribution Width 18.4 % (11.5-14.5) Platelet Count 388 x10^3/uL (140-400) Neutrophils (%) (Auto) 72 % (31-73) Lymphocytes (%) (Auto) 24 % (24-48) Monocytes (%) (Auto) 4 % (0-9) Eosinophils (%) (Auto) 1 % (0-3) Basophils (%) (Auto) 0 % (0-3) Neutrophils # (Auto) 12.4 x10^3uL (1.8-7.7) Lymphocytes # (Auto) 4.1 x10^3/uL (1.0-4.8) Monocytes # (Auto) 0.7 x10^3/uL (0.0-1.1) Eosinophils # (Auto) 0.1 x10^3/uL (0.0-0.7) Basophils # (Auto) 0.1 x10^3/uL (0.0-0.2) Sodium Level 138 mmol/L (136-145) Potassium Level 4.2 mmol/L (3.5-5.1) Chloride Level 103 mmol/L (98-107) Carbon Dioxide Level 26 mmol/L (21-32) Anion Gap 9 (6-14) Blood Urea Nitrogen 10 mg/dL (8-26) Creatinine 0.8 mg/dL (0.7-1.3) Estimated GFR (Cockcroft-Gault) 114.7 BUN/Creatinine Ratio 13 (6-20) Glucose Level 110 mg/dL (70-99) Calcium Level 8.7 mg/dL (8.5-10.1) Total Bilirubin 0.2 mg/dL (0.2-1.0) Aspartate Amino Transf (AST/SGOT) 6 U/L (15-37) Alanine Aminotransferase (ALT/SGPT) 10 U/L (16-63) Alkaline Phosphatase 80 U/L (46-116) Total Protein 6.4 g/dL (6.4-8.2) Albumin 2.4 g/dL (3.4-5.0) Albumin/Globulin Ratio 0.6 (1.0-1.7) Microbiology 05/13/18 Blood Culture - Final, Complete NO GROWTH AFTER 5 DAYS 05/13/18 Urine Culture - Final, Complete 05/13/18 Urine Culture Result 1 (RERE) - Final, Complete 05/13/18 Antimicrobic Susceptibility - Final, Complete Medications Current Medications Sodium Chloride 1,000 ml @ 1,000 mls/hr 1X ONCE IV Last administered on 05/13at 05:08; Start 05/13/18 at 04:30; Stop 05/13/18 at 05:29; Status DC Ceftriaxone Sodium 50 ml @ 100 mls/hr 1X ONCE IV Last administered on at 05:48; Start 05/13/18 at 06:00; Stop 05/13/18 at 06:29; Status DC Ondansetron HCl (Zofran) 4 mg PRN Q8HRS PRN IV NAUSEA/VOMITING 1st choice; Start 05/13/18 at 05:45; Stop 05/13/18 at 08:47; Status DC Fentanyl Citrate (Fentanyl 2ml Vial) 50 mcg PRN Q2HR PRN IV SEVERE PAIN; Start 05/13/18 at 05:45; Stop 05/14/18 at 05:44; Status DC Insulin Human Lispro (HumaLOG) 0-5 UNITS TIDWMEALS SQ ; Start 05/13/18 at 08:00 ; Stop 05/13/18 at 08:47; Status DC Dextrose (Dextrose 50%-Water Syringe) 12.5 gm PRN Q15MIN PRN IV SEE COMMENTS; Start 05/13/18 at 05:45 Ondansetron HCl (Zofran) 4 mg PRN Q6HRS PRN IV NAUSEA/VOMITING 1st choice; Start 05/13/18 at 09:00 Ceftriaxone Sodium 1 gm/ Dextrose 50 ml @ 100 mls/hr Q24H IV ; Start 05/13/18 at 08:45; Status UNV Acetaminophen (Tylenol) 500 mg PRN Q6HRS PRN PO MILD PAIN / TEMP Last administered on 05/19/18at 20:33; Start 05/13/18 at 08:45 Insulin Human Lispro (HumaLOG) 0-9 UNITS TIDWMEALS SQ Last administered on at 09:15; Start 05/13/18 at 12:00 Dextrose (Dextrose 50%-Water Syringe) 12.5 gm PRN Q15MIN PRN IV SEE COMMENTS; Start 05/13/18 at 08:45; Status UNV Magnesium Sulfate/ Dextrose 100 ml @ 100 mls/hr 1X ONCE IV Last administered on 05/13/18at 13:03; Start 05/13/18 at 09:30; Stop 05/13/18 at 10:29; Status DC Prednisone (Prednisone) 25 mg DAILY PO Last administered on 05/19/18at 08:50; Start 05/13/18 at 15:00 Triamterene/HCTZ (Maxzide 37.5/ 25mg) 1 tab DAILY PO Last administered on at 08:49; Start 05/13/18 at 09:00 Baclofen (Lioresal) 20 mg DAILYWBKFT PO Last administered on 05/13/18at 12:56; Start 05/13/18 at 12:00; Stop 05/13/18 at 16:21; Status DC Non-Formulary Medication (Dapsone ) 25 mg DAILY PO ; Start 05/13/18 at 09:00; Stop 05/13/18 at 14:33; Status DC Metformin HCl (Glucophage) 500 mg DAILYWBKFT PO ; Start 05/13/18 at 10:00; Stop 05/13/18 at 16:20; Status DC Fish Oil (Fish Oil) 1,000 mg DAILY PO Last administered on 05/19/18at 08:49; Start 05/13/18 at 10:00 Oxybutynin Chloride (Ditropan) 5 mg DAILY PO Last administered on 05/19/18at 08: 49; Start 05/13/18 at 10:00 Ceftriaxone Sodium (Rocephin) 1 gm Q24H IVP Last administered on 05/14/18at 06: 26; Start 05/14/18 at 06:00; Stop 05/14/18 at 09:14; Status DC Sodium Chloride 1,000 ml @ 100 mls/hr Q10H IV Last administered on 05/14/18at 08:30; Start 05/13/18 at 12:30; Stop 05/14/18 at 16:11; Status DC Enoxaparin Sodium (Lovenox 40mg Syringe) 40 mg Q24H SQ Last administered on 05/19/18at 14:19; Start 05/13/18 at 13:00 Baclofen (Lioresal) 50 mg TID PO ; Start 05/13/18 at 21:00; Stop 05/13/18 at 21:00; Status DC Baclofen (Lioresal) 50 mg TID PO Last administered on 05/19/18at 20:35; Start 05/13/18 at 21:00 Linezolid (Zyvox) 600 mg BID PO Last administered on 05/14/18at 11:22; Start 05/14/18 at 10:00; Stop 05/15/18 at 09:19; Status DC Nystatin (Nystop) 1 [place] BID TP Last administered on 05/19/18at 20:35; Start at 11:00 Cefepime HCl 1 gm/ Dextrose 50 ml @ 100 mls/hr Q8HRS IV ; Start 05/14/18 at 14 :00; Status UNV Cefepime HCl (Maxipime) 1 gm Q8HRS IVP Last administered on 05/15/18at 05:39; Start 05/14/18 at 11:00; Stop 05/15/18 at 09:20; Status DC Ascorbic Acid (Vitamin C) 500 mg DAILY PO Last administered on 05/19/18at 08:49 ; Start 05/14/18 at 14:00 Zinc Sulfate (Orazinc) 220 mg DAILY PO Last administered on 05/19/18at 08:49; Start 05/14/18 at 14:00 Dextrose/Sodium Chloride 1,000 ml @ 100 mls/hr Q10H IV Last administered on at 08:44; Start 05/14/18 at 16:15; Stop 05/19/18 at 16:27; Status DC Insulin Glargine (Lantus) 6 units 1X ONCE SQ Last administered on 10/29/18at 17:21; Start 05/14/18 at 16:15; Stop 05/14/18 at 16:16; Status DC Influenza Virus Vaccine (Afluria Trivalent [id number] Syringe) 0.5 ml ONCE ONCE VAX IM Last administered on 05/16/18at 15:07; Start 05/15/18 at 09:00; Stop 05/15/18 at 09:01; Status DC Ketoconazole (Nizoral 2% Topical) 1 [place] DAILY TP Last administered on at 08:56; Start 05/14/18 at 18:00 Cefepime HCl (Maxipime) 1 gm Q12HR IVP Last administered on 05/17/18 14:04; Start 05/15/18 at 21:00; Stop 05/17/18 at 17:55; Status DC Lactobacillus Rhamnosus (Culturelle) 1 cap BID PO Last administered on at 20:35; Start 05/15/18 at 21:00 Ceftriaxone Sodium 1 gm/ Dextrose 50 ml @ 100 mls/hr Q24H IV ; Start 05/17/18 at 18:00; Status UNV Ceftriaxone Sodium (Rocephin) 1 gm DAILY IVP Last administered on 05/19/18at 08: 49; Start 05/18/18 at 09:00 Labetalol HCl (Normodyne Iv Push) 10 mg PRN Q4HRS PRN IVP HYPERTENSION, SEE COMMENTS Last administered on 05/19/18at 00:05; Start 05/18/18 at 01:30 Amino Acids/ Glycerin/ Electrolytes 1,000 ml @ 50 mls/hr Q20H IV Last administered on 05/20/18at 06:01; Start 05/19/18 at 11:15 Vancomycin HCl (Vanco Per Pharmacy) 1 each PRN DAILY PRN MC SEE COMMENTS Last administered on 05/19/18at 15:45; Start 05/19/18 at 12:30 Vancomycin HCl 2 gm/Sodium Chloride 500 ml @ 250 mls/hr 1X ONCE IV Last administered on 05/19/18 14:19; Start 05/19/18 at 13:00; Stop 05/19/18 at 14:59 ; Status DC Vancomycin HCl 1 gm/Sodium Chloride 250 ml @ 250 mls/hr Q12H IV Last administered on 11/4/18at 05:10; Start 05/20/18 at 02:00 Vancomycin HCl (Vancomycin Trough Level) 1 each 1X ONCE MC ; Start 05/21/18 at 01:30; Stop 05/21/18 at 01:31 Active Scripts Active Cephalexin 500 Mg Tablet 1 Tab PO QID Cipro (Ciprofloxacin Hcl) 500 Mg Tablet 1 Tab PO BID 5 Days Reported Fish Oil + D3 Softgel ([place]-3S/Dha/Epa/Fish Oil/D3) 1 Each Capsule 1 Each PO DAILY Prednisone 20 Mg Tablet 25 Mg PO DAILY Baclofen 20 Mg Tablet 50 Tab PO TID Oxybutynin Chloride Er (Oxybutynin Chloride) 5 Mg Tab.er.24 1 Tab PO DAILY Vitals/I & O Vital Sign - Last 24 Hours 05/19/18 05/19/18 05/19/18 05/19/18 11:00 15:00 19:52 20:00 Temp 97.8 98.9 97.7 97.8 98.9 97.7 Pulse 62 67 68 Resp 18 18 20 B/P (MAP) 127/79 (95) 148/86 (106) 156/73 (100) Pulse Ox 99 100 98 O2 Delivery Nasal Cannula Room Air Room Air Room Air O2 Flow Rate 2.0 05/19/18 05/20/18 05/20/18 05/20/18 23:54 03:41 07:00 08:00 Temp 97.7 97.5 98.9 97.7 97.5 98.9 Pulse 68 70 68 Resp 20 18 18 B/P (MAP) 154/86 (108) 154/85 (108) 162/79 (106) Pulse Ox 98 97 99 O2 Delivery Room Air Room Air Nasal Cannula Room Air O2 Flow Rate 2.0 2.0 Intake and Output 05/19/18 05/19/18 05/20/18 15:00 23:00 07:00 Intake Total 0 ml 350 ml Output Total 2650 ml Balance 0 ml -2300 ml JM GAO MD May 20, 2018 09:22
--- NOTE | 2018-05-20 10:17 | PDOC ---
Infectious Disease Note Subjective Subjective "I'm " No fevers PPN Vital Sign Vital Signs Vital Signs Date Time Temp Pulse Resp B/P (MAP) Pulse Ox O2 Delivery O2 Flow Rate FiO2 05/20/18 08:00 Room Air 2.0 05/20/18 07:00 98.9 68 18 162/79 (106) 99 98.9 Physical Exam PHYSICAL EXAM GENERAL: Propped up in bed, alert, NAD HEENT: Seborrheic keratosis present on the forehead, neck, ears. Oral cavity moist. Dentures LUNGS: Clear anteriorly. HEART: S1, S2. ABDOMEN: Soft, bowel sounds present, nontender GENITOURINARY: Walls catheter in place. (05/13) EXTREMITIES: No edema. Flexor contractures present. NEUROLOGIC: Alert, confused, follows simple commands SKIN: No rash PIV ok Labs Lab Laboratory Tests Test 05/19/18 11:46 05/19/18 12:58 05/19/18 13:10 05/19/18 16:53 Glucose (Fingerstick) 135 mg/dL (70-99) 131 mg/dL (70-99) Urine Collection Type Unknown Urine Color Yellow Urine Clarity Clear Urine pH 7.0 Urine Specific [place] 1.010 Urine Protein Negative mg/dL (NEG-TRACE) Urine Glucose (UA) Negative mg/dL (NEG) Urine Ketones (Stick) Negative mg/dL (NEG) Urine Blood Trace (NEG) Urine Nitrite Negative (NEG) Urine Bilirubin Negative (NEG) Urine Urobilinogen Dipstick 0.2 mg/dL (0.2 mg/dL) Urine Leukocyte Esterase Moderate (NEG) Urine RBC Rare /HPF (0-2) Urine WBC 1-4 /HPF (0-4) Urine Bacteria Few /HPF (0-FEW) Procalcitonin < 0.10 ng/mL (0.00-0.10) Test 05/19/18 20:14 05/20/18 05:00 05/20/18 07:28 Glucose (Fingerstick) 137 mg/dL (70-99) 112 mg/dL (70-99) White Blood Count 17.4 x10^3/uL (4.0-11.0) Red Blood Count 5.03 x10^6/uL (4.30-5.70) Hemoglobin 13.5 g/dL (13.0-17.5) Hematocrit 38.8 % (39.0-53.0) Mean Corpuscular Volume 77 fL (79-100) Mean Corpuscular Hemoglobin 27 pg (25-35) Mean Corpuscular Hemoglobin Concent 35 g/dL (31-37) Red Cell Distribution Width 18.4 % (11.5-14.5) Platelet Count 388 x10^3/uL (140-400) Neutrophils (%) (Auto) 72 % (31-73) Lymphocytes (%) (Auto) 24 % (24-48) Monocytes (%) (Auto) 4 % (0-9) Eosinophils (%) (Auto) 1 % (0-3) Basophils (%) (Auto) 0 % (0-3) Neutrophils # (Auto) 12.4 x10^3uL (1.8-7.7) Lymphocytes # (Auto) 4.1 x10^3/uL (1.0-4.8) Monocytes # (Auto) 0.7 x10^3/uL (0.0-1.1) Eosinophils # (Auto) 0.1 x10^3/uL (0.0-0.7) Basophils # (Auto) 0.1 x10^3/uL (0.0-0.2) Sodium Level 138 mmol/L (136-145) Potassium Level 4.2 mmol/L (3.5-5.1) Chloride Level 103 mmol/L (98-107) Carbon Dioxide Level 26 mmol/L (21-32) Anion Gap 9 (6-14) Blood Urea Nitrogen 10 mg/dL (8-26) Creatinine 0.8 mg/dL (0.7-1.3) Estimated GFR (Cockcroft-Gault) 114.7 BUN/Creatinine Ratio 13 (6-20) Glucose Level 110 mg/dL (70-99) Calcium Level 8.7 mg/dL (8.5-10.1) Total Bilirubin 0.2 mg/dL (0.2-1.0) Aspartate Amino Transf (AST/SGOT) 6 U/L (15-37) Alanine Aminotransferase (ALT/SGPT) 10 U/L (16-63) Alkaline Phosphatase 80 U/L (46-116) Total Protein 6.4 g/dL (6.4-8.2) Albumin 2.4 g/dL (3.4-5.0) Albumin/Globulin Ratio 0.6 (1.0-1.7) CXR Minimal left lung base atelectasis or infiltrate. Micro BLOOD CULTURE Preliminary NO GROWTH AFTER 5 DAYS URINE CULTURE RES 1 Final Providencia rettgeri Greater than 100,000 colony forming units per mL ANTIMICROBIAL SUSCEPTIBILITY Final Comment S = Susceptible; I = Intermediate; R = Resistant P = Positive; N = Negative MICS are expressed in micrograms per mL Antibiotic RSLT#1 RSLT#2 RSLT#3 RSLT#4 Ampicillin R =R Cefazolin R>=64 Cefepime S<=0.12 Ceftriaxone S<=0.25 Cefuroxime S<=1 Ciprofloxacin S<=0.25 Gentamicin S<=1 Imipenem S =1 Levofloxacin S<=0.12 Meropenem S<=0.25 Nitrofurantoin R =256 Piperacillin/Tazobactam S<=4 Tetracycline R =R Tobramycin S<=1 Objective Assessment Fever - better Leukocytosis - on steroids, procalcitonin <0.10. repeat UA WBC 1-4; UC in process Benign prostatic hypertrophy with urinary retention, chronic indwelling - Walls catheter last changed 05/13. UTI w/ Providencia Encephalopathy Multiple sclerosis, bedbound, progressive. Seborrheic keratoses. 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 Chronic contracture, right hand. History of Escherichia coli and pseudomonas urinary tract infection in the past. Hypertension/hyperlipidemia. Lesion on the scrotum could be from underlying bullous pemphigus, on prednisone. seen by derm s/p toenail debridement, 05/15 Plan Plan of Care Rocephin (05/18) and empiric Vanc (05/19) Previously on Cefepime from 05/14-05/17 Probiotics BC neg Supportive care Decision on SP placement is pending am labs D/w Attending Co-Sign Attending Co-Sign The patient was seen and interviewed as well as examined at the bedside. The chart was reviewed. The case was discussed. Agree with the plan of care. CORNEL KOHLER APRN May 20, 2018 10:16 TEQUILA JAIMES MD May 20, 2018 14:13
[2018-05-20] MEDS: BACLOFEN 10 MG TABLET. PO SCH ×3 (10:36→20:51)
[2018-05-20] MEDS: ZINC SULFATE 220 MG CAPSULE. PO SCH (10:37)
[2018-05-20] MEDS: OXYBUTYNIN CHLORIDE 5 MG TABLET PO SCH (10:37)
[2018-05-20] MEDS: TRIAMTERENE/HCTZ 37.5/25MG TABLET. PO SCH (10:38)
[2018-05-20] MEDS: predniSONE 10 MG TABLET PO SCH (10:38)
[2018-05-20] MEDS: cefTRIAXone IV Push 1 GM VIAL. IVP SCH (10:39)
[2018-05-20] MEDS: LACTOBACILLUS RHAMNOSUS GG 1 CAPSULE. PO SCH ×2 (10:39→20:51)
[2018-05-20] MEDS: ASCORBIC ACID 500 MG TABLET PO SCH (10:39)
[2018-05-20] MEDS: NYSTATIN TOPICAL POWDER 15GM BOTTLE. TP SCH ×2 (10:40→20:52)
[2018-05-20 11:00] VITALS: BP 135/68
[2018-05-20 15:00] VITALS: BP 99/75
[2018-05-20] MEDS: ENOXAPARIN 40 MG/0.4 ML SYRINGE. SQ SCH (15:04)
[2018-05-20 19:58] VITALS: BP 144/81
[2018-05-20 23:15] VITALS: BP 153/92
[2018-05-21 01:59] LABS: BASO # 0.2 x10^3/uL (0.0-0.2); BASO % 1 % (0-3); EOS # 0.1 x10^3/uL (0.0-0.7); EOS % 0 % (0-3); HEMATOCRIT 39.9 % (39.0-53.0); HEMOGLOBIN 13.7 g/dL (13.0-17.5); LYMPH # 4.8 x10^3/uL (1.0-4.8); LYMPH % 27 % (24-48); MEAN CORPUSCULAR HEMOGLOBIN 27 pg (25-35); MEAN CORPUSCULAR HGB CONC 34 g/dL (31-37); MEAN CORPUSCULAR VOLUME 79 fL (79-100); MONO # 0.6 x10^3/uL (0.0-1.1); MONO % 4 % (0-9); NEUT # 12.3 x10^3uL (1.8-7.7); NEUT % 69 % (31-73); PLATELET COUNT 425 x10^3/uL (140-400); RED BLOOD COUNT 5.08 x10^6/uL (4.30-5.70); RED CELL DISTRIBUTION WIDTH 18.6 % (11.5-14.5)
[2018-05-21] MEDS: VANCOMYCIN 1 GM in IV NORMAL SALINE 250ML 250 ML IV SCH ×2 (02:00→16:11)
[2018-05-21 02:03] LABS: CALCIUM 8.7 mg/dL (8.5-10.1); CREATININE 0.8 mg/dL (0.7-1.3); GFR 114.7; POTASSIUM 4.7 mmol/L (3.5-5.1)
[2018-05-21 02:11] LABS: VANC TR 23.6 mcg/mL (10.0-20.0)
[2018-05-21] MEDS: AMINO AC 3%/ELECTROLYTE/GLYCER 1,000 ML IV SCH ×2 (02:49→21:14)
[2018-05-21 03:06] VITALS: BP 139/94
[2018-05-21] MEDS: VANCOMYCIN PER PHARMACY MC PRN ×3 (05:28→15:05)
[2018-05-21 07:00] VITALS: BP 191/103
[2018-05-21] MEDS: INSULIN LISPRO 300 UNITS/3 ML INSULN.PEN. SQ SCH ×3 (08:00→17:58)
[2018-05-21] MEDS: LABETALOL 20 MG/4 ML DISP.SYRIN. IVP PRN (08:40)
[2018-05-21] MEDS: BACLOFEN 10 MG TABLET. PO SCH ×3 (08:42→21:15)
[2018-05-21] MEDS: ZINC SULFATE 220 MG CAPSULE. PO SCH (08:43)
[2018-05-21] MEDS: OMEGA-3 FATTY ACIDS/FISH OIL 1,000 MG CAPSULE. PO SCH (08:43)
[2018-05-21] MEDS: predniSONE 10 MG TABLET PO SCH (08:43)
[2018-05-21] MEDS: TRIAMTERENE/HCTZ 37.5/25MG TABLET. PO SCH (08:43)
[2018-05-21] MEDS: LACTOBACILLUS RHAMNOSUS GG 1 CAPSULE. PO SCH ×2 (08:43→21:15)
[2018-05-21] MEDS: OXYBUTYNIN CHLORIDE 5 MG TABLET PO SCH (08:44)
[2018-05-21] MEDS: ASCORBIC ACID 500 MG TABLET PO SCH (08:44)
[2018-05-21] MEDS: cefTRIAXone IV Push 1 GM VIAL. IVP SCH (08:50)
[2018-05-21] MEDS: NYSTATIN TOPICAL POWDER 15GM BOTTLE. TP SCH ×2 (08:54→21:15)
[2018-05-21] MEDS: KETOCONAZOLE 2% TOPICAL CREAM 15GM TUBE. TP SCH (08:55)
[2018-05-21 11:00] VITALS: BP 128/89
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
--- NOTE | 2018-05-21 11:55 | PDOC ---
PROGRESS NOTES Chief Complaint Chief Complaint Metabolic encephalopathy cOMPLIACTED UTI, chronic indwelling Walls catheter-changed 2 weeks ago per ( childcare attendant) Multiple sclerosis, bedbound Benign prostatic hypertrophy with urinary retention, chronic indwelling Walls catheter changed 2 weeks ago. GNR UTI Providencia rettgeri .advanced Multiple sclerosis, bedbound, progressive. Sepsis POA with no organ dysfunction Seborrheic dermatitis face bullous pemphigoid. mod skin atrophy Chronic contracture of the right hand Urinary retention- HYpomagnesemia - severe protein-caloric malnutrition cont vanc iv , rocephin Probiotics pcxr placement pending ID following STATES HE Does NOT LIKE THE food here , CONFUSION moderate STATES HE IS , BUT LAUGHS at his VDRL ORDERED Minimal left lung base atelectasis or infiltrate. Micro BLOOD CULTURE Preliminary NO GROWTH AFTER 5 DAYS URINE CULTURE RES 1 Final Providencia rettgeri Greater than 100,000 colony forming units per mL ANTIMICROBIAL SUSCEPTIBILITY Final Comment S = Susceptible; I = Intermediate; R = Resistant P = Positive; N = Negative MICS are expressed in micrograms per mL Antibiotic RSLT#1 RSLT#2 RSLT#3 RSLT#4 Ampicillin R =R Cefazolin R>=64 Cefepime S<=0.12 Ceftriaxone S<=0.25 Cefuroxime S<=1 Ciprofloxacin S<=0.25 Gentamicin S<=1 Imipenem S =1 Levofloxacin S<=0.12 Meropenem S<=0.25 Nitrofurantoin R =256 Piperacillin/Tazobactam S<=4 Tetracycline R =R History of Present Illness History of Present Illness IV fluid for sepsis start iv nutrition wound care, consider air bed, start vit C and zinc Rocephin Vitals Vitals Vital Signs Date Time Temp Pulse Resp B/P (MAP) Pulse Ox O2 Delivery O2 Flow Rate FiO2 05/21/18 11:00 98.5 63 18 128/89 (102) 99 Nasal Cannula 2.0 98.5 Physical Exam Physical Exam GENERAL: Propped up in bed, alert, NAD HEENT: Seborrheic keratosis present on the forehead, neck, ears. Oral cavity moist. Dentures LUNGS: Clear anteriorly. HEART: S1, S2. ABDOMEN: Soft, bowel sounds present, nontender GENITOURINARY: Walls catheter in place. (05/13) EXTREMITIES: No edema. Flexor contractures present. NEUROLOGIC: Alert, confused, follows simple commands SKIN: No rash PIV ok General: Alert, Cooperative, mild distress Heart: Regular rate, Normal S1, Normal S2, No murmurs Lungs: Clear, Wheezing Abdomen: Normal bowel sounds, Soft, No tenderness, No hepatosplenomegaly, No masses Extremities: No clubbing, No cyanosis, No edema, No tenderness/swelling Skin: No rashes, Other (old bullae legs that has ruptured and left fresh new skin in the dermis area) Labs LABS Laboratory Tests Test 05/20/18 16:42 05/20/18 20:13 05/21/18 01:40 05/21/18 07:21 Glucose (Fingerstick) 170 mg/dL (70-99) 176 mg/dL (70-99) 101 mg/dL (70-99) White Blood Count 18.0 x10^3/uL (4.0-11.0) Red Blood Count 5.08 x10^6/uL (4.30-5.70) Hemoglobin 13.7 g/dL (13.0-17.5) Hematocrit 39.9 % (39.0-53.0) Mean Corpuscular Volume 79 fL (79-100) Mean Corpuscular Hemoglobin 27 pg (25-35) Mean Corpuscular Hemoglobin Concent 34 g/dL (31-37) Red Cell Distribution Width 18.6 % (11.5-14.5) Platelet Count 425 x10^3/uL (140-400) Neutrophils (%) (Auto) 69 % (31-73) Lymphocytes (%) (Auto) 27 % (24-48) Monocytes (%) (Auto) 4 % (0-9) Eosinophils (%) (Auto) 0 % (0-3) Basophils (%) (Auto) 1 % (0-3) Neutrophils # (Auto) 12.3 x10^3uL (1.8-7.7) Lymphocytes # (Auto) 4.8 x10^3/uL (1.0-4.8) Monocytes # (Auto) 0.6 x10^3/uL (0.0-1.1) Eosinophils # (Auto) 0.1 x10^3/uL (0.0-0.7) Basophils # (Auto) 0.2 x10^3/uL (0.0-0.2) Sodium Level 137 mmol/L (136-145) Potassium Level 4.7 mmol/L (3.5-5.1) Chloride Level 100 mmol/L (98-107) Carbon Dioxide Level 28 mmol/L (21-32) Anion Gap 9 (6-14) Blood Urea Nitrogen 11 mg/dL (8-26) Creatinine 0.8 mg/dL (0.7-1.3) Estimated GFR (Cockcroft-Gault) 114.7 Glucose Level 119 mg/dL (70-99) Calcium Level 8.7 mg/dL (8.5-10.1) Vancomycin Level Trough 23.6 mcg/mL (10.0-20.0) Vancomycin Last Dose Date Vancomycin Last Dose Time Assessment and Plan Assessmemt and Plan Problems Medical Problems: (1) Decubitus ulcer Status: Acute (2) Hx of multiple sclerosis Status: Acute (3) Multiple sclerosis Status: Acute (4) Urinary retention Status: Acute (5) UTI (urinary tract infection) due to urinary indwelling catheter Status: Acute Comment Review of Relevant I have reviewed the following items rahel (where applicable) has been applied. Labs Laboratory Tests Test 05/19/18 12:58 05/19/18 13:10 05/19/18 16:53 05/19/18 20:14 Urine Collection Type Unknown Urine Color Yellow Urine Clarity Clear Urine pH 7.0 Urine Specific [place] 1.010 Urine Protein Negative mg/dL (NEG-TRACE) Urine Glucose (UA) Negative mg/dL (NEG) Urine Ketones (Stick) Negative mg/dL (NEG) Urine Blood Trace (NEG) Urine Nitrite Negative (NEG) Urine Bilirubin Negative (NEG) Urine Urobilinogen Dipstick 0.2 mg/dL (0.2 mg/dL) Urine Leukocyte Esterase Moderate (NEG) Urine RBC Rare /HPF (0-2) Urine WBC 1-4 /HPF (0-4) Urine Bacteria Few /HPF (0-FEW) Procalcitonin < 0.10 ng/mL (0.00-0.10) Glucose (Fingerstick) 131 mg/dL (70-99) 137 mg/dL (70-99) Test 05/20/18 05:00 05/20/18 07:28 05/20/18 11:06 11/4/18 16:42 White Blood Count 17.4 x10^3/uL (4.0-11.0) Red Blood Count 5.03 x10^6/uL (4.30-5.70) Hemoglobin 13.5 g/dL (13.0-17.5) Hematocrit 38.8 % (39.0-53.0) Mean Corpuscular Volume 77 fL (79-100) Mean Corpuscular Hemoglobin 27 pg (25-35) Mean Corpuscular Hemoglobin Concent 35 g/dL (31-37) Red Cell Distribution Width 18.4 % (11.5-14.5) Platelet Count 388 x10^3/uL (140-400) Neutrophils (%) (Auto) 72 % (31-73) Lymphocytes (%) (Auto) 24 % (24-48) Monocytes (%) (Auto) 4 % (0-9) Eosinophils (%) (Auto) 1 % (0-3) Basophils (%) (Auto) 0 % (0-3) Neutrophils # (Auto) 12.4 x10^3uL (1.8-7.7) Lymphocytes # (Auto) 4.1 x10^3/uL (1.0-4.8) Monocytes # (Auto) 0.7 x10^3/uL (0.0-1.1) Eosinophils # (Auto) 0.1 x10^3/uL (0.0-0.7) Basophils # (Auto) 0.1 x10^3/uL (0.0-0.2) Sodium Level 138 mmol/L (136-145) Potassium Level 4.2 mmol/L (3.5-5.1) Chloride Level 103 mmol/L (98-107) Carbon Dioxide Level 26 mmol/L (21-32) Anion Gap 9 (6-14) Blood Urea Nitrogen 10 mg/dL (8-26) Creatinine 0.8 mg/dL (0.7-1.3) Estimated GFR (Cockcroft-Gault) 114.7 BUN/Creatinine Ratio 13 (6-20) Glucose Level 110 mg/dL (70-99) Calcium Level 8.7 mg/dL (8.5-10.1) Total Bilirubin 0.2 mg/dL (0.2-1.0) Aspartate Amino Transf (AST/SGOT) 6 U/L (15-37) Alanine Aminotransferase (ALT/SGPT) 10 U/L (16-63) Alkaline Phosphatase 80 U/L (46-116) Total Protein 6.4 g/dL (6.4-8.2) Albumin 2.4 g/dL (3.4-5.0) Albumin/Globulin Ratio 0.6 (1.0-1.7) Glucose (Fingerstick) 112 mg/dL (70-99) 117 mg/dL (70-99) 170 mg/dL (70-99) Test 05/20/18 20:13 05/21/18 01:40 05/21/18 07:21 Glucose (Fingerstick) 176 mg/dL (70-99) 101 mg/dL (70-99) White Blood Count 18.0 x10^3/uL (4.0-11.0) Red Blood Count 5.08 x10^6/uL (4.30-5.70) Hemoglobin 13.7 g/dL (13.0-17.5) Hematocrit 39.9 % (39.0-53.0) Mean Corpuscular Volume 79 fL (79-100) Mean Corpuscular Hemoglobin 27 pg (25-35) Mean Corpuscular Hemoglobin Concent 34 g/dL (31-37) Red Cell Distribution Width 18.6 % (11.5-14.5) Platelet Count 425 x10^3/uL (140-400) Neutrophils (%) (Auto) 69 % (31-73) Lymphocytes (%) (Auto) 27 % (24-48) Monocytes (%) (Auto) 4 % (0-9) Eosinophils (%) (Auto) 0 % (0-3) Basophils (%) (Auto) 1 % (0-3) Neutrophils # (Auto) 12.3 x10^3uL (1.8-7.7) Lymphocytes # (Auto) 4.8 x10^3/uL (1.0-4.8) Monocytes # (Auto) 0.6 x10^3/uL (0.0-1.1) Eosinophils # (Auto) 0.1 x10^3/uL (0.0-0.7) Basophils # (Auto) 0.2 x10^3/uL (0.0-0.2) Sodium Level 137 mmol/L (136-145) Potassium Level 4.7 mmol/L (3.5-5.1) Chloride Level 100 mmol/L (98-107) Carbon Dioxide Level 28 mmol/L (21-32) Anion Gap 9 (6-14) Blood Urea Nitrogen 11 mg/dL (8-26) Creatinine 0.8 mg/dL (0.7-1.3) Estimated GFR (Cockcroft-Gault) 114.7 Glucose Level 119 mg/dL (70-99) Calcium Level 8.7 mg/dL (8.5-10.1) Vancomycin Level Trough 23.6 mcg/mL (10.0-20.0) Vancomycin Last Dose Date Vancomycin Last Dose Time Laboratory Tests Test 05/20/18 16:42 05/20/18 20:13 05/21/18 01:40 05/21/18 07:21 Glucose (Fingerstick) 170 mg/dL (70-99) 176 mg/dL (70-99) 101 mg/dL (70-99) White Blood Count 18.0 x10^3/uL (4.0-11.0) Red Blood Count 5.08 x10^6/uL (4.30-5.70) Hemoglobin 13.7 g/dL (13.0-17.5) Hematocrit 39.9 % (39.0-53.0) Mean Corpuscular Volume 79 fL (79-100) Mean Corpuscular Hemoglobin 27 pg (25-35) Mean Corpuscular Hemoglobin Concent 34 g/dL (31-37) Red Cell Distribution Width 18.6 % (11.5-14.5) Platelet Count 425 x10^3/uL (140-400) Neutrophils (%) (Auto) 69 % (31-73) Lymphocytes (%) (Auto) 27 % (24-48) Monocytes (%) (Auto) 4 % (0-9) Eosinophils (%) (Auto) 0 % (0-3) Basophils (%) (Auto) 1 % (0-3) Neutrophils # (Auto) 12.3 x10^3uL (1.8-7.7) Lymphocytes # (Auto) 4.8 x10^3/uL (1.0-4.8) Monocytes # (Auto) 0.6 x10^3/uL (0.0-1.1) Eosinophils # (Auto) 0.1 x10^3/uL (0.0-0.7) Basophils # (Auto) 0.2 x10^3/uL (0.0-0.2) Sodium Level 137 mmol/L (136-145) Potassium Level 4.7 mmol/L (3.5-5.1) Chloride Level 100 mmol/L (98-107) Carbon Dioxide Level 28 mmol/L (21-32) Anion Gap 9 (6-14) Blood Urea Nitrogen 11 mg/dL (8-26) Creatinine 0.8 mg/dL (0.7-1.3) Estimated GFR (Cockcroft-Gault) 114.7 Glucose Level 119 mg/dL (70-99) Calcium Level 8.7 mg/dL (8.5-10.1) Vancomycin Level Trough 23.6 mcg/mL (10.0-20.0) Vancomycin Last Dose Date Vancomycin Last Dose Time Microbiology 05/13/18 Blood Culture - Final, Complete NO GROWTH AFTER 5 DAYS 05/13/18 Urine Culture - Final, Complete 05/13/18 Urine Culture Result 1 (RERE) - Final, Complete 05/13/18 Antimicrobic Susceptibility - Final, Complete Medications Current Medications Sodium Chloride 1,000 ml @ 1,000 mls/hr 1X ONCE IV Last administered on 05/13at 05:08; Start 05/13/18 at 04:30; Stop 05/13/18 at 05:29; Status DC Ceftriaxone Sodium 50 ml @ 100 mls/hr 1X ONCE IV Last administered on at 05:48; Start 05/13/18 at 06:00; Stop 05/13/18 at 06:29; Status DC Ondansetron HCl (Zofran) 4 mg PRN Q8HRS PRN IV NAUSEA/VOMITING 1st choice; Start 05/13/18 at 05:45; Stop 05/13/18 at 08:47; Status DC Fentanyl Citrate (Fentanyl 2ml Vial) 50 mcg PRN Q2HR PRN IV SEVERE PAIN; Start 05/13/18 at 05:45; Stop 05/14/18 at 05:44; Status DC Insulin Human Lispro (HumaLOG) 0-5 UNITS TIDWMEALS SQ ; Start 05/13/18 at 08:00 ; Stop 05/13/18 at 08:47; Status DC Dextrose (Dextrose 50%-Water Syringe) 12.5 gm PRN Q15MIN PRN IV SEE COMMENTS; Start 05/13/18 at 05:45 Ondansetron HCl (Zofran) 4 mg PRN Q6HRS PRN IV NAUSEA/VOMITING 1st choice; Start 05/13/18 at 09:00 Ceftriaxone Sodium 1 gm/ Dextrose 50 ml @ 100 mls/hr Q24H IV ; Start 05/13/18 at 08:45; Status UNV Acetaminophen (Tylenol) 500 mg PRN Q6HRS PRN PO MILD PAIN / TEMP Last administered on 05/19/18at 20:33; Start 05/13/18 at 08:45 Insulin Human Lispro (HumaLOG) 0-9 UNITS TIDWMEALS SQ Last administered on at 09:15; Start 05/13/18 at 12:00 Dextrose (Dextrose 50%-Water Syringe) 12.5 gm PRN Q15MIN PRN IV SEE COMMENTS; Start 05/13/18 at 08:45; Status UNV Magnesium Sulfate/ Dextrose 100 ml @ 100 mls/hr 1X ONCE IV Last administered on 05/13/18at 13:03; Start 05/13/18 at 09:30; Stop 05/13/18 at 10:29; Status DC Prednisone (Prednisone) 25 mg DAILY PO Last administered on 05/21/18at 08:43; Start 05/13/18 at 15:00 Triamterene/HCTZ (Maxzide 37.5/ 25mg) 1 tab DAILY PO Last administered on at 08:43; Start 05/13/18 at 09:00 Baclofen (Lioresal) 20 mg DAILYWBKFT PO Last administered on 05/13/18at 12:56; Start 05/13/18 at 12:00; Stop 05/13/18 at 16:21; Status DC Non-Formulary Medication (Dapsone ) 25 mg DAILY PO ; Start 05/13/18 at 09:00; Stop 05/13/18 at 14:33; Status DC Metformin HCl (Glucophage) 500 mg DAILYWBKFT PO ; Start 05/13/18 at 10:00; Stop 05/13/18 at 16:20; Status DC Fish Oil (Fish Oil) 1,000 mg DAILY PO Last administered on 05/21/18 08:43; Start 05/13/18 at 10:00 Oxybutynin Chloride (Ditropan) 5 mg DAILY PO Last administered on 05/21/18 08: 44; Start 05/13/18 at 10:00 Ceftriaxone Sodium (Rocephin) 1 gm Q24H IVP Last administered on 05/14/18 06: 26; Start 05/14/18 at 06:00; Stop 05/14/18 at 09:14; Status DC Sodium Chloride 1,000 ml @ 100 mls/hr Q10H IV Last administered on 05/14/18 08:30; Start 05/13/18 at 12:30; Stop 05/14/18 at 16:11; Status DC Enoxaparin Sodium (Lovenox 40mg Syringe) 40 mg Q24H SQ Last administered on 05/20/18at 15:04; Start 05/13/18 at 13:00 Baclofen (Lioresal) 50 mg TID PO ; Start 05/13/18 at 21:00; Stop 05/13/18 at 21:00; Status DC Baclofen (Lioresal) 50 mg TID PO Last administered on 05/21/18at 08:42; Start 05/13/18 at 21:00 Linezolid (Zyvox) 600 mg BID PO Last administered on 05/14/18at 11:22; Start 05/14/18 at 10:00; Stop 05/15/18 at 09:19; Status DC Nystatin (Nystop) 1 frederick BID TP Last administered on 05/21/18at 08:54; Start at 11:00 Cefepime HCl 1 gm/ Dextrose 50 ml @ 100 mls/hr Q8HRS IV ; Start 05/14/18 at 14 :00; Status UNV Cefepime HCl (Maxipime) 1 gm Q8HRS IVP Last administered on 05/15/18at 05:39; Start 05/14/18 at 11:00; Stop 05/15/18 at 09:20; Status DC Ascorbic Acid (Vitamin C) 500 mg DAILY PO Last administered on 05/21/18 08:44 ; Start 05/14/18 at 14:00 Zinc Sulfate (Orazinc) 220 mg DAILY PO Last administered on 05/21/18 08:43; Start 05/14/18 at 14:00 Dextrose/Sodium Chloride 1,000 ml @ 100 mls/hr Q10H IV Last administered on at 08:44; Start 05/14/18 at 16:15; Stop 05/19/18 at 16:27; Status DC Insulin Glargine (Lantus) 6 units 1X ONCE SQ Last administered on 05/14/18 17:21; Start 05/14/18 at 16:15; Stop 05/14/18 at 16:16; Status DC Influenza Virus Vaccine (Afluria Trivalent 8984-0940 Syringe) 0.5 ml ONCE ONCE VAX IM Last administered on 05/16/18at 15:07; Start 05/15/18 at 09:00; Stop 05/15/18 at 09:01; Status DC Ketoconazole (Nizoral 2% Topical) 1 frederick DAILY TP Last administered on 09:00; Start 05/14/18 at 18:00 Cefepime HCl (Maxipime) 1 gm Q12HR IVP Last administered on 05/17/18at 14:04; Start 05/15/18 at 21:00; Stop 05/17/18 at 17:55; Status DC Lactobacillus Rhamnosus (Culturelle) 1 cap BID PO Last administered on 08:43; Start 05/15/18 at 21:00 Ceftriaxone Sodium 1 gm/ Dextrose 50 ml @ 100 mls/hr Q24H IV ; Start 05/17/18 at 18:00; Status UNV Ceftriaxone Sodium (Rocephin) 1 gm DAILY IVP Last administered on 05/21/18at 08: 50; Start 05/18/18 at 09:00 Labetalol HCl (Normodyne Iv Push) 10 mg PRN Q4HRS PRN IVP HYPERTENSION, SEE COMMENTS Last administered on 05/21/18 08:40; Start 05/18/18 at 01:30 Amino Acids/ Glycerin/ Electrolytes 1,000 ml @ 50 mls/hr Q20H IV Last administered on 05/21/18 02:49; Start 05/19/18 at 11:15 Vancomycin HCl (Vanco Per Pharmacy) 1 each PRN DAILY PRN MC SEE COMMENTS Last administered on 11/5/18at 05:36; Start 05/19/18 at 12:30 Vancomycin HCl 2 gm/Sodium Chloride 500 ml @ 250 mls/hr 1X ONCE IV Last administered on 05/19/18at 14:19; Start 05/19/18 at 13:00; Stop 05/19/18 at 14:59 ; Status DC Vancomycin HCl 1 gm/Sodium Chloride 250 ml @ 250 mls/hr Q12H IV Last administered on 05/20/18at 15:03; Start 05/20/18 at 02:00; Stop 05/21/18 at 05:22 ; Status DC Vancomycin HCl (Vancomycin Trough Level) 1 each 1X ONCE MC Last administered on 05/21/18at 01:30; Start 05/21/18 at 01:30; Stop 05/21/18 at 01:31; Status DC Vancomycin HCl (Vancomycin Trough Level) 1 each 1X ONCE MC ; Start 05/21/18 at 14:00; Stop 05/21/18 at 14:01 Active Scripts Active Cephalexin 500 Mg Tablet 1 Tab PO QID Cipro (Ciprofloxacin Hcl) 500 Mg Tablet 1 Tab PO BID 5 Days Reported Fish Oil + D3 Softgel ([place]-3S/Dha/Epa/Fish Oil/D3) 1 Each Capsule 1 Each PO DAILY Prednisone 20 Mg Tablet 25 Mg PO DAILY Baclofen 20 Mg Tablet 50 Tab PO TID Oxybutynin Chloride Er (Oxybutynin Chloride) 5 Mg Tab.er.24 1 Tab PO DAILY Vitals/I & O Vital Sign - Last 24 Hours 05/20/18 05/20/18 05/20/18 05/20/18 15:00 19:58 20:00 23:15 Temp 98.5 97.4 97.7 98.5 97.4 97.7 Pulse 78 80 67 Resp 18 18 20 B/P (MAP) 99/75 (83) 144/81 (102) 153/92 (112) Pulse Ox 100 98 98 O2 Delivery Nasal Cannula Nasal Cannula Room Air Nasal Cannula O2 Flow Rate 2.0 2.0 2.0 05/21/18 05/21/18 05/21/18 05/21/18 03:06 07:00 07:58 08:40 Temp 97.8 97.8 97.8 97.8 Pulse 77 80 80 Resp 20 20 B/P (MAP) 139/94 (109) 191/103 (132) 191/103 Pulse Ox 99 97 O2 Delivery Nasal Cannula Nasal Cannula Room Air O2 Flow Rate 2.0 2.0 05/21/18 11:00 Temp 98.5 98.5 Pulse 63 Resp 18 B/P (MAP) 128/89 (102) Pulse Ox 99 O2 Delivery Nasal Cannula O2 Flow Rate 2.0 Intake and Output 05/20/18 05/20/18 05/21/18 15:00 23:00 07:00 Intake Total 750 ml Output Total 500 ml 550 ml 1625 ml Balance -500 ml -550 ml -875 ml JM GAO MD May 21, 2018 11:55
[2018-05-21] MEDS: ENOXAPARIN 40 MG/0.4 ML SYRINGE. SQ SCH (12:48)
[2018-05-21 14:49] LABS: VANC TR 16.1 mcg/mL (10.0-20.0)
[2018-05-21 15:00] VITALS: BP 125/85
[2018-05-21] MEDS: POLYETHYLENE GLYCOL 3350 17 GM PACKET. PO SCH (15:13)
--- NOTE | 2018-05-21 17:56 | PDOC ---
PROGRESS NOTES Assessment Assessment IMPRESSION: Metabolic encephalopathy. Confusion. Sepsis. UTI. Quadriplegia. MS, off treatment x 7 years,. NANCI virus positive. Neurogenic bladder. HTN. DM. Cerebral global atrophy. RECOMMENDATIONS/PLAN: Treat medical diseases. OT/PT. Discussed with his at bedside on 05/21/18. Past Medical History Cardiovascular: HTN CENTRAL NERVOUS SYSTEM: Other (primary progressive multiple sclerosis) GI: Other (hiatal hernia, gastroparesis, ileus) Renal/: Benign prostatic enlarg., Other (chronic urinary retention with indwelling Walls) Past Surgical History Hernia Repair Family History Hypertension, Other (multiple sclerosis) Social History Social History , living situation as above, no tobacco or alcohol ALLERGY: Reviewed. MEDICATIONS: Refer to MAR REVIEW OF SYSTEMS: Constitutional: No malnutrition, weight loss, cachexia. Head: No traumatic brain or head injury. Skin: No edema, or rash. Ear: No infection. Eyes: No vision loss, or diplopia. Nose: No bleeding or purulent discharges. Hearing: Hearing loss. Neck: No injury. Cardiac: HTN Pulmonary: Pneumonia. GI: No GI Ulcer, GI bleeding Urinary/genital: UTI. Endocrine: Diabetes Mellitus. Skeletomuscular: generalized weakness. Neurological: see HP. Psychiatric: Denies drug use/abuse. Otherwise, not [id number] review of systems. PHYSICAL EXAMINATION: General appearance in chronic on subacute distress. HEENT: Normocephalic and nontraumatic. Eyes, nose, ears, and throat are unremarkable. Hearing decrease. Neck is supple. No lymphadenopathy. No Crepitus. Cardiovascular: S1, S2, regular rate and rhythm. Pulmonary: Clear to auscultation bilaterally. Abdomen: Bowel sounds are positive. Extremities: No rash, lesions, or edema. Restriction of range of motion NEUROLOGICAL EXAMINATION: Awake from time to time. Not oriented to time, place but knew person. PERRL. EOMI. CN: no focal findings. Muscle tone: Fluctuated. Muscle strength: 3 UE, minimal movements in LE noted. DTR: 1 Plantar reflex: Neutral response bilaterally Gait: not able to walk. Sensory exam: no acute abnormal findings. No other acute cerebellar signs elicited. F-T-N test not performed due to not follow commands. Objective Objective Vital Signs Date Time Temp Pulse Resp B/P (MAP) Pulse Ox O2 Delivery O2 Flow Rate FiO2 05/21/18 15:00 97.9 72 18 125/85 (98) 99 Nasal Cannula 2.0 97.9 Intake and Output 05/21/18 07:00 Intake Total 750 ml Output Total 2675 ml Balance -1925 ml Intake Oral 750 ml Output Urine Total 2675 ml Vitals Signs Vitals VS - Last 72 Hours, by Label Date Time Temp Pulse Resp B/P (MAP) Pulse Ox O2 Delivery O2 Flow Rate FiO2 05/21/18 15:00 97.9 72 18 125/85 (98) 99 Nasal Cannula 2.0 97.9 05/21/18 11:00 98.5 63 18 128/89 (102) 99 Nasal Cannula 2.0 98.5 05/21/18 08:40 80 191/103 05/21/18 07:58 Room Air 05/21/18 07:00 97.8 80 20 191/103 (132) 97 Nasal Cannula 2.0 97.8 05/21/18 03:06 97.8 77 20 139/94 (109) 99 Nasal Cannula 2.0 97.8 05/20/18 23:15 97.7 67 20 153/92 (112) 98 Nasal Cannula 2.0 97.7 05/20/18 20:00 Room Air 05/20/18 19:58 97.4 80 18 144/81 (102) 98 Nasal Cannula 2.0 97.4 05/20/18 15:00 98.5 78 18 99/75 (83) 100 Nasal Cannula 2.0 98.5 05/20/18 11:00 98.7 75 18 135/68 (90) 92 Nasal Cannula 2.0 98.7 05/20/18 08:00 Room Air 2.0 05/20/18 07:00 98.9 68 18 162/79 (106) 99 Nasal Cannula 2.0 98.9 Laboratory Laboratory Laboratory Tests Test 05/20/18 20:13 05/21/18 01:40 05/21/18 07:21 05/21/18 12:11 Glucose (Fingerstick) 176 mg/dL (70-99) 101 mg/dL (70-99) 149 mg/dL (70-99) White Blood Count 18.0 x10^3/uL (4.0-11.0) Red Blood Count 5.08 x10^6/uL (4.30-5.70) Hemoglobin 13.7 g/dL (13.0-17.5) Hematocrit 39.9 % (39.0-53.0) Mean Corpuscular Volume 79 fL (79-100) Mean Corpuscular Hemoglobin 27 pg (25-35) Mean Corpuscular Hemoglobin Concent 34 g/dL (31-37) Red Cell Distribution Width 18.6 % (11.5-14.5) Platelet Count 425 x10^3/uL (140-400) Neutrophils (%) (Auto) 69 % (31-73) Lymphocytes (%) (Auto) 27 % (24-48) Monocytes (%) (Auto) 4 % (0-9) Eosinophils (%) (Auto) 0 % (0-3) Basophils (%) (Auto) 1 % (0-3) Neutrophils # (Auto) 12.3 x10^3uL (1.8-7.7) Lymphocytes # (Auto) 4.8 x10^3/uL (1.0-4.8) Monocytes # (Auto) 0.6 x10^3/uL (0.0-1.1) Eosinophils # (Auto) 0.1 x10^3/uL (0.0-0.7) Basophils # (Auto) 0.2 x10^3/uL (0.0-0.2) Sodium Level 137 mmol/L (136-145) Potassium Level 4.7 mmol/L (3.5-5.1) Chloride Level 100 mmol/L (98-107) Carbon Dioxide Level 28 mmol/L (21-32) Anion Gap 9 (6-14) Blood Urea Nitrogen 11 mg/dL (8-26) Creatinine 0.8 mg/dL (0.7-1.3) Estimated GFR (Cockcroft-Gault) 114.7 Glucose Level 119 mg/dL (70-99) Calcium Level 8.7 mg/dL (8.5-10.1) Vancomycin Level Trough 23.6 mcg/mL (10.0-20.0) Vancomycin Last Dose Date Vancomycin Last Dose Time Treponema pallidum Antibody Nonreactive (Nonreactive) Test 05/21/18 14:15 05/21/18 17:29 Vancomycin Level Trough 16.1 mcg/mL (10.0-20.0) Vancomycin Last Dose Date Unk Vancomycin Last Dose Time Unk Glucose (Fingerstick) 210 mg/dL (70-99) Microbiology 05/13/18 Blood Culture - Final, Complete NO GROWTH AFTER 5 DAYS 05/13/18 Urine Culture - Final, Complete 05/13/18 Urine Culture Result 1 (RERE) - Final, Complete 05/13/18 Antimicrobic Susceptibility - Final, Complete Medication Medications Current Medications Polyethylene Glycol (miraLAX PACKET) 17 gm DAILY PO Last administered on at 15:13; Start 05/21/18 at 14:30 Vancomycin HCl (Vancomycin Trough Level) 1 each 1X ONCE MC Last administered on 05/21/18at 01:30; Start 05/21/18 at 01:30; Stop 05/21/18 at 01:31; Status DC Vancomycin HCl (Vancomycin Trough Level) 1 each 1X ONCE MC Last administered on 05/21/18at 14:00; Start 05/21/18 at 14:00; Stop 05/21/18 at 14:01; Status DC Vancomycin HCl 1 gm/Sodium Chloride 250 ml @ 250 mls/hr Q24H IV Last administered on 05/21/18at 16:11; Start 05/21/18 at 16:00 Comment Review of Relevant I have reviewed the following items rahel (where applicable) has been applied. ALLI WAGONER MD May 21, 2018 17:56
[2018-05-21 19:40] VITALS: BP 165/93
[2018-05-21 23:45] VITALS: BP 139/70
[2018-05-22 03:41] VITALS: BP 157/79
[2018-05-22 05:17] LABS: BASO # 0.1 x10^3/uL (0.0-0.2); BASO % 0 % (0-3); EOS # 0.1 x10^3/uL (0.0-0.7); EOS % 1 % (0-3); HEMATOCRIT 41.1 % (39.0-53.0); HEMOGLOBIN 14.3 g/dL (13.0-17.5); LYMPH # 5.8 x10^3/uL (1.0-4.8); LYMPH % 31 % (24-48); MEAN CORPUSCULAR HEMOGLOBIN 27 pg (25-35); MEAN CORPUSCULAR HGB CONC 35 g/dL (31-37); MEAN CORPUSCULAR VOLUME 78 fL (79-100); MONO # 0.7 x10^3/uL (0.0-1.1); MONO % 4 % (0-9); NEUT # 11.9 x10^3uL (1.8-7.7); NEUT % 64 % (31-73); PLATELET COUNT 408 x10^3/uL (140-400); RED BLOOD COUNT 5.29 x10^6/uL (4.30-5.70); RED CELL DISTRIBUTION WIDTH 18.5 % (11.5-14.5); WHITE BLOOD COUNT 18.6 x10^3/uL (4.0-11.0)
[2018-05-22 05:34] LABS: CREATININE 0.7 mg/dL (0.7-1.3); GFR 133.8; POTASSIUM 4.8 mmol/L (3.5-5.1)
[2018-05-22 07:35] VITALS: BP 151/67
[2018-05-22] MEDS: INSULIN LISPRO 300 UNITS/3 ML INSULN.PEN. SQ SCH ×3 (08:00→18:02)
[2018-05-22] MEDS: ASCORBIC ACID 500 MG TABLET PO SCH (09:05)
[2018-05-22] MEDS: ZINC SULFATE 220 MG CAPSULE. PO SCH (09:05)
[2018-05-22] MEDS: OMEGA-3 FATTY ACIDS/FISH OIL 1,000 MG CAPSULE. PO SCH (09:05)
[2018-05-22] MEDS: OXYBUTYNIN CHLORIDE 5 MG TABLET PO SCH (09:06)
[2018-05-22] MEDS: predniSONE 10 MG TABLET PO SCH (09:06)
[2018-05-22] MEDS: TRIAMTERENE/HCTZ 37.5/25MG TABLET. PO SCH (09:06)
[2018-05-22] MEDS: LACTOBACILLUS RHAMNOSUS GG 1 CAPSULE. PO SCH ×2 (09:06→19:40)
[2018-05-22] MEDS: BACLOFEN 10 MG TABLET. PO SCH ×3 (09:07→19:40)
[2018-05-22] MEDS: NYSTATIN TOPICAL POWDER 15GM BOTTLE. TP SCH ×2 (09:08→19:41)
[2018-05-22] MEDS: cefTRIAXone IV Push 1 GM VIAL. IVP SCH (09:08)
[2018-05-22] MEDS: POLYETHYLENE GLYCOL 3350 17 GM PACKET. PO SCH (09:08)
[2018-05-22] MEDS: KETOCONAZOLE 2% TOPICAL CREAM 15GM TUBE. TP SCH (09:09)
--- NOTE | 2018-05-22 09:15 | PDOC ---
PROGRESS NOTES Chief Complaint Chief Complaint Metabolic encephalopathy cOMPLIACTED UTI, chronic indwelling Walls catheter-changed 2 weeks ago per ( rn managed care) Multiple sclerosis, bedbound Benign prostatic hypertrophy with urinary retention, chronic indwelling Walls catheter changed 2 weeks ago. GNR UTI Providencia rettgeri .advanced Multiple sclerosis, bedbound, progressive. Sepsis POA with no organ dysfunction Seborrheic dermatitis face bullous pemphigoid. mod skin atrophy Chronic contracture of the right hand Urinary retention- HYpomagnesemia - severe protein-caloric malnutrition cont vanc iv , rocephin Probiotics pcxr placement pending ID following STATES HE Does NOT LIKE THE food here , CONFUSION moderate STATES HE IS , BUT LAUGHS at his VDRL ORDERED home with home health today Minimal left lung base atelectasis or infiltrate. Micro BLOOD CULTURE Preliminary NO GROWTH AFTER 5 DAYS URINE CULTURE RES 1 Final Providencia rettgeri Greater than 100,000 colony forming units per mL ANTIMICROBIAL SUSCEPTIBILITY Final Comment S = Susceptible; I = Intermediate; R = Resistant P = Positive; N = Negative MICS are expressed in micrograms per mL Antibiotic RSLT#1 RSLT#2 RSLT#3 RSLT#4 Ampicillin R =R Cefazolin R>=64 Cefepime S<=0.12 Ceftriaxone S<=0.25 Cefuroxime S<=1 Ciprofloxacin S<=0.25 Gentamicin S<=1 Imipenem S =1 Levofloxacin S<=0.12 Meropenem S<=0.25 Nitrofurantoin R =256 Piperacillin/Tazobactam S<=4 Tetracycline R =R History of Present Illness History of Present Illness IV fluid for sepsis start iv nutrition wound care, consider air bed, start vit C and zinc Rocephin Vitals Vitals Vital Signs Date Time Temp Pulse Resp B/P (MAP) Pulse Ox O2 Delivery O2 Flow Rate FiO2 05/22/18 07:35 97.8 66 17 151/67 (95) 100 Nasal Cannula 2.0 97.8 Physical Exam Physical Exam GENERAL: Propped up in bed, alert, NAD HEENT: Seborrheic keratosis present on the forehead, neck, ears. Oral cavity moist. Dentures LUNGS: Clear anteriorly. HEART: S1, S2. ABDOMEN: Soft, bowel sounds present, nontender GENITOURINARY: Walls catheter in place. (05/13) EXTREMITIES: No edema. Flexor contractures present. NEUROLOGIC: Alert, confused, follows simple commands SKIN: No rash PIV ok General: Alert, Cooperative, mild distress Heart: Regular rate, Normal S1, Normal S2, No murmurs Lungs: Clear, Wheezing Abdomen: Normal bowel sounds, Soft, No tenderness, No hepatosplenomegaly, No masses Extremities: No clubbing, No cyanosis, No edema, No tenderness/swelling Skin: No rashes, Other (old bullae legs that has ruptured and left fresh new skin in the dermis area) Labs LABS Laboratory Tests Test 05/21/18 12:11 05/21/18 14:15 05/21/18 17:29 05/21/18 20:50 Glucose (Fingerstick) 149 mg/dL (70-99) 210 mg/dL (70-99) 138 mg/dL (70-99) Vancomycin Level Trough 16.1 mcg/mL (10.0-20.0) Vancomycin Last Dose Date Unk Vancomycin Last Dose Time Unk Test 05/22/18 04:10 05/22/18 07:19 White Blood Count 18.6 x10^3/uL (4.0-11.0) Red Blood Count 5.29 x10^6/uL (4.30-5.70) Hemoglobin 14.3 g/dL (13.0-17.5) Hematocrit 41.1 % (39.0-53.0) Mean Corpuscular Volume 78 fL (79-100) Mean Corpuscular Hemoglobin 27 pg (25-35) Mean Corpuscular Hemoglobin Concent 35 g/dL (31-37) Red Cell Distribution Width 18.5 % (11.5-14.5) Platelet Count 408 x10^3/uL (140-400) Neutrophils (%) (Auto) 64 % (31-73) Lymphocytes (%) (Auto) 31 % (24-48) Monocytes (%) (Auto) 4 % (0-9) Eosinophils (%) (Auto) 1 % (0-3) Basophils (%) (Auto) 0 % (0-3) Neutrophils # (Auto) 11.9 x10^3uL (1.8-7.7) Lymphocytes # (Auto) 5.8 x10^3/uL (1.0-4.8) Monocytes # (Auto) 0.7 x10^3/uL (0.0-1.1) Eosinophils # (Auto) 0.1 x10^3/uL (0.0-0.7) Basophils # (Auto) 0.1 x10^3/uL (0.0-0.2) Sodium Level 137 mmol/L (136-145) Potassium Level 4.8 mmol/L (3.5-5.1) Chloride Level 100 mmol/L (98-107) Carbon Dioxide Level 28 mmol/L (21-32) Anion Gap 9 (6-14) Blood Urea Nitrogen 15 mg/dL (8-26) Creatinine 0.7 mg/dL (0.7-1.3) Estimated GFR (Cockcroft-Gault) 133.8 Glucose Level 136 mg/dL (70-99) Calcium Level 9.0 mg/dL (8.5-10.1) Glucose (Fingerstick) 90 mg/dL (70-99) Assessment and Plan Assessmemt and Plan Problems Medical Problems: (1) Decubitus ulcer Status: Acute (2) Hx of multiple sclerosis Status: Acute (3) Multiple sclerosis Status: Acute (4) Urinary retention Status: Acute (5) UTI (urinary tract infection) due to urinary indwelling catheter Status: Acute Comment Review of Relevant I have reviewed the following items rahel (where applicable) has been applied. Labs Laboratory Tests Test 05/20/18 11:06 05/20/18 16:42 05/20/18 20:13 05/21/18 01:40 Glucose (Fingerstick) 117 mg/dL (70-99) 170 mg/dL (70-99) 176 mg/dL (70-99) White Blood Count 18.0 x10^3/uL (4.0-11.0) Red Blood Count 5.08 x10^6/uL (4.30-5.70) Hemoglobin 13.7 g/dL (13.0-17.5) Hematocrit 39.9 % (39.0-53.0) Mean Corpuscular Volume 79 fL (79-100) Mean Corpuscular Hemoglobin 27 pg (25-35) Mean Corpuscular Hemoglobin Concent 34 g/dL (31-37) Red Cell Distribution Width 18.6 % (11.5-14.5) Platelet Count 425 x10^3/uL (140-400) Neutrophils (%) (Auto) 69 % (31-73) Lymphocytes (%) (Auto) 27 % (24-48) Monocytes (%) (Auto) 4 % (0-9) Eosinophils (%) (Auto) 0 % (0-3) Basophils (%) (Auto) 1 % (0-3) Neutrophils # (Auto) 12.3 x10^3uL (1.8-7.7) Lymphocytes # (Auto) 4.8 x10^3/uL (1.0-4.8) Monocytes # (Auto) 0.6 x10^3/uL (0.0-1.1) Eosinophils # (Auto) 0.1 x10^3/uL (0.0-0.7) Basophils # (Auto) 0.2 x10^3/uL (0.0-0.2) Sodium Level 137 mmol/L (136-145) Potassium Level 4.7 mmol/L (3.5-5.1) Chloride Level 100 mmol/L (98-107) Carbon Dioxide Level 28 mmol/L (21-32) Anion Gap 9 (6-14) Blood Urea Nitrogen 11 mg/dL (8-26) Creatinine 0.8 mg/dL (0.7-1.3) Estimated GFR (Cockcroft-Gault) 114.7 Glucose Level 119 mg/dL (70-99) Calcium Level 8.7 mg/dL (8.5-10.1) Vitamin B12 Level 527 pg/mL (247-911) Vancomycin Level Trough 23.6 mcg/mL (10.0-20.0) Vancomycin Last Dose Date Vancomycin Last Dose Time Treponema pallidum Antibody Nonreactive (Nonreactive) Test 05/21/18 07:21 05/21/18 12:11 05/21/18 14:15 05/21/18 17:29 Glucose (Fingerstick) 101 mg/dL (70-99) 149 mg/dL (70-99) 210 mg/dL (70-99) Vancomycin Level Trough 16.1 mcg/mL (10.0-20.0) Vancomycin Last Dose Date Unk Vancomycin Last Dose Time Unk Test 05/21/18 20:50 05/22/18 04:10 05/22/18 07:19 Glucose (Fingerstick) 138 mg/dL (70-99) 90 mg/dL (70-99) White Blood Count 18.6 x10^3/uL (4.0-11.0) Red Blood Count 5.29 x10^6/uL (4.30-5.70) Hemoglobin 14.3 g/dL (13.0-17.5) Hematocrit 41.1 % (39.0-53.0) Mean Corpuscular Volume 78 fL (79-100) Mean Corpuscular Hemoglobin 27 pg (25-35) Mean Corpuscular Hemoglobin Concent 35 g/dL (31-37) Red Cell Distribution Width 18.5 % (11.5-14.5) Platelet Count 408 x10^3/uL (140-400) Neutrophils (%) (Auto) 64 % (31-73) Lymphocytes (%) (Auto) 31 % (24-48) Monocytes (%) (Auto) 4 % (0-9) Eosinophils (%) (Auto) 1 % (0-3) Basophils (%) (Auto) 0 % (0-3) Neutrophils # (Auto) 11.9 x10^3uL (1.8-7.7) Lymphocytes # (Auto) 5.8 x10^3/uL (1.0-4.8) Monocytes # (Auto) 0.7 x10^3/uL (0.0-1.1) Eosinophils # (Auto) 0.1 x10^3/uL (0.0-0.7) Basophils # (Auto) 0.1 x10^3/uL (0.0-0.2) Sodium Level 137 mmol/L (136-145) Potassium Level 4.8 mmol/L (3.5-5.1) Chloride Level 100 mmol/L (98-107) Carbon Dioxide Level 28 mmol/L (21-32) Anion Gap 9 (6-14) Blood Urea Nitrogen 15 mg/dL (8-26) Creatinine 0.7 mg/dL (0.7-1.3) Estimated GFR (Cockcroft-Gault) 133.8 Glucose Level 136 mg/dL (70-99) Calcium Level 9.0 mg/dL (8.5-10.1) Laboratory Tests Test 05/21/18 12:11 05/21/18 14:15 05/21/18 17:29 05/21/18 20:50 Glucose (Fingerstick) 149 mg/dL (70-99) 210 mg/dL (70-99) 138 mg/dL (70-99) Vancomycin Level Trough 16.1 mcg/mL (10.0-20.0) Vancomycin Last Dose Date Unk Vancomycin Last Dose Time Unk Test 05/22/18 04:10 05/22/18 07:19 White Blood Count 18.6 x10^3/uL (4.0-11.0) Red Blood Count 5.29 x10^6/uL (4.30-5.70) Hemoglobin 14.3 g/dL (13.0-17.5) Hematocrit 41.1 % (39.0-53.0) Mean Corpuscular Volume 78 fL (79-100) Mean Corpuscular Hemoglobin 27 pg (25-35) Mean Corpuscular Hemoglobin Concent 35 g/dL (31-37) Red Cell Distribution Width 18.5 % (11.5-14.5) Platelet Count 408 x10^3/uL (140-400) Neutrophils (%) (Auto) 64 % (31-73) Lymphocytes (%) (Auto) 31 % (24-48) Monocytes (%) (Auto) 4 % (0-9) Eosinophils (%) (Auto) 1 % (0-3) Basophils (%) (Auto) 0 % (0-3) Neutrophils # (Auto) 11.9 x10^3uL (1.8-7.7) Lymphocytes # (Auto) 5.8 x10^3/uL (1.0-4.8) Monocytes # (Auto) 0.7 x10^3/uL (0.0-1.1) Eosinophils # (Auto) 0.1 x10^3/uL (0.0-0.7) Basophils # (Auto) 0.1 x10^3/uL (0.0-0.2) Sodium Level 137 mmol/L (136-145) Potassium Level 4.8 mmol/L (3.5-5.1) Chloride Level 100 mmol/L (98-107) Carbon Dioxide Level 28 mmol/L (21-32) Anion Gap 9 (6-14) Blood Urea Nitrogen 15 mg/dL (8-26) Creatinine 0.7 mg/dL (0.7-1.3) Estimated GFR (Cockcroft-Gault) 133.8 Glucose Level 136 mg/dL (70-99) Calcium Level 9.0 mg/dL (8.5-10.1) Glucose (Fingerstick) 90 mg/dL (70-99) Microbiology 05/13/18 Blood Culture - Final, Complete NO GROWTH AFTER 5 DAYS 05/19/18 Urine Culture - Final, Complete 05/19/18 Urine Culture Result 1 (RERE) - Final, Complete Medications Current Medications Sodium Chloride 1,000 ml @ 1,000 mls/hr 1X ONCE IV Last administered on 05/13at 05:08; Start 05/13/18 at 04:30; Stop 05/13/18 at 05:29; Status DC Ceftriaxone Sodium 50 ml @ 100 mls/hr 1X ONCE IV Last administered on at 05:48; Start 05/13/18 at 06:00; Stop 05/13/18 at 06:29; Status DC Ondansetron HCl (Zofran) 4 mg PRN Q8HRS PRN IV NAUSEA/VOMITING 1st choice; Start 05/13/18 at 05:45; Stop 05/13/18 at 08:47; Status DC Fentanyl Citrate (Fentanyl 2ml Vial) 50 mcg PRN Q2HR PRN IV SEVERE PAIN; Start 05/13/18 at 05:45; Stop 05/14/18 at 05:44; Status DC Insulin Human Lispro (HumaLOG) 0-5 UNITS TIDWMEALS SQ ; Start 05/13/18 at 08:00 ; Stop 05/13/18 at 08:47; Status DC Dextrose (Dextrose 50%-Water Syringe) 12.5 gm PRN Q15MIN PRN IV SEE COMMENTS; Start 05/13/18 at 05:45 Ondansetron HCl (Zofran) 4 mg PRN Q6HRS PRN IV NAUSEA/VOMITING 1st choice; Start 05/13/18 at 09:00 Ceftriaxone Sodium 1 gm/ Dextrose 50 ml @ 100 mls/hr Q24H IV ; Start 05/13/18 at 08:45; Status UNV Acetaminophen (Tylenol) 500 mg PRN Q6HRS PRN PO MILD PAIN / TEMP Last administered on 05/19/18at 20:33; Start 05/13/18 at 08:45 Insulin Human Lispro (HumaLOG) 0-9 UNITS TIDWMEALS SQ Last administered on 05/21at 17:58; Start 05/13/18 at 12:00 Dextrose (Dextrose 50%-Water Syringe) 12.5 gm PRN Q15MIN PRN IV SEE COMMENTS; Start 05/13/18 at 08:45; Status UNV Magnesium Sulfate/ Dextrose 100 ml @ 100 mls/hr 1X ONCE IV Last administered on 05/13/18at 13:03; Start 05/13/18 at 09:30; Stop 05/13/18 at 10:29; Status DC Prednisone (Prednisone) 25 mg DAILY PO Last administered on 05/22/18at 09:06; Start 05/13/18 at 15:00 Triamterene/HCTZ (Maxzide 37.5/ 25mg) 1 tab DAILY PO Last administered on at 09:06; Start 05/13/18 at 09:00 Baclofen (Lioresal) 20 mg DAILYWBKFT PO Last administered on 05/13/18at 12:56; Start 05/13/18 at 12:00; Stop 05/13/18 at 16:21; Status DC Non-Formulary Medication (Dapsone ) 25 mg DAILY PO ; Start 05/13/18 at 09:00; Stop 05/13/18 at 14:33; Status DC Metformin HCl (Glucophage) 500 mg DAILYWBKFT PO ; Start 05/13/18 at 10:00; Stop 05/13/18 at 16:20; Status DC Fish Oil (Fish Oil) 1,000 mg DAILY PO Last administered on 05/22/18at 09:05; Start 05/13/18 at 10:00 Oxybutynin Chloride (Ditropan) 5 mg DAILY PO Last administered on 05/22/18at 09: 06; Start 05/13/18 at 10:00 Ceftriaxone Sodium (Rocephin) 1 gm Q24H IVP Last administered on 05/14/18at 06: 26; Start 05/14/18 at 06:00; Stop 05/14/18 at 09:14; Status DC Sodium Chloride 1,000 ml @ 100 mls/hr Q10H IV Last administered on 05/14/18at 08:30; Start 05/13/18 at 12:30; Stop 05/14/18 at 16:11; Status DC Enoxaparin Sodium (Lovenox 40mg Syringe) 40 mg Q24H SQ Last administered on 05/21/18at 12:48; Start 05/13/18 at 13:00 Baclofen (Lioresal) 50 mg TID PO ; Start 05/13/18 at 21:00; Stop 05/13/18 at 21:00; Status DC Baclofen (Lioresal) 50 mg TID PO Last administered on 05/22/18at 09:07; Start 05/13/18 at 21:00 Linezolid (Zyvox) 600 mg BID PO Last administered on 05/14/18at 11:22; Start 05/14/18 at 10:00; Stop 05/15/18 at 09:19; Status DC Nystatin (Nystop) 1 frederick BID TP Last administered on 05/22/18at 09:08; Start at 11:00 Cefepime HCl 1 gm/ Dextrose 50 ml @ 100 mls/hr Q8HRS IV ; Start 05/14/18 at 14 :00; Status UNV Cefepime HCl (Maxipime) 1 gm Q8HRS IVP Last administered on 05/15/18at 05:39; Start 05/14/18 at 11:00; Stop 05/15/18 at 09:20; Status DC Ascorbic Acid (Vitamin C) 500 mg DAILY PO Last administered on 05/22/18at 09:05 ; Start 05/14/18 at 14:00 Zinc Sulfate (Orazinc) 220 mg DAILY PO Last administered on 05/22/18at 09:05; Start 05/14/18 at 14:00 Dextrose/Sodium Chloride 1,000 ml @ 100 mls/hr Q10H IV Last administered on at 08:44; Start 05/14/18 at 16:15; Stop 05/19/18 at 16:27; Status DC Insulin Glargine (Lantus) 6 units 1X ONCE SQ Last administered on 05/14/18at 17:21; Start 05/14/18 at 16:15; Stop 05/14/18 at 16:16; Status DC Influenza Virus Vaccine (Afluria Trivalent 2147-4204 Syringe) 0.5 ml ONCE ONCE VAX IM Last administered on 05/16/18 15:07; Start 05/15/18 at 09:00; Stop 05/15/18 at 09:01; Status DC Ketoconazole (Nizoral 2% Topical) 1 frederick DAILY TP Last administered on 09:09; Start 05/14/18 at 18:00 Cefepime HCl (Maxipime) 1 gm Q12HR IVP Last administered on 05/17/18at 14:04; Start 05/15/18 at 21:00; Stop 05/17/18 at 17:55; Status DC Lactobacillus Rhamnosus (Culturelle) 1 cap BID PO Last administered on 09:06; Start 05/15/18 at 21:00 Ceftriaxone Sodium 1 gm/ Dextrose 50 ml @ 100 mls/hr Q24H IV ; Start 05/17/18 at 18:00; Status UNV Ceftriaxone Sodium (Rocephin) 1 gm DAILY IVP Last administered on 05/22/18at 09: 08; Start 05/18/18 at 09:00 Labetalol HCl (Normodyne Iv Push) 10 mg PRN Q4HRS PRN IVP HYPERTENSION, SEE COMMENTS Last administered on 05/21/18at 08:40; Start 05/18/18 at 01:30 Amino Acids/ Glycerin/ Electrolytes 1,000 ml @ 50 mls/hr Q20H IV Last administered on 05/21/18 21:14; Start 05/19/18 at 11:15 Vancomycin HCl (Vanco Per Pharmacy) 1 each PRN DAILY PRN MC SEE COMMENTS Last administered on 05/21/18at 15:05; Start 05/19/18 at 12:30 Vancomycin HCl 2 gm/Sodium Chloride 500 ml @ 250 mls/hr 1X ONCE IV Last administered on 05/19/18 14:19; Start 05/19/18 at 13:00; Stop 05/19/18 at 14:59 ; Status DC Vancomycin HCl 1 gm/Sodium Chloride 250 ml @ 250 mls/hr Q12H IV Last administered on 05/20/18 15:03; Start 05/20/18 at 02:00; Stop 05/21/18 at 05:22 ; Status DC Vancomycin HCl (Vancomycin Trough Level) 1 each 1X ONCE MC Last administered on 05/21/18at 01:30; Start 05/21/18 at 01:30; Stop 05/21/18 at 01:31; Status DC Vancomycin HCl (Vancomycin Trough Level) 1 each 1X ONCE MC Last administered on 05/21/18at 14:00; Start 05/21/18 at 14:00; Stop 05/21/18 at 14:01; Status DC Polyethylene Glycol (miraLAX PACKET) 17 gm DAILY PO Last administered on at 09:08; Start 05/21/18 at 14:30 Vancomycin HCl 1 gm/Sodium Chloride 250 ml @ 250 mls/hr Q24H IV Last administered on 05/21/18at 16:11; Start 05/21/18 at 16:00 Active Scripts Active Cephalexin 500 Mg Tablet 1 Tab PO QID Cipro (Ciprofloxacin Hcl) 500 Mg Tablet 1 Tab PO BID 5 Days Reported Fish Oil + D3 Softgel (Ortley-3S/Dha/Epa/Fish Oil/D3) 1 Each Capsule 1 Each PO DAILY Prednisone 20 Mg Tablet 25 Mg PO DAILY Baclofen 20 Mg Tablet 50 Tab PO TID Oxybutynin Chloride Er (Oxybutynin Chloride) 5 Mg Tab.er.24 1 Tab PO DAILY Vitals/I & O Vital Sign - Last 24 Hours 05/21/18 05/21/18 05/21/18 05/21/18 11:00 15:00 19:40 20:00 Temp 98.5 97.9 98.9 98.5 97.9 98.9 Pulse 63 72 72 Resp 18 18 20 B/P (MAP) 128/89 (102) 125/85 (98) 165/93 (117) Pulse Ox 99 99 100 O2 Delivery Nasal Cannula Nasal Cannula Nasal Cannula Nasal Cannula O2 Flow Rate 2.0 2.0 2.0 2.0 05/21/18 05/22/18 05/22/18 23:45 03:41 07:35 Temp 97.5 98.2 97.8 97.5 98.2 97.8 Pulse 62 66 66 Resp 18 17 B/P (MAP) 139/70 (93) 157/79 (105) 151/67 (95) Pulse Ox 100 100 100 O2 Delivery Nasal Cannula Nasal Cannula Nasal Cannula O2 Flow Rate 2.0 2.0 2.0 Intake and Output 05/21/18 05/21/18 05/22/18 15:00 23:00 07:00 Intake Total 250 ml 250 ml Output Total 250 ml 250 ml 1950 ml Balance -250 ml 0 ml -1700 ml JM GAO MD May 22, 2018 09:15
[2018-05-22] MEDS: VANCOMYCIN PER PHARMACY MC PRN (10:48)
[2018-05-22 11:03] VITALS: BP 137/83
--- NOTE | 2018-05-22 11:50 | PDOC ---
Infectious Disease Note Subjective Subjective doing ok. Trying to have a BM Ate all of his breakfast No fevers PPN ROS ROS o/w neg Vital Sign Vital Signs Vital Signs Date Time Temp Pulse Resp B/P (MAP) Pulse Ox O2 Delivery O2 Flow Rate FiO2 05/22/18 11:03 98.1 80 18 137/83 (101) 100 Nasal Cannula 2.0 98.1 Physical Exam PHYSICAL EXAM GENERAL: Propped up in bed, alert, NAD, smiled HEENT: Seborrheic keratosis present on the forehead, neck, ears. Oral cavity moist. Dentures LUNGS: Clear anteriorly. HEART: S1, S2. ABDOMEN: Soft, bowel sounds present, nontender GENITOURINARY: Walls catheter in place. (05/13) EXTREMITIES: No edema. Flexor contractures present. NEUROLOGIC: Alert, confused, follows simple commands SKIN: No rash PIV ok Labs Lab Laboratory Tests Test 05/21/18 12:11 05/21/18 14:15 05/21/18 17:29 05/21/18 20:50 Glucose (Fingerstick) 149 mg/dL (70-99) 210 mg/dL (70-99) 138 mg/dL (70-99) Vancomycin Level Trough 16.1 mcg/mL (10.0-20.0) Vancomycin Last Dose Date Unk Vancomycin Last Dose Time Unk Test 05/22/18 04:10 05/22/18 07:19 White Blood Count 18.6 x10^3/uL (4.0-11.0) Red Blood Count 5.29 x10^6/uL (4.30-5.70) Hemoglobin 14.3 g/dL (13.0-17.5) Hematocrit 41.1 % (39.0-53.0) Mean Corpuscular Volume 78 fL (79-100) Mean Corpuscular Hemoglobin 27 pg (25-35) Mean Corpuscular Hemoglobin Concent 35 g/dL (31-37) Red Cell Distribution Width 18.5 % (11.5-14.5) Platelet Count 408 x10^3/uL (140-400) Neutrophils (%) (Auto) 64 % (31-73) Lymphocytes (%) (Auto) 31 % (24-48) Monocytes (%) (Auto) 4 % (0-9) Eosinophils (%) (Auto) 1 % (0-3) Basophils (%) (Auto) 0 % (0-3) Neutrophils # (Auto) 11.9 x10^3uL (1.8-7.7) Lymphocytes # (Auto) 5.8 x10^3/uL (1.0-4.8) Monocytes # (Auto) 0.7 x10^3/uL (0.0-1.1) Eosinophils # (Auto) 0.1 x10^3/uL (0.0-0.7) Basophils # (Auto) 0.1 x10^3/uL (0.0-0.2) Sodium Level 137 mmol/L (136-145) Potassium Level 4.8 mmol/L (3.5-5.1) Chloride Level 100 mmol/L (98-107) Carbon Dioxide Level 28 mmol/L (21-32) Anion Gap 9 (6-14) Blood Urea Nitrogen 15 mg/dL (8-26) Creatinine 0.7 mg/dL (0.7-1.3) Estimated GFR (Cockcroft-Gault) 133.8 Glucose Level 136 mg/dL (70-99) Calcium Level 9.0 mg/dL (8.5-10.1) Glucose (Fingerstick) 90 mg/dL (70-99) Micro Microbiology 05/13/18 Blood Culture - Final, Complete NO GROWTH AFTER 5 DAYS 05/19/18 Urine Culture - Final, Complete 05/19/18 Urine Culture Result 1 (RERE) - Final, Complete Objective Assessment Fever - better Leukocytosis - on steroids, procalcitonin <0.10. repeat UA WBC 1-4; UC in process Benign prostatic hypertrophy with urinary retention, chronic indwelling - Walls catheter last changed 05/13. UTI w/ Providencia - repeat Urine - neg 05/19 Encephalopathy - better Multiple sclerosis, bedbound, progressive. Seborrheic keratoses. 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 Chronic contracture, right hand. History of Escherichia coli and pseudomonas urinary tract infection in the past. Hypertension/hyperlipidemia. Lesion on the scrotum could be from underlying bullous pemphigus, on prednisone. seen by derm s/p toenail debridement, 05/15 Plan Plan of Care Rocephin (05/18) will d/c after 11/7 dose Empiric Vanc (05/19) per pharmacy dosing. Trough 23.6 -wean soon Begin miralax Previously on Cefepime from 05/14-05/17 Probiotics BC neg Supportive care Decision on SP placement is pending syphilis - neg TEQUILA JAIMES MD May 22, 2018 11:50
--- NOTE | 2018-05-22 12:57 | PDOC3 ---
Discharge Summary Date of Admission: May 13, 2018 Date of Discharge: May 22, 2018 Follow-Up: 1-2 days Admitting Diagnosis comment: Chief Complaint Chief Complaint Metabolic encephalopathy cOMPLIACTED UTI, chronic indwelling Walls catheter-changed 2 weeks ago per ( animal daycare provider) Multiple sclerosis, bedbound Benign prostatic hypertrophy with urinary retention, chronic indwelling Walls catheter changed 2 weeks ago. GNR UTI Providencia rettgeri .advanced Multiple sclerosis, bedbound, progressive. Sepsis POA with no organ dysfunction Seborrheic dermatitis face bullous pemphigoid. mod skin atrophy Chronic contracture of the right hand Urinary retention- HYpomagnesemia - severe protein-caloric malnutrition cont vanc iv , rocephin x 1 day iv Probiotics pcxr placement home health ID following STATES HE Does NOT LIKE THE food here , CONFUSION moderate STATES HE IS , BUT LAUGHS at his VDRL ORDERED Minimal left lung base atelectasis or infiltrate. Micro BLOOD CULTURE Preliminary NO GROWTH AFTER 5 DAYS URINE CULTURE RES 1 Final Providencia rettgeri Greater than 100,000 colony forming units per mL ANTIMICROBIAL SUSCEPTIBILITY Final Comment S = Susceptible; I = Intermediate; R = Resistant P = Positive; N = Negative MICS are expressed in micrograms per mL Antibiotic RSLT#1 RSLT#2 RSLT#3 RSLT#4 Ampicillin R =R Cefazolin R>=64 Cefepime S<=0.12 Ceftriaxone S<=0.25 Cefuroxime S<=1 Ciprofloxacin S<=0.25 Gentamicin S<=1 Imipenem S =1 Levofloxacin S<=0.12 Meropenem S<=0.25 Nitrofurantoin R =256 Piperacillin/Tazobactam S<=4 Tetracycline R =R FINAL DIAGNOSIS Problems Medical Problems: (1) Decubitus ulcer Status: Acute (2) Hx of multiple sclerosis Status: Acute (3) Multiple sclerosis Status: Acute (4) Urinary retention Status: Acute (5) UTI (urinary tract infection) due to urinary indwelling catheter Status: Acute Brief Hospital Course Mr. Rosado is a 73 old [sex] who presented with [ uti/ sepsis] CONDITION AT DISCHARGE: Improved Discharge Medications Current Medications Sodium Chloride 1,000 ml @ 1,000 mls/hr 1X ONCE IV Last administered on 05/13at 05:08; Start 05/13/18 at 04:30; Stop 05/13/18 at 05:29; Status DC Ceftriaxone Sodium 50 ml @ 100 mls/hr 1X ONCE IV Last administered on at 05:48; Start 05/13/18 at 06:00; Stop 05/13/18 at 06:29; Status DC Ondansetron HCl (Zofran) 4 mg PRN Q8HRS PRN IV NAUSEA/VOMITING 1st choice; Start 05/13/18 at 05:45; Stop 05/13/18 at 08:47; Status DC Fentanyl Citrate (Fentanyl 2ml Vial) 50 mcg PRN Q2HR PRN IV SEVERE PAIN; Start 05/13/18 at 05:45; Stop 05/14/18 at 05:44; Status DC Insulin Human Lispro (HumaLOG) 0-5 UNITS TIDWMEALS SQ ; Start 05/13/18 at 08:00 ; Stop 05/13/18 at 08:47; Status DC Dextrose (Dextrose 50%-Water Syringe) 12.5 gm PRN Q15MIN PRN IV SEE COMMENTS; Start 05/13/18 at 05:45 Ondansetron HCl (Zofran) 4 mg PRN Q6HRS PRN IV NAUSEA/VOMITING 1st choice; Start 05/13/18 at 09:00 Ceftriaxone Sodium 1 gm/ Dextrose 50 ml @ 100 mls/hr Q24H IV ; Start 05/13/18 at 08:45; Status UNV Acetaminophen (Tylenol) 500 mg PRN Q6HRS PRN PO MILD PAIN / TEMP Last administered on 05/19/18at 20:33; Start 05/13/18 at 08:45 Insulin Human Lispro (HumaLOG) 0-9 UNITS TIDWMEALS SQ Last administered on 05/21at 17:58; Start 05/13/18 at 12:00 Dextrose (Dextrose 50%-Water Syringe) 12.5 gm PRN Q15MIN PRN IV SEE COMMENTS; Start 05/13/18 at 08:45; Status UNV Magnesium Sulfate/ Dextrose 100 ml @ 100 mls/hr 1X ONCE IV Last administered on 05/13/18at 13:03; Start 05/13/18 at 09:30; Stop 05/13/18 at 10:29; Status DC Prednisone (Prednisone) 25 mg DAILY PO Last administered on 05/22/18at 09:06; Start 05/13/18 at 15:00 Triamterene/HCTZ (Maxzide 37.5/ 25mg) 1 tab DAILY PO Last administered on at 09:06; Start 05/13/18 at 09:00 Baclofen (Lioresal) 20 mg DAILYWBKFT PO Last administered on 05/13/18at 12:56; Start 05/13/18 at 12:00; Stop 05/13/18 at 16:21; Status DC Non-Formulary Medication (Dapsone ) 25 mg DAILY PO ; Start 05/13/18 at 09:00; Stop 05/13/18 at 14:33; Status DC Metformin HCl (Glucophage) 500 mg DAILYWBKFT PO ; Start 05/13/18 at 10:00; Stop 05/13/18 at 16:20; Status DC Fish Oil (Fish Oil) 1,000 mg DAILY PO Last administered on 05/22/18at 09:05; Start 05/13/18 at 10:00 Oxybutynin Chloride (Ditropan) 5 mg DAILY PO Last administered on 05/22/18at 09: 06; Start 05/13/18 at 10:00 Ceftriaxone Sodium (Rocephin) 1 gm Q24H IVP Last administered on 05/14/18at 06: 26; Start 05/14/18 at 06:00; Stop 05/14/18 at 09:14; Status DC Sodium Chloride 1,000 ml @ 100 mls/hr Q10H IV Last administered on 05/14/18at 08:30; Start 05/13/18 at 12:30; Stop 05/14/18 at 16:11; Status DC Enoxaparin Sodium (Lovenox 40mg Syringe) 40 mg Q24H SQ Last administered on 05/21/18at 12:48; Start 05/13/18 at 13:00 Baclofen (Lioresal) 50 mg TID PO ; Start 05/13/18 at 21:00; Stop 05/13/18 at 21:00; Status DC Baclofen (Lioresal) 50 mg TID PO Last administered on 05/22/18at 09:07; Start 05/13/18 at 21:00 Linezolid (Zyvox) 600 mg BID PO Last administered on 05/14/18at 11:22; Start 05/14/18 at 10:00; Stop 05/15/18 at 09:19; Status DC Nystatin (Nystop) 1 frederick BID TP Last administered on 05/22/18at 09:08; Start at 11:00 Cefepime HCl 1 gm/ Dextrose 50 ml @ 100 mls/hr Q8HRS IV ; Start 05/14/18 at 14 :00; Status UNV Cefepime HCl (Maxipime) 1 gm Q8HRS IVP Last administered on 05/15/18at 05:39; Start 05/14/18 at 11:00; Stop 05/15/18 at 09:20; Status DC Ascorbic Acid (Vitamin C) 500 mg DAILY PO Last administered on 05/22/18at 09:05 ; Start 05/14/18 at 14:00 Zinc Sulfate (Orazinc) 220 mg DAILY PO Last administered on 05/22/18at 09:05; Start 05/14/18 at 14:00 Dextrose/Sodium Chloride 1,000 ml @ 100 mls/hr Q10H IV Last administered on at 08:44; Start 05/14/18 at 16:15; Stop 05/19/18 at 16:27; Status DC Insulin Glargine (Lantus) 6 units 1X ONCE SQ Last administered on 05/14/18at 17:21; Start 05/14/18 at 16:15; Stop 05/14/18 at 16:16; Status DC Influenza Virus Vaccine (Afluria Trivalent [id number] Syringe) 0.5 ml ONCE ONCE VAX IM Last administered on 05/16/18at 15:07; Start 05/15/18 at 09:00; Stop 05/15/18 at 09:01; Status DC Ketoconazole (Nizoral 2% Topical) 1 frederick DAILY TP Last administered on at 09:09; Start 05/14/18 at 18:00 Cefepime HCl (Maxipime) 1 gm Q12HR IVP Last administered on 05/17/18at 14:04; Start 05/15/18 at 21:00; Stop 05/17/18 at 17:55; Status DC Lactobacillus Rhamnosus (Culturelle) 1 cap BID PO Last administered on at 09:06; Start 05/15/18 at 21:00 Ceftriaxone Sodium 1 gm/ Dextrose 50 ml @ 100 mls/hr Q24H IV ; Start 05/17/18 at 18:00; Status UNV Ceftriaxone Sodium (Rocephin) 1 gm DAILY IVP Last administered on 05/22/18at 09: 08; Start 05/18/18 at 09:00 Labetalol HCl (Normodyne Iv Push) 10 mg PRN Q4HRS PRN IVP HYPERTENSION, SEE COMMENTS Last administered on 05/21/18at 08:40; Start 05/18/18 at 01:30 Amino Acids/ Glycerin/ Electrolytes 1,000 ml @ 50 mls/hr Q20H IV Last administered on 05/21/18at 21:14; Start 05/19/18 at 11:15 Vancomycin HCl (Vanco Per Pharmacy) 1 each PRN DAILY PRN MC SEE COMMENTS Last administered on 05/22/18at 10:48; Start 05/19/18 at 12:30 Vancomycin HCl 2 gm/Sodium Chloride 500 ml @ 250 mls/hr 1X ONCE IV Last administered on 05/19/18at 14:19; Start 05/19/18 at 13:00; Stop 05/19/18 at 14:59 ; Status DC Vancomycin HCl 1 gm/Sodium Chloride 250 ml @ 250 mls/hr Q12H IV Last administered on 05/20/18at 15:03; Start 05/20/18 at 02:00; Stop 05/21/18 at 05:22 ; Status DC Vancomycin HCl (Vancomycin Trough Level) 1 each 1X ONCE MC Last administered on 05/21/18at 01:30; Start 05/21/18 at 01:30; Stop 05/21/18 at 01:31; Status DC Vancomycin HCl (Vancomycin Trough Level) 1 each 1X ONCE MC Last administered on 05/21/18at 14:00; Start 05/21/18 at 14:00; Stop 05/21/18 at 14:01; Status DC Polyethylene Glycol (miraLAX PACKET) 17 gm DAILY PO Last administered on at 09:08; Start 05/21/18 at 14:30 Vancomycin HCl 1 gm/Sodium Chloride 250 ml @ 250 mls/hr Q24H IV Last administered on 05/21/18at 16:11; Start 05/21/18 at 16:00 Active Scripts Active Cephalexin 500 Mg Tablet 1 Tab PO QID Cipro (Ciprofloxacin Hcl) 500 Mg Tablet 1 Tab PO BID 5 Days Reported Fish Oil + D3 Softgel (Olema-3S/Dha/Epa/Fish Oil/D3) 1 Each Capsule 1 Each PO DAILY Prednisone 20 Mg Tablet 25 Mg PO DAILY Baclofen 20 Mg Tablet 50 Tab PO TID Oxybutynin Chloride Er (Oxybutynin Chloride) 5 Mg Tab.er.24 1 Tab PO DAILY Vital Signs Vital Signs Date Time Temp Pulse Resp B/P (MAP) Pulse Ox O2 Delivery O2 Flow Rate FiO2 05/22/18 11:03 98.1 80 18 137/83 (101) 100 Nasal Cannula 2.0 98.1 Labs Laboratory Tests Test 05/20/18 16:42 05/20/18 20:13 05/21/18 01:40 05/21/18 07:21 Glucose (Fingerstick) 170 mg/dL (70-99) 176 mg/dL (70-99) 101 mg/dL (70-99) White Blood Count 18.0 x10^3/uL (4.0-11.0) Red Blood Count 5.08 x10^6/uL (4.30-5.70) Hemoglobin 13.7 g/dL (13.0-17.5) Hematocrit 39.9 % (39.0-53.0) Mean Corpuscular Volume 79 fL (79-100) Mean Corpuscular Hemoglobin 27 pg (25-35) Mean Corpuscular Hemoglobin Concent 34 g/dL (31-37) Red Cell Distribution Width 18.6 % (11.5-14.5) Platelet Count 425 x10^3/uL (140-400) Neutrophils (%) (Auto) 69 % (31-73) Lymphocytes (%) (Auto) 27 % (24-48) Monocytes (%) (Auto) 4 % (0-9) Eosinophils (%) (Auto) 0 % (0-3) Basophils (%) (Auto) 1 % (0-3) Neutrophils # (Auto) 12.3 x10^3uL (1.8-7.7) Lymphocytes # (Auto) 4.8 x10^3/uL (1.0-4.8) Monocytes # (Auto) 0.6 x10^3/uL (0.0-1.1) Eosinophils # (Auto) 0.1 x10^3/uL (0.0-0.7) Basophils # (Auto) 0.2 x10^3/uL (0.0-0.2) Sodium Level 137 mmol/L (136-145) Potassium Level 4.7 mmol/L (3.5-5.1) Chloride Level 100 mmol/L (98-107) Carbon Dioxide Level 28 mmol/L (21-32) Anion Gap 9 (6-14) Blood Urea Nitrogen 11 mg/dL (8-26) Creatinine 0.8 mg/dL (0.7-1.3) Estimated GFR (Cockcroft-Gault) 114.7 Glucose Level 119 mg/dL (70-99) Calcium Level 8.7 mg/dL (8.5-10.1) Vitamin B12 Level 527 pg/mL (247-911) Vancomycin Level Trough 23.6 mcg/mL (10.0-20.0) Vancomycin Last Dose Date Vancomycin Last Dose Time Treponema pallidum Antibody Nonreactive (Nonreactive) Test 05/21/18 12:11 05/21/18 14:15 05/21/18 17:29 05/21/18 20:50 Glucose (Fingerstick) 149 mg/dL (70-99) 210 mg/dL (70-99) 138 mg/dL (70-99) Vancomycin Level Trough 16.1 mcg/mL (10.0-20.0) Vancomycin Last Dose Date Unk Vancomycin Last Dose Time Unk Test 05/22/18 04:10 05/22/18 07:19 05/22/18 12:03 White Blood Count 18.6 x10^3/uL (4.0-11.0) Red Blood Count 5.29 x10^6/uL (4.30-5.70) Hemoglobin 14.3 g/dL (13.0-17.5) Hematocrit 41.1 % (39.0-53.0) Mean Corpuscular Volume 78 fL (79-100) Mean Corpuscular Hemoglobin 27 pg (25-35) Mean Corpuscular Hemoglobin Concent 35 g/dL (31-37) Red Cell Distribution Width 18.5 % (11.5-14.5) Platelet Count 408 x10^3/uL (140-400) Neutrophils (%) (Auto) 64 % (31-73) Lymphocytes (%) (Auto) 31 % (24-48) Monocytes (%) (Auto) 4 % (0-9) Eosinophils (%) (Auto) 1 % (0-3) Basophils (%) (Auto) 0 % (0-3) Neutrophils # (Auto) 11.9 x10^3uL (1.8-7.7) Lymphocytes # (Auto) 5.8 x10^3/uL (1.0-4.8) Monocytes # (Auto) 0.7 x10^3/uL (0.0-1.1) Eosinophils # (Auto) 0.1 x10^3/uL (0.0-0.7) Basophils # (Auto) 0.1 x10^3/uL (0.0-0.2) Sodium Level 137 mmol/L (136-145) Potassium Level 4.8 mmol/L (3.5-5.1) Chloride Level 100 mmol/L (98-107) Carbon Dioxide Level 28 mmol/L (21-32) Anion Gap 9 (6-14) Blood Urea Nitrogen 15 mg/dL (8-26) Creatinine 0.7 mg/dL (0.7-1.3) Estimated GFR (Cockcroft-Gault) 133.8 Glucose Level 136 mg/dL (70-99) Calcium Level 9.0 mg/dL (8.5-10.1) Glucose (Fingerstick) 90 mg/dL (70-99) 121 mg/dL (70-99) Laboratory Tests Test 05/21/18 14:15 05/21/18 17:29 05/21/18 20:50 05/22/18 04:10 Vancomycin Level Trough 16.1 mcg/mL (10.0-20.0) Vancomycin Last Dose Date Unk Vancomycin Last Dose Time Unk Glucose (Fingerstick) 210 mg/dL (70-99) 138 mg/dL (70-99) White Blood Count 18.6 x10^3/uL (4.0-11.0) Red Blood Count 5.29 x10^6/uL (4.30-5.70) Hemoglobin 14.3 g/dL (13.0-17.5) Hematocrit 41.1 % (39.0-53.0) Mean Corpuscular Volume 78 fL (79-100) Mean Corpuscular Hemoglobin 27 pg (25-35) Mean Corpuscular Hemoglobin Concent 35 g/dL (31-37) Red Cell Distribution Width 18.5 % (11.5-14.5) Platelet Count 408 x10^3/uL (140-400) Neutrophils (%) (Auto) 64 % (31-73) Lymphocytes (%) (Auto) 31 % (24-48) Monocytes (%) (Auto) 4 % (0-9) Eosinophils (%) (Auto) 1 % (0-3) Basophils (%) (Auto) 0 % (0-3) Neutrophils # (Auto) 11.9 x10^3uL (1.8-7.7) Lymphocytes # (Auto) 5.8 x10^3/uL (1.0-4.8) Monocytes # (Auto) 0.7 x10^3/uL (0.0-1.1) Eosinophils # (Auto) 0.1 x10^3/uL (0.0-0.7) Basophils # (Auto) 0.1 x10^3/uL (0.0-0.2) Sodium Level 137 mmol/L (136-145) Potassium Level 4.8 mmol/L (3.5-5.1) Chloride Level 100 mmol/L (98-107) Carbon Dioxide Level 28 mmol/L (21-32) Anion Gap 9 (6-14) Blood Urea Nitrogen 15 mg/dL (8-26) Creatinine 0.7 mg/dL (0.7-1.3) Estimated GFR (Cockcroft-Gault) 133.8 Glucose Level 136 mg/dL (70-99) Calcium Level 9.0 mg/dL (8.5-10.1) Test 05/22/18 07:19 05/22/18 12:03 Glucose (Fingerstick) 90 mg/dL (70-99) 121 mg/dL (70-99) Allergies Allergies Coded Allergies Type Severity Reaction Last Updated Verified No Known Drug Allergies 04/30/14 No Disposition/Orders: D/C to Home w/ HH Patient Instructions d/c planning 35 min JM GAO MD May 22, 2018 12:57
--- NOTE | 2018-05-22 12:59 | DISCH ---
DISCHARGE WITH HOME HEALTH DISCHARGE INFORMATION: Final Diagnosis: Problems Medical Problems: (1) Decubitus ulcer Status: Acute (2) Hx of multiple sclerosis Status: Acute (3) Multiple sclerosis Status: Acute (4) Urinary retention Status: Acute (5) UTI (urinary tract infection) due to urinary indwelling catheter Status: Acute Condition on Discharge: Stable HOME HEALTH: Face to Face: I certify this patient is under my care and that I, or a nurse practitioner or physician's clinic office assistant working with me, had a face to face encounter that meets the physician face to face encounter requirements with this patient on []. Medical Complications: Dementia Physical Therapy For: Evalulation/Treatment Occupational Therapy For: Evaluation/Treatment Speech Language Pathology For: Evaluation/Treatment Home Health Aide For: Self-care ACTIVE DIRECTORY SYSTEMS ADMINISTRATOR For: Community Resources Pt Meets Homebound Status: Poor coordination w/ amb. POST DISCHARGE ORDERS: Activity Instructions for Disc: Resume previous activity DIET AFTER DISCHARGE: ADA Wound/Incision Care: No wound care needed CHECKS AFTER DISCHARGE: Checks after discharge: Check blood press - daily, Check blood sugar, ac/hs TREATMENT/EQUIPMENT ORDERS: Adaptive Equipment Issued: Bath Bench, Commode, Grab bars, Hand held shower Infusion Equipment, home use: PICC Line CERTIFICATION STATEMENT: Certification Statement: Certification Statement: Based on the above finding, I certify that this patient is confined to the home and needs intermittent alf care, physical therapy and/or speech therapy, or continues to need occupational therapy.~ This patient is under my care, and I have initiated the establishment of the plan of care.~ This patient will be followed by myself or a community physician who will periodically review the plan of care. Home Meds Active Scripts Cephalexin (CEPHALEXIN) 500 Mg Tablet, 1 TAB PO QID, #40 TAB Prov:DAVIN MALIK MD 03/15/18 Ciprofloxacin Hcl (CIPRO) 500 Mg Tablet, 1 TAB PO BID for 5 Days, #10 TAB Prov:LISSET ANGUIANO MD 10/24/17 Reported Medications Wallace-3S/Dha/Epa/Fish Oil/D3 (FISH OIL + D3 SOFTGEL) 1 Each Capsule, 1 EACH PO DAILY, CAP 08/18/17 Prednisone (PREDNISONE) 20 Mg Tablet, 25 MG PO DAILY, TAB 08/18/17 Baclofen (BACLOFEN) 20 Mg Tablet, 50 TAB PO TID, #90 TAB 2 Refills 08/18/17 Oxybutynin Chloride (OXYBUTYNIN CHLORIDE ER) 5 Mg Tab.er.24, 1 TAB PO DAILY, # 30 TAB 5 Refills 04/08/16 JM GAO MD May 22, 2018 12:59
[2018-05-22] MEDS ORDERED: LACT1CAP19 PO (13:05)
[2018-05-22] MEDS ORDERED: NYST60PO TP (13:05)
[2018-05-22] MEDS ORDERED: CEFTRIAXONE SODIUM IVP (13:05)
[2018-05-22] MEDS ORDERED: POLY17PO3 PO (13:05)
[2018-05-22] MEDS ORDERED: TRIA1TAB3 PO (13:05)
[2018-05-22] MEDS ORDERED: KETO15CR2 TP (13:05)
[2018-05-22] MEDS ORDERED: ZINC220C5 PO (13:05)
[2018-05-22] MEDS ORDERED: ASCO500T2 PO (13:05)
[2018-05-22] MEDS: ENOXAPARIN 40 MG/0.4 ML SYRINGE. SQ SCH (14:22)
[2018-05-22 15:10] VITALS: BP 131/75
--- NOTE | 2018-05-22 17:44 | PDOC ---
PROGRESS NOTES Assessment Assessment Metabolic encephalopathy. Confusion. Sepsis. UTI. Quadriplegia. MS, off treatment x 7 years,. NANCI virus positive. Neurogenic bladder. HTN. DM. Cerebral global atrophy. RECOMMENDATIONS/PLAN: Treat medical diseases. OT/PT. Discussed with his family members at bedside on 05/22/18. Past Medical History Cardiovascular: HTN CENTRAL NERVOUS SYSTEM: Other (primary progressive multiple sclerosis) GI: Other (hiatal hernia, gastroparesis, ileus) Renal/: Benign prostatic enlarg., Other (chronic urinary retention with indwelling Walls) Past Surgical History Hernia Repair Family History Hypertension, Other (multiple sclerosis) Social History Social History , living situation as above, no tobacco or alcohol ALLERGY: Reviewed. MEDICATIONS: Refer to MAR REVIEW OF SYSTEMS: Constitutional: No malnutrition, weight loss, cachexia. Head: No traumatic brain or head injury. Skin: No edema, or rash. Ear: No infection. Eyes: No vision loss, or diplopia. Nose: No bleeding or purulent discharges. Hearing: Hearing loss. Neck: No injury. Cardiac: HTN Pulmonary: Pneumonia. GI: No GI Ulcer, GI bleeding Urinary/genital: UTI. Endocrine: Diabetes Mellitus. Skeletomuscular: generalized weakness. Neurological: see HP. Psychiatric: Denies drug use/abuse. Otherwise, not [id number] review of systems. PHYSICAL EXAMINATION: General appearance in subacute on chronic distress. HEENT: Normocephalic and nontraumatic. Eyes, nose, ears, and throat are unremarkable. Hearing decrease. Neck is supple. No lymphadenopathy. No Crepitus. Cardiovascular: S1, S2, regular rate and rhythm. Pulmonary: Clear to auscultation bilaterally. Abdomen: Bowel sounds are positive. Extremities: No rash, lesions, or edema. Restriction of range of motion NEUROLOGICAL EXAMINATION: Awake from time to time. Not oriented to time, place but knew person. PERRL. EOMI. CN: no focal findings. Muscle tone: Fluctuated. Muscle strength: 3- UE, minimal movements in right foot noted. DTR: 1 UE, 0-1 at knee. Plantar reflex: Neutral response bilaterally Gait: not able to walk. Sensory exam: no acute abnormal findings. No other acute cerebellar signs elicited. F-T-N test not performed due to not follow commands. Objective Objective Vital Signs Date Time Temp Pulse Resp B/P (MAP) Pulse Ox O2 Delivery O2 Flow Rate FiO2 05/22/18 15:10 98.3 81 20 131/75 (93) 99 Nasal Cannula 2.0 98.3 Intake and Output 05/22/18 07:00 Intake Total 500 ml Output Total 2450 ml Balance -1950 ml Intake Oral 500 ml Output Urine Total 2450 ml # Bowel Movements 1 Vitals Signs Vitals VS - Last 72 Hours, by Label Date Time Temp Pulse Resp B/P (MAP) Pulse Ox O2 Delivery O2 Flow Rate FiO2 05/22/18 15:10 98.3 81 20 131/75 (93) 99 Nasal Cannula 2.0 98.3 05/22/18 13:05 Room Air 05/22/18 11:03 98.1 80 18 137/83 (101) 100 Nasal Cannula 2.0 98.1 05/22/18 08:00 Nasal Cannula 2.0 05/22/18 07:35 97.8 66 17 151/67 (95) 100 Nasal Cannula 2.0 97.8 05/22/18 03:41 98.2 66 157/79 (105) 100 Nasal Cannula 2.0 98.2 05/21/18 23:45 97.5 62 18 139/70 (93) 100 Nasal Cannula 2.0 97.5 05/21/18 20:00 Nasal Cannula 2.0 05/21/18 19:40 98.9 72 20 165/93 (117) 100 Nasal Cannula 2.0 98.9 05/21/18 15:00 97.9 72 18 125/85 (98) 99 Nasal Cannula 2.0 97.9 05/21/18 11:00 98.5 63 18 128/89 (102) 99 Nasal Cannula 2.0 98.5 05/21/18 08:40 80 191/103 05/21/18 07:58 Room Air 05/21/18 07:00 97.8 80 20 191/103 (132) 97 Nasal Cannula 2.0 97.8 Laboratory Laboratory Laboratory Tests Test 05/21/18 20:50 05/22/18 04:10 05/22/18 07:19 05/22/18 12:03 Glucose (Fingerstick) 138 mg/dL (70-99) 90 mg/dL (70-99) 121 mg/dL (70-99) White Blood Count 18.6 x10^3/uL (4.0-11.0) Red Blood Count 5.29 x10^6/uL (4.30-5.70) Hemoglobin 14.3 g/dL (13.0-17.5) Hematocrit 41.1 % (39.0-53.0) Mean Corpuscular Volume 78 fL (79-100) Mean Corpuscular Hemoglobin 27 pg (25-35) Mean Corpuscular Hemoglobin Concent 35 g/dL (31-37) Red Cell Distribution Width 18.5 % (11.5-14.5) Platelet Count 408 x10^3/uL (140-400) Neutrophils (%) (Auto) 64 % (31-73) Lymphocytes (%) (Auto) 31 % (24-48) Monocytes (%) (Auto) 4 % (0-9) Eosinophils (%) (Auto) 1 % (0-3) Basophils (%) (Auto) 0 % (0-3) Neutrophils # (Auto) 11.9 x10^3uL (1.8-7.7) Lymphocytes # (Auto) 5.8 x10^3/uL (1.0-4.8) Monocytes # (Auto) 0.7 x10^3/uL (0.0-1.1) Eosinophils # (Auto) 0.1 x10^3/uL (0.0-0.7) Basophils # (Auto) 0.1 x10^3/uL (0.0-0.2) Sodium Level 137 mmol/L (136-145) Potassium Level 4.8 mmol/L (3.5-5.1) Chloride Level 100 mmol/L (98-107) Carbon Dioxide Level 28 mmol/L (21-32) Anion Gap 9 (6-14) Blood Urea Nitrogen 15 mg/dL (8-26) Creatinine 0.7 mg/dL (0.7-1.3) Estimated GFR (Cockcroft-Gault) 133.8 Glucose Level 136 mg/dL (70-99) Calcium Level 9.0 mg/dL (8.5-10.1) Test 05/22/18 16:20 Glucose (Fingerstick) 190 mg/dL (70-99) Microbiology 05/13/18 Blood Culture - Final, Complete NO GROWTH AFTER 5 DAYS 05/19/18 Urine Culture - Final, Complete 05/19/18 Urine Culture Result 1 (RERE) - Final, Complete Comment Review of Relevant I have reviewed the following items rahel (where applicable) has been applied. ALLI WAGONER MD May 22, 2018 17:44
[2018-05-22] MEDS: VANCOMYCIN 1 GM in IV NORMAL SALINE 250ML 250 ML IV SCH (17:56)
[2018-05-22 19:56] VITALS: BP 136/79
[2018-05-22 23:33] VITALS: BP 178/88
[2018-05-23 03:30] VITALS: BP 159/95
[2018-05-23 04:17] VITALS: BP 159/95
[2018-05-23 06:21] LABS: CREATININE 0.9 mg/dL (0.7-1.3); GFR 100.1
[2018-05-23 07:50] VITALS: BP 158/83
[2018-05-23] MEDS: INSULIN LISPRO 300 UNITS/3 ML INSULN.PEN. SQ SCH ×2 (08:00→12:00)
--- NOTE | 2018-05-23 08:38 | PDOC ---
Infectious Disease Note Subjective Subjective Feeling well. Slept well. Ate well. Finally + BM 05/22 and feels to much better Ate all of his breakfast No fevers PPN Vital Sign Vital Signs Vital Signs Date Time Temp Pulse Resp B/P (MAP) Pulse Ox O2 Delivery O2 Flow Rate FiO2 05/23/18 07:50 97.7 76 20 158/83 (108) 97 Nasal Cannula 2.0 97.7 Physical Exam PHYSICAL EXAM GENERAL: Propped up in bed, alert, NAD, smiled/Laughing HEENT: Seborrheic keratosis present on the forehead, neck, ears. Oral cavity moist. Dentures LUNGS: Clear anteriorly. HEART: S1, S2. ABDOMEN: Soft, bowel sounds present, nontender GENITOURINARY: Walls catheter in place. (05/13) EXTREMITIES: No edema. Flexor contractures present. NEUROLOGIC: Alert, confused, follows simple commands SKIN: No rash PIV ok Labs Lab Laboratory Tests Test 05/22/18 12:03 05/22/18 16:20 05/22/18 20:50 05/23/18 04:33 Glucose (Fingerstick) 121 mg/dL (70-99) 190 mg/dL (70-99) 207 mg/dL (70-99) Blood Urea Nitrogen 17 mg/dL (8-26) Creatinine 0.9 mg/dL (0.7-1.3) Estimated GFR (Cockcroft-Gault) 100.1 Test 05/23/18 07:35 Glucose (Fingerstick) 109 mg/dL (70-99) Micro Microbiology 05/13/18 Blood Culture - Final, Complete NO GROWTH AFTER 5 DAYS 05/19/18 Urine Culture - Final, Complete 05/19/18 Urine Culture Result 1 (RERE) - Final, Complete Objective Assessment Fever - better - ? constipation Leukocytosis - on steroids, procalcitonin <0.10. repeat UA WBC 1-4; UC in process Benign prostatic hypertrophy with urinary retention, chronic indwelling - Walls catheter last changed 05/13. UTI w/ Providencia - repeat Urine - neg 05/19 Encephalopathy - better - syphilis - neg Multiple sclerosis, bedbound, progressive. Seborrheic keratoses. 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 Chronic contracture, right hand. History of Escherichia coli and pseudomonas urinary tract infection in the past. Hypertension/hyperlipidemia. Lesion on the scrotum could be from underlying bullous pemphigus, on prednisone. seen by derm s/p toenail debridement, 05/15 Plan Plan of Care Dc Rocephiconnie/Vanc Probiotics Ok to d/c from ID standpoint TEQUILA JAIMES MD May 23, 2018 08:38
[2018-05-23] MEDS: BACLOFEN 10 MG TABLET. PO SCH (09:06)
[2018-05-23] MEDS: TRIAMTERENE/HCTZ 37.5/25MG TABLET. PO SCH (09:07)
[2018-05-23] MEDS: ZINC SULFATE 220 MG CAPSULE. PO SCH (09:07)
[2018-05-23] MEDS: POLYETHYLENE GLYCOL 3350 17 GM PACKET. PO SCH (09:07)
[2018-05-23] MEDS: OXYBUTYNIN CHLORIDE 5 MG TABLET PO SCH (09:07)
[2018-05-23] MEDS: ASCORBIC ACID 500 MG TABLET PO SCH (09:07)
[2018-05-23] MEDS: predniSONE 10 MG TABLET PO SCH (09:07)
[2018-05-23] MEDS: OMEGA-3 FATTY ACIDS/FISH OIL 1,000 MG CAPSULE. PO SCH (09:07)
[2018-05-23] MEDS: cefTRIAXone IV Push 1 GM VIAL. IVP SCH (09:08)
[2018-05-23] MEDS: LACTOBACILLUS RHAMNOSUS GG 1 CAPSULE. PO SCH (09:08)
[2018-05-23] MEDS: NYSTATIN TOPICAL POWDER 15GM BOTTLE. TP SCH (09:09)
[2018-05-23] MEDS: KETOCONAZOLE 2% TOPICAL CREAM 15GM TUBE. TP SCH (09:09)
--- NOTE | 2018-05-23 10:43 | PDOC ---
PROGRESS NOTES Chief Complaint Chief Complaint Metabolic encephalopathy cOMPLIACTED UTI, chronic indwelling Walls catheter-changed 2 weeks ago per ( small animal caretaker) Multiple sclerosis, bedbound Benign prostatic hypertrophy with urinary retention, chronic indwelling Walls catheter changed 2 weeks ago. GNR UTI Providencia rettgeri .advanced Multiple sclerosis, bedbound, progressive. Sepsis POA with no organ dysfunction Seborrheic dermatitis face bullous pemphigoid. mod skin atrophy Chronic contracture of the right hand Urinary retention- HYpomagnesemia - severe protein-caloric malnutrition cont vanc iv , rocephin Probiotics pcxr placement pending ID following STATES HE Does NOT LIKE THE food here , CONFUSION moderate STATES HE IS , BUT LAUGHS at his VDRL ORDERED home with home health yesterday delayed due to need for iv rocephin today x 1 Minimal left lung base atelectasis or infiltrate. Micro BLOOD CULTURE Preliminary NO GROWTH AFTER 5 DAYS URINE CULTURE RES 1 Final Providencia rettgeri Greater than 100,000 colony forming units per mL ANTIMICROBIAL SUSCEPTIBILITY Final Comment S = Susceptible; I = Intermediate; R = Resistant P = Positive; N = Negative MICS are expressed in micrograms per mL Antibiotic RSLT#1 RSLT#2 RSLT#3 RSLT#4 Ampicillin R =R Cefazolin R>=64 Cefepime S<=0.12 Ceftriaxone S<=0.25 Cefuroxime S<=1 Ciprofloxacin S<=0.25 Gentamicin S<=1 Imipenem S =1 Levofloxacin S<=0.12 Meropenem S<=0.25 Nitrofurantoin R =256 Piperacillin/Tazobactam S<=4 Tetracycline R =R History of Present Illness History of Present Illness IV fluid for sepsis start iv nutrition wound care, consider air bed, start vit C and zinc Rocephin Vitals Vitals Vital Signs Date Time Temp Pulse Resp B/P (MAP) Pulse Ox O2 Delivery O2 Flow Rate FiO2 05/23/18 07:50 97.7 76 20 158/83 (108) 97 Nasal Cannula 2.0 97.7 Physical Exam Physical Exam GENERAL: Propped up in bed, alert, NAD, smiled/Laughing HEENT: Seborrheic keratosis present on the forehead, neck, ears. Oral cavity moist. Dentures LUNGS: Clear anteriorly. HEART: S1, S2. ABDOMEN: Soft, bowel sounds present, nontender GENITOURINARY: Walls catheter in place. (05/13) EXTREMITIES: No edema. Flexor contractures present. NEUROLOGIC: Alert, confused, follows simple commands SKIN: No rash PIV ok General: Alert, Cooperative, No acute distress, mild distress Heart: Regular rate, Normal S1, Normal S2, No murmurs Lungs: Clear, Wheezing Abdomen: Normal bowel sounds, Soft, No tenderness, No hepatosplenomegaly, No masses Extremities: No clubbing, No cyanosis, No edema, No tenderness/swelling Skin: No rashes, Other (old bullae legs that has ruptured and left fresh new skin in the dermis area) Labs LABS Laboratory Tests Test 05/22/18 12:03 05/22/18 16:20 05/22/18 20:50 05/23/18 04:33 Glucose (Fingerstick) 121 mg/dL (70-99) 190 mg/dL (70-99) 207 mg/dL (70-99) Blood Urea Nitrogen 17 mg/dL (8-26) Creatinine 0.9 mg/dL (0.7-1.3) Estimated GFR (Cockcroft-Gault) 100.1 Test 05/23/18 07:35 Glucose (Fingerstick) 109 mg/dL (70-99) Assessment and Plan Assessmemt and Plan Problems Medical Problems: (1) Decubitus ulcer Status: Acute (2) Hx of multiple sclerosis Status: Acute (3) Multiple sclerosis Status: Acute (4) Urinary retention Status: Acute (5) UTI (urinary tract infection) due to urinary indwelling catheter Status: Acute Comment Review of Relevant I have reviewed the following items rahel (where applicable) has been applied. Labs Laboratory Tests Test 05/21/18 12:11 05/21/18 14:15 05/21/18 17:29 05/21/18 20:50 Glucose (Fingerstick) 149 mg/dL (70-99) 210 mg/dL (70-99) 138 mg/dL (70-99) Vancomycin Level Trough 16.1 mcg/mL (10.0-20.0) Vancomycin Last Dose Date Unk Vancomycin Last Dose Time Unk Test 05/22/18 04:10 05/22/18 07:19 05/22/18 12:03 05/22/18 16:20 White Blood Count 18.6 x10^3/uL (4.0-11.0) Red Blood Count 5.29 x10^6/uL (4.30-5.70) Hemoglobin 14.3 g/dL (13.0-17.5) Hematocrit 41.1 % (39.0-53.0) Mean Corpuscular Volume 78 fL (79-100) Mean Corpuscular Hemoglobin 27 pg (25-35) Mean Corpuscular Hemoglobin Concent 35 g/dL (31-37) Red Cell Distribution Width 18.5 % (11.5-14.5) Platelet Count 408 x10^3/uL (140-400) Neutrophils (%) (Auto) 64 % (31-73) Lymphocytes (%) (Auto) 31 % (24-48) Monocytes (%) (Auto) 4 % (0-9) Eosinophils (%) (Auto) 1 % (0-3) Basophils (%) (Auto) 0 % (0-3) Neutrophils # (Auto) 11.9 x10^3uL (1.8-7.7) Lymphocytes # (Auto) 5.8 x10^3/uL (1.0-4.8) Monocytes # (Auto) 0.7 x10^3/uL (0.0-1.1) Eosinophils # (Auto) 0.1 x10^3/uL (0.0-0.7) Basophils # (Auto) 0.1 x10^3/uL (0.0-0.2) Sodium Level 137 mmol/L (136-145) Potassium Level 4.8 mmol/L (3.5-5.1) Chloride Level 100 mmol/L (98-107) Carbon Dioxide Level 28 mmol/L (21-32) Anion Gap 9 (6-14) Blood Urea Nitrogen 15 mg/dL (8-26) Creatinine 0.7 mg/dL (0.7-1.3) Estimated GFR (Cockcroft-Gault) 133.8 Glucose Level 136 mg/dL (70-99) Calcium Level 9.0 mg/dL (8.5-10.1) Glucose (Fingerstick) 90 mg/dL (70-99) 121 mg/dL (70-99) 190 mg/dL (70-99) Test 05/22/18 20:50 05/23/18 04:33 05/23/18 07:35 Glucose (Fingerstick) 207 mg/dL (70-99) 109 mg/dL (70-99) Blood Urea Nitrogen 17 mg/dL (8-26) Creatinine 0.9 mg/dL (0.7-1.3) Estimated GFR (Cockcroft-Gault) 100.1 Laboratory Tests Test 05/22/18 12:03 05/22/18 16:20 05/22/18 20:50 05/23/18 04:33 Glucose (Fingerstick) 121 mg/dL (70-99) 190 mg/dL (70-99) 207 mg/dL (70-99) Blood Urea Nitrogen 17 mg/dL (8-26) Creatinine 0.9 mg/dL (0.7-1.3) Estimated GFR (Cockcroft-Gault) 100.1 Test 05/23/18 07:35 Glucose (Fingerstick) 109 mg/dL (70-99) Microbiology 05/13/18 Blood Culture - Final, Complete NO GROWTH AFTER 5 DAYS 05/19/18 Urine Culture - Final, Complete 05/19/18 Urine Culture Result 1 (RERE) - Final, Complete Medications Current Medications Sodium Chloride 1,000 ml @ 1,000 mls/hr 1X ONCE IV Last administered on 05/13at 05:08; Start 05/13/18 at 04:30; Stop 05/13/18 at 05:29; Status DC Ceftriaxone Sodium 50 ml @ 100 mls/hr 1X ONCE IV Last administered on at 05:48; Start 05/13/18 at 06:00; Stop 05/13/18 at 06:29; Status DC Ondansetron HCl (Zofran) 4 mg PRN Q8HRS PRN IV NAUSEA/VOMITING 1st choice; Start 05/13/18 at 05:45; Stop 05/13/18 at 08:47; Status DC Fentanyl Citrate (Fentanyl 2ml Vial) 50 mcg PRN Q2HR PRN IV SEVERE PAIN; Start 05/13/18 at 05:45; Stop 05/14/18 at 05:44; Status DC Insulin Human Lispro (HumaLOG) 0-5 UNITS TIDWMEALS SQ ; Start 05/13/18 at 08:00 ; Stop 05/13/18 at 08:47; Status DC Dextrose (Dextrose 50%-Water Syringe) 12.5 gm PRN Q15MIN PRN IV SEE COMMENTS; Start 05/13/18 at 05:45 Ondansetron HCl (Zofran) 4 mg PRN Q6HRS PRN IV NAUSEA/VOMITING 1st choice; Start 05/13/18 at 09:00 Ceftriaxone Sodium 1 gm/ Dextrose 50 ml @ 100 mls/hr Q24H IV ; Start 05/13/18 at 08:45; Status UNV Acetaminophen (Tylenol) 500 mg PRN Q6HRS PRN PO MILD PAIN / TEMP Last administered on 05/19/18at 20:33; Start 05/13/18 at 08:45 Insulin Human Lispro (HumaLOG) 0-9 UNITS TIDWMEALS SQ Last administered on 05/22at 18:02; Start 05/13/18 at 12:00 Dextrose (Dextrose 50%-Water Syringe) 12.5 gm PRN Q15MIN PRN IV SEE COMMENTS; Start 05/13/18 at 08:45; Status UNV Magnesium Sulfate/ Dextrose 100 ml @ 100 mls/hr 1X ONCE IV Last administered on 05/13/18at 13:03; Start 05/13/18 at 09:30; Stop 05/13/18 at 10:29; Status DC Prednisone (Prednisone) 25 mg DAILY PO Last administered on 05/23/18at 09:07; Start 05/13/18 at 15:00 Triamterene/HCTZ (Maxzide 37.5/ 25mg) 1 tab DAILY PO Last administered on at 09:07; Start 05/13/18 at 09:00 Baclofen (Lioresal) 20 mg DAILYWBKFT PO Last administered on 05/13/18at 12:56; Start 05/13/18 at 12:00; Stop 05/13/18 at 16:21; Status DC Non-Formulary Medication (Dapsone ) 25 mg DAILY PO ; Start 05/13/18 at 09:00; Stop 05/13/18 at 14:33; Status DC Metformin HCl (Glucophage) 500 mg DAILYWBKFT PO ; Start 05/13/18 at 10:00; Stop 05/13/18 at 16:20; Status DC Fish Oil (Fish Oil) 1,000 mg DAILY PO Last administered on 05/23/18 09:07; Start 05/13/18 at 10:00 Oxybutynin Chloride (Ditropan) 5 mg DAILY PO Last administered on 05/23/18 09: 07; Start 05/13/18 at 10:00 Ceftriaxone Sodium (Rocephin) 1 gm Q24H IVP Last administered on 05/14/18 06: 26; Start 05/14/18 at 06:00; Stop 05/14/18 at 09:14; Status DC Sodium Chloride 1,000 ml @ 100 mls/hr Q10H IV Last administered on 05/14/18at 08:30; Start 05/13/18 at 12:30; Stop 05/14/18 at 16:11; Status DC Enoxaparin Sodium (Lovenox 40mg Syringe) 40 mg Q24H SQ Last administered on 05/22/18at 14:22; Start 05/13/18 at 13:00 Baclofen (Lioresal) 50 mg TID PO ; Start 05/13/18 at 21:00; Stop 05/13/18 at 21:00; Status DC Baclofen (Lioresal) 50 mg TID PO Last administered on 05/23/18 09:06; Start 05/13/18 at 21:00 Linezolid (Zyvox) 600 mg BID PO Last administered on 05/14/18at 11:22; Start 05/14/18 at 10:00; Stop 05/15/18 at 09:19; Status DC Nystatin (Nystop) 1 frederick BID TP Last administered on 05/23/18at 09:09; Start at 11:00 Cefepime HCl 1 gm/ Dextrose 50 ml @ 100 mls/hr Q8HRS IV ; Start 05/14/18 at 14 :00; Status UNV Cefepime HCl (Maxipime) 1 gm Q8HRS IVP Last administered on 05/15/18at 05:39; Start 05/14/18 at 11:00; Stop 05/15/18 at 09:20; Status DC Ascorbic Acid (Vitamin C) 500 mg DAILY PO Last administered on 05/23/18at 09:07 ; Start 05/14/18 at 14:00 Zinc Sulfate (Orazinc) 220 mg DAILY PO Last administered on 05/23/18 09:07; Start 05/14/18 at 14:00 Dextrose/Sodium Chloride 1,000 ml @ 100 mls/hr Q10H IV Last administered on at 08:44; Start 05/14/18 at 16:15; Stop 05/19/18 at 16:27; Status DC Insulin Glargine (Lantus) 6 units 1X ONCE SQ Last administered on 05/14/18at 17:21; Start 05/14/18 at 16:15; Stop 05/14/18 at 16:16; Status DC Influenza Virus Vaccine (Afluria Trivalent [id number] Syringe) 0.5 ml ONCE ONCE VAX IM Last administered on 05/16/18at 15:07; Start 05/15/18 at 09:00; Stop 05/15/18 at 09:01; Status DC Ketoconazole (Nizoral 2% Topical) 1 frederick DAILY TP Last administered on at 09:09; Start 05/14/18 at 18:00 Cefepime HCl (Maxipime) 1 gm Q12HR IVP Last administered on 05/17/18at 14:04; Start 05/15/18 at 21:00; Stop 05/17/18 at 17:55; Status DC Lactobacillus Rhamnosus (Culturelle) 1 cap BID PO Last administered on 09:08; Start 05/15/18 at 21:00 Ceftriaxone Sodium 1 gm/ Dextrose 50 ml @ 100 mls/hr Q24H IV ; Start 05/17/18 at 18:00; Status UNV Ceftriaxone Sodium (Rocephin) 1 gm DAILY IVP Last administered on 05/23/18at 09: 08; Start 05/18/18 at 09:00; Stop 05/23/18 at 09:41; Status DC Labetalol HCl (Normodyne Iv Push) 10 mg PRN Q4HRS PRN IVP HYPERTENSION, SEE COMMENTS Last administered on 05/21/18at 08:40; Start 05/18/18 at 01:30 Amino Acids/ Glycerin/ Electrolytes 1,000 ml @ 50 mls/hr Q20H IV Last administered on 05/21/18 21:14; Start 05/19/18 at 11:15; Stop 05/22/18 at 18:12 ; Status DC Vancomycin HCl (Vanco Per Pharmacy) 1 each PRN DAILY PRN MC SEE COMMENTS Last administered on 05/22/18at 10:48; Start 05/19/18 at 12:30; Stop 05/23/18 at 09:41 ; Status DC Vancomycin HCl 2 gm/Sodium Chloride 500 ml @ 250 mls/hr 1X ONCE IV Last administered on 05/19/18at 14:19; Start 05/19/18 at 13:00; Stop 05/19/18 at 14:59 ; Status DC Vancomycin HCl 1 gm/Sodium Chloride 250 ml @ 250 mls/hr Q12H IV Last administered on 05/20/18at 15:03; Start 05/20/18 at 02:00; Stop 05/21/18 at 05:22 ; Status DC Vancomycin HCl (Vancomycin Trough Level) 1 each 1X ONCE MC Last administered on 05/21/18at 01:30; Start 05/21/18 at 01:30; Stop 05/21/18 at 01:31; Status DC Vancomycin HCl (Vancomycin Trough Level) 1 each 1X ONCE MC Last administered on 05/21/18at 14:00; Start 05/21/18 at 14:00; Stop 05/21/18 at 14:01; Status DC Polyethylene Glycol (miraLAX PACKET) 17 gm DAILY PO Last administered on at 09:07; Start 05/21/18 at 14:30 Vancomycin HCl 1 gm/Sodium Chloride 250 ml @ 250 mls/hr Q24H IV Last administered on 05/22/18at 17:56; Start 05/21/18 at 16:00; Stop 05/23/18 at 09:41 ; Status DC Active Scripts Active Cephalexin 500 Mg Tablet 1 Tab PO QID Cipro (Ciprofloxacin Hcl) 500 Mg Tablet 1 Tab PO BID 5 Days Reported Fish Oil + D3 Softgel ([place]oshone-3S/Dha/Epa/Fish Oil/D3) 1 Each Capsule 1 Each PO DAILY Prednisone 20 Mg Tablet 25 Mg PO DAILY Baclofen 20 Mg Tablet 50 Tab PO TID Oxybutynin Chloride Er (Oxybutynin Chloride) 5 Mg Tab.er.24 1 Tab PO DAILY Vitals/I & O Vital Sign - Last 24 Hours 05/22/18 05/22/18 05/22/18 05/22/18 11:03 13:05 15:10 19:55 Temp 98.1 98.3 98.1 98.3 Pulse 80 81 Resp 18 20 B/P (MAP) 137/83 (101) 131/75 (93) Pulse Ox 100 99 O2 Delivery Nasal Cannula Room Air Nasal Cannula Room Air O2 Flow Rate 2.0 2.0 05/22/18 05/22/18 05/23/18 05/23/18 19:56 23:33 03:30 07:50 Temp 97.6 97.6 98.0 97.7 97.6 97.6 98.0 97.7 Pulse 82 70 78 76 Resp 20 20 16 20 B/P (MAP) 136/79 (98) 178/88 (118) 159/95 (116) 158/83 (108) Pulse Ox 99 99 98 97 O2 Delivery Nasal Cannula Nasal Cannula Nasal Cannula Nasal Cannula O2 Flow Rate 2.0 2.0 2.0 2.0 Intake and Output 05/22/18 05/22/18 05/23/18 15:00 23:00 07:00 Intake Total 740 ml 400 ml 370 ml Output Total 1400 ml 1053 ml Balance 740 ml -1000 ml -683 ml JM GAO MD May 23, 2018 10:43
[2018-05-23 11:43] VITALS: BP 139/94
[2018-05-23 15:29] VITALS: BP 135/77
--- NOTE | 2018-05-23 15:47 | PDOC ---
PROGRESS NOTES Assessment Assessment Metabolic encephalopathy. Confusion. Sepsis. UTI. Quadriplegia. MS, off treatment x 7 years,. NANCI virus positive in past. Neurogenic bladder. HTN. DM. Cerebral global atrophy. RECOMMENDATIONS/PLAN: Treat medical diseases. OT/PT. Discussed with his at bedside on 05/23/18. Past Medical History Cardiovascular: HTN CENTRAL NERVOUS SYSTEM: Other (primary progressive multiple sclerosis) GI: Other (hiatal hernia, gastroparesis, ileus) Renal/: Benign prostatic enlarg., Other (chronic urinary retention with indwelling Walls) Past Surgical History Hernia Repair Family History Hypertension, Other (multiple sclerosis) Social History Social History , living situation as above, no tobacco or alcohol ALLERGY: Reviewed. MEDICATIONS: Refer to MAR REVIEW OF SYSTEMS: Constitutional: No malnutrition, weight loss, cachexia. Head: No traumatic brain or head injury. Skin: No edema, or rash. Ear: No infection. Eyes: No vision loss, or diplopia. Nose: No bleeding or purulent discharges. Hearing: Hearing loss. Neck: No injury. Cardiac: HTN Pulmonary: Pneumonia. GI: No GI Ulcer, GI bleeding Urinary/genital: UTI. Endocrine: Diabetes Mellitus. Skeletomuscular: generalized weakness. Neurological: see HP. Psychiatric: Denies drug use/abuse. Otherwise, not [id number] review of systems. PHYSICAL EXAMINATION: General appearance in subacute on chronic distress. HEENT: Normocephalic and nontraumatic. Eyes, nose, ears, and throat are unremarkable. Hearing decrease. Neck is supple. No lymphadenopathy. No Crepitus. Cardiovascular: S1, S2, regular rate and rhythm. Pulmonary: Clear to auscultation bilaterally. Abdomen: Bowel sounds are positive. Extremities: No rash, lesions, or edema. Restriction of range of motion NEUROLOGICAL EXAMINATION: Awake. Sitting in bed eating. Partially oriented to time, but knew place and person. PERRL. EOMI. CN: no focal findings. Muscle tone: Fluctuated. Muscle strength: 3- UE, minimal movements in right foot noted. DTR: 1 UE, 0-1 at knee. Plantar reflex: Neutral response bilaterally Gait: not able to walk. Sensory exam: no acute abnormal findings. No other acute cerebellar signs elicited. F-T-N test not performed due to unable to perform the test. Objective Objective Vital Signs Date Time Temp Pulse Resp B/P (MAP) Pulse Ox O2 Delivery O2 Flow Rate FiO2 05/23/18 15:29 97.6 101 18 135/77 (96) 99 Room Air 97.6 05/23/18 11:43 2.0 Intake and Output 05/23/18 07:00 Intake Total 1510 ml Output Total 2453 ml Balance -943 ml Intake Oral 1510 ml Output Urine Total 2453 ml Vitals Signs Vitals VS - Last 72 Hours, by Label Date Time Temp Pulse Resp B/P (MAP) Pulse Ox O2 Delivery O2 Flow Rate FiO2 05/23/18 15:29 97.6 101 18 135/77 (96) 99 Room Air 97.6 05/23/18 11:43 97.4 81 18 139/94 (109) 95 Nasal Cannula 2.0 97.4 05/23/18 08:00 Room Air 2.0 05/23/18 07:50 97.7 76 20 158/83 (108) 97 Nasal Cannula 2.0 97.7 05/23/18 03:30 98.0 78 16 159/95 (116) 98 Nasal Cannula 2.0 98.0 05/22/18 23:33 97.6 70 20 178/88 (118) 99 Nasal Cannula 2.0 97.6 05/22/18 19:56 97.6 82 20 136/79 (98) 99 Nasal Cannula 2.0 97.6 05/22/18 19:55 Room Air 05/22/18 15:10 98.3 81 20 131/75 (93) 99 Nasal Cannula 2.0 98.3 05/22/18 13:05 Room Air 05/22/18 11:03 98.1 80 18 137/83 (101) 100 Nasal Cannula 2.0 98.1 05/22/18 08:00 Nasal Cannula 2.0 05/22/18 07:35 97.8 66 17 151/67 (95) 100 Nasal Cannula 2.0 97.8 Laboratory Laboratory Laboratory Tests Test 05/22/18 16:20 05/22/18 20:50 05/23/18 04:33 05/23/18 07:35 Glucose (Fingerstick) 190 mg/dL (70-99) 207 mg/dL (70-99) 109 mg/dL (70-99) Blood Urea Nitrogen 17 mg/dL (8-26) Creatinine 0.9 mg/dL (0.7-1.3) Estimated GFR (Cockcroft-Gault) 100.1 Test 05/23/18 11:22 Glucose (Fingerstick) 136 mg/dL (70-99) Microbiology 05/13/18 Blood Culture - Final, Complete NO GROWTH AFTER 5 DAYS 05/19/18 Urine Culture - Final, Complete 05/19/18 Urine Culture Result 1 (RERE) - Final, Complete Comment Review of Relevant I have reviewed the following items rahel (where applicable) has been applied. ALLI WAGONER MD May 23, 2018 15:47
== END 2018-05-23 17:05 | disposition home health service (06) | DRG 698 ==
LOC: ER 03:36 → 6 SOUTH 05:46
PROVIDERS: ADMIT Internal Medicine; ATTEND Internal Medicine
PROC: 0HBRXZZ Excision of Toe Nail, External Approach (ICD-10-PCS; principal; 2018-05-13)
DX: T83.518A Infection and inflammatory reaction due to other urinary catheter, initial encounter (principal); A41.9 Sepsis, unspecified organism; E43 Unspecified severe protein-calorie malnutrition; G93.41 Metabolic encephalopathy; G82.50 Quadriplegia, unspecified; N39.0 Urinary tract infection, site not specified; L12.0 Bullous pemphigoid; I10 Essential (primary) hypertension; E78.00 Pure hypercholesterolemia, unspecified; K31.84 Gastroparesis; E11.43 Type 2 diabetes mellitus with diabetic autonomic (poly)neuropathy; E11.51 Type 2 diabetes mellitus with diabetic peripheral angiopathy without gangrene; L89.90 Pressure ulcer of unspecified site, unspecified stage; G35 Multiple sclerosis; Y84.6 Urinary catheterization as the cause of abnormal reaction of the patient, or of later complication, without mention of misadventure at the time of the procedure; L21.9 Seborrheic dermatitis, unspecified; E83.42 Hypomagnesemia; M24.541 Contracture, right hand; E78.5 Hyperlipidemia, unspecified; L82.1 Other seborrheic keratosis; N40.1 Benign prostatic hyperplasia with lower urinary tract symptoms; R33.8 Other retention of urine; E11.621 Type 2 diabetes mellitus with foot ulcer; L97.529 Non-pressure chronic ulcer of other part of left foot with unspecified severity; L97.519 Non-pressure chronic ulcer of other part of right foot with unspecified severity; Z66 Do not resuscitate; N31.9 Neuromuscular dysfunction of bladder, unspecified; B96.89 Other specified bacterial agents as the cause of diseases classified elsewhere; Z68.28 Body mass index [BMI] 28.0-28.9, adult; Z82.0 Family history of epilepsy and other diseases of the nervous system; Z99.3 Dependence on wheelchair; Z74.01 Bed confinement status; Z82.49 Family history of ischemic heart disease and other diseases of the circulatory system; Y92.89 Other specified places as the place of occurrence of the external cause; L89.42 Pressure ulcer of contiguous site of back, buttock and hip, stage 2
CPT/HCPCS: 36415; 70450; 71045; 76870; 80048; 80053; 80202; 81001; 82565; 82607; 82962; 83605; 83735; 84145; 84520; 85007; 85025; 85610; 85730; 86592; 87040; 87086; 87186; 90471; 90756; 95816; 96361; 96365; J0690; J0692; J0696; J1650; J1815; J3370; J3475; J3490; J7030; J7040; J7050; J7512; 99285-25; Q2035

== ENCOUNTER 2019-05-27 19:35 | Emergency (ER) | payer MEDICARE, BC ==
[~2019-05-27] VITALS: Ht 180.3 cm; Wt 83.5 kg
[2019-05-27 19:35] VITALS: BP 185/98
[~2019-05-27 19:35] MED LIST changes: +AMLO5TAB10 PO; -AMLO5TAB7 PO; +ASCO500T2 PO; +CEFTRIAXONE SODIUM IVP; +KETO15CR2 TP; +LACT1CAP19 PO; -OXYB10TA PO; +OXYB10TA2 PO; -OXYB5TAB PO; +OXYB5TAB2 PO; -PANT40TA3 PO; +PANT40TA77 PO; +POLY17PO28 PO; +TRIA1TAB3 PO; +ZINC220C5 PO
[2019-05-27] MEDS ORDERED: LIDOCAINE 2% JELLY 6ML IN APPLICATOR. MM ONE (19:45)
--- NOTE | 2019-05-27 22:06 | PHYS DOC ---
Past Medical History Past Medical History: Diabetes-Type II, High Cholesterol, Hypertension, P rostatitis Additional Past Medical Histor: MS--->Chatman Cath Past Surgical History: Tonsillectomy Additional Past Surgical Histo: hernia Alcohol Use: None Drug Use: None Adult General Chief Complaint Chief Complaint: URINE CATHETER PROBLEM HPI HPI Patient is a 74 year old f with hx of ms got chatman changed today by visiting nurse he felt like it didn't go in all the way, no urine came out. No fever no vomiting just wants a new Chatman catheter Review of Systems Review of Systems Constitutional: Denies fever or chills [] Eyes: Denies change in visual acuity, redness, or eye pain [] HENT: Denies nasal congestion or sore throat [] Respiratory: Denies cough or shortness of breath [] Cardiovascular: No additional information not addressed in HPI [] GI: Denies abdominal pain, nausea, vomiting, bloody stools or diarrhea [] : Denies dysuria or hematuria [] Musculoskeletal: Denies back pain or joint pain [] Integument: Denies rash or skin lesions [] Neurologic: Denies headache, focal weakness or sensory changes [] Endocrine: Denies polyuria or polydipsia [] All other systems were reviewed and found to be within normal limits, except as documented in this note. Current Medications Current Medications Current Medications Medications (Trade) Dose Ordered Sig/Génesis Start Time Stop Time Status Last Admin Dose Admin Lidocaine HCl (Glydo (Lidocaine) Jelly) 1 frederick 1X ONCE 05/27/19 19:45 05/27/19 19:46 DC Allergies Allergies Allergies Coded Allergies Type Severity Reaction Last Updated Verified No Known Drug Allergies 04/30/14 No Physical Exam Physical Exam Constitutional: Well developed, well nourished, no acute distress, non-toxic a ppearance. [] HENT: Normocephalic, atraumatic, bilateral external ears normal, oropharynx moist, no oral exudates, nose normal. [] Eyes: PERRLA, EOMI, conjunctiva normal, no discharge. [] Neck: Normal range of motion, no tenderness, supple, no stridor. [] Cardiovascular:Heart rate regular rhythm, no murmur [] Lungs & Thorax: Bilateral breath sounds clear to auscultation [] Abdomen: Nontender but the lower abdomen is mildly distended Back: No tenderness, no CVA tenderness. [] gu there is a Chatman in the penis but it is not draining Extremities: No tenderness, no cyanosis, no clubbing, ROM intact, no edema. [] Neurologic: Has some contractures and generalized weakness consistent with MS but he is alert and oriented Current Patient Data Vital Signs Vital Signs Date Time Temp Pulse Resp B/P (MAP) Pulse Ox O2 Delivery O2 Flow Rate FiO2 05/27/19 19:35 98.0 107 18 185/98 (127) 94 Room Air 98.0 EKG EKG [] Radiology/Procedures Radiology/Procedures [] Course & Med Decision Making Course & Med Decision Making Pertinent Labs and Imaging studies reviewed. (See chart for details) []Urine status post new Chatman initially there was some blood-tinged urine but it began to clear up nicely patient's symptoms resolved and we discharged in stable condition Dragon Disclaimer Dragon Disclaimer This electronic medical record was generated, in whole or in part, using a voice recognition dictation system. Departure Departure Impression: Primary Impression: Chatman catheter in place Disposition: HOME, SELF-CARE Condition: STABLE Patient Instructions: Chatman Catheter Care, Adult DAVIN MALIK MD May 27, 2019 22:06
== END 2019-05-27 20:30 | disposition home or self-care (01) ==
LOC: ER 19:35
DX: T83.098A Other mechanical complication of other urinary catheter, initial encounter (principal); E11.9 Type 2 diabetes mellitus without complications; E78.00 Pure hypercholesterolemia, unspecified; I10 Essential (primary) hypertension; G35 Multiple sclerosis
CPT/HCPCS: 51702; 99284-25

== ENCOUNTER 2020-01-16 15:29 | Emergency (ER) | payer MEDICARE, BC ==
[~2020-01-16] VITALS: Ht 180.3 cm; Wt 81.0 kg
[~2020-01-16 15:29] MED LIST changes: -ASCO500T2 PO; +ASCO500T4 PO; +OXYB-36 PO; -OXYB10TA2 PO; +OXYB10TA26 PO; -OXYB5TAB2 PO; -ZINC220C5 PO; +ZINC220C7 PO
[2020-01-16 15:40] VITALS: BP 172/94
[2020-01-16 16:13] LABS: BILIRUBIN,URINE NEGATIVE (NEG); CLARITY,URINE CLOUDY; COLOR,URINE YELLOW; NITRITE,URINE NEGATIVE (NEG); PROTEIN,URINE NEGATIVE (NEG-TRACE); UROBILINOGEN,URINE 0.2 mg/dL (0.2 mg/dL)
[2020-01-16 16:20] LABS: BACTERIA,URINE 0 /HPF (0-FEW); RBC,URINE 20-40 /HPF (0-2)
[2020-01-16] MEDS ORDERED: SMZ/TMP 800/160MG TABLET. PO ONE (17:00)
[2020-01-16] MEDS ORDERED: SULF1TAB24 PO (17:24)
--- NOTE | 2020-01-16 17:24 | PHYS DOC ---
Past Medical History Past Medical History: Diabetes-Type II, High Cholesterol, Hypertension, P rostatitis Additional Past Medical Histor: MS--->Yeung Cath Past Surgical History: Tonsillectomy Additional Past Surgical Histo: hernia Smoking Status: Never Smoker Alcohol Use: None Drug Use: None General Adult EDM: Chief Complaint: URINE CATHETER PROBLEM HPI: HPI: Patient is a 74 year old male with history of MS, has indwelling yeung catheter, today his home health nurse could not advance his yeung catheter and he had a lot of spasm in his bladder so he was brought here for evaluation. NO FEVER, NO COUGH, NO ABDOMINAL PAIN. Review of Systems: Review of Systems: Constitutional: Denies fever or chills. [] Eyes: Denies change in visual acuity. [] HENT: Denies nasal congestion or sore throat. [] Respiratory: Denies cough or shortness of breath. [] Cardiovascular: Denies chest pain or edema. [] GI: Denies abdominal pain, nausea, vomiting, bloody stools or diarrhea. [] : Denies dysuria. [] Musculoskeletal: Denies back pain or joint pain. [] Integument: Denies rash. [] Neurologic: Denies headache, focal weakness or sensory changes. [] Endocrine: Denies polyuria or polydipsia. [] Lymphatic: Denies swollen glands. [] Psychiatric: Denies depression or anxiety. [] Heart Score: Risk Factors: Risk Factors: DM, Current or recent (<one month) smoker, HTN, HLP, family history of CAD, obesity. Risk Scores: Score 0 - 3: 2.5% MACE over next 6 weeks - Discharge Home Score 4 - 6: 20.3% MACE over next 6 weeks - Admit for Clinical Observation Score 7 - 10: 72.7% MACE over next 6 weeks - Early Invasive Strategies Current Medications: Current Medications Medications (Trade) Dose Ordered Sig/Génesis Start Time Stop Time Status Last Admin Dose Admin Trimethoprim/ Sulfamethoxazole (Bactrim Ds) 1 tab 1X ONCE 01/16/20 17:00 01/16/20 17:01 DC 01/16/20 17:21 1 TAB Allergies: Allergies: Allergies Coded Allergies Type Severity Reaction Last Updated Verified No Known Drug Allergies 04/30/14 No Physical Exam: PE: Constitutional: Well developed, well nourished, no acute distress, non-toxic appearance. [] HENT: Normocephalic, atraumatic, bilateral external ears normal, oropharynx moist, no oral exudates, nose normal. [] Eyes: PERRLA, EOMI, conjunctiva normal, no discharge. [] Cardiovascular:Heart rate regular rhythm, no murmur [] Lungs & Thorax: Bilateral breath sounds clear to auscultation [] Abdomen: Bowel sounds normal, soft, no tenderness, no masses, no pulsatile masses. [] Skin: Warm, dry, no erythema, no rash. [] Back: No tenderness, no CVA tenderness. [] Extremities: No tenderness Neurologic: Alert and oriented X 3, Psychologic: Affect normal, judgement normal, mood normal. [] Current Patient Data: Labs: Laboratory Tests Test 01/16/20 16:05 Urine Collection Type U cath Urine Color Yellow Urine Clarity Cloudy Urine pH 6.0 (<5.0-8.0) Urine Specific Kennard 1.010 (1.000-1.030) Urine Protein Negative mg/dL (NEG-TRACE) Urine Glucose (UA) Negative mg/dL (NEG) Urine Ketones (Stick) Negative mg/dL (NEG) Urine Blood Large (NEG) Urine Nitrite Negative (NEG) Urine Bilirubin Negative (NEG) Urine Urobilinogen Dipstick 0.2 mg/dL (0.2 mg/dL) Urine Leukocyte Esterase Large (NEG) Urine RBC 20-40 /HPF (0-2) Urine WBC 11-20 /HPF (0-4) Urine Bacteria 0 /HPF (0-FEW) Urine Mucus Mod /LPF Vital Signs: Vital Signs Date Time Temp Pulse Resp B/P (MAP) Pulse Ox O2 Delivery O2 Flow Rate FiO2 01/16/20 15:40 98.5 105 16 172/94 (120) 98 Room Air 98.5 EKG: EKG: [] Radiology/Procedures: Radiology/Procedures: [] Course & Med Decision Making: Course & Med Decision Making Pertinent Labs and Imaging studies reviewed. (See chart for details) YEUNG CATHETER WAS REPLACED, PATIENT FELT MUCH BETTER. Dragon Disclaimer: Dragon Disclaimer: This electronic medical record was generated, in whole or in part, using a voice recognition dictation system. Departure Departure Impression: Primary Impression: UTI (urinary tract infection) due to urinary indwelling catheter Additional Impression: Encounter for Yeung catheter replacement Disposition: 01 HOME, SELF-CARE Condition: IMPROVED Referrals: KARLI JOYA MD (PCP) Please call your family doctor for follow up . Patient Instructions: Urinary Tract Infection Scripts Sulfamethoxazole/Trimethoprim (BACTRIM DS TABLET) 1 Each Tablet 1 TAB PO BID for 10 Days, #20 TAB 0 Refills Prov: BELINDA NIXON DO 01/16/20 Justicifation of Admission Dx: Justifications for Admission: Justification of Admission Dx: N/A BELINDA NIXON DO Jan 16, 2020 17:24
== END 2020-01-16 17:52 | disposition home or self-care (01) ==
LOC: ER 15:29
DX: T83.518A Infection and inflammatory reaction due to other urinary catheter, initial encounter (principal); E11.9 Type 2 diabetes mellitus without complications; E78.00 Pure hypercholesterolemia, unspecified; I10 Essential (primary) hypertension; Y82.8 Other medical devices associated with adverse incidents; Y92.89 Other specified places as the place of occurrence of the external cause
CPT/HCPCS: 51702; 81001; 87086; 99285-25

== ENCOUNTER 2020-03-21 05:45 | Inpatient (IN) | payer MEDICARE, BC ==
[~2020-03-21] VITALS: Ht 180.3 cm; Wt 86.2 kg
[2020-03-21 06:13] LABS: BILIRUBIN,URINE NEGATIVE (NEG); CLARITY,URINE CLOUDY; COLOR,URINE YELLOW; NITRITE,URINE NEGATIVE (NEG); PROTEIN,URINE NEGATIVE (NEG-TRACE)
[2020-03-21] MEDS ORDERED: IV NORMAL SALINE 1000ML BAG 1,000 ML IV ONE ×3 (06:15→08:30)
--- NOTE | 2020-03-21 06:17 | PHYS DOC ---
Past Medical History Past Medical History: Diabetes-Type II, High Cholesterol, Hypertension, P rostatitis Additional Past Medical Histor: MS--->Walls Cath Past Surgical History: Tonsillectomy Additional Past Surgical Histo: hernia Smoking Status: Never Smoker Alcohol Use: None Drug Use: None General Adult EDM: Chief Complaint: URINE CATHETER PROBLEM HPI: HPI: Patient is a 75 yo M presenting to the ED with urinary catheter problem. Patient has a past medical history of MS and has been bed bound for approximately 5 year s and receiving regular indwelling catheter changes monthly. Patient is due for a change on 03/23/2020, two days from now. He says that he feels some lower abdominal pain which he has experienced before with previous UTIs. Patient denies any chest pain, subjective fevers, chills, N/V, or change in bowel habits. Patient is currently taking dapsone and oxybutinin. Review of Systems: Review of Systems: Constitutional: Denies fever or chills Eyes: Denies redness or eye pain HENT: Denies nasal congestion or sore throat Respiratory: Denies cough or shortness of breath Cardiovascular: Denies chest pain or palpitations GI: Denies endorses abdominal pain, denies nausea or vomiting : Endorses dysuria, denies hematuria Musculoskeletal: Denies back pain or joint pain Integument: Denies rash or skin lesions Neurologic: Denies headache, focal weakness or sensory changes other than his baseline neurological status associated with his MS Complete systems were reviewed and found to be within normal limits, except as documented in this note. Current Medications: Current Medications Medications (Trade) Dose Ordered [facility] Start Time Stop Time Status Last Admin Dose Admin Sodium Chloride 1,000 ml @ 1,000 mls/hr 1X ONCE 03/21/20 06:15 03/21/20 07:14 Allergies: Allergies: Allergies Coded Allergies Type Severity Reaction Last Updated Verified No Known Drug Allergies 04/30/14 No Physical Exam: PE: Constitutional: Frail, bedbound, no acute distress, non-toxic appearance HENT: Normocephalic, atraumatic Eyes: Pupils equal but minimally responsive to light, EOMI, conjunctiva normal, no discharge Neck: Normal range of motion, no tenderness, supple Lungs & Thorax: Bilateral breath sounds clear to auscultation, no wheezing Abdomen: Soft, tender to palpation suprapubic area Skin: Warm, dry, diffuse skin fold erythema most likely secondary to bed bound status, Extremities: No tenderness, no edema, restricted range of motion grossly due to MS, mild muscle rigidity, toenails are grossly unkept with signs of onychomycosis Neurologic: Alert and oriented X 3, motor function grossly limited, normal sensory function, no focal deficits noted Psychologic: Affect normal, judgment normal EKG: EKG: @0600 Sinus tachycardia at 122bpm, NO ST elevation, QRS 70ms, QT/QTc 304/434ms Course & Med Decision Making: Course & Med Decision Making Pertinent Lab studies reviewed. (See chart for details) Patient is a 75-year-old male presenting to the ED with swelling catheter problem. Patient has a chronic indwelling Walls catheter secondary to his mul tiple sclerosis. Patient has a past medical history of hypertension, hyperlipidemia, multiple sclerosis, BPH, urinary incontinence, and type 2 diabetes. Patient currently takes oxybutynin for urinary incontinence and dapsone for infection prophylaxis. Since presentation patient has been tachycardic, and mildly hypotensive although it is uncertain if this is an aberration or is his baseline. Patient does show signs of UTI with suprapubic tenderness, plaints of dysuria, and foul-smelling urine during catheter removal. Due to his frailty and presentation complicated UTI associated sepsis was investigated. Laboratory notable for a white blood cell count of 23.8, neutrophil count of 14.6, lymphocyte count of 6.9, and eosinophil count of 1.1. Laboratory chemistry shows normal lactic acid at 1.1, and hypomagnesemia. Urinalysis notable for large leukocyte esterase, urine red blood cells present, white blood cells too numerous to count, bacteria many, and marked urine mucus. With the patient tachycardia, high white blood cell count, a source of infection, systolic blood pressure that was less than 90 but responded to fluids patient meets severe sepsis criteria warranting admission. Patient was started on IV fluids and will be given magnesium supplement. Note patient's primary care physician is Barak Joya. Patient requiring admission for further evaluation and treatment. Discussed with Dr. García (hospitalist) who is in agreement with admission. Discussed findings and plan with patient and family, who acknowledge understanding and agreement. Elizabeth Disclaimer: Elizabeth Disclaimer: This electronic medical record was generated, in whole or in part, using a voice recognition dictation system. Departure Departure Impression: Primary Impression: Severe sepsis Additional Impressions: Hypomagnesemia Complicated urinary tract infection Hx of multiple sclerosis Disposition: ADMITTED INPATIENT Admitting Physician: NAIMA Willingham) Condition: GUARDED Referrals: BARAK JOYA MD (PCP) Justicifation of Admission Dx: Justifications for Admission: Justification of Admission Dx: Yes Sepsis: Infection Comments: Complicated UTI, hypomagnesemia Date and Time of Reassessment Date: Mar 21, 2020 Time: 07:46 Fluid Challenge Is the fluid challenge complet: No IBW Target Volume Used: No BMI > 30: No Vital Signs Vital Signs: Vital Signs Date Time Temp Pulse Resp B/P (MAP) Pulse Ox O2 Delivery O2 Flow Rate FiO2 03/21/20 06:36 120 24 80/57 (65) 91 Room Air 03/21/20 05:48 99.6 99.6 Temperature Source: Axillary Respirations Respiratory Effort: Normal, Non-Labored Respiratory Pattern: Normal Cardiovascular Pulse Rhythm: Regular Heart: S1 and S2 normal Lung Sounds Breath Sounds: Clear Capillary Refil Capillary Refill: Rt Hand < 3 seconds Peripheral Pulse Pulse Location: Radial Pulse Strength: Normal (2+) Pulse Assessment Method: Palpation Integumentary Skin: Warm, Dry Skin Moisture: Dry Skin Turgor: Normal Skin Color: warm, dry Fingernail Color: WNL Critical Care Time Critical care time was 30 minutes which includes time at bedside, spent in discussion of patient's care with specialists and/or family members, with interpretation of laboratory and/or radiological studies and is exclusive of procedures. AREN HAYES DO Mar 21, 2020 06:17
[2020-03-21 06:28] LABS: BACTERIA,URINE MANY /HPF (0-FEW); RBC,URINE FIELD OBSCURED /HPF (0-2); SQUAMOUS EPITHELIAL CELL,UR FEW /LPF; WBC,URINE TNTC /HPF (0-4)
[2020-03-21 06:33] LABS: BASO # 0.2 x10^3/uL (0.0-0.2); BASO % 1 % (0-3); EOS # 1.1 x10^3/uL (0.0-0.7); EOS % 5 % (0-3); HEMATOCRIT 41.4 % (39.0-53.0); HEMOGLOBIN 13.8 g/dL (13.0-17.5); LYMPH # 6.9 x10^3/uL (1.0-4.8); LYMPH % 29 % (24-48); MEAN CORPUSCULAR HEMOGLOBIN 26 pg (25-35); MEAN CORPUSCULAR HGB CONC 34 g/dL (31-37); MEAN CORPUSCULAR VOLUME 79 fL (79-100); MONO % 4 % (0-9); NEUT # 14.6 x10^3/uL (1.8-7.7); NEUT % 61 % (31-73); PLATELET COUNT 432 x10^3/uL (140-400); RED BLOOD COUNT 5.25 x10^6/uL (4.30-5.70); RED CELL DISTRIBUTION WIDTH 20.3 % (11.5-14.5); WHITE BLOOD COUNT 23.8 x10^3/uL (4.0-11.0)
[2020-03-21 06:56] LABS: CALCIUM 7.8 mg/dL (8.5-10.1); CREATININE 1.1 mg/dL (0.7-1.3); POTASSIUM 3.8 mmol/L (3.5-5.1)
[2020-03-21 07:00] LABS: ALBUMIN/GLOBULIN RATIO 0.6 (1.0-1.7); MAGNESIUM 1.6 mg/dL (1.8-2.4); TOTAL BILIRUBIN 0.8 mg/dL (0.2-1.0); TOTAL PROTEIN 5.5 g/dL (6.4-8.2)
[2020-03-21] MEDS ORDERED: PIPERACILLIN/TAZOBACTAM 4.5 GM in IV NORMAL SALINE 100ML 100 ML IV ONE (07:00)
[2020-03-21] MEDS ORDERED: ACETAMINOPHEN 325 MG TABLET. PO PRN (07:45)
[2020-03-21] MEDS ORDERED: MAGNESIUM SULFATE 2GM 50 ML IV ONE (07:45)
[2020-03-21] MEDS ORDERED: DEXTROSE 50% 25 GM / 50ML DISP.SYRIN. IV PRN (07:45)
[2020-03-21] MEDS ORDERED: ONDANSETRON PF 4 MG/2 ML VIAL. IV PRN (07:45)
[2020-03-21] MEDS: INSULIN LISPRO 300 UNITS/3 ML VIAL. SQ SCH ×3 (08:00→17:00)
[2020-03-21 10:00] VITALS: BP 98/61
[2020-03-21 11:00] VITALS: BP 91/58
--- NOTE | 2020-03-21 12:23 | HP ---
ADMIT DATE: 03/21/2020 CHIEF COMPLAINT: Abdominal pain and urinary catheter problem. HISTORY OF PRESENT ILLNESS: The patient is a pleasant 75-year-old male who has advanced multiple sclerosis. Basically, he has had a Walls catheter for several years. He states he has been bedbound for 5 years. He normally has the catheter changed every month. He is due to have a change in a couple of days, but the catheter was causing some pain. He has got associated abdominal pain. It has been worsening over the past 24 hours, rates it at 9/10. He has some associated weakness. I discussed the case with ER physician, appears he does have a UTI. He also has a leukocytosis of 23,000 and a blood pressure of 70. I suspect he is septic. We are going to admit the patient and give him IV antibiotics and fluids. PAST MEDICAL HISTORY: Advanced multiple sclerosis, diabetes, hypertension, hyperlipidemia, proctitis, chronic indwelling Walls, tonsillectomy and hernia repair. ALLERGIES: None. FAMILY HISTORY: Diabetes. SOCIAL HISTORY: He used to work at ____. He does not drink, smoke or take drugs. He has a at home. MEDICATIONS: Reviewed, please refer to the MRAD. REVIEW OF SYSTEMS: GENERAL: No history of weight change, weakness or fevers. SKIN: No bruising, hair changes or rashes. EYES: No blurred, double or loss of vision. NOSE AND THROAT: No history of nosebleeds, hoarseness or sore throat. HEART: No history of palpitations, chest pain or shortness of breath on exertion. LUNGS: Denies cough, hemoptysis, wheezing or shortness of breath. GASTROINTESTINAL: He complains of abdominal pain. GENITOURINARY: He complains that his Walls catheter is not working properly. NEUROLOGIC: Denies history of numbness, tingling, tremor or weakness. PSYCHIATRIC: No history of panic, anxiety or depression. ENDOCRINE: No history of heat or cold intolerance, polyuria or polydipsia. EXTREMITIES: Denies muscle weakness, joint pain, pain on walking or stiffness. PHYSICAL EXAMINATION: VITALS: Within normal limits and are stable. GENERAL: He is very weak. HEENT: Normal cephalic atraumatic, external auditory canals are patent EYES: Extraocular muscles are intact, pupils are equally round and reactive to light and accommodation MUSCULOSKELETAL: Well developed, well nourished, good range of motion ENDOCRINE: No thyromegaly was palpated LYMPHATICS: No cervical chain or axillary nodes were noted HEMATOPOIETIC: No bruising NECK: Supple, no JVD, no thyromegaly was noted. LUNGS: Clear to auscultation in all lung quiroga without rhonchi or wheezing. HEART: RRR, S1, S2 present. Peripheral pulses intact, no obvious murmurs were noted. ABDOMEN: Soft, nontender. Positive bowel sounds no organomegaly, normal bowel sounds. EXTREMITIES: Without any cyanosis, clubbing, or edema. Pedal pulses intact, Homans sign is negative. NEUROLOGIC: He is somewhat contracted in his upper extremities. He cannot move his lower extremities too much. He has a flat affect. PSYCHIATRIC: He is a little depressed. SKIN: He has got diffuse scaling and some blistering. Skin is very thin and frail. VASCULAR: Good capillary refill, neurovascular bundle appears to be intact. LABORATORY DATA: White count is 23.8, hemoglobin 13, platelets 432. Electrolytes are normal. Urinalysis shows a large amount of leukocyte esterase and too numerous to count white cells. ASSESSMENT AND PLAN: Sepsis and UTI with severe hypotension. The patient will be admitted. We will give IV Rocephin, IV fluids, home meds, DVT prophylaxis. Full code. Wound care to evaluate and treat. Trend labs, PT, OT, half-way unit evaluation. I suspect he is going to need long-term care. PROGNOSIS: Guarded. SOFY NELSON DO DR: TAY/deisi JOB#: [id number] / [id number]
[2020-03-21 12:26] LABS: % BANDS 4 % (0-9); % EOS 4 % (0-5); % LYMPHS 21 % (24-48); % MONOS 2 % (0-10); % MYELOS 1 % (0-0); % SEGS 68 % (35-66)
[2020-03-21 12:27] LABS: PLT ESTIMATE INCREASED (ADEQUATE)
[2020-03-21 12:28] LABS: ANISOCYTOSIS SLIGHT
[2020-03-21] MEDS: NYSTATIN TOPICAL POWDER 15GM BOTTLE. TP SCH ×2 (14:51→21:50)
[2020-03-21 15:00] VITALS: BP 102/60
[2020-03-21] MEDS: IV NORMAL SALINE 1000ML BAG 1,000 ML IV SCH (17:54)
[2020-03-21] MEDS: cefTRIAXone IV Push 1 GM VIAL. IVP SCH (18:01)
[2020-03-21 19:25] VITALS: BP 105/67
[2020-03-21] MEDS: BACLOFEN 10 MG TABLET. PO SCH (21:25)
[2020-03-21] MEDS: predniSONE 20 MG TABLET PO SCH (21:25)
[2020-03-21 23:45] VITALS: BP 112/63
[2020-03-22 03:50] VITALS: BP 149/87
[2020-03-22] MEDS: IV NORMAL SALINE 1000ML BAG 1,000 ML IV SCH ×2 (06:42→21:31)
[2020-03-22] MEDS: INSULIN LISPRO 300 UNITS/3 ML VIAL. SQ SCH ×3 (08:00→17:00)
[2020-03-22] MEDS: predniSONE 20 MG TABLET PO SCH ×2 (08:32→21:33)
[2020-03-22] MEDS: BACLOFEN 10 MG TABLET. PO SCH ×3 (08:32→21:33)
[2020-03-22] MEDS: OXYBUTYNIN CHLORIDE 5 MG TABLET PO SCH ×2 (08:35→21:32)
[2020-03-22] MEDS: NYSTATIN TOPICAL POWDER 15GM BOTTLE. TP SCH ×2 (08:35→21:34)
--- NOTE | 2020-03-22 10:19 | PDOC ---
[employer] PROGRESS NOTE Date of Service DOS: DATE: 03/22/20 TIME: 10:13 Chief Complaint Chief Complaint Abdominal pain and urinary catheter problem History of Present Illness History of Present Illness 03/22/20 Pt was seen and examined Pt was alert and oriented Pt was in NAD Discussed with RN Chart reviewed Vitals/I&O Vitals/I&O: Vital Signs Date Time Temp Pulse Resp B/P (MAP) Pulse Ox O2 Delivery O2 Flow Rate FiO2 03/22/20 03:50 98.1 102 20 149/87 (107) 97 Room Air 98.1 I & O 03/21/20 03/21/20 03/22/20 15:00 23:00 07:00 Intake Total 3050 ml 450 ml 600 ml Output Total 200 ml Balance 3050 ml 450 ml 400 ml Physical Exam General: Alert, No acute distress Heart: Regular rate Lungs: Clear, Wheezing Abdomen: Normal bowel sounds Extremities: No clubbing, No cyanosis Skin: Other (Blisters present on B/L LEs) Labs Labs: Laboratory Tests Test 03/21/20 11:47 03/21/20 16:00 03/22/20 08:31 Troponin I Quantitative < 0.017 ng/mL (0.000-0.055) < 0.017 ng/mL (0.000-0.055) Glucose (Fingerstick) 138 mg/dL (70-99) Review of Systems Review of Systems: Patient denies nausea. Patient denies weakness. Assessment and Plan Assessmemt and Plan Problems Medical Problems: (1) Complicated urinary tract infection Status: Acute (2) Hx of multiple sclerosis Status: Acute (3) Hypomagnesemia Status: Acute (4) Severe sepsis Status: Acute Assessment Sepsis UTI Hypotension Hypomagnesemia Multiple sclerosis Plan Continue IV ceftriaxone Continue IV normal saline Wound care for severe LE blisters Encourage PO intake PT OT Full code DVT prophylaxis Continue home meds Comment Review of Relevant I have reviewed the following items rahel (where applicable) has been applied. Medications: Current Medications Medications (Trade) Dose Ordered Sig/Génesis Route PRN Reason Start Time Stop Time Status Last Admin Dose Admin Nystatin (Nystop) 1 frederick BID TP 03/21/20 13:00 03/22/20 08:35 Sodium Chloride 1,000 ml @ 75 mls/hr [id number] IV 03/21/20 17:00 03/22/20 06:42 Ceftriaxone Sodium (Rocephin) 1 gm Q24H IVP 03/21/20 17:00 03/21/20 18:01 Prednisone (Prednisone) 20 mg BID PO 03/21/20 21:00 03/22/20 08:32 Baclofen (Lioresal) 20 mg TID PO 03/21/20 21:00 03/22/20 08:32 Oxybutynin Chloride (Ditropan) 2.5 mg BID PO 03/22/20 09:00 03/22/20 08:35 Justifications for Admission Other Justification SOFY NELSON III DO Mar 22, 2020 10:19
[2020-03-22 11:00] VITALS: BP 118/69
[2020-03-22 15:00] VITALS: BP 115/75
[2020-03-22] MEDS: cefTRIAXone IV Push 1 GM VIAL. IVP SCH (17:28)
[2020-03-22 19:25] VITALS: BP 135/75
[2020-03-22] MEDS: LACTOBACILLUS RHAMNOSUS GG 1 CAPSULE. PO SCH (21:31)
[2020-03-22 22:32] VITALS: BP 140/78
[2020-03-23 03:10] VITALS: BP 150/74
[2020-03-23 07:00] VITALS: BP 142/70
[2020-03-23] MEDS: INSULIN LISPRO 300 UNITS/3 ML VIAL. SQ SCH ×3 (08:00→17:00)
[2020-03-23] MEDS: OXYBUTYNIN CHLORIDE 5 MG TABLET PO SCH (08:50)
[2020-03-23] MEDS: LACTOBACILLUS RHAMNOSUS GG 1 CAPSULE. PO SCH (08:50)
[2020-03-23] MEDS: predniSONE 20 MG TABLET PO SCH (08:51)
[2020-03-23] MEDS: BACLOFEN 10 MG TABLET. PO SCH ×2 (08:51→14:17)
[2020-03-23] MEDS: IV NORMAL SALINE 1000ML BAG 1,000 ML IV SCH (08:55)
[2020-03-23 11:31] VITALS: BP 142/75
[2020-03-23 12:09] LABS: CALCIUM 7.7 mg/dL (8.5-10.1); CREATININE 0.8 mg/dL (0.7-1.3)
[2020-03-23 12:31] LABS: BASO # 0.1 x10^3/uL (0.0-0.2); BASO % 0 % (0-3); EOS # 0.1 x10^3/uL (0.0-0.7); EOS % 1 % (0-3); HEMATOCRIT 33.3 % (39.0-53.0); HEMOGLOBIN 10.6 g/dL (13.0-17.5); LYMPH # 3.5 x10^3/uL (1.0-4.8); LYMPH % 21 % (24-48); MEAN CORPUSCULAR HEMOGLOBIN 26 pg (25-35); MEAN CORPUSCULAR HGB CONC 32 g/dL (31-37); MEAN CORPUSCULAR VOLUME 81 fL (79-100); MONO # 0.6 x10^3/uL (0.0-1.1); MONO % 4 % (0-9); NEUT # 12.6 x10^3/uL (1.8-7.7); NEUT % 75 % (31-73); PLATELET COUNT 335 x10^3/uL (140-400); RED BLOOD COUNT 4.11 x10^6/uL (4.30-5.70); RED CELL DISTRIBUTION WIDTH 20.4 % (11.5-14.5); WHITE BLOOD COUNT 16.9 x10^3/uL (4.0-11.0)
[2020-03-23] MEDS ORDERED: ASCORBIC ACID 500 MG TABLET PO SCH (13:00)
[2020-03-23] MEDS ORDERED: NYSTATIN TOPICAL POWDER 15GM BOTTLE. TP SCH (13:00)
[2020-03-23] MEDS ORDERED: MAGNESIUM SULFATE 4GM 100 ML IV ONE (13:00)
[2020-03-23] MEDS ORDERED: TRIAMTERENE/HCTZ 37.5/25MG TABLET. PO SCH (13:00)
[2020-03-23] MEDS ORDERED: ZINC SULFATE 220 MG CAPSULE. PO SCH (13:00)
[2020-03-23] MEDS ORDERED: POLYETHYLENE GLYCOL 3350 17 GM PACKET. PO SCH (13:00)
[2020-03-23] MEDS ORDERED: LACTOBACILLUS RHAMNOSUS GG 1 CAPSULE. PO SCH (13:00)
[2020-03-23] MEDS ORDERED: KETOCONAZOLE 2% TOPICAL CREAM 15GM TUBE. TP SCH (13:00)
[2020-03-23] MEDS: NYSTATIN TOPICAL POWDER 15GM BOTTLE. TP SCH (14:18)
--- NOTE | 2020-03-23 14:40 | PDOC3 ---
Discharge Summary Visit Information Date of Admission: Mar 21, 2020 Date of Discharge: Mar 23, 2020 Admitting Diagnosis Comment: Sepsis and UTI with severe hypotension. Final Diagnosis Problems Medical Problems: (1) Complicated urinary tract infection ruled out Status: Acute (2) Hx of multiple sclerosis Status: Acute (3) Hypomagnesemia replaced Status: Acute (4) Severe sepsis ruled out Status: Acute 5. Severe protein calorie malnutrition 6. bed ridden status. 7. Leukocytosis most likely demargination given chronic steroid therapy Brief Hospital Course Allergies Allergies Coded Allergies Type Severity Reaction Last Updated Verified No Known Drug Allergies 04/30/14 No Vital Signs Vital Signs Date Time Temp Pulse Resp B/P (MAP) Pulse Ox O2 Delivery O2 Flow Rate FiO2 03/23/20 11:31 98.6 72 142/75 (97) 95 Room Air 98.6 03/23/20 07:00 16 Lab Results Laboratory Tests Test 03/21/20 16:00 03/22/20 08:31 03/23/20 11:30 03/23/20 12:31 Troponin I Quantitative < 0.017 ng/mL (0.000-0.055) Glucose (Fingerstick) 138 mg/dL (70-99) 165 mg/dL (70-99) White Blood Count 16.9 x10^3/uL (4.0-11.0) Red Blood Count 4.11 x10^6/uL (4.30-5.70) Hemoglobin 10.6 g/dL (13.0-17.5) Hematocrit 33.3 % (39.0-53.0) Mean Corpuscular Volume 81 fL (79-100) Mean Corpuscular Hemoglobin 26 pg (25-35) Mean Corpuscular Hemoglobin Concent 32 g/dL (31-37) Red Cell Distribution Width 20.4 % (11.5-14.5) Platelet Count 335 x10^3/uL (140-400) Neutrophils (%) (Auto) 75 % (31-73) Lymphocytes (%) (Auto) 21 % (24-48) Monocytes (%) (Auto) 4 % (0-9) Eosinophils (%) (Auto) 1 % (0-3) Basophils (%) (Auto) 0 % (0-3) Neutrophils # (Auto) 12.6 x10^3/uL (1.8-7.7) Lymphocytes # (Auto) 3.5 x10^3/uL (1.0-4.8) Monocytes # (Auto) 0.6 x10^3/uL (0.0-1.1) Eosinophils # (Auto) 0.1 x10^3/uL (0.0-0.7) Basophils # (Auto) 0.1 x10^3/uL (0.0-0.2) Sodium Level 139 mmol/L (136-145) Potassium Level 4.0 mmol/L (3.5-5.1) Chloride Level 111 mmol/L (98-107) Carbon Dioxide Level 20 mmol/L (21-32) Anion Gap 8 (6-14) Blood Urea Nitrogen 12 mg/dL (8-26) Creatinine 0.8 mg/dL (0.7-1.3) Estimated GFR (Cockcroft-Gault) 114.0 Glucose Level 165 mg/dL (70-99) Calcium Level 7.7 mg/dL (8.5-10.1) Laboratory Tests Test 03/23/20 11:30 03/23/20 12:31 White Blood Count 16.9 x10^3/uL (4.0-11.0) Red Blood Count 4.11 x10^6/uL (4.30-5.70) Hemoglobin 10.6 g/dL (13.0-17.5) Hematocrit 33.3 % (39.0-53.0) Mean Corpuscular Volume 81 fL (79-100) Mean Corpuscular Hemoglobin 26 pg (25-35) Mean Corpuscular Hemoglobin Concent 32 g/dL (31-37) Red Cell Distribution Width 20.4 % (11.5-14.5) Platelet Count 335 x10^3/uL (140-400) Neutrophils (%) (Auto) 75 % (31-73) Lymphocytes (%) (Auto) 21 % (24-48) Monocytes (%) (Auto) 4 % (0-9) Eosinophils (%) (Auto) 1 % (0-3) Basophils (%) (Auto) 0 % (0-3) Neutrophils # (Auto) 12.6 x10^3/uL (1.8-7.7) Lymphocytes # (Auto) 3.5 x10^3/uL (1.0-4.8) Monocytes # (Auto) 0.6 x10^3/uL (0.0-1.1) Eosinophils # (Auto) 0.1 x10^3/uL (0.0-0.7) Basophils # (Auto) 0.1 x10^3/uL (0.0-0.2) Sodium Level 139 mmol/L (136-145) Potassium Level 4.0 mmol/L (3.5-5.1) Chloride Level 111 mmol/L (98-107) Carbon Dioxide Level 20 mmol/L (21-32) Anion Gap 8 (6-14) Blood Urea Nitrogen 12 mg/dL (8-26) Creatinine 0.8 mg/dL (0.7-1.3) Estimated GFR (Cockcroft-Gault) 114.0 Glucose Level 165 mg/dL (70-99) Calcium Level 7.7 mg/dL (8.5-10.1) Glucose (Fingerstick) 165 mg/dL (70-99) Brief Hospital Course HISTORY OF PRESENT ILLNESS: The patient is a pleasant 75-year-old male who has advanced multiple sclerosis. Basically, he has had a Walls catheter for several years. He states he has been bedbound for 5 years. He normally has the catheter changed every month. He is due to have a change in a couple of days, but the catheter was causing some pain. He has got associated abdominal pain. It has been worsening over the past 24 hours, rates it at 9/10. He has some associated weakness. I discussed the case with ER physician, appears he does have a UTI. He also has a leukocytosis of 23,000 and a blood pressure of 70. I suspect he is septic. We are going to admit the patient and give him IV antibiotics and fluids. Patient was admitted to the medical floor where he was monitored closely. He received Rocephin as part of his initial treatment plan for empiric treatment of a suspected UTI. Urine culture was reported as colonization and normal di. Patient did not present severe hypotension not requiring pressors and she responded well to the supportive measures we provided here in the inpatient setting. I have a suspicion that the patient was also mildly dehydrated and had a component of hemoconcentration given the changes on CBC upon discharge. He was in good spirits to be going home and arrangements will be made to transition back to his environment and continue with his home health as previously arranged . No antibiotics are needed moving forward. No changes made to his medications either. All concerns addressed to the best of my abilities Physical Exam General: Alert, No acute distress Heart: Regular rate Lungs: Clear, Wheezing Abdomen: Normal bowel sounds Extremities: No clubbing, No cyanosis Skin: Other (Blisters present on B/L LEs) Discharge Information Condition at Discharge: Improved Follow Up: Weeks Disposition/Orders: D/C to Home w/ HH Scheduled Ascorbic Acid (Vitamin C) 500 Mg Tablet, 500 MG PO DAILY for supplement for 30 Days, #30 Prescribed by: JM GAO MD on 05/22/181304 Last Action: Continued on 03/23/201207 by CRISELDA OSUNA MD Baclofen (Baclofen) 20 Mg Tablet, 20 MG PO TID for , #90 Ref 2 (Reported) Entered as Reported by: SYED DUGAN on 08/18/17327 Last Action: Converted on 03/21/201807 by CHARLIE GALVEZ Ketoconazole (Ketoconazole) 15 Gm Cream..g., 1 EMILY TP DAILY for rash for 14 Days, #14 Prescribed by: JM GAO MD on 05/22/181304 Last Action: Continued on 03/23/201207 by CRISELDA OSUNA MD Lactobacillus Rhamnosus Gg (Culturelle) 1 Each Cap.sprink, 1 CAP PO BID for gut health for 14 Days, #28 Prescribed by: JM GAO MD on 05/22/181304 Last Action: Continued on 03/23/201207 by CRISELDA OSUNA MD Nystatin (Nystop) 60 Gm Powder, 1 EMILY TP BID for rash for 14 Days, #30 Prescribed by: JM GAO MD on 05/22/181304 Last Action: Continued on 03/23/201207 by CRISELDA OSUNA MD [place]-3S/Dha/Epa/Fish Oil/D3 (Fish Oil + D3 Softgel) 1 Each Capsule, 1 EACH PO DAILY, (Reported) Entered as Reported by: SYED DUGAN on 08/18/17327 Last Action: HELD on 03/23/201207 by CRISELDA OSUNA MD Oxybutynin Chloride (Oxybutynin Chloride Er) 5 Mg Tab.er.24, 1 TAB PO DAILY, #30 Ref 5 (Reported) Entered as Reported by: AMAYA FRAZIER on 04/08/16 0650 Last Action: Converted on 03/21/201807 by CHARLIE GALVEZ Polyethylene Glycol 3350 (Polyethylene Glycol 3350) 17 Gm Powd.pack, 17 GM PO DAILY for constipation for 14 Days, #14 Prescribed by: JM GAO MD on 05/22/18 1305 Last Action: Continued on 03/23/201207 by CRISELDA OSUNA MD Prednisone (Prednisone) 20 Mg Tablet, 20 MG PO BID for , (Reported) Entered as Reported by: SYED DUGAN on 08/18/17 0328 Last Action: Continued on 03/21/201807 by CHARLIE GALVEZ Triamterene/Hydrochlorothiazid (Triamterene-Hctz 37.5-25 Mg Tb) 1 Each Tablet, 1 TAB PO DAILY for bp for 28 Days, #28 Prescribed by: JM GAO MD on 05/22/18 130 Last Action: Continued on 03/23/201207 by CRISELDA OSUNA MD Zinc Sulfate (Zinc Sulfate) 220 Mg Capsule, 220 MG PO DAILY for supplement for 28 Days, #28 Prescribed by: JM GAO MD on 05/22/18 1305 Last Action: Continued on 03/23/201207 by CRISELDA OSUNA MD [Ceftriaxone Sodium] 1 GM VIAL, 1 GM IVP DAILY for sepsis for 1 Days, #1 Prescribed by: JM GAO MD on 05/22/18 1305 Last Action: HELD on 03/23/201207 by CRISELDA OSUNA MD Discontinued Medications Sulfamethoxazole/Trimethoprim (Bactrim Ds Tablet) 1 Each Tablet, 1 TAB PO BID for 10 Days, #20 Ref 0 Prescribed by: BELINDA NIXON D.O. on 01/16/201723 Last Action: HELD on 03/23/201207 by CRISELDA OSUNA MD Justicifation of Admission Dx: Justifications for Admission: Justification of Admission Dx: Yes Sepsis: Infection CRISELDA OSUNA MD Mar 23, 2020 14:40
[2020-03-23 15:26] VITALS: BP 134/79
[2020-03-23] MEDS ORDERED: MAGNESIUM SULFATE 2GM 50 ML IV ONE (16:00)
--- NOTE | 2020-03-23 17:01 | SNU/HH DC ---
DISCHARGE WITH HOME HEALTH DISCHARGE INFORMATION: Discharge Date: Mar 23, 2020 Final Diagnosis: Problems Medical Problems: (1) UTI ruled out Status: Acute (2) Hx of multiple sclerosis Status: Acute (3) Hypomagnesemia Status: Acute (4) Severe sepsis ruled out Status: Acute Condition on Discharge: Stable CODE STATUS: Code Status: Full HOME HEALTH: Face to Face: I certify this patient is under my care and that I, or a nurse practitioner or physician's salon assistant working with me, had a face to face encounter that meets the physician face to face encounter requirements with this patient on []. Medical Complications: Other (Bed ridden status due to Multiple Sclerosis) RN For Eval/Treatment: Yes Physical Therapy For: Evalulation/Treatment Pt Meets Homebound Status: Other: (bed bound status due to MS) POST DISCHARGE ORDERS: Activity Instructions for Disc: Resume previous activity DIET AFTER DISCHARGE: ADA Wound/Incision Care: No wound care needed CHECKS AFTER DISCHARGE: Checks after discharge: Check blood press - daily, Check blood sugar, ac/hs TREATMENT/EQUIPMENT ORDERS: Adaptive Equipment Issued: Bath Bench, Commode, Grab bars, Hand held shower CERTIFICATION STATEMENT: Certification Statement: Certification Statement: Based on the above finding, I certify that this patient is confined to the home and needs intermittent retirement care, physical therapy and/or speech therapy, or continues to need occupational therapy.~ This patient is under my care, and I have initiated the establishment of the plan of care.~ This patient will be followed by myself or a community physician who will periodically review the plan of care. Home Meds Active Scripts Lactobacillus Rhamnosus Gg (CULTURELLE) 1 Each Cap.sprink, 1 CAP PO BID for gut health for 14 Days, #28 CAP Prov:JM GAO MD 05/22/18 Ascorbic Acid (VITAMIN C) 500 Mg Tablet, 500 MG PO DAILY for supplement for 30 Days, #30 TAB Prov:JM GAO MD 05/22/18 Nystatin (NYSTOP) 60 Gm Powder, 1 EMILY TP BID for rash for 14 Days, #30 MISC Prov:JM GAO MD 05/22/18 Ketoconazole (KETOCONAZOLE) 15 Gm Cream..g., 1 EMILY TP DAILY for rash for 14 Days, #14 EACH Prov:JM GAO MD 11/6/18 Polyethylene Glycol 3350 (POLYETHYLENE GLYCOL 3350) 17 Gm Powd.pack, 17 GM PO DAILY for constipation for 14 Days, #14 PKT Prov:JM GAO MD 05/22/18 Zinc Sulfate (ZINC SULFATE) 220 Mg Capsule, 220 MG PO DAILY for supplement for 28 Days, #28 CAP Prov:JM GAO MD 05/22/18 Triamterene/Hydrochlorothiazid (TRIAMTERENE-HCTZ 37.5-25 MG TB) 1 Each Tablet, 1 TAB PO DAILY for bp for 28 Days, #28 TAB Prov:JM GAO MD 05/22/18 [cefTRIAXone IV Push] 1 GM VIAL No Conflict Check, 1 GM IVP DAILY for sepsis for 1 Day, #1 EACH Prov:JM GAO MD 05/22/18 Reported Medications [place]-3S/Dha/Epa/Fish Oil/D3 (FISH OIL + D3 SOFTGEL) 1 Each Capsule, 1 EACH PO DAILY, CAP 08/18/17 Prednisone (PREDNISONE) 20 Mg Tablet, 20 MG PO BID for , TAB 08/18/17 Baclofen (BACLOFEN) 20 Mg Tablet, 20 MG PO TID for , #90 TAB 2 Refills 08/18/17 Oxybutynin Chloride (OXYBUTYNIN CHLORIDE ER) 5 Mg Tab.er.24, 1 TAB PO DAILY, #30 TAB 5 Refills 04/08/16 Discontinued Scripts Sulfamethoxazole/Trimethoprim (BACTRIM DS TABLET) 1 Each Tablet, 1 TAB PO BID for 10 Days, #20 TAB 0 Refills Prov:BELINDA NIXON DO 01/16/20 CRISELDA OSUNA MD Mar 23, 2020 17:01
[2020-03-23 19:12] VITALS: BP 129/81
--- NOTE | 2020-03-23 20:00 | NUR ---
EMS CAME TO GET PT TO TAKE HIM HOME. ACTIVITY COORDINATOR AND LEADS WERE REMOVED. HIS IV WAS REMOVED WELL NO COMPLICATIONS OR BLEEDING. TWO BAGS OF BELONGING WERE GIVEN TO PT AND HIS DISCHARGE PAPERS WERE GONE OVER WITH PT AND PLACED IN HIS GREEN BAG. PT WAS SO EXCITED TO GO HOME HE SAID I CAN SLEEP IN MY OWN BED WITH MY LITTLE . KEMARN
--- NOTE | 2020-03-25 04:39 | EKG ---
[facility] [address] [place] [address] Test Date: 2020-03-21 Test Time: 06:00:04 Pat Name: ALFRED HUDSON Department: Room: Gender: M Organization Development Consultant: : 1945 Requested By: KATHI YU Order Number: [id number] Reading MD: Measurements Intervals [place] Rate: 122 P: 34 KS: 138 QRS: 29 QRSD: 70 T: 69 QT: 304 QTc: 434 Interpretive Statements SINUS TACHYCARDIA ATRIAL PREMATURE COMPLEX(ES) LEFT ATRIAL ABNORMALITY LOW LIMB LEAD VOLTAGE ABNORMAL ECG RI6.02 No previous ECG available for comparison
== END 2020-03-23 19:45 | disposition home health service (06) | DRG 640 ==
LOC: ER 05:45 → 2 NORTH 07:30
PROVIDERS: ADMIT Internal Medicine; ATTEND Internal Medicine
DX: E86.0 Dehydration (principal); E43 Unspecified severe protein-calorie malnutrition; E11.9 Type 2 diabetes mellitus without complications; E78.00 Pure hypercholesterolemia, unspecified; E78.5 Hyperlipidemia, unspecified; E83.42 Hypomagnesemia; G35 Multiple sclerosis; I10 Essential (primary) hypertension; Z79.52 Long term (current) use of systemic steroids; Z83.3 Family history of diabetes mellitus; Z87.440 Personal history of urinary (tract) infections; Z74.01 Bed confinement status; Z68.26 Body mass index [BMI] 26.0-26.9, adult; Z79.899 Other long term (current) drug therapy
CPT/HCPCS: 36415; 51702; 80048; 80053; 81001; 82962; 83605; 83735; 84484; 85007; 85025; 87040; 87086; 93005; 96361; 96365; 96367; 99291; J0696; J2543; J3475; J7030; J7512; G0378